=== PATIENT | male | born 1950 | race Caucasian/White ===

== ENCOUNTER 2016-12-27 14:17 | Outpatient (CLI) ==
[2015-07-07 15:14] VITALS: BMI 36.9
--- NOTE | 2016-12-27 15:50 | DI ---
EXAM: PA and lateral views of the chest HISTORY: Shortness of breath COMPARISON: Chest x-ray 10/15/2014 FINDINGS: The cardiomediastinal silhouette is normal. Multiple calcified lymph nodes are present. There is no pneumothorax or pleural effusion. There is no consolidation, nodule or mass. There is mild hyperinflation. The osseous structures demonstrate multilevel degenerative disease of the spin e with compression deformity in the lower thoracic spine. IMPRESSION: Mild hyperinflation with no acute consolidation. There are scattered mediastinal lymph nodes.
--- NOTE | 2016-12-27 15:52 | US ---
EXAM: ULTRASOUND CAROTID DUPLEX, BILATERAL HISTORY: Dizziness FINDINGS: Montejo-scale ultrasound, color Doppler and spectral analysis was performed. Velocities are in meters per second. By montejo scale and color Doppler imaging, there appears to be only minimal intimal thickening and sc attered atherosclerotic plaque in both carotid systems, including the bulbs and internal carotid art eries. RIGHT: External carotid artery peak systolic velocity: 1.8 Common carotid artery peak systolic velocity/end diastolic velocity: 0.8/0.1 Internal carotid artery peak systolic velocity: 0.8 ICA/CCA peak systolic velocity ratio: 1.0 ICA end diastolic velocity: 0.2 LEFT: External carotid artery peak systolic velocity: 1.2 Common carotid artery peak systolic velocity/end diastolic velocity: 0.7/0.2 Internal carotid artery peak systolic velocity: 0.8 ICA/CCA peak systolic velocity ratio: 1.1 ICA end diastolic velocity: 0.2 The right vertebral artery was not seen. The left vertebral artery was antegrade. IMPRESSION: 1. By montejo scale and color Doppler imaging, there appears to be only minimal intimal thickening and scattered atherosclerotic plaque in both carotid systems, including the bulbs and internal carotid arteries. 2. Internal carotid artery peak systolic velocities and ICA/CCA peak systolic velocity ratios indic ate no hemodynamically significant stenosis bilaterally. 3. The right vertebral artery was not seen possibly secondary to technical difficulty, small calibe r of the vessel or occlusion. The left vertebral artery was antegrade.
== END 2016-12-27 14:18 | disposition home or self-care (01) ==
LOC: RAD 14:17
PROVIDERS: ATTEND Internal Medicine
DX: R06.02 Shortness of breath (principal); R00.2 Palpitations; R42 Dizziness and giddiness

== ENCOUNTER 2016-12-28 06:35 | Outpatient (CLI) ==
[2015-07-07 15:14] VITALS: BMI 36.9
--- NOTE | 2016-12-31 10:48 | ECHO2D ---
Date of Exam: 12/28/16 Ordering Physician: LANNY VOGT Reason for Echo: SOB, A-FIB, PALPITATIONS M-Mode Normal Adult Results LV Dimensions Normal Adult Results AoV Opening excursions >1.6 1.2 LVEDD-base- 3.5-5.8 5.4 Ao root dimensions 2.0-3.7 4.4 LVESD-base- 3.1-4.6 L. Atrium dimensions 1.9-3.8 6.3 Post. Wall thickness 0.8-1.1 1.3 IV septum (thickness) 0.7-1.2 1.3 Post. Wall excursion 0.72-1.3 NORMAL Septal motion NORMAL Systolic motion R. Ventricular cavity 1.5-2.0 3.0 LVEF 60% 47% Paradoxical septal wall motion NORMAL 2-D : ENLARGED LEFT ATRIAL AND RIGHT VENTRICLE CAVITIES--NORMAL LEFT VENTRICULAR CONTRACTILITY--CALCIFIC AORTIC VALVE WITH STENOSIS--NO EFFUSION, NO THROMBUS DIFFICULT STUDY--BODY HABITUS M-MODE: MV: CALCIFIC ANNULUS AV: CALCIFIC VALVES--STENOSIS TV: NORMAL PV: CHAMBER SIZE: ENLARGED LEFT ATRIAL AND RIGHT VENTRICLE CAVITIES WALL MOTION: NORMAL PERICARDIUM: NORMAL INTERPRETATION: 1. LEFT VENTRICULAR HYPERTROPHY WITH ENLARGED LEFT ATRIAL CAVITY 2. NORMAL LEFT VENTRICLE CAVITY 3. ENLARGED RIGHT VENTRICLE CAVITY 4. CALCIFIC AORTIC STENOSIS--DIFFICULT TO DETERMINE THE AREA, SEEMS LIKE MODERATE TO SEVERE COMPLETE ECHO WITH DOPPLER TO BE ORDERED. DISCUSSED WITH PATIENT AND HIS . FELIX
== END 2016-12-28 06:36 | disposition home or self-care (01) ==
LOC: CAR 06:35
PROVIDERS: ATTEND Internal Medicine
DX: I48.91 Unspecified atrial fibrillation (principal); R06.02 Shortness of breath; R00.2 Palpitations

== ENCOUNTER 2016-12-31 06:31 | Outpatient (CLI) ==
[2015-07-07 15:14] VITALS: BMI 36.9
[2016-12-31] MEDS ORDERED: DOBUTAMINE 250 ML IV ONE (08:05)
[2016-12-31] MEDS ORDERED: ATROPINE SULFATE PFS ONE (08:05)
--- NOTE | 2016-12-31 11:17 | NM ---
Cardiac Stress Test HISTORY: Atrial fibrillation. COMPARISON: 03/30/2015. TECHNIQUE: Resting: The patient was injected with 4.03 millicuries of thallium 201 chloride intravenously aft er which a "resting" SPECT study of the heart was performed. Stress: The patient was stressed pharmacologically with dobutamine and at the appropriate time inje cted with 26.3 millicuries of 99m technetium Sestamibi (Cardiolite) after which a "stress" SPECT arielle dy of the heart was performed. Gated images of the heart were also obtained to assess wall motion an d calculate ejection fraction. For details of the stress protocol employed, reference is made to th e separate report of the performing physician. FINDINGS: The stress perfusion images demonstrate a generally uniform distribution of activity in t he left ventricular myocardium. The resting perfusion images demonstrate no evidence of significant redistribution/ischemia. The left ventricular ejection fraction (LVEF) is 67%. The previous ejection fraction was 62%. The left ventricular wall motion is within normal limits. IMPRESSION: 1. Left ventricular myocardial perfusion is within normal limits. 2. The left ventricular ejection fraction (LVEF) is 67%. The previous ejection fraction was 62%. 3. The left ventricular wall motion is within normal limits.
--- NOTE | 2017-01-01 11:28 | DOBSTECHO ---
Ordering Physician: LANNY VOGT Date of Test: 12/31/16 Reason for Examination: A-FIB, PALPITATIONS, SOB Current Medications: BUDESONIDE, SYNTHROID, CRESTOR, CARVEDILOL, COUMADIN, METFORMIN, FUROSEMIDE, CYMBALTA, ZETIA, FENOFIBRATE, GABAPENTIN Height: 78" Weight: 341 LBS Target Heart Rate: 130/154 ST Segment Stage Time HR BPM BP mmhg Rhythm +/- Up Down Comments/Symptoms Control Sitting 72 140/76 A-FIB X NONE Dobutamine 250mg/D5W 5cmg/KG/mn 2" 90 A-FIB X NONE 10cmg/KG/mn 3" 95 180/70 A-FIB X NONE 15cmg/KG/mn 1" 94 182/66 A-FIB X NONE 20cmg/KG/mn 2" 109 A-FIB X NONE 25cmg/KG/mn 2" 112 A-FIB X NONE 30cmg/KG/mn :54 131 A-FIB X NONE 35cmg/KG/mn 40cmg/KG/mn Time: 3 HR B/P Time: 7 HR B/P Time: 10 HR B/P Recovery 114 172/100 Recovery 94 146/84 Recovery 92 Total Time: 10:54 Maximum Heart Rate Reached: 131 Interpretation: 1. NO EVIDENCE OF ISCHEMIA BY ST-T WAVE 2. NO CHEST PAIN OR CHEST DISCOMFORT 3. LEFT VENTRICULAR CONTRACTILITY--NORMAL AT REST/AND WITH DOBUTAMINE INFUSION SESTAMIBI (CARDIOLITE) TO FOLLOW MTDD
--- NOTE | 2017-01-01 11:33 | ECHOSTRESS ---
Date of Exam: 12/31/16 Ordering Physician: LANNY VOGT Reason for Echo: SOB, A-FIB, PALPITATIONS, DOBUTAMINE STRESS TEST--NO ISCHEMIA M-Mode Normal Adult Results LV Dimensions Normal Adult Results AoV Opening excursions >1.6 LVEDD-base- 3.5-5.8 Ao root dimensions 2.0-3.7 LVESD-base- 3.1-4.6 L. Atrium dimensions 1.9-3.8 Post. Wall thickness 0.8-1.1 IV septum (thickness) 0.7-1.2 Post. Wall excursion 0.72-1.3 Septal motion Systolic motion R. Ventricular cavity 1.5-2.0 LVEF 60% Paradoxical septal wall motion 2-D: NORMAL LEFT VENTRICULAR CONTRACTILITY--RESTING AND DURING DOBUTAMINE INFUSION M-MODE: MV: AV: TV: PV: CHAMBER SIZE: WALL MOTION: NORMAL LEFT VENTRICULAR CONTRACTILITY--RESTING AND DURING DOBUTAMINE INFUSION PERICARDIUM: INTERPRETATION: 1. NORMAL LEFT VENTRICULAR CONTRACTILITY--RESTING AND DURING DOBUTAMINE INFUSION VERY DIFFICULT STUDY MTDD
--- NOTE | 2017-01-03 09:50 | HOLTER ---
PATIENT INFORMATION AND COMMENTS Indications: SOB, A-FIB, PALPITATIONS __ Patient Medications: ALBUTEROL, PULMICORT, SYNTHROID, OMEGA 3, CRESTOR, CARVEDILOL, COUMADIN, ASPIRIN, CILOSTAZ, METFORMIN, FUROSEMIDE, BUPROPLONEX, DICYCLOMINE __ Pre-procedure Summary: Protocol: Standard Heart Rate Started: 12/31/16957 Minimum: 40 BPM Weight: 340 LBS Ended: 01/01/17957 Maximum: 168 BPM Height: 78" Duration: 24 HOURS Average: 82 BPM _ INTERPRETATIONS/OBSERVATIONS: 1. BASIC RHYTHM: ATRIAL FIBRILLATION, RATE 40 TO 160/ BPM, AVERAGE 85/BPM 2. RARE PVC'S 3. THREE PAUSES GREATER THAN 2.5 SECONDS--LONGEST PAUSE 3.[address]-T WAVE CHANGES FROM BASELINE 5. ACTIVITY LOG NOT MAINTAINED MTDD
== END 2016-12-31 06:32 | disposition home or self-care (01) ==
LOC: CAR 06:31
PROVIDERS: ATTEND Internal Medicine
DX: R06.02 Shortness of breath (principal); I48.91 Unspecified atrial fibrillation; R00.2 Palpitations

== ENCOUNTER 2017-01-11 08:29 | Outpatient (CLI) ==
[2015-07-07 15:14] VITALS: BMI 36.9
--- NOTE | 2017-02-13 11:17 | CARDEVENT ---
SUMMARY OF EVENTS Date of Transmission 01/11/17921 ATRIAL FIB/FLUTTER 01/30/17 0156 ATRIAL FIB/FLUTTER WITH 2.7 SECOND PAUSE 01/30/17 0204 ATRIAL FIB/FLUTTER WITH 2.2 SECOND PAUSE INTERPRETATIONS: 1. BASIC RHYTHM--ATRIAL FIBRILLATION, RATE 40 BPM TO 150 BPM 2. LONGEST PAUSE 2.7 SECONDS AT 0156 A.M. --HEART RATE OF 40 BPM NOTED AT EARLY A.M. MTDD
== END 2017-01-11 08:30 | disposition home or self-care (01) ==
LOC: CAR 08:29
PROVIDERS: ATTEND Internal Medicine
DX: I48.91 Unspecified atrial fibrillation (principal)

== ENCOUNTER 2017-11-14 08:06 | Outpatient (CLI) ==
[2015-07-07 15:14] VITALS: BMI 36.9
--- NOTE | 2017-11-14 09:13 | US ---
EXAM: Ultrasound abdomen limited. HISTORY: Abdominal pain and bloating. COMPARISON: None available. TECHNIQUE: Abdominal, real time with image documentation: limited (eg, single organ, quadrant, foll ow-up) FINDINGS: The liver demonstrates increased parenchymal echogenicity without intrahepatic biliary dil atation. Portal venous flow is normal in direction. The gallbladder is without shadowing stones, wa ll thickening or pericholecystic fluid. Common duct measures approximately 0.3 cm. Pancreas is not seen due to bowel gas. IMPRESSION: Hyperechoic, coarsened hepatic echotexture which could be due to fatty infiltration or other infiltra tive process.
== END 2017-11-14 08:07 | disposition home or self-care (01) ==
LOC: RAD 08:06
PROVIDERS: ATTEND Internal Medicine
DX: R10.11 Right upper quadrant pain (principal)

== ENCOUNTER 2017-11-18 08:02 | Outpatient (CLI) ==
[2015-07-07 15:14] VITALS: BMI 36.9
--- NOTE | 2017-11-18 10:27 | NM ---
EXAM: Hepatobiliary imaging HISTORY: Right upper quadrant pain COMPARISON: Limited abdominal ultrasound on 11/14/2017 showed fatty liver. TECHNIQUE: Patient was injected 5.1 mCi of technetium 99m mebrofenin intravenously. Multiple anterio r scintigraphic images of the right upper quadrant region of the abdomen were obtained up to 1 hour i nterval. Patient was subsequently infused 2 mcg of Kinevac intravenously. Gallbladder ejection frac tion was calculated. FINDINGS: There is normal visualization of liver, gallbladder, bile duct and small bowel loops. Gall bladder ejection fraction is 61%. IMPRESSION: Normal study
== END 2017-11-18 08:03 | disposition home or self-care (01) ==
LOC: RAD 08:02
PROVIDERS: ATTEND Internal Medicine
DX: R10.11 Right upper quadrant pain (principal)

== ENCOUNTER 2018-01-07 08:59 | Outpatient (CLI) ==
[2015-07-07 15:14] VITALS: BMI 36.9
== END 2018-01-07 09:00 | disposition home or self-care (01) ==
LOC: CAR 08:59
PROVIDERS: ATTEND Internal Medicine
DX: G47.30 Sleep apnea, unspecified (principal)
CPT/HCPCS: 94761

== ENCOUNTER 2020-11-24 12:18 | Inpatient (IN) ==
[2020-11-24] MEDS ORDERED: VENTOLIN HFA (PER PUFF-WITH SPACER) IH ONE (13:17)
[2020-11-24] MEDS ORDERED: ATROVENT HFA INHALER (PER PUFF-WITH SPACER) IH STA (13:18)
[2020-11-24] MEDS ORDERED: SODIUM CHLORIDE 1,000 ML IV STA (13:24)
--- NOTE | 2020-11-24 13:33 | ED.PDOC ---
General ED Provider: Dr. LILY PALMA Chief Complaint: Fever Stated Complaint: Cough and congestion, dyspnea, hx throat cancer; has trach; hx COPD Recent dx of COVID Markedly congested and dyspneic at rest. Lives at home with his who also has positive COVID infection Time Seen by Physician: 12:45 Mode of Arrival: Wheelchair Information Source: Patient Primary Care Provider: LANNY VOGT Nursing and Triage Documentation Reviewed and Agree: Yes Does patient meet sepsis criteria?: No System Inflammatory Response Syndrome: Resp >20/Minute Sepsis Protocol: For patient's 13 years and over: Temp is 96.8 and below OR 101 and greater Pulse >90 BPM Resp >20/minute Acutely Altered Mental Status Are patient's symptoms suggestive of a new infection, such as: -Pneumonia -Skin, Soft Tissue -Endocarditis -UTI -Bone, Joint Infection -Implantable Device -Acute Abdominal Infection -Wound Infection -Meningitis -Blood Stream Catheter Infection -Unknown Respiratory Complaint Exam Shortness of Air Complaint/Exam Onset/Duration: Progressively worsened over past 24 hrs Symptoms Are: Worse Timing: Intermittent Initial Severity: Moderate Current Severity: Moderate Character: Reports Dyspnea at rest and Dyspnea on exertion Aggravating: Reports Deep breaths Alleviating: Reports None Associated Signs and Symptoms: Reports Cough and Wheezing History of Healthcare-Acquired Pneumonia: No Pulmonary Embolism Risk Factors: Reports Malignancy Pseudomonas Risk Factors: Reports None Tuberculosis Risk Factors: Reports None Home Oxygen Use: Yes Recent Stress Test: No Recent Echo/LV Function: No Respiratory Distress: Mild Stridor Present: No Tracheal Deviation: No Subcutaneous Emphysema: No Accessory Muscle Use: No Retractions: Not Present Diminished Breath Sounds: Yes Prolonged Expiratory Phase: No Unable to Speak Full Sentences: Yes Fatigue: Yes Leg Swelling: No Mesfin's Sign Present: No Grunting Respirations: No Kussmaul Respirations: No Differential Diagnoses: Pneumonia, Pulmonary Embolism and Bronchospasm Review of Systems Review Of Systems Constitutional: Reports Malaise, Weakness and Loss of appetite Eyes: Reports No symptoms Ears, Nose, Mouth, Throat: Reports No symptoms Respiratory: Reports Cough, Short of air and Wheezing Cardiac: Reports No symptoms GI: Reports Poor appetite : Reports No symptoms Musculoskeletal: Reports No symptoms Skin: Reports No symptoms Neurological: Reports No symptoms Endocrine: Reports No symptoms Hematologic/Lymphatic: Reports No symptoms All Other Systems: Reviewed and Negative [facility] Medical History (Updated 11/24/20 @ 17:53 by LILY PALMA DO) Chronic laryngitis Social History Smoking and tobacco status: Current every day smoker Physical Exam Physical Exam Appearance: Reports Ill-appearing Ill-appearing: Moderate Pain Distress: Mild Eyes: Reports ASHLEY, EOMI and Conjunctiva clear ENT: Reports Ears normal, Nose normal and Oropharynx normal Neck: Supple Respiratory: Reports Breath sounds diminished, Crackles and Wheezes Cardiovascular: Reports RRR, Pulses normal, No rub and No murmur GI/: Reports Soft, Nontender, No masses, Bowel sounds normal, No Organomegaly and Other (Has G tube) Musculoskeletal: Reports Normal strength, ROM intact, No edema and No calf tenderness Skin: Reports Warm, Dry and Normal color Neurological: Reports Sensation intact, Motor intact, Reflexes intact, Cranial nerves intact, Alert and Oriented Psychiatric: Reports Affect appropriate and Mood appropriate Interpretation Radiology Interpretation Exam Interpreted: CXR (mild infiltrate in the central and lower lung zones which are new since the prior study and may represent a degree of vascular congestion/interstitial edema or pneumonia) and CT Scan (Possible single right lower lobe subsegmental pulmonary embolus versus artifact. No other pulmonary arterial filling defect. 2. Patchy bilateral ground-glass opacities suggest multifocal pneumonia. Follow-up to resolution recommended. 3. Peribronchial thickening with multifocal likely mucus plug) Physician Notification Case Discussed Physician Notified: Dr Vogt-will admit MS /Covid Protocol/ Time of Notification: 16:00 Physician Notified: Dr Vogt-results CT PE Protocol; admit/ transfusion-Lovenox after transfusi Time of Notification: 17:30 Critical Care Note Critical Care Note Total Critical Care Time (mins): 60 Course Course Hematology/Chemistry: 11/24/20 13:12 11/24/20 13:12 Orders, Labs, Meds: Lab Review 11/24/20 11/24/20 11/24/20 12:43 13:12 13:12 WBC 2.38 L RBC 2.70 L Hgb 7.9 L Hct 24.0 L MCV 88.9 MCH 29.3 MCHC 32.9 RDW Coeff of Sumeet 19.4 H Plt Count 201 Immature Gran % (Auto) 0.4 Neut % (Auto) 74.4 Lymph % (Auto) 11.8 Stephenson % (Auto) 13.0 H Eos % (Auto) 0.4 Baso % (Auto) 0.0 Neut # (Auto) 1.8 L Lymph # (Auto) 0.3 L Stephenson # (Auto) 0.3 L Eos # (Auto) 0.0 Baso # (Auto) 0.0 Immature Gran # (Auto) 0.0 PT 11.5 H INR 1.08 APTT 28.2 Puncture Site Rrad Base Excess 7.0 H O2 Saturation 98.3 H ABG pH 7.48 H ABG pCO2 41.0 ABG pO2 102.0 H ABG HCO3 30.5 H ABG Total CO2 31.8 H Renzo Test + Hemoglobin 0.9 Oxyhemoglobin 96.4 Carboxyhemoglobin 2.3 H Total Hemoglobin 7.9 L O2 Delivery Device Trach mask Oxygen Liter Flow 10.00 Sodium Potassium Chloride Carbon Dioxide Anion Gap BUN Creatinine Estimated GFR (MDRD) BUN/Creatinine Ratio Glucose Lactic Acid Calcium Magnesium Total Bilirubin AST ALT Alkaline Phosphatase Total Creatine Kinase Troponin I Total Protein Albumin Globulin Albumin/Globulin Ratio Procalcitonin D-Dimer Blood Type Antibody Screen Crossmatch ([facility]) 11/24/20 11/24/20 11/24/20 13:12 13:12 13:12 WBC RBC Hgb Hct MCV MCH MCHC RDW Coeff of Sumeet Plt Count Immature Gran % (Auto) Neut % (Auto) Lymph % (Auto) Stephenson % (Auto) Eos % (Auto) Baso % (Auto) Neut # (Auto) Lymph # (Auto) Stephenson # (Auto) Eos # (Auto) Baso # (Auto) Immature Gran # (Auto) PT INR APTT Puncture Site Base Excess O2 Saturation ABG pH ABG pCO2 ABG pO2 ABG HCO3 ABG Total CO2 Renzo Test Hemoglobin Oxyhemoglobin Carboxyhemoglobin Total Hemoglobin O2 Delivery Device Oxygen Liter Flow Sodium 134.6 Potassium 4.20 Chloride 97.4 L Carbon Dioxide 31.0 H Anion Gap 10.40 BUN 17.5 Creatinine 0.54 L Estimated GFR (MDRD) 150.00 BUN/Creatinine Ratio 32.40 Glucose 99.9 Lactic Acid 0.78 Calcium 8.97 Magnesium 1.87 Total Bilirubin 0.69 AST 108.3 H ALT 100.6 H Alkaline Phosphatase 75.3 Total Creatine Kinase 25.9 L Troponin I < 0.012 Total Protein 7.02 Albumin 3.38 L Globulin 3.64 Albumin/Globulin Ratio 0.92 Procalcitonin < 0.05 D-Dimer Blood Type Antibody Screen Crossmatch ([facility]) 11/24/20 11/24/20 11/24/20 13:12 13:12 17:10 WBC RBC Hgb Hct MCV MCH MCHC RDW Coeff of Sumeet Plt Count Immature Gran % (Auto) Neut % (Auto) Lymph % (Auto) Stephenson % (Auto) Eos % (Auto) Baso % (Auto) Neut # (Auto) Lymph # (Auto) Stephenson # (Auto) Eos # (Auto) Baso # (Auto) Immature Gran # (Auto) PT INR APTT Puncture Site Base Excess O2 Saturation ABG pH ABG pCO2 ABG pO2 ABG HCO3 ABG Total CO2 Renzo Test Hemoglobin Oxyhemoglobin Carboxyhemoglobin Total Hemoglobin O2 Delivery Device Oxygen Liter Flow Sodium Potassium Chloride Carbon Dioxide Anion Gap BUN Creatinine Estimated GFR (MDRD) BUN/Creatinine Ratio Glucose Lactic Acid Calcium Magnesium Total Bilirubin AST ALT Alkaline Phosphatase Total Creatine Kinase Troponin I Total Protein Albumin Globulin Albumin/Globulin Ratio Procalcitonin D-Dimer 1266.21 H Blood Type O POSITIVE O POSITIVE Antibody Screen Negative Crossmatch ([facility]) See Detail Orders Category Date Time Status ABG DRAW REQUEST Stat CARDIO 11/24/20 12:43 Completed EKG-(ED ONLY) Stat CARDIO 11/24/20 12:44 Completed METERED DOSE INHALATION Routine CARDIO 11/24/20 13:17 Completed METERED DOSE INHALATION Routine CARDIO 11/24/20 13:18 Completed METERED DOSE INHALATION Routine CARDIO 11/24/20 17:08 Active OXYGEN Routine CARDIO 11/24/20 16:58 Active ACTIVITY .Complete BR CARE 11/24/20 17:00 Active CASE MANAGEMENT CONSULT ONCE CARE 11/24/20 17:20 Active INTAKE & OUTPUT Q8HR CARE 11/24/20 16:59 Active NPO REMINDER: IMAGING ONCE CARE 11/24/20 14:48 Active ORDER H&H 1HR POST TRANSFUSION ONCE CARE 11/24/20 16:51 Active PRBC LEUKOREDUCED ONCE CARE 11/24/20 16:51 Active IV [ED IV/MEDIPORT/POWERPORT] .ONCE EMERGENCY 11/24/20 12:44 Active ABG COOX Stat LAB 11/24/20 12:43 Completed BLOOD CULTURE (ED ONLY) Stat LAB 11/24/20 13:12 Received CBC W/ AUTO DIFF DAILY@0600 LAB 11/25/20 06:00 Ordered CBC W/ AUTO DIFF DAILY@0600 LAB 11/26/20 06:00 Ordered CBC W/ AUTO DIFF Stat LAB 11/24/20 13:12 Completed CMP [COMPREHENSIVE METABOLIC PANEL] Stat LAB 11/24/20 13:12 Completed COMPREHENSIVE METABOLIC PANEL DAILY@0600 LAB 11/25/20 06:00 Ordered COMPREHENSIVE METABOLIC PANEL DAILY@0600 LAB 11/26/20 06:00 Ordered CPK [CREATINE KINASE] Stat LAB 11/24/20 13:12 Completed D-DIMER Stat LAB 11/24/20 13:12 Completed LACTIC ACID Stat LAB 11/24/20 13:12 Completed MAGNESIUM Stat LAB 11/24/20 13:12 Completed PACKED CELLS Routine LAB 11/24/20 17:10 Results PARTIAL THROMBOPLASTIN TIME Stat LAB 11/24/20 13:12 Completed PROCALCITONIN Stat LAB 11/24/20 13:12 Completed PT WITH INR Stat LAB 11/24/20 13:12 Completed PT WITH INR Stat LAB 11/24/20 17:25 Ordered TROPONIN I Stat LAB 11/24/20 13:12 Completed TYPE AND SCREEN Routine LAB 11/24/20 17:10 Results UA [URINALYSIS C & S IF INDICATED] Stat LAB 11/24/20 12:44 Uncollected 0.9 % Sodium Chloride [Saline Flush] MEDS 11/24/20 12:43 Active 1 syr IVF PRN PRN Albuterol Inhaler(with Spacer) [Ventolin Hfa (Per Puff- MEDS 11/24/20 13:17 Discontinued with Spacer)] 2 puff IH ONCE ONE Albuterol Inhaler(with Spacer) [Ventolin Hfa (Per Puff- MEDS 11/24/20 21:00 Discontinued with Spacer)] 2 puff IH QID Albuterol Inhaler(with Spacer) [Ventolin Hfa (Per Puff- MEDS 11/24/20 20:00 Ordered with Spacer)] 2 puff IH RTQID Bupropion HCl [Wellbutrin Xl] MEDS 11/25/20 09:00 Ordered 300 mg PO QAM Carvedilol [Coreg] MEDS 11/25/20 08:30 Active 25 mg PO BIDWM Cholecalciferol (Vitamin D3) [Vitamin D] MEDS 11/24/20 17:30 Ordered 2,000 unit PO DAILY Dexamethasone Sod Phosphate [Decadron] MEDS 11/25/20 09:00 Discontinued 6 mg IVP DAILY Doxycycline Hyclate Inj [Doxy-100] 100 mg MEDS 11/24/20 21:00 Discontinued 0.9 % Sodium Chloride [Sodium Chloride] 100 ml IV Q12HR Duloxetine HCl [Cymbalta] MEDS 11/25/20 09:00 Ordered 60 mg PO DAILY Ezetimibe [Zetia] MEDS 11/25/20 09:00 Ordered 10 mg PO DAILY Ipratropium Inhaler(Spacer) [Atrovent Hfa Inhaler (Per MEDS 11/24/20 13:18 Discontinued Puff-with Spacer)] 2 puff IH ONCE STA Levothyroxine Sodium [Synthroid] MEDS 11/25/20 06:30 Ordered 75 mcg PO QDAC Potassium Chloride [Micro-K Cap] MEDS 11/25/20 09:00 Ordered 10 meq PO DAILY Remdesivir Solution [Remdesivir] 100 mg MEDS 11/25/20 09:00 Ordered 0.9 % Sodium Chloride [Sodium Chloride] 230 ml IV DAILY Remdesivir Solution [Remdesivir] 200 mg MEDS 11/24/20 17:03 Discontinued 0.9 % Sodium Chloride [Sodium Chloride] 210 ml IV ONCE Rosuvastatin Calcium [Crestor] MEDS 11/24/20 21:00 Ordered 20 mg PO BEDTIME Sodium Chloride 0.9% [Sodium Chloride] 1,000 ml MEDS 11/24/20 13:24 Active IV 70 mls/hr Sodium Chloride 0.9% [Sodium Chloride] 1,000 ml MEDS 11/25/20 09:00 Active IV DAILY Zinc Sulfate [Zinc-220] MEDS 11/24/20 21:00 Ordered 220 mg PO BID venlafaxine MEDS 11/24/20 21:00 Ordered 75 mg PO BID RESUSCITATION STATUS Routine OTHERS 11/24/20 16:58 Ordered CHEST, 1V AP ONLY Stat RADS 11/24/20 12:[address] CHEST PE PROTOCOL Stat RADS 11/24/20 14:48 Completed Medications Generic Name Dose Route Start Last Admin Trade Name Freq PRN Reason Stop Dose Admin Albuterol Sulfate 2 puff 11/24/20 20:00 Albuterol Sulfate (Ventolin Hfa) 18 Gm 1 Puff With Spacer IH RTQID BAY Bupropion HCl 300 mg 11/25/20 09:00 Bupropion Hcl 150 Mg Tab.Er.24h PO QAM BAY Carvedilol 25 mg 11/25/20 08:30 Carvedilol 12.5 Mg Tablet PO BIDWM BAY Cholecalciferol 2,000 unit 11/24/20 17:30 Cholecalciferol (Vitamin D3) 1,000 Unit Tablet PO DAILY BAY Dexamethasone Sodium Phosphate 6 mg 11/25/20 09:00 Dexamethasone Sod Phos 10 Mg/Ml Inj IVP DAILY BAY Duloxetine HCl 60 mg 11/25/20 09:00 Duloxetine Hcl 30 Mg Capsule.Dr PO DAILY BAY Ezetimibe 10 mg 11/25/20 09:00 Ezetimibe 10 Mg Tablet PO DAILY BAY Sodium Chloride 1,000 mls @ 70 mls/hr 11/24/20 13:24 11/24/20 12:35 Sodium Chloride IV 11/25/20 03:41 70 mls/hr .[id number] STA Administration Sodium Chloride 1,000 mls @ 125 mls/hr 11/25/20 09:[address] [facility] REMDESIVIR SOLUTION 100 mg/ 250 mls @ 250 mls/hr 11/25/20 09:00 Sodium Chloride IV DAILY BAY Doxycycline Hyclate 100 mg/ 100 mls @ 50 mls/hr 11/24/20 21:00 Sodium Chloride IV 11/27/20 20:59 Q12HR BAY Levothyroxine Sodium 75 mcg 11/25/20 06:30 Levothyroxine Sodium 100 Mcg Tablet PO QDAC BAY Non-Formulary Medication 75 mg 11/24/20 21:00 Venlafaxine PO BID BAY Potassium Chloride 10 meq 11/25/20 09:00 Potassium Chloride 10 Meq Capsule.Er PO DAILY BAY Rosuvastatin Calcium 20 mg 11/24/20 21:00 Rosuvastatin Calcium 10 Mg Tablet PO BEDTIME BAY Sodium Chloride 1 syr 11/24/20 12:43 11/24/20 12:35 0.9% Sodium Chloride 10 Ml Disp.Syrin IVF 1 syr PRN PRN Administration To flush IV Zinc Sulfate 220 mg 11/24/20 21:00 Zinc Sulfate 220 Mg Capsule PO BID BAY Discontinued Medications Generic Name Dose Route Start Last Admin Trade Name Freq PRN Reason Stop Dose Admin Albuterol Sulfate 2 puff 11/24/20 13:17 11/24/20 13:50 Albuterol Sulfate (Ventolin Hfa) 18 Gm 1 Puff With Spacer IH 11/24/20 13:18 2 puff ONCE ONE Administration Albuterol Sulfate 2 puff 11/24/20 21:00 Albuterol Sulfate (Ventolin Hfa) 18 Gm 1 Puff With Spacer IH QID BAY Dexamethasone Sodium Phosphate 6 mg 11/25/20 09:00 Dexamethasone Sod Phos 10 Mg/Ml Inj IVP DAILY BAY Doxycycline Hyclate 100 mg/ 100 mls @ 50 mls/hr 11/24/20 21:00 Sodium Chloride IV 11/27/20 20:59 Q12HR BAY REMDESIVIR SOLUTION 200 mg/ 250 mls @ 125 mls/hr 11/24/20 17:03 Sodium Chloride IV 11/24/20 19:02 ONCE ONE Ipratropium [place] 2 puff 11/24/20 13:18 11/24/20 13:50 Ipratropium [place] 12.9 Gm Hfa Inhaler Per Puff With Spacer IH 11/24/20 13:19 2 puff ONCE STA Administration Vital Signs: Temp Pulse Resp BP Pulse Ox 11/24/20 12:30 98.1 F 122 H 24 108/66 84 L Discharge Plan Discharge Patient Disposition: ADMITTED INPATIENT Discharge Problem: Bilateral interstitial pneumonia, COVID-19 virus infection, Anemia, Hx of laryngeal malignancy, Atrial fibrillation with RVR ED Provider: LILY PALMA Condition: Stable Physician Progress Note: []
[2020-11-24 13:41] LABS: EOSINOPHILS % (AUTO) 0.4 % (0.0-7.0); HEMOGLOBIN 7.9 g/dl (14.0-18.0); IMMATURE GRANULOCYTE % (AUTO) 0.4 % (0.0-5.0); LYMPHOCYTES % (AUTO) 11.8 (10.0-50.0); MEAN CORPUSCULAR HEMOGLOBIN 29.3 pg (27.0-31.0); MEAN CORPUSCULAR HGB CONC 32.9 (31.8-35.4); MEAN CORPUSCULAR VOLUME 88.9 fl (80.0-94.0); MONOCYTES # (AUTO) 0.3 K/uL (0.4-2.0); NEUTROPHILS # (AUTO) 1.8 K/ul (2.0-6.9); NEUTROPHILS % (AUTO) 74.4 % (42.2-75.2); PLATELET COUNT 201 10^3/uL (140-440); RDW COEFFICIENT OF VARIATION 19.4 % (11.6-14.8); WHITE BLOOD COUNT 2.38 K/ul (4.2-10.2)
--- NOTE | 2020-11-24 13:42 | DI ---
EXAM: CHEST FRONTAL VIEW HISTORY: Shortness of breath and congestion. COMPARISON: 08/15/2020 FINDINGS: Prominent heart size. There is a right port catheter in place ending over the superior ve na cava. Multiple hilar densities are noted suggesting calcified lymph nodes. There is mild infiltr ate in the central and lower lung zones which are new since the prior study and may represent a degre e of vascular congestion/interstitial edema or pneumonia. Correlate clinically. There is no pneumot horax or visible pleural fluid. IMPRESSION: There is mild infiltrate in the central and lower lung zones which are new since the asaf or study and may represent a degree of vascular congestion/interstitial edema or pneumonia. Correlat e clinically.
[2020-11-24 13:52] LABS: ALANINE AMINOTRANSFERASE 100.6 U/L (0-50); ALBUMIN 3.38 g/dL (3.5-5.0); ALKALINE PHOSPHATASE 75.3 U/L (56-119); ASPARTATE AMINO TRANSFERASE 108.3 U/L (17-59); BILIRUBIN,TOTAL 0.69 mg/dL (0.2-1.3); BLOOD UREA NITROGEN 17.5 mg/dL (9-20); CALCIUM 8.97 mg/dL (8.4-10.2); CHLORIDE 97.4 mmol/L (98-107); CREATINE KINASE 25.9 U/L (55-170); CREATININE 0.54 mg/dL (0.60-1.10); GLUCOSE 99.9 mg/dL (74-106); MAGNESIUM 1.87 mg/dL (1.6-2.3); SODIUM 134.6 mmol/L (134.5-145); TOTAL PROTEIN 7.02 g/dL (6.3-8.2)
[2020-11-24 13:58] LABS: LYMPHOCYTES # (AUTO) 0.3 K/uL (0.60-3.4)
[2020-11-24 14:03] LABS: TROPONIN I < 0.012 ng/ml (0.0000-0.120)
[2020-11-24 14:06] LABS: PARTIAL THROMBOPLASTIN TIME 28.2 SEC (23.9-40.0); PROTHROMBIN TIME 11.5 SEC (9.3-11.0)
[2020-11-24 14:13] LABS: ABG PH 7.48 (7.35-7.45)
--- NOTE | 2020-11-24 16:20 | CT ---
EXAM: CTA chest with contrast HISTORY: Shortness of breath, positive D-dimer TECHNIQUE: Multi-slice transaxial helical PE protocol. Multiplanar MIP and 3D volume rendered image s are provided. COMPARISON: None FINDINGS: Tracheostomy tube terminates above the shannon. Visualized thyroid is unremarkable. Enlarged right u pper paratracheal lymph node measures 1.6 cm short axis. Subcarinal lymph nodes measure up to 1.2 cm short axis. A few other mildly prominent nonenlarged mediastinal lymph nodes are present. Left hil ar lymph node measures 1.4 cm short axis. Bilateral hilar and subcarinal calcified lymph nodes/granu juan daniel, consistent with old granulomatous disease. Small hypodense filling defect versus artifact and subsegmental left lower lobe pulmonary artery (axial 84). The heart is enlarged. Small pericardial effusion. Normal diameter thoracic aorta. Scattered atherosclerotic calcifications throughout the a britany and coronary vasculature. Esophagus within normal limits. Patent central airways. Scattered moderate emphysematous changes. Bilateral lower lung peribronchia l thickening. Multifocal left greater than right lower lobe low-density bronchial filling defects. Dependent ground-glass opacities throughout the right lung. Nonspecific patchy bilateral ground-glas s opacities throughout the bilateral lungs with relative sparing of the left upper lobe. Mild linear subsegmental atelectasis in the lingular base. No pneumothorax or pleural effusion. No acute findings within the visualized upper abdomen. Percutaneous gastrostomy tube in the distal st omach. No acute osseous abnormality.Degenerative changes of the thoracic spine. Heterogeneous bone minerali zation throughout the thoracic spine without focal abnormality. IMPRESSION: 1. Possible single right lower lobe subsegmental pulmonary embolus versus artifact. No other pulmon elaina arterial filling defect. 2. Patchy bilateral ground-glass opacities suggest multifocal pneumonia. Follow-up to resolution re commended. 3. Peribronchial thickening with multifocal likely mucus plugging in the bilateral lower lobes sugge sting airways infection/inflammation. 4. Nonspecific mediastinal and left hilar lymphadenopathy. Considerations include both benign and m alignant etiologies. 5. Emphysema. 6. Old granulomatous disease. 7. Cardiomegaly.
[2020-11-24] MEDS ORDERED: REMDESIVIR 200 MG in SODIUM CHLORIDE 210 ML IV ONE (17:03)
[2020-11-24] MEDS: VENTOLIN HFA (PER PUFF-WITH SPACER) IH SCH (20:15)
[2020-11-24 20:52] VITALS: BMI 28.0
[2020-11-24] MEDS ORDERED: DOXY-100 100 MG in SODIUM CHLORIDE 100 ML IV SCH (21:00)
[2020-11-24] MEDS ORDERED: VENTOLIN HFA (PER PUFF-WITH SPACER) IH SCH (21:00)
[2020-11-24] MEDS: DOXY-100 100 MG in SODIUM CHLORIDE 100 ML IV SCH (21:40)
[2020-11-24] MEDS: CRESTOR PO SCH (21:41)
[2020-11-24] MEDS: ZINC-220 PO SCH (21:41)
[2020-11-24 22:22] LABS: BILIRUBIN,URINE Negative (NEGATIVE); CLARITY,URINE Clear (CLEAR); COLOR,URINE Yellow (YELLOW); GLUCOSE, URINE (UA) Negative (NEGATIVE); KETONES,URINE Negative (NEGATIVE); LEUKOCYTE ESTERASE ,URINE Negative (NEGATIVE); NITRITE,URINE Negative (NEGATIVE); PH,URINE 7.5 (5-9); PROTEIN,URINE Trace (NEGATIVE); URINE, BLOOD Negative (NEGATIVE)
[2020-11-24] MEDS ORDERED: COUMADIN PO STA (22:43)
[2020-11-24] MEDS: DECADRON IVP SCH (23:27)
[2020-11-25] MEDS ORDERED: LASIX IVP STA ×2 (03:37→08:24)
[2020-11-25] MEDS: VENTOLIN HFA (PER PUFF-WITH SPACER) IH SCH ×2 (04:40→10:09)
[2020-11-25] MEDS: VITAMIN D PO SCH ×2 (05:00→08:45)
[2020-11-25] MEDS: SYNTHROID PO SCH (06:15)
[2020-11-25] MEDS ORDERED: SYNTHROID PO SCH (06:30)
[2020-11-25] MEDS: DECADRON IVP SCH (08:38)
[2020-11-25] MEDS: MICRO-K CAP PO SCH (08:45)
[2020-11-25] MEDS: DOXY-100 100 MG in SODIUM CHLORIDE 100 ML IV SCH (08:45)
[2020-11-25] MEDS: EFFEXOR XR PO SCH (08:45)
[2020-11-25] MEDS: COREG PO SCH (08:46)
[2020-11-25] MEDS: WELLBUTRIN XL PO SCH (08:46)
[2020-11-25] MEDS: ZINC-220 PO SCH (08:46)
[2020-11-25] MEDS: ZETIA PO SCH (08:46)
[2020-11-25] MEDS: CYMBALTA PO SCH (08:46)
[2020-11-25] MEDS ORDERED: DECADRON IVP SCH ×2 (09:00)
[2020-11-25] MEDS ORDERED: SODIUM CHLORIDE 1,000 ML IV SCH (09:00)
[2020-11-25 09:31] LABS: IMMATURE GRANULOCYTE % (AUTO) 0.8 % (0.0-5.0); LYMPHOCYTES # (AUTO) 0.2 K/uL (0.60-3.4); LYMPHOCYTES % (AUTO) 18.8 (10.0-50.0); MEAN CORPUSCULAR HEMOGLOBIN 29.5 pg (27.0-31.0); MEAN CORPUSCULAR HGB CONC 33.3 (31.8-35.4); MEAN CORPUSCULAR VOLUME 88.5 fl (80.0-94.0); MONOCYTES # (AUTO) 0.1 K/uL (0.4-2.0); MONOCYTES % (AUTO) 9.4 (0-10); NEUTROPHILS # (AUTO) 0.9 K/ul (2.0-6.9); PLATELET COUNT 276 10^3/uL (140-440); RDW COEFFICIENT OF VARIATION 19.1 % (11.6-14.8); RED BLOOD COUNT 3.83 10^6/ul (4.70-6.10)
[2020-11-25 09:41] LABS: ALANINE AMINOTRANSFERASE 87.4 U/L (0-50); ALBUMIN 3.76 g/dL (3.5-5.0); ASPARTATE AMINO TRANSFERASE 83.9 U/L (17-59); BILIRUBIN,TOTAL 0.99 mg/dL (0.2-1.3); BLOOD UREA NITROGEN 15.6 mg/dL (9-20); CALCIUM 9.36 mg/dL (8.4-10.2); CARBON DIOXIDE 29.9 mmol/L (22-30.0); CREATININE 0.49 mg/dL (0.60-1.10); GLUCOSE 119.2 mg/dL (74-106); POTASSIUM 4.59 mmol/L (3.5-5.1); TOTAL PROTEIN 7.68 g/dL (6.3-8.2)
[2020-11-25 09:55] LABS: PROTHROMBIN TIME 10.6 SEC (9.3-11.0)
[2020-11-25 09:56] LABS: HEMOGLOBIN 11.3 g/dl (14.0-18.0); WHITE BLOOD COUNT 1.28 K/ul (4.2-10.2)
[2020-11-25 09:57] LABS: HEMATOCRIT 33.9 % (42.0-52.0)
[2020-11-25] MEDS ORDERED: REMDESIVIR 200 MG in SODIUM CHLORIDE 210 ML IV ONE (10:00)
[2020-11-25 10:07] LABS: TROPONIN I < 0.012 ng/ml (0.0000-0.120)
[2020-11-25] MEDS ORDERED: SODIUM CHLORIDE 1,000 ML IV ONE ×2 (17:00)
[2020-11-25] MEDS ORDERED: COUMADIN ONE ×2 (17:00→17:14)
[2020-11-25] MEDS ORDERED: LEVAQUIN 750 MG/150 ML D5W 750 MG/150 ML BAG IV ONE (17:00)
[2020-11-26] MEDS ORDERED: LEVAQUIN 750 MG/150 ML D5W 750 MG/150 ML BAG IV ONE (08:44)
[2020-11-26] MEDS ORDERED: LOVENOX ONE ×2 (08:44→20:55)
[2020-11-26] MEDS ORDERED: COUMADIN ONE (08:45)
[2020-11-26] MEDS ORDERED: SODIUM CHLORIDE 1,000 ML IV ONE (09:20)
[2020-11-27] MEDS ORDERED: SODIUM CHLORIDE 1,000 ML IV ONE ×2 (02:00→18:30)
[2020-11-27] MEDS ORDERED: LEVAQUIN 750 MG/150 ML D5W 750 MG/150 ML BAG IV ONE (10:18)
[2020-11-27] MEDS ORDERED: COUMADIN ONE ×2 (15:00→15:31)
[2020-11-27] MEDS ORDERED: LOVENOX ONE ×3 (15:31→20:40)
[2020-11-27] MEDS: COREG PO SCH ×3 (18:15→18:18)
[2020-11-27] MEDS: COUMADIN PO SCH ×3 (18:17→18:18)
[2020-11-27] MEDS: CRESTOR PO SCH ×2 (18:18→23:20)
[2020-11-27] MEDS: CYMBALTA PO SCH (18:19)
[2020-11-27] MEDS: SODIUM CHLORIDE 1,000 ML IV SCH ×2 (18:49→23:22)
[2020-11-27] MEDS: DOXY-100 100 MG in SODIUM CHLORIDE 100 ML IV SCH ×3 (18:50→23:21)
[2020-11-27] MEDS: VENTOLIN HFA (PER PUFF-WITH SPACER) IH SCH (18:50)
[2020-11-27] MEDS: ZINC-220 PO SCH ×3 (18:51→23:22)
[2020-11-27] MEDS: EFFEXOR XR PO SCH ×3 (18:51→23:21)
[2020-11-27] MEDS: SYNTHROID PO SCH (18:52)
[2020-11-27] MEDS: MICRO-K CAP PO SCH (18:52)
[2020-11-27] MEDS: DECADRON IVP SCH (18:53)
[2020-11-27] MEDS: WELLBUTRIN XL PO SCH (18:53)
[2020-11-27] MEDS: VITAMIN D PO SCH (18:53)
[2020-11-27] MEDS: REMDESIVIR 100 MG in SODIUM CHLORIDE 230 ML IV SCH (18:54)
[2020-11-27] MEDS: ZETIA PO SCH (18:54)
[2020-11-27 21:15] LABS: BLOOD UREA NITROGEN 21.3 mg/dL (9-20); CARBON DIOXIDE 30.4 mmol/L (22-30.0); CHLORIDE 100.3 mmol/L (98-107); CREATININE 0.51 mg/dL (0.60-1.10); POTASSIUM 4.37 mmol/L (3.5-5.1); SODIUM 135.5 mmol/L (134.5-145)
[2020-11-27 21:16] LABS: ALANINE AMINOTRANSFERASE 146.7 U/L (0-50); ALBUMIN 2.99 g/dL (3.5-5.0); ALKALINE PHOSPHATASE 77.8 U/L (56-119); ASPARTATE AMINO TRANSFERASE 187.8 U/L (17-59); BILIRUBIN,TOTAL 0.67 mg/dL (0.2-1.3); CALCIUM 8.68 mg/dL (8.4-10.2); GLUCOSE 104.4 mg/dL (74-106); TOTAL PROTEIN 6.23 g/dL (6.3-8.2)
[2020-11-27 21:17] LABS: PROTHROMBIN TIME 12.1 SEC (9.3-11.0)
[2020-11-27 21:22] LABS: HEMATOCRIT 27.4 % (42.0-52.0); HEMOGLOBIN 9.2 g/dl (14.0-18.0); MEAN CORPUSCULAR HEMOGLOBIN 29.4 pg (27.0-31.0); MEAN CORPUSCULAR HGB CONC 33.6 (31.8-35.4); MEAN CORPUSCULAR VOLUME 87.5 fl (80.0-94.0); RED BLOOD COUNT 3.13 10^6/ul (4.70-6.10); WHITE BLOOD COUNT 1.71 K/ul (4.2-10.2)
[2020-11-27 21:23] LABS: ANISOCYTOSIS NOT PRESENT (NOT PRESENT); PLATELET COUNT 263 10^3/uL (140-440); RDW COEFFICIENT OF VARIATION 18.8 % (11.6-14.8)
[2020-11-27 22:14] LABS: PROTHROMBIN TIME 12.1 SEC (9.3-11.0)
[2020-11-27 23:30] LABS: TROPONIN I < 0.012 ng/ml (0.0000-0.120)
[2020-11-28] MEDS: VENTOLIN HFA (PER PUFF-WITH SPACER) IH SCH ×6 (04:50→21:00)
[2020-11-28] MEDS: SYNTHROID PO SCH (05:52)
[2020-11-28 06:09] LABS: HEMATOCRIT 29.9 % (42.0-52.0); HEMOGLOBIN 10.1 g/dl (14.0-18.0); MEAN CORPUSCULAR HEMOGLOBIN 29.3 pg (27.0-31.0); MEAN CORPUSCULAR HGB CONC 33.8 (31.8-35.4); MEAN CORPUSCULAR VOLUME 86.7 fl (80.0-94.0); PLATELET COUNT 323 10^3/uL (140-440); RDW COEFFICIENT OF VARIATION 18.9 % (11.6-14.8); RED BLOOD COUNT 3.45 10^6/ul (4.70-6.10)
[2020-11-28 06:20] LABS: ALANINE AMINOTRANSFERASE 111.5 U/L (0-50); ALBUMIN 2.95 g/dL (3.5-5.0); ALKALINE PHOSPHATASE 80.6 U/L (56-119); ASPARTATE AMINO TRANSFERASE 73.8 U/L (17-59); BILIRUBIN,TOTAL 0.61 mg/dL (0.2-1.3); BLOOD UREA NITROGEN 15.3 mg/dL (9-20); CALCIUM 8.76 mg/dL (8.4-10.2); CARBON DIOXIDE 31.5 mmol/L (22-30.0); CHLORIDE 103.1 mmol/L (98-107); CREATININE 0.48 mg/dL (0.60-1.10); GLUCOSE 94.7 mg/dL (74-106); POTASSIUM 3.62 mmol/L (3.5-5.1); SODIUM 135.5 mmol/L (134.5-145); TOTAL PROTEIN 6.24 g/dL (6.3-8.2)
[2020-11-28 06:24] LABS: PROTHROMBIN TIME 13.9 SEC (9.3-11.0)
[2020-11-28 06:25] LABS: ANISOCYTOSIS NOT PRESENT (NOT PRESENT)
[2020-11-28 06:29] LABS: TROPONIN I < 0.012 ng/ml (0.0000-0.120)
[2020-11-28] MEDS: LEVAQUIN 750 MG/150 ML D5W 750 MG/150 ML BAG IV SCH (09:32)
[2020-11-28] MEDS: CYMBALTA PO SCH (09:54)
[2020-11-28] MEDS: VITAMIN D PO SCH (09:54)
[2020-11-28] MEDS: WELLBUTRIN XL PO SCH (09:54)
[2020-11-28] MEDS: MICRO-K CAP PO SCH (09:54)
[2020-11-28] MEDS: EFFEXOR XR PO SCH ×2 (09:54→21:52)
[2020-11-28] MEDS: LOVENOX SUBCUT SCH ×2 (09:55→21:52)
[2020-11-28] MEDS: COREG PO SCH ×2 (09:55→17:07)
[2020-11-28] MEDS: ZETIA PO SCH (09:55)
[2020-11-28] MEDS: ZINC-220 PO SCH ×2 (09:55→21:52)
[2020-11-28] MEDS: SODIUM CHLORIDE 1,000 ML IV SCH ×2 (09:56)
--- NOTE | 2020-11-28 11:11 | PN ---
DATE OF SERVICE: 11/25/2020 SUBJECTIVE: The patient was seen and examined this morning. 70 year old male hospitalized with COVID. This patient has mild pulmonary embolism with severe anemia requiring blood transfusion. The patient's hgb is now 10.7 with hct of 32, a lot better. I talked to the patient and he is feeling better. He has a tracheostomy, tube is in place. He is being fed through the tracheostomy off and on. He is going to be started on feeding tube. The patient's is supposed to call back with what kind of feeding tube formula is being given to him. REVIEW OF SYSTEMS: CONSTITUTIONAL: No night sweats. No fatigue, malaise, lethargy. No fever or chills. HEENT: Eyes: No visual changes. No eye pain. No eye discharge. ENT: No runny nose. No epistaxis. No sinus pain. No sore throat. No odynophagia. No congestion. RESPIRATORY: No cough, no congestion. No hemoptysis. No shortness of breath. CARDIOVASCULAR: No angina symptoms. No CHF symptoms. No atypical chest pain for CAD. No palpitations. No PND. No orthopnea. GASTROINTESTINAL: No abdominal pain. No nausea or vomiting. No diarrhea or constipation. No hematemesis. No hematochezia. GENITOURINARY: No urgency. No frequency. No dysuria. No hematuria. No obstructive symptoms. No discharge. No pain. No significant abnormal bleeding. MUSCULOSKELETAL: No musculoskeletal pain; no joint swelling. NEUROLOGICAL: No headache. No neck pain. No syncope. No seizures. No dizziness. PSYCHIATRIC: Not anxious. No depression. No suicidal thoughts. No homicidal thoughts. SKIN: No rash. No lesions. No wounds. ENDOCRINE: No unexplained weight loss. No weight gain. HEMATOLOGIC/LYMPHATIC: No anemia. No purpura. No petechiae. No prolonged or excessive bleeding. No palpable lymph nodes. PHYSICAL EXAMINATION: GENERAL: The patient is feeling a lot better. VITAL SIGNS: Oxygen saturation more than 92% with 2liters. Temperature 98.9, pulse 94, respiratory rate 22, blood pressure 120/80, pulse ox 100%. HEENT: Head normocephalic, atraumatic. Eyes: Extraocular muscles are intact. Pupils are equal, round and reactive to light and accommodation. Ears: No lesions. Nose appeared normal. Throat: No exudate or erythema. NECK: Supple. No JVD, no carotid bruit. No lymphadenopathy or thyromegaly. LUNGS: Decreased breath sounds but clear to auscultation. Percussion note normal. Chest symmetrical. HEART: S1, S2, no S3. No murmurs. No cyanosis or clubbing. No ascites. Pulses: Dorsalis pedis and posterior tibial pulses +1 to +2 bilaterally. ABDOMEN: Soft. Nontender. Bowel sounds active. No CVA tenderness. No mass felt. EXTREMITIES: No edema. Full range of motion of all extremities, equal. NEUROLOGIC: No focal deficit. Cranial nerves II through XII are grossly intact. No headache, no double vision or headache. SKIN: Not dry. Intact. Turgor - normal. LYMPHATIC: No palpable lymph nodes/no lymphedema. MUSCULOSKELETAL: Normal joints with no swelling. Muscle tone is normal. LABS: Hgb on admission was 7.9 with hct 24 which has gone up to more than 10 with hct of 32. ASSESSMENT: 1. COVID 19 status with bronchitis 2. Chronic lung disease with heavy smoking 3. Morbid obesity which the patient has lost a lot weight lately, now down to 240. He used to weigh more than 300. 4. C of the laryngis, tracheostomy and also feeding tube 5. Severe peripheral arterial disease 6. Atrial fibrillation. The patient's INR is very close to normal. He was given one extra dose. PLAN: 1. The patient is going to be given another extra dose a total of 10mg of Coumadin today 2. Lovenox will be started tomorrow if in case the INR doesn't go up tot he expected level. If GFR is normal. WBC is 2,300 down to 1,700 3. We will continue Remdesivir, Steroids 4. Advised the patient to breath through the tracheostomy 5. Frequent suctioning instruction given to the respiratory therapist CONDITION: Stable. TIME SPENT: More than 30 minutes. Plan and coordination of the patient's care discussed in the presence of nurse. FELIX
[2020-11-28 11:22] LABS: ABG PH 7.49 (7.35-7.45)
[2020-11-28] MEDS: REMDESIVIR 100 MG in SODIUM CHLORIDE 230 ML IV SCH (12:22)
[2020-11-28 13:44] LABS: C-REACTIVE PROTEIN 75
[2020-11-28] MEDS: DECADRON IVP SCH (13:58)
--- NOTE | 2020-11-28 13:58 | PN ---
DATE OF SERVICE: 11/24/20 SUBJECTIVE: The patient was hospitalized through the emergency room as he was brought by . The also had come with the patient as she also has Covid. The patient now has Covid positive, has laryngeal carcinoma and has tracheostomy. Besides that he has severe peripheral arterial disease, restrictive lung disease, morbid obesity, coronary artery disease, chronic lung disease with history of heavy smoking. The patient's arterial blood gases are acceptable with p02 in 80s with saturation more than 95%. Normal pH. His problems are weakness, fatigue and shortness of breath. The patient's hemoglobin is around 7. He is definitely short of breath and has symptomatic anemia. PHYSICAL EXAMINATION: HEENT: Head normocephalic, atraumatic. Eyes: Extraocular muscles are intact. Pupils are equal, round and reactive to light and accommodation. Ears: No lesions. Nose appeared normal. Throat: No exudate or erythema. NECK: Supple. No JVD, no carotid bruit. No lymphadenopathy or thyromegaly. LUNGS: Decreased breath sounds. Clear to auscultation. Percussion note normal. Chest symmetrical. HEART: S1, S2, no S3. No murmurs. No cyanosis or clubbing. No ascites. Pulses: Dorsalis pedis and posterior tibial pulses +1 to +2 bilaterally. ABDOMEN: Soft. Nontender. Bowel sounds active. No CVA tenderness. No mass felt. EXTREMITIES: No edema. Full range of motion of all extremities, equal. NEUROLOGIC: No focal deficit. Cranial nerves II through XII are grossly intact. No headache, no double vision or headache. SKIN: Not dry. Intact. Turgor - normal. LYMPHATIC: No palpable lymph nodes/no lymphedema. MUSCULOSKELETAL: Normal joints with no swelling. Muscle tone is normal. ASSESSMENT: 1. COVID-19 infection with bronchitis type of symptoms. 2. Laryngeal carcinoma with tracheostomy. 3. Severe chronic lung disease with history of heavy smoking. 4. Severe peripheral arterial disease. 5. Atrial fibrillation. PLAN: 1. Continue Coumadin. Gave extra dose of Coumadin today because INR is 1.09. 2. The patient is on Remdesivir. 3. Also will start the patient on Dexamethasone. 4. The patient is going to be on Doxycycline 100 mg b.i.d. 5. Type and crossmatch 2 units and will transfuse him in 2 units. 6. No evidence of active GI bleed. 7. With blood transfusion, the patient will undergo CRP, Ferritin level, LDH and D. dimer. The patient's D. dimer was elevated. 8. The CT angiogram showed possibility of small embolus and is not to be too aggressive for anticoagulation until we improve the level of hemoglobin/hematocrit. 9. After that, will aggressively try to get INR up; until then we may give him Lovenox. An extra dose of Coumadin given today. 10. Monitor INR. The patient's prognosis is guarded. The patient is DNR. TIME SPENT: More than 30 minutes. Plan and coordination of the patient's care discussed in the presence of nurse. FELIX
--- NOTE | 2020-11-28 14:19 | PN ---
DATE OF SERVICE: 11/26/20 SUBJECTIVE: 70-year-old white male was brought to the emergency room by the family because of the patient's weakness and poor appetite. The patient in the emergency room had a Covid test which was negative. He was put on the regular floor with diagnosis of renal failure, dehydration. BUN was 50 with creatinine of 1.9. The patient has multiple medical problems. This patient has dementia, which has been worsening. He has been difficult to take care of him at home by his . Besides that, the patient has severe chronic lung disease, severe reflux disease with recurrent esophatitis from reflux. He also has coronary artery disease, congestive heart failure, peripheral vascular disease. PLAN: 1. Admit the patient. 2. IV fluids. 3. Low hydration with the patient's severe hypertension with blood pressure of 220. Add Vasotec 1.25 q.6 for systolic blood pressure 150. Clonidine 0.1 mg t.i.d. p.r.n. for systolic blood pressure 150. 4. Continue the rest of the medications. 5. Telemetry. 6. The patient is DNR. TIME SPENT: More than 30 minutes. Plan and coordination of the patient's care discussed in the presence of nurse. FELIX
[2020-11-28] MEDS ORDERED: COUMADIN PO ONE (17:00)
[2020-11-28] MEDS: COUMADIN PO SCH (17:07)
[2020-11-28] MEDS: CRESTOR PO SCH (21:52)
[2020-11-28] MEDS: SYMBICORT 160-4.5 MCG INHALER IH SCH (22:13)
[2020-11-29] MEDS: SODIUM CHLORIDE 1,000 ML IV SCH ×2 (01:35→17:59)
[2020-11-29 03:09] LABS: C-REACTIVE PROTEIN 31 mg/L (0-10)
[2020-11-29] MEDS: VENTOLIN HFA (PER PUFF-WITH SPACER) IH SCH ×4 (05:00→20:00)
[2020-11-29] MEDS: SYNTHROID PO SCH (06:04)
[2020-11-29] MEDS ORDERED: TYLENOL PO PRN (06:27)
[2020-11-29 06:28] LABS: HEMATOCRIT 31.8 % (42.0-52.0); HEMOGLOBIN 10.7 g/dl (14.0-18.0); MEAN CORPUSCULAR HEMOGLOBIN 29.6 pg (27.0-31.0); MEAN CORPUSCULAR HGB CONC 33.6 (31.8-35.4); MEAN CORPUSCULAR VOLUME 88.1 fl (80.0-94.0); PLATELET COUNT 342 10^3/uL (140-440); RDW COEFFICIENT OF VARIATION 19.2 % (11.6-14.8); RED BLOOD COUNT 3.61 10^6/ul (4.70-6.10); WHITE BLOOD COUNT 2.84 K/ul (4.2-10.2)
[2020-11-29 06:43] LABS: ALANINE AMINOTRANSFERASE 81.8 U/L (0-50); ALBUMIN 2.92 g/dL (3.5-5.0); ALKALINE PHOSPHATASE 82.4 U/L (56-119); ANISOCYTOSIS NOT PRESENT (NOT PRESENT); ASPARTATE AMINO TRANSFERASE 51.8 U/L (17-59); BILIRUBIN,TOTAL 0.62 mg/dL (0.2-1.3); BLOOD UREA NITROGEN 16.9 mg/dL (9-20); CALCIUM 8.7 mg/dL (8.4-10.2); CHLORIDE 101.7 mmol/L (98-107); CREATININE 0.58 mg/dL (0.60-1.10); GLUCOSE 119.8 mg/dL (74-106); POTASSIUM 3.82 mmol/L (3.5-5.1); SODIUM 135.2 mmol/L (134.5-145); TOTAL PROTEIN 6.13 g/dL (6.3-8.2)
[2020-11-29 06:49] LABS: PROTHROMBIN TIME 23.2 SEC (9.3-11.0)
--- NOTE | 2020-11-29 08:47 | HP ---
DATE OF SERVICE: 11/24/20 HISTORY OF PRESENT ILLNESS: This is a 70-year-old white male who is Covid positive. His is also Covid positive. He is brought to the ER with weakness, fever, cough, congestion and shortness of breath. 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 PAST MEDICAL HISTORY: Positive Covid-19 tested on 11/21 Subglottic mass, Carcinoma 5 x 5 x 3.[address] Araujo along with Dr. Amezquita Tracheostomy and Port placement all done in September of 2020 Chronic hoarseness Cervical and paracervical lymphadenopathy Pulmonary nodule in the right upper lobe, 8 mm Right angioplasty in April of 2020 Abdominal aortic aneurysm repair, May of [address] Jones Chronic bronchitis COPD History of carcinoma of the sigmoid colon removed by Dr. Christopher that was in May of 2020 Diabetes mellitus Type 2 PUD Dyslipidemia Atrial fibrillation Persistent atrial fibrillation on Coumadin PAD Obesity Obstructive sleep apnea Coronary artery disease B12 deficiency Metabolic syndrome COPD Hypothyroidism Fatty liver Bilateral knee osteoarthritis History of renal artery stenosis History of noncompliance of diet, lifestyle and medications Former smoker PAST SURGICAL HISTORY: Removal part of the sigmoid colon by Dr. Christopher in May of 2020 Triple A repair, May of 2020 Right angioplasty, April 2020 Tracheostomy, September 2020 Last colonoscopy was by Dr. Rodriges in July of 2020 REVIEW OF SYSTEMS: CONSTITUTIONAL: Positive for fever and weakness. No night sweats. No fatigue, malaise, lethargy. No chills. HEENT: Eyes: No visual changes. No eye pain. No eye discharge. ENT: No runny nose. No epistaxis. No sinus pain. No sore throat. No odynophagia. No ear pain. No congestion. RESPIRATORY: Positive for cough. No hemoptysis. CARDIOVASCULAR: Positive for shortness of breath. No angina symptoms. No CHF symptoms. No atypical chest pain for CAD. No palpitations. No PND. No orthopnea. GASTROINTESTINAL: No abdominal pain. No nausea or vomiting. No diarrhea or constipation. No hematemesis. No hematochezia. GENITOURINARY: No urgency. No frequency. No dysuria. No hematuria. No obstructive symptoms. No discharge. No pain. No significant abnormal bleeding. MUSCULOSKELETAL: No musculoskeletal pain. No joint swelling. No arthritis. NEUROLOGICAL: No headache. No neck pain. No syncope. No seizures. No dizziness. PSYCHIATRIC: Not anxious. No depression. No suicidal thoughts. No homicidal thoughts. SKIN: No rash. No lesions. No wounds. ENDOCRINE: No unexplained weight loss. No weight gain. HEMATOLOGIC/LYMPHATIC: No anemia. No purpura. No petechiae. No prolonged or excessive bleeding. No palpable lymph nodes. PERSONAL/FAMILY/SOCIAL HISTORY: The patient is a former smoker. No alcohol or illicit drug use. He lives at home with his . MEDICATIONS: Cilostazol 100 mg p.o. b.i.d. Gabapentin 300 mg p.o. bedtime Rosuvastatin 20 mg p.o. bedtime Duloxetine 60 mg p.o. daily Dicyclomine 20 mg p.o. b.i.d. Aspirin 81 mg p.o. daily with meal Budesonide 0.25 mg/2 mL suspension for nebulization Albuterol Sulfate INH q.i.d. p.r.n. Coumadin 5 mg p.o. every other day Synthroid 75 mcg p.o. q.d a.c. Zetia 10 mg p.o. daily Potassium Chloride 10 mEq p.o. daily Metformin 500 mg p.o. daily with meal Furosemide 20 mg p.o. q.d.a.c. Budesonide-Formoterol two puff INH b.i.d. Bupropion - Wellbutrin 300 mg p.o. q.a.m. Venlafaxine 75 mg p.o. b.i.d. Carvedilol 25 mg p.o. b.i.d. with meal ALLERGIES: CEPHALOSPORINS PHYSICAL EXAMINATION: GENERAL: Alert and oriented, pale, weak. VITAL SIGNS: Temperature 98.1, heart rate 122, respirations 24, blood pressure 108/66, pulse ox 84% on room air. HEENT: Head normocephalic, atraumatic. Eyes: Extraocular muscles are intact. Pupils are equal, round and reactive to light and accommodation. Ears: No lesions. Nose appeared normal. Throat: No exudate or erythema. NECK: Supple. No JVD, no carotid bruit. No lymphadenopathy or thyromegaly. LUNGS: Diminished breath sounds bilaterally. Clear to auscultation. Percussion note normal. Chest symmetrical. HEART: S1, S2, no S3. No murmur. No cyanosis or clubbing. No ascites. Pulses: Dorsalis pedis and posterior tibial pulses +1 to +2 bilaterally. ABDOMEN: Soft. Nontender. Bowel sounds active. No CVA tenderness. No mass felt. EXTREMITIES: No edema. Full range of motion of all extremities, equal. NEUROLOGIC: No focal deficit. Cranial nerves II through XII are grossly intact. No headache, no double vision or headache. SKIN: Not dry. Intact. Turgor - normal. LYMPHATIC: No palpable lymph nodes/no lymphedema. MUSCULOSKELETAL: Normal joints with no swelling. Muscle tone is normal. LABS/ABG'S/IMAGING: White count 2.38, hemoglobin 7.9, hematocrit 24, platelets 201. Sodium 134, potassium 4.2, BUN 17, creatinine 0.54, chloride 97, c02 31, glucose 99. INR 1.08. ABGs - he is receiving oxygen at 10L of flow through a trach mask. 02 sat was 98, pH 7.48, pc02 41, p02 102, bicarb 30.5. AST 108, ALT 100.6, alkaline phosphatase 75, total CK 25, troponin less than 0.012. D. dimer is 1,266. Chest x-ray shows mild infiltrate in the central and lower lung zones which are new, may represent vascular congestion vs interstitial edema or pneumonia. CTA was done due to elevated D. dimer and shortness of breath. Impression shows a possible single right lower lobe subsegmental pulmonary embolus vs artifact, patchy bilateral ground glass opacities suggest multifocal pneumonia, peribronchial thickening with multifocal mucus plugging in the bilateral lower lobes, nonspecific mediastinal and left hilar lymphadenopathy, cardiomegaly. ASSESSMENT: 1. BILATERAL PNEUMONIA, POSITIVE COVID-19 2. 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 ATRIAL FIBRILLATION ON COUMADIN 5. POSSIBLE PE PER CTA PLAN: 1. We will admit to [facility], Covid isolation. 2. Routine telemetry orders. 3. CBC, CMP daily. 4. INR daily. 5. Given an additional 10 mg of Coumadin daily until INR between 2 to 3. 6. Zinc Sulfate 220 mg p.o. daily. 7. Pepcid 20 mg p.o. b.i.d. 8. Dexamethasone 6 mg IM daily. 9. Vitamin D 5000 units daily. 10. Continue other home medications. 11. Continue pulse ox. 12. Oxygen as needed to keep sat greater than 90%. 13. Levaquin 750 mg IV daily. 14. NS IV at 75 cc/hr. 15. Continue diet as has been tolerated. 16. We will notify Dr. Amezquita and radiology that he is hospitalized. 17. Serum LDH, Ferritin, D. dimer, Interleuken 6, CRP daily. 18. Start Remdesivir and give as directed. 19. Will follow closely. TIME SPENT: More than 70 minutes. MTDD
[2020-11-29] MEDS ORDERED: VITAMIN D PO SCH ×2 (09:00)
[2020-11-29] MEDS: PEPCID PO SCH ×2 (09:47→17:28)
[2020-11-29] MEDS: WELLBUTRIN XL PO SCH (09:47)
[2020-11-29] MEDS: LEVAQUIN 750 MG/150 ML D5W 750 MG/150 ML BAG IV SCH (09:47)
[2020-11-29] MEDS: ZETIA PO SCH (09:47)
[2020-11-29] MEDS: VITAMIN D PO SCH (09:48)
[2020-11-29] MEDS: EFFEXOR XR PO SCH ×2 (09:48→21:22)
[2020-11-29] MEDS: MICRO-K CAP PO SCH (09:49)
[2020-11-29] MEDS: CYMBALTA PO SCH (09:49)
[2020-11-29] MEDS: COREG PO SCH ×2 (09:49→17:28)
[2020-11-29] MEDS: ZINC-220 PO SCH (09:49)
[2020-11-29] MEDS: GLUCOPHAGE PO SCH (09:49)
[2020-11-29] MEDS: SYMBICORT 160-4.5 MCG INHALER IH SCH ×2 (09:50→21:22)
[2020-11-29] MEDS: DECADRON IVP SCH (10:12)
[2020-11-29 11:51] LABS: CARBON DIOXIDE 28.9 mmol/L (22-30.0)
[2020-11-29] MEDS: REMDESIVIR 100 MG in SODIUM CHLORIDE 230 ML IV SCH (12:15)
--- NOTE | 2020-11-29 13:03 | PN ---
DATE OF SERVICE: 11/28/2020 SUBJECTIVE: The patient is in the intensive care unit with COVID bronchitis. The patient's condition has improved. Secretions has lessened. He is being fed through NG tube. He wants to go for radiation,today was the last dose. Remdesivir will finish it and let him go tomorrow to his radiation. We will call the specialist because he won't be able to make it today. REVIEW OF SYSTEMS: CONSTITUTIONAL: No night sweats. No fatigue, malaise, lethargy. No fever or chills. HEENT: Eyes: No visual changes. No eye pain. No eye discharge. ENT: No runny nose. No epistaxis. No sinus pain. No sore throat. No odynophagia. No congestion. RESPIRATORY: No cough, no congestion. No hemoptysis. No shortness of breath. CARDIOVASCULAR: No angina symptoms. No CHF symptoms. No atypical chest pain for CAD. No palpitations. No PND. No orthopnea. GASTROINTESTINAL: No abdominal pain. No nausea or vomiting. No diarrhea or constipation. No hematemesis. No hematochezia. GENITOURINARY: No urgency. No frequency. No dysuria. No hematuria. No obstructive symptoms. No discharge. No pain. No significant abnormal bleeding. MUSCULOSKELETAL: No musculoskeletal pain; no joint swelling. NEUROLOGICAL: No headache. No neck pain. No syncope. No seizures. No dizziness. PSYCHIATRIC: Not anxious. No depression. No suicidal thoughts. No homicidal thoughts. SKIN: No rash. No lesions. No wounds. ENDOCRINE: No unexplained weight loss. No weight gain. HEMATOLOGIC/LYMPHATIC: No anemia. No purpura. No petechiae. No prolonged or excessive bleeding. No palpable lymph nodes. PHYSICAL EXAMINATION: HEENT: Head normocephalic, atraumatic. Eyes: Extraocular muscles are intact. Pupils are equal, round and reactive to light and accommodation. Ears: No lesions. Nose appeared normal. Throat: No exudate or erythema. NECK: Supple. No JVD, no carotid bruit. No lymphadenopathy or thyromegaly. LUNGS:Decreased breath sounds but clear to auscultation. Percussion note normal. Chest symmetrical. HEART: S1, S2, no S3. No murmurs. No cyanosis or clubbing. No ascites. Pulses: Dorsalis pedis and posterior tibial pulses +1 to +2 bilaterally. ABDOMEN: Soft. Nontender. Bowel sounds active. No CVA tenderness. No mass felt. EXTREMITIES: No edema. Full range of motion of all extremities, equal. NEUROLOGIC: No focal deficit. Cranial nerves II through XII are grossly intact. No headache, no double vision or headache. SKIN: Not dry. Intact. Turgor - normal. LYMPHATIC: No palpable lymph nodes/no lymphedema. MUSCULOSKELETAL: Normal joints with no swelling. Muscle tone is normal. ASSESSMENT: 1. COVID bronchitis seems to be resolving 2. History of heavy smoking with severe COPD 3. C of the larynges, status post surgery, the patient had tracheostomy placement 4. Severe peripheral arterial disease 5. Dyslipidemia 6. Massive obesity PLAN: 1. Continue Remdesivir 2. Continue Dexamethasone 3. Continue to encourage the patient to be up and about. 4. The patient's secretions have decreased. Liquified and very easy to get them out. Feeling better and his orientation has increased. He is not as sleepy as he was when he came in. CONDITION: Improving. TIME SPENT: More than 30 minutes. Plan and coordination of the patient's care discussed in the presence of nurse. FELIX
--- NOTE | 2020-11-29 13:35 | DI ---
EXAM: Chest one view HISTORY: Fever COMPARISON: 11/24/2020 TECHNIQUE: Single view of the chest was performed FINDINGS: Similar right chest port. Rightward rotation limits evaluation of the heart and mediastina l contour. The heart is enlarged. Heterogeneous consolidation throughout the right mid and basilar l alem. Clear left lung. No pneumothorax. No acute osseous abnormality. IMPRESSION: Heterogeneous consolidation in the right mid and basilar lung. Differential considerati ons include artifact from rotation, atelectasis, pneumonia and/or neoplasm. CT chest with IV contras t recommended for further evaluation.
[2020-11-29] MEDS: COUMADIN PO SCH (17:29)
[2020-11-29] MEDS: CRESTOR PO SCH (21:22)
[2020-11-30 04:10] LABS: C-REACTIVE PROTEIN 72 mg/L (0-10)
[2020-11-30] MEDS: VENTOLIN HFA (PER PUFF-WITH SPACER) IH SCH ×4 (05:00→19:35)
[2020-11-30] MEDS: PEPCID PO SCH ×2 (05:44→17:13)
[2020-11-30] MEDS: SYNTHROID PO SCH (05:44)
[2020-11-30 05:53] LABS: HEMATOCRIT 28.3 % (42.0-52.0); HEMOGLOBIN 9.5 g/dl (14.0-18.0); MEAN CORPUSCULAR HEMOGLOBIN 29.6 pg (27.0-31.0); MEAN CORPUSCULAR HGB CONC 33.6 (31.8-35.4); MEAN CORPUSCULAR VOLUME 88.2 fl (80.0-94.0); PLATELET COUNT 283 10^3/uL (140-440); RDW COEFFICIENT OF VARIATION 19.4 % (11.6-14.8); RED BLOOD COUNT 3.21 10^6/ul (4.70-6.10)
[2020-11-30 05:56] LABS: ALANINE AMINOTRANSFERASE 60.3 U/L (0-50); ALBUMIN 2.6 g/dL (3.5-5.0); ALKALINE PHOSPHATASE 71.3 U/L (56-119); ASPARTATE AMINO TRANSFERASE 41.9 U/L (17-59); BILIRUBIN,TOTAL 0.59 mg/dL (0.2-1.3); BLOOD UREA NITROGEN 17.9 mg/dL (9-20); CALCIUM 8.32 mg/dL (8.4-10.2); CHLORIDE 102.8 mmol/L (98-107); CREATININE 0.58 mg/dL (0.60-1.10); GLUCOSE 133.5 mg/dL (74-106); POTASSIUM 3.78 mmol/L (3.5-5.1); TOTAL PROTEIN 5.67 g/dL (6.3-8.2)
[2020-11-30 05:58] LABS: WHITE BLOOD COUNT 1.93 K/ul (4.2-10.2)
[2020-11-30 05:59] LABS: ANISOCYTOSIS NOT PRESENT (NOT PRESENT)
[2020-11-30 06:00] LABS: PROTHROMBIN TIME 20.8 SEC (9.3-11.0)
[2020-11-30] MEDS: SODIUM CHLORIDE 1,000 ML IV SCH ×2 (07:13→09:01)
[2020-11-30] MEDS: ZETIA PO SCH (09:02)
[2020-11-30] MEDS: LEVAQUIN 750 MG/150 ML D5W 750 MG/150 ML BAG IV SCH (09:02)
[2020-11-30] MEDS: WELLBUTRIN XL PO SCH (09:02)
[2020-11-30] MEDS: ZINC-220 PO SCH (09:03)
[2020-11-30] MEDS: CYMBALTA PO SCH (09:03)
[2020-11-30] MEDS: GLUCOPHAGE PO SCH (09:03)
[2020-11-30] MEDS: COREG PO SCH ×2 (09:03→17:13)
[2020-11-30] MEDS: EFFEXOR XR PO SCH ×2 (09:03→20:08)
[2020-11-30] MEDS: VITAMIN D PO SCH (09:03)
[2020-11-30] MEDS: MICRO-K CAP PO SCH (09:04)
[2020-11-30] MEDS: SYMBICORT 160-4.5 MCG INHALER IH SCH ×2 (09:04→20:09)
--- NOTE | 2020-11-30 09:33 | PCM.PROG ---
Attending Provider: ATTENDING PROVIDER: Dr. LANNY VOGT This patient is seen with Erica Cornejo, Nurse Practitioner. DATE OF SERVICE: 11/30/20 SUBJECTIVE: This 70 year old /WHITE M was hospitalized 11/24/20. The patient is resting comfortably. He is feeling well. Only had fever once yesterday and was resolved with Tylenol. Hgb has been between 9 and 10 and down to 9 today. He has been up to the bathroom easily however has not been walking much. REVIEW OF SYSTEMS: CONSTITUTIONAL: No night sweats. No fatigue, malaise, lethargy. No fever or chills. Weakness. HEENT: Eyes: No visual changes. No eye pain. No eye discharge. ENT: No runny nose. No epistaxis. No sinus pain. No odynophagia. No congestion. RESPIRATORY: No cough, no congestion. No hemoptysis. Shortness of breath. CARDIOVASCULAR: No angina symptoms. No CHF symptoms. No atypical chest pain for CAD. No palpitations. No orthopnea.. GASTROINTESTINAL: No abdominal pain. No nausea or vomiting. No diarrhea or constipation. No hematemesis. No hematochezia. GENITOURINARY: No urgency. No frequency. No dysuria. No hematuria. No obstructive symptoms. No discharge. No pain. No significant abnormal bleeding. MUSCULOSKELETAL: No musculoskeletal pain; no joint swelling. NEUROLOGICAL: Awake, alert, oriented to time, place and person. No headache. No neck pain. No syncope. No seizures. No dizziness. PSYCHIATRIC: Not anxious. No depression. No suicidal thoughts. No homicidal thoughts. SKIN: No rash. No lesions. No wounds. ENDOCRINE: No unexplained weight loss. No weight gain. HEMATOLOGIC/LYMPHATIC: No anemia. No purpura. No petechiae. No prolonged or excessive bleeding. No palpable lymph nodes. PHYSICAL EXAMINATION: GENERAL: The patient is awake, alert and oriented, lying in bed in no distress. VITAL SIGNS: Temperature 97.9 F, Pulse 68, Respiratory Rate 22, BP 109/45, Pulse Ox 100% HEENT: Head normocephalic, atraumatic. Eyes: Extraocular muscles are intact. Pupils are equal, round and reactive to light and accommodation. Ears: No lesions. Nose appeared normal. Throat: No exudate or erythema. NECK: Supple. No JVD, no carotid bruit. No lymphadenopathy or thyromegaly. LUNGS: Diminished breath sounds. Clear to auscultation. Percussion note normal. Chest symmetrical. HEART: S1, S2, no S3. No murmurs. No cyanosis or clubbing. No ascites. Pulses: Dorsalis pedis and posterior tibial pulses +1 to +2 both sides. ABDOMEN: Soft. Non-tender. Bowel sounds active. No CVA tenderness. No mass felt. EXTREMITIES: No edema. Full range of motion of all extremities, equal. NEUROLOGIC: No focal deficit. Cranial nerves II through XII are grossly intact. No headache, no double vision or headache. SKIN: Not dry. Intact. Turgor-normal. LYMPHATIC: No palpable lymph nodes/no lymphedema. MUSCULOSKELETAL: Normal joints with no swelling. Muscle tone is normal. LAB REVIEW: 11/30/20 05:30 11/30/20 05:30 11/30/20 05:30: D-Dimer 886.19 H 11/30/20 05:30: PT 20.8 H, INR 1.95 11/30/20 05:30: Sodium 134.0 L, Potassium 3.78, Chloride 102.8, Carbon Dioxide 27.0, Anion Gap 7.98, BUN 17.9, Creatinine 0.58 L, Estimated GFR (MDRD) 139.00, BUN/Creatinine Ratio 30.86, Glucose 133.5 H, Calcium 8.32 L, Ferritin 416.00, Total Bilirubin 0.59, AST 41.9, ALT 60.3 H, Alkaline Phosphatase 71.3, Total Protein 5.67 L, Albumin 2.60 L, Globulin 3.07, Albumin/Globulin Ratio 0.84 11/30/20 05:30: WBC 1.93 L*, RBC 3.21 L, Hgb 9.5 L, Hct 28.3 L, MCV 88.2, MCH 29.6, MCHC 33.6, RDW Coeff of Sumeet 19.4 H, Plt Count 283, Neutrophils % (Manual) 71.0, Lymphocytes % (Manual) 11.0, Monocytes % (Manual) 16.0 H, Metamyelocytes % 1.0, Myelocytes % 1.0, Anisocytosis Not present 11/29/20 05:57: Carbon Dioxide 28.9, Anion Gap 8.42 11/29/20 05:57: Lactate Dehydrogenase 173, C-Reactive Prot, Quant 72 H ASSESSMENT: Please see below. 1. Bilateral pneumonia 2. COVID positive 3. PE right upper lobe 4. Anemia 5. Subglottic carcinoma, under going chemo and radiation PLAN: 1. Encourage to be up and about to walk in the room 2. Continue IV antibiotics 3. The patient has home oxygen 4. Plan on discharge tomorrow. Plan and coordination of the patient's care discussed in the presence of Sales Producer and nurse. SCRIBED BY: AMANDA BAH Tight Barrel Inspector scribed while in presence of service performed by Dr. Vogt/Erica Cornejo APRN on 11/30/20 ([id number])
[2020-11-30 09:36] LABS: ABG PH 7.48 (7.35-7.45)
[2020-11-30] MEDS: DECADRON IVP SCH (09:41)
--- NOTE | 2020-11-30 11:12 | PN ---
DATE OF SERVICE: 11/26/20 SUBJECTIVE: The patient was hospitalized with Covid-19. The patient's condition has improved. He is feeling better. His oxygen saturation more than 95% with 2L. Secretions from the tracheostomy tube is less than before. The feeding has started with Jevity. Labs today showed creatinine of 0.5 with BUN of 21, potassium 4.3. ALT and AST are abnormal. The patient is supposed to have chemotherapy on Saturday but I don't think he is going to be able to make it with Covid-19 and having multiple other medical issues. PHYSICAL EXAMINATION: HEENT: Head normocephalic, atraumatic. Eyes: Extraocular muscles are intact. Pupils are equal, round and reactive to light and accommodation. Ears: No lesions. Nose appeared normal. Throat: No exudate or erythema. NECK: Supple. No JVD, no carotid bruit. No lymphadenopathy or thyromegaly. LUNGS: Decreased breath sounds but clear. Percussion note normal. Chest symmetrical. HEART: S1, S2, no S3. No murmurs. No cyanosis or clubbing. No ascites. Pulses: Dorsalis pedis and posterior tibial pulses +1 to +2 bilaterally. ABDOMEN: Soft. Nontender. Bowel sounds active. No CVA tenderness. No mass felt. EXTREMITIES: No edema. Full range of motion of all extremities, equal. NEUROLOGIC: No focal deficit. Cranial nerves II through XII are grossly intact. No headache, no double vision or headache. SKIN: Not dry. Intact. Turgor - normal. LYMPHATIC: No palpable lymph nodes/no lymphedema. MUSCULOSKELETAL: Normal joints with no swelling. Muscle tone is normal. ASSESSMENT: 1. Tracheostomy is in place. K-tube is working well. PLAN: 1. Continue Remdesivir, antibiotics and steroids. 2. The patient was given 2 units of packed red cells. Hemoglobin has gone between 9 and 10 with hematocrit of 28 to 30. No evidence of active GI bleed. 3. The patient had evidence of small pulmonary embolism. Yesterday, the patient was going to be given total of 10 mg Coumadin and it didn't take place so he was given 5. Today will give 10 mg of Coumadin and along with that will give Lovenox 60 b.i.d. for one day. 4. Will monitor INR - we want it around 2.0. The patient's condition is stable but prognosis is guarded - poor. TIME SPENT: More than 30 minutes. Plan and coordination of the patient's care discussed in the presence of nurse. FELIX
--- NOTE | 2020-11-30 13:20 | PN ---
DATE OF SERVICE: 11/27/20 SUBJECTIVE: The patient was hospitalized with Covid. He was short of breath with possibility of pneumonia, worsening of COPD, secretions. The patient's condition has improved remarkably. He wants to go home but I advised him to go home tomorrow. The patient's oxygen saturation is 94% on 6 to 7L with tracheostomy, humidified. His appetite has improved. He is more alert and voice sounds much better. His INR is still 1.18 so will give 10 mg Coumadin today. The patient had small pulmonary embolus. Will put him on Lovenox 60 mg twice a day, 10 mg Coumadin to be given today. His AST/ALT are still elevated. Kidney functions are practically normal. REVIEW OF SYSTEMS: CONSTITUTIONAL: No night sweats. No fatigue, malaise, lethargy. No fever or chills. HEENT: Eyes: No visual changes. No eye pain. No eye discharge. ENT: No runny nose. No epistaxis. No sinus pain. No sore throat. No odynophagia. No congestion. RESPIRATORY: No cough, no congestion. No hemoptysis. No shortness of breath. CARDIOVASCULAR: No angina symptoms. No CHF symptoms. No atypical chest pain for CAD. No palpitations. No PND. No orthopnea. GASTROINTESTINAL: Appetite improved. No abdominal pain. No nausea or vomiting. No diarrhea or constipation. No hematemesis. No hematochezia. GENITOURINARY: No urgency. No frequency. No dysuria. No hematuria. No obstructive symptoms. No discharge. No pain. No significant abnormal bleeding. MUSCULOSKELETAL: No musculoskeletal pain; no joint swelling. NEUROLOGICAL: No headache. No neck pain. No syncope. No seizures. No dizziness. PSYCHIATRIC: Not anxious. No depression. No suicidal thoughts. No homicidal thoughts. SKIN: No rash. No lesions. No wounds. ENDOCRINE: No unexplained weight loss. No weight gain. HEMATOLOGIC/LYMPHATIC: No anemia. No purpura. No petechiae. No prolonged or excessive bleeding. No palpable lymph nodes. PHYSICAL EXAMINATION: HEENT: Head normocephalic, atraumatic. Eyes: Extraocular muscles are intact. Pupils are equal, round and reactive to light and accommodation. Ears: No lesions. Nose appeared normal. Throat: No exudate or erythema. NECK: Supple. No JVD, no carotid bruit. No lymphadenopathy or thyromegaly. LUNGS: Decreased breath sounds. Clear to auscultation. Percussion note normal. Chest symmetrical. HEART: S1, S2, no S3. No murmurs. No cyanosis or clubbing. No ascites. Pulses: Dorsalis pedis and posterior tibial pulses +1 to +2 bilaterally. ABDOMEN: Soft. Nontender. Bowel sounds active. No CVA tenderness. No mass felt. EXTREMITIES: No edema. Full range of motion of all extremities, equal. NEUROLOGIC: No focal deficit. Cranial nerves II through XII are grossly intact. No headache, no double vision or headache. SKIN: Not dry. Intact. Turgor - normal. LYMPHATIC: No palpable lymph nodes/no lymphedema. MUSCULOSKELETAL: Normal joints with no swelling. Muscle tone is normal. ASSESSMENT: 1. Covid-19 bronchitis. 2. CA of the larynx on radiation. His radiation was supposed to be tomorrow, has to be put on hold. PLAN: 1. Continue Remdesivir for 5 doses. 2. Continue Dexamethasone. 3. Continue antibiotics. 4. LDH, CRP, ferritin and D. dimer every morning. 5. Lovenox 60 mg twice a day. 6. 5 mg of Coumadin today. The patient's prognosis is poor considering all of his multiple medical problems. He is DNR. TIME SPENT: More than 30 minutes. Plan and coordination of the patient's care discussed in the presence of nurse. FELIX
[2020-11-30] MEDS: COUMADIN PO SCH (17:19)
[2020-11-30] MEDS: CRESTOR PO SCH (20:08)
[2020-12-01] MEDS: SODIUM CHLORIDE 1,000 ML IV SCH (01:00)
[2020-12-01] MEDS: VENTOLIN HFA (PER PUFF-WITH SPACER) IH SCH ×3 (04:35→14:02)
[2020-12-01] MEDS: SYNTHROID PO SCH (05:43)
[2020-12-01] MEDS: PEPCID PO SCH (05:43)
[2020-12-01 05:45] LABS: EOSINOPHILS % (AUTO) 0.4 % (0.0-7.0); HEMATOCRIT 28.6 % (42.0-52.0); HEMOGLOBIN 9.5 g/dl (14.0-18.0); IMMATURE GRANULOCYTE % (AUTO) 0.4 % (0.0-5.0); LYMPHOCYTES # (AUTO) 0.6 K/uL (0.60-3.4); MEAN CORPUSCULAR HGB CONC 33.2 (31.8-35.4); MEAN CORPUSCULAR VOLUME 87.2 fl (80.0-94.0); MONOCYTES # (AUTO) 0.4 K/uL (0.4-2.0); MONOCYTES % (AUTO) 16.7 (0-10); NEUTROPHILS # (AUTO) 1.6 K/ul (2.0-6.9); NEUTROPHILS % (AUTO) 60.5 % (42.2-75.2); PLATELET COUNT 279 10^3/uL (140-440); RED BLOOD COUNT 3.28 10^6/ul (4.70-6.10); WHITE BLOOD COUNT 2.64 K/ul (4.2-10.2)
[2020-12-01 05:59] LABS: ALANINE AMINOTRANSFERASE 63.6 U/L (0-50); ALBUMIN 2.58 g/dL (3.5-5.0); ASPARTATE AMINO TRANSFERASE 48.8 U/L (17-59); BILIRUBIN,TOTAL 0.53 mg/dL (0.2-1.3); BLOOD UREA NITROGEN 14.8 mg/dL (9-20); CALCIUM 8.3 mg/dL (8.4-10.2); CARBON DIOXIDE 25.4 mmol/L (22-30.0); CHLORIDE 103.2 mmol/L (98-107); CREATININE 0.47 mg/dL (0.60-1.10); GLUCOSE 129.9 mg/dL (74-106); POTASSIUM 3.71 mmol/L (3.5-5.1); SODIUM 132.8 mmol/L (134.5-145); TOTAL PROTEIN 5.56 g/dL (6.3-8.2)
[2020-12-01 06:09] LABS: PROTHROMBIN TIME 18.9 SEC (9.3-11.0)
--- NOTE | 2020-12-01 08:13 | PN ---
DATE OF SERVICE: 11/29/20 SUBJECTIVE: 70-year-old white male hospitalized with Covid pneumonia. The patient also had probably small PE. The patient's condition seems to be improving. He wants to go home but the patient was running fever yesterday. The patient's examination was unchanged and probably some improvement. The patient has laryngeal CA and he is on radiation. REVIEW OF SYSTEMS: CONSTITUTIONAL: No night sweats. No fatigue, malaise, lethargy. No fever or chills. HEENT: Eyes: No visual changes. No eye pain. No eye discharge. ENT: No runny nose. No epistaxis. No sinus pain. No sore throat. No odynophagia. No congestion. RESPIRATORY: No cough, no congestion. No hemoptysis. No shortness of breath. CARDIOVASCULAR: No angina symptoms. No CHF symptoms. No atypical chest pain for CAD. No palpitations. No PND. No orthopnea. GASTROINTESTINAL: No abdominal pain. No nausea or vomiting. No diarrhea or constipation. No hematemesis. No hematochezia. GENITOURINARY: No urgency. No frequency. No dysuria. No hematuria. No obstructive symptoms. No discharge. No pain. No significant abnormal bleeding. MUSCULOSKELETAL: No musculoskeletal pain; no joint swelling. NEUROLOGICAL: No headache. No neck pain. No syncope. No seizures. No dizziness. PSYCHIATRIC: Not anxious. No depression. No suicidal thoughts. No homicidal thoughts. SKIN: No rash. No lesions. No wounds. ENDOCRINE: No unexplained weight loss. No weight gain. HEMATOLOGIC/LYMPHATIC: No anemia. No purpura. No petechiae. No prolonged or excessive bleeding. No palpable lymph nodes. LABS: Hemoglobin 10.7, hematocrit 31, WBC 2,800, normal differential. Creatinine 0.5, BUN 16, potassium 3.8, INR 2.1. ASSESSMENT: 1. Covid-19 pneumonia seems to be resolving clinically. 2. Fever of unknown etiology. 3. Pulmonary embolism seems to have been under control, now INR is 2.1. PLAN: 1. Discontinue Lovenox and seems to be stable with hemoglobin 10.7, hematocrit 31. 2. Discharge home tomorrow. Fever could take time finding with aspiration, etc. CONDITION: Stable. TIME SPENT: More than 30 minutes. Plan and coordination of the patient's care discussed in the presence of nurse. FELIX
[2020-12-01] MEDS: VITAMIN D PO SCH (08:27)
[2020-12-01] MEDS: ZINC-220 PO SCH (08:27)
[2020-12-01] MEDS: LEVAQUIN 750 MG/150 ML D5W 750 MG/150 ML BAG IV SCH (08:27)
[2020-12-01] MEDS: COREG PO SCH (08:27)
[2020-12-01] MEDS: WELLBUTRIN XL PO SCH (08:28)
[2020-12-01] MEDS: ZETIA PO SCH (08:28)
[2020-12-01] MEDS: EFFEXOR XR PO SCH (08:28)
[2020-12-01] MEDS: GLUCOPHAGE PO SCH (08:28)
[2020-12-01] MEDS: CYMBALTA PO SCH (08:28)
[2020-12-01] MEDS: MICRO-K CAP PO SCH (08:28)
[2020-12-01] MEDS: SYMBICORT 160-4.5 MCG INHALER IH SCH (08:31)
[2020-12-01] MEDS: DECADRON IVP SCH (09:15)
[2020-12-01 09:56] LABS: THYROID STIMULATING HORMONE 3.46 uIU/L (0.465-4.68)
[2020-12-01 10:11] LABS: C-REACTIVE PROTEIN 72 mg/L (0-10)
[2020-12-01 11:11] LABS: BACTERIA IDENTIFICATION Final report (.)
--- NOTE | 2020-12-01 11:34 | PCM.PROG ---
Attending Provider: ATTENDING PROVIDER: Dr. LANNY VOGT This patient is seen with Erica Cornejo, Nurse Practitioner. DATE OF SERVICE: 12/01/20 SUBJECTIVE: This 70 year old /WHITE M was hospitalized 11/24/20. The patient is resting comfortably. He has been up and about in the room. States he is feeling much better. Ready to go home. REVIEW OF SYSTEMS: CONSTITUTIONAL: No night sweats. No fatigue, malaise, lethargy. No fever or chills. Weakness. HEENT: Eyes: No visual changes. No eye pain. No eye discharge. ENT: No runny nose. No epistaxis. No sinus pain. No odynophagia. No congestion. RESPIRATORY: No cough, no congestion. No hemoptysis. No shortness of breath. CARDIOVASCULAR: No angina symptoms. No CHF symptoms. No atypical chest pain for CAD. No palpitations. No orthopnea.. GASTROINTESTINAL: No abdominal pain. No nausea or vomiting. No diarrhea or constipation. No hematemesis. No hematochezia. GENITOURINARY: No urgency. No frequency. No dysuria. No hematuria. No obstructive symptoms. No discharge. No pain. No significant abnormal bleeding. MUSCULOSKELETAL: No musculoskeletal pain; no joint swelling. NEUROLOGICAL: Awake, alert, oriented to time, place and person. No headache. No neck pain. No syncope. No seizures. No dizziness. PSYCHIATRIC: Not anxious. No depression. No suicidal thoughts. No homicidal thoughts. SKIN: No rash. No lesions. No wounds. ENDOCRINE: No unexplained weight loss. No weight gain. HEMATOLOGIC/LYMPHATIC: No anemia. No purpura. No petechiae. No prolonged or excessive bleeding. No palpable lymph nodes. PHYSICAL EXAMINATION: GENERAL: The patient is awake, alert and oriented, lying in bed in no distress. VITAL SIGNS: Temperature 97.6 F, Pulse 69, Respiratory Rate 19, BP 134/61, Pulse Ox 99% HEENT: Head normocephalic, atraumatic. Eyes: Extraocular muscles are intact. Pupils are equal, round and reactive to light and accommodation. Ears: No lesions. Nose appeared normal. Throat: No exudate or erythema. NECK: Supple. No JVD, no carotid bruit. No lymphadenopathy or thyromegaly. LUNGS: Diminished breath sounds. Clear to auscultation. Percussion note normal. Chest symmetrical. HEART: S1, S2, no S3. No murmurs. No cyanosis or clubbing. No ascites. Pulses: Dorsalis pedis and posterior tibial pulses +1 to +2 both sides. ABDOMEN: Soft. Non-tender. Bowel sounds active. No CVA tenderness. No mass felt. EXTREMITIES: No edema. Full range of motion of all extremities, equal. NEUROLOGIC: No focal deficit. Cranial nerves II through XII are grossly intact. No headache, no double vision or headache. SKIN: Not dry. Intact. Turgor-normal. LYMPHATIC: No palpable lymph nodes/no lymphedema. MUSCULOSKELETAL: Normal joints with no swelling. Muscle tone is normal. LAB REVIEW: 12/01/20 05:30 12/01/20 05:30 12/01/20 09:06: Ferritin 393.00, TSH 3.460 12/01/20 09:06: Free T4 1.48 12/01/20 09:06: D-Dimer 936.00 H 12/01/20 05:30: PT 18.9 H, INR 1.77 12/01/20 05:30: Sodium 132.8 L, Potassium 3.71, Chloride 103.2, Carbon Dioxide 25.4, Anion Gap 7.91, BUN 14.8, Creatinine 0.47 L, Estimated GFR (MDRD) 177.00, BUN/Creatinine Ratio 31.48, Glucose 129.9 H, Calcium 8.30 L, Total Bilirubin 0.53, AST 48.8, ALT 63.6 H, Alkaline Phosphatase 67.0, Total Protein 5.56 L, Albumin 2.58 L, Globulin 2.98, Albumin/Globulin Ratio 0.86 12/01/20 05:30: WBC 2.64 L, RBC 3.28 L, Hgb 9.5 L, Hct 28.6 L, MCV 87.2, MCH 29.0, MCHC 33.2, RDW Coeff of Sumeet 19.0 H, Plt Count 279, Immature Gran % (Auto) 0.4, Neut % (Auto) 60.5, Lymph % (Auto) 22.0, [place] % (Auto) 16.7 H, Eos % (Auto) 0.4, Baso % (Auto) 0.0, Neut # (Auto) 1.6 L, Lymph # (Auto) 0.6, [place] # (Auto) 0.4, Eos # (Auto) 0.0, Baso # (Auto) 0.0, Immature Gran # (Auto) 0.0 11/30/20 05:30: Lactate Dehydrogenase 169, C-Reactive Prot, Quant 72 H ASSESSMENT: Please see below. 1. Bilateral pneumonia 2. COVID 19 3. Chronic anemia 4. Subglottic carcinoma under going chemo and radiation 5. Tracheostomy 6. Peg tube placement. PLAN: 1. Discharge home today 2. Quarantine to complete 2 weeks. 3. Has has been Okayed to go to radiation 4. He has NEBs Albuterol and pulmicort at home. Albuterol to be taken TID and Pulmicort BID 5. Prednisone 10mg BID for 5 days 6. Levaquin 750mg for 6 days 7. Continue Zinc, Pepcid and Vitamin D for one month 8. Total of 10mg of Coumadin today 9. Home Health to check INR on Saturday or Saturday and call the office with the results. Plan and coordination of the patient's care discussed in the presence of Continuous Pillowcase Cutter and nurse. SCRIBED BY: AMANDA BAH Enrichment Teacher scribed while in presence of service performed by Dr. Vogt/Erica Cornejo APRN on 12/01/20 ([id number])
[2020-12-01 13:57] VITALS: TEMP 98.2
[2020-12-01 14:14] VITALS: BP 100/54
[2020-12-01] MEDS ORDERED: COUMADIN PO STA (14:32)
[2020-12-02 07:19] LABS: C-REACTIVE PROTEIN 41 mg/L (0-10)
--- NOTE | 2020-12-05 09:40 | CM.DICTOOL ---
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 LEVY ALONG WITH DR. 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 OLIVO CHRONIC BRONCHITIS COPD HISTORY OF CARCINOMA OF THE SIGMOID COLON REMOVED BY CLAUDIA, MAY OF 2020 DIABETES MELLITUS TYPE 2 PUD DYSLIPIDEMIA ATRIAL FIBRILLATION PERSISTENT ATRIAL FIBRILLATION, ON COUMADIN PAD OBESITY OBSTRUCTIVE SLEEP APNEA CORONARY ARTERY DISEASE B12 DEFICIENCY METABOLIC SYNDROME HYPOTHYROIDISM FATTY LIVER BILATERAL KNEE OSTEOARTHRITIS HISTORY OF RENAL ARTERY STENOSIS HISTORY OF NONCOMPLIANCE OF DIET, LIFESTYLE AND MEDICATIONS SMOKER PROCEDURES: REMOVAL PART OF SIGMOID COLON BY DR. TAYLOR, MAY 2020 AAA REPAIR, MAY 2020 RT ANGIOPLAST, APRIL 2020 TRACHEOSTOMY, SEPTEMBER 2020 LAST COLONOSCOPY, BY DR. SERRANO, JULY OF 2020 LAST VITALS Temp Pulse Resp BP Pulse Ox 97.6 F 69 19 134/61 99 12/01/20 05:58 12/01/20 05:58 12/01/20 05:58 12/01/20 05:58 12/01/20 10:00 TAKE THESE MEDICATIONS AT HOME Albuterol Sulfate (Albuterol Sulfate (Ventolin Hfa) 2.5 MG PER NEBULIZER TID PENDING SALE TO [facility] -- (HOME MED) Last Admin: 12/01/20 10:02 Dose: 2 puff Documented by: Budesonide/Formoterol Fumarate 1 MG PER NEBULIZER BID PENDING SALE TO [facility] -- (HOME MED) Last Admin: 12/01/20 08:31 Dose: 2 puff Documented by: Bupropion HCl (Bupropion Hcl 150 Mg Tab.Er.24h) 300 mg PO QAM PENDING SALE TO [facility] Last Admin: 12/01/20 08:28 Dose: 300 mg Documented by: Carvedilol (Carvedilol 12.5 Mg Tablet) 25 mg PO BIDWM PENDING SALE TO [facility] Last Admin: 12/01/20 08:27 Dose: 25 mg Documented by: Cholecalciferol (Cholecalciferol (Vitamin D3) 1,000 Unit Tablet) 5,000 unit PO DAILY PENDING SALE TO [facility]. CONTINUE FOR ONE MONTH -- ( NEW) Last Admin: 12/01/20 08:27 Dose: 5,000 unit Documented by: Duloxetine HCl (Duloxetine Hcl 30 Mg Capsule.Dr) 60 mg PO DAILY PENDING SALE TO [facility] Last Admin: 12/01/20 08:28 Dose: 60 mg Documented by: Ezetimibe (Ezetimibe 10 Mg Tablet) 10 mg PO DAILY PENDING SALE TO [facility] Last Admin: 12/01/20 08:28 Dose: 10 mg Documented by: Famotidine (Famotidine 20 Mg Tablet) 20 mg PO BIDAC PENDING SALE TO [facility] CONTINUE FOR ONE MONTH -- ( NEW) Last Admin: 12/01/20 05:43 Dose: 40 mg Documented by: Levofloxacin 750 mg PO DAILY X 6 MORE DAYS - START 12/02/2020 -- (NEW) Stop: 12/03/20 08:59 Last Admin: 12/01/20 08:27 Dose: 100 mls/hr Documented by: Levothyroxine Sodium (Levothyroxine Sodium 75 Mcg Tablet) 75 mcg PO QDAC PENDING SALE TO [facility] Last Admin: 12/01/20 05:43 Dose: 75 mcg Documented by: Metformin HCl (Metformin Hcl 500 Mg Tablet) 500 mg PO DAILYWM PENDING SALE TO [facility] Last Admin: 12/01/20 08:28 Dose: 500 mg Documented by: Potassium Chloride (Potassium Chloride 10 Meq Capsule.Er) 10 meq PO DAILYWM PENDING SALE TO [facility] Last Admin: 12/01/20 08:28 Dose: 10 meq Documented by: Rosuvastatin Calcium (Rosuvastatin Calcium 10 Mg Tablet) 20 mg PO BEDTIME PENDING SALE TO [facility] Last Admin: 11/30/20 20:08 Dose: 20 mg Documented by: Venlafaxine HCl (Venlafaxine Hcl 75 Mg Cap.Er.24h) 75 mg PO BID PENDING SALE TO [facility] Last Admin: 12/01/20 08:28 Dose: 75 mg Documented by: Warfarin Sodium (Warfarin Sodium 5 Mg Tablet) 5 mg PO Q48H BAY - START ON 12/02/2020 Last Admin: 11/30/20 17:19 Dose: 5 mg Documented by: Warfarin Sodium (Warfarin Sodium 2 Mg Tablet) 4 mg PO Q48H BAY - START ON 12/03/2020 Last Admin: 11/29/20 17:29 Dose: 4 mg Documented by: Zinc Sulfate (Zinc Sulfate 220 Mg Capsule) 220 mg PO DAILY BAY, CONTINUE FOR ONE MONTH -- ( NEW) Last Admin: 12/01/20 08:27 Dose: 220 mg Documented by: PREDNISONE 20 MG PO BID X 5 DAYS FUROSEMIDE 20 MG EVERY DAY AC DICYCLOMINE 20 MG PO BID CILOSTAZOL 100 PO BID ASA 81 MG PO DAILY ALL PO MEDS TO BE ADMINISTERED PER PEG TUBE ALLERGIES Cephalosporins Allergy (Intermediate, Verified 11/24/20 13:27) Hives DISCONTINUED MEDICATIONS SYMBICORT MDI NEW PRESCRIPTIONS: Albuterol Sulfate 2.5 MG PER NEBULIZER TID BAY (CHANGED) Cholecalciferol (Cholecalciferol (Vitamin D3) 5,000 unit PO DAILY BAY. CONTINUE FOR ONE MONTH Famotidine 20 mg PO BIDAC BAY CONTINUE FOR ONE MONTH Levofloxacin 750 mg PO DAILY X 6 MORE DAYS - START 12/02/2020 Zinc Sulfate (Zinc Sulfate 220 Mg Capsule) 220 mg PO DAILY BAY, CONTINUE FOR ONE MONTH PREDNISONE 20 MG PO BID X 5 DAYS SMOKING: SMOKING CESSATION DISEASE SPECIFIC EDUCATION: COVID-19 PNEUMONIA ANTI-COAG SMOKING CESSATION COPD LAB REVIEW: 12/01/20 05:30 12/01/20 05:30 12/01/20 09:06: Ferritin 393.00, TSH 3.460 12/01/20 09:06: Free T4 1.48 12/01/20 09:06: D-Dimer 936.00 H 12/01/20 05:30: PT 18.9 H, INR 1.77 12/01/20 05:30: Sodium 132.8 L, Potassium 3.71, Chloride 103.2, Carbon Dioxide 25.4, Anion Gap 7.91, BUN 14.8, Creatinine 0.47 L, Estimated GFR (MDRD) 177.00, BUN/Creatinine Ratio 31.48, Glucose 129.9 H, Calcium 8.30 L, Total Bilirubin 0.53, AST 48.8, ALT 63.6 H, Alkaline Phosphatase 67.0, Total Protein 5.56 L, Albumin 2.58 L, Globulin 2.98, Albumin/Globulin Ratio 0.86 12/01/20 05:30: WBC 2.64 L, RBC 3.28 L, Hgb 9.5 L, Hct 28.6 L, MCV 87.2, MCH 29.0, MCHC 33.2, RDW Coeff of Sumeet 19.0 H, Plt Count 279, Immature Gran % (Auto) 0.4, Neut % (Auto) 60.5, Lymph % (Auto) 22.0, [place] % (Auto) 16.7 H, Eos % (Auto) 0.4, Baso % (Auto) 0.0, Neut # (Auto) 1.6 L, Lymph # (Auto) 0.6, [place] # (Auto) 0 .4, Eos # (Auto) 0.0, Baso # (Auto) 0.0, Immature Gran # (Auto) 0.0 11/30/20 05:30: Lactate Dehydrogenase 169, C-Reactive Prot, Quant 72 H 11/24/20 18:11: Organism ID Comment H, Bacterial ID Final report H PLAN: DISCHARGE HOME TODAY: DECEMBER 01, 2020, LIVES WITH [facility] AND [facility] TO FOLLOW UP SN TO RESUME AND PT TO EVAL AND TREAT PT/INR PER HOMEHEALTH ON 12/05/2020 OR 12/06/2020 AND REPORT RESULTS TO DR. BROWER OFFICE INSTRUCTED AND MRS LAGUERRE TO FOLLOW UP WITH RADIATION THERAPY BEFORE WITH [facility] SATURDAY THROUGH SATURDAY AT [address] GEORGE. FOLLOW UP WITH CHEMOTHERAPY NEXT DAY DECEMBER 05, 2020 @ [facility]) WITH DR. AMIN AT THE SAME PLACE. VERBALIZED UNDERSTANDING. DIET: NPO, JEVITY TUBE FEEDINGS AND WATER FLUSHES BEFORE. 1.5 BRIDGETTE 80 ML/HR 10-12 HOURS @ NIGHT 240 ML AT MEAL TIMES. FLUSH WITH 60 ML WATER BEFORE AND AFTER EACH FEEDING. ACTIVITY: UP WITH ASSIST OF ONE WITH WALKER. PT TO EVAL AND TREAT. CONTINUE TO SELF QUARANTINE WITH LAST DAY ON 12/04/2020 (TESTED POSITIVE FOR COVID-19 ON 11/21/2020). MD FOLLOW UP: CALL DR. BROWER OFFICE AND SCHEDULE AN APPOINTMENT FOR THE WEEK OF December ASK FOR SATURDAY OR . OXYGEN TRACH COLLAR, CONTINUE 10 L/M CONTINUOS. ALOE VESTA TO DRY ROUGH SKIN TO BUTTOCKS TWICE DAILY AND PRN. CODE STATUS: DO NOT INTUBATE, CPR ONLY. MR. LAGUERRE REMAINS ALERT AND ORIENTED X 4. HE IS PLEASANT. HE HAS BEEN GETTING UP WITH ASSIST OF ONE AND WALKING IN THE ROOM. LUNGS CLEAR AND DIMINISHED, MOIST SOUNDING COUGHING. SMALL AMOUNT OF CLEAR WHITE SPUTUM. ORTHOPNEA AND SLIGHT EXERTIONAL DYSPNEA. SKIN WARM AND DRY AND INTACT. PAC ACCESSED TO RT UPPER CHEST. PEG TUBE SITE WITH DAILY CARE. CONTINENT OF BOWEL AND BLADDER. CATHETER WAS REMOVED AND HE DID VOID. LAST BM 11/29/2020. LIVES WITH AND HAS [facility], WHICH WILL RESUME. LAST DAY OF QUARANTINE 12/04/2020. MD DONNA ATKINSON APRN ALYCE HANNAN, APRN
--- NOTE | 2020-12-05 13:24 | PN ---
DATE OF SERVICE: 11/30/20 SUBJECTIVE: The patient was seen and examined with the nurse practitioner. The patient is afebrile. The patient is improving. The patient's had coronovirus infection. She is not feeling good. Will wait for another day for her to recover some. Discharge for the patient will be tomorrow. TIME SPENT: More than 30 minutes. Plan and coordination of the patient's care discussed in the presence of nurse. FELIX
--- NOTE | 2020-12-05 13:26 | PN ---
DATE OF SERVICE: 12/01/20 SUBJECTIVE: The patient was seen and examined with the nurse practitioner. The patient's condition has improved. He is afebrile, alot better. Secretions are less from the tracheostomy tube. Condition definitely has improved with oxygen saturation 95% on 3L. The patient is going to be discharged home. TIME SPENT: More than 30 minutes. Plan and coordination of the patient's care discussed in the presence of nurse. FELIX
--- NOTE | 2020-12-05 13:28 | PN ---
BILLING 11/24/20 ADMISSION DAY LEVEL 5 11/25/20 EXTENSIVE 11/26/20 EXTENSIVE 11/27/20 EXTENSIVE 11/28/20 INTERMEDIATE 11/29/20 INTERMEDIATE 11/30/20- INTERMEDIATE 12/01/20 DISCHARGE MTDD
--- NOTE | 2020-12-06 11:47 | DS ---
DATE OF SERVICE: 12/01/20 FINAL DIAGNOSIS: 1. BILATERAL PNEUMONIA, POSITIVE COVID-19 2. ANEMIA 3. 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 ATRIAL FIBRILLATION ON COUMADIN 5. POSSIBLE PE PER CTA 6. CHRONIC LUNG DISEASE WITH HEAVY SMOKING* 7. MORBID OBESITY, NOW 240# WAS >300#* 8. SEVERE PERIPHERAL ARTERIAL DISEASE* HX: 9. POSITIVE COVID-19 11/21/2020 10. SUBGLOTTIC MASS, CARCINOMA 5 x 5 x 3.[address] LEVY ALONG WITH DR. CHRISTIE 11. TRACHEOSTOMY AND PORT PLACEMENT ALL IN SEPTEMBER OF 2020 12. CHRONIC HOARSENESS 13. CERVICAL AND PARACERVICAL LYMPHADENOPATHY 14. PULMONARY NODULE IN THE RIGHT UPPER LOBE,8mm 15. RIGHT ANGIOPLASTY IN APRIL 2020 16. ABDOMINAL AORTIC ANEURYSM REPAIR, MAY OF [address] OLIVO 17. CHRONIC BRONCHITIS 18. COPD 19. HISTORY OF CARCINOMA OF THE SIGMOID COLON REMOVED BY CLAUDIA, MAY OF 2020 20. DIABETES MELLITUS TYPE 2 21. PUD 22. DYSLIPIDEMIA 23. ATRIAL FIBRILLATION 24. PERSISTENT ATRIAL FIBRILLATION, ON COUMADIN 25. PAD 26. OBESITY 27. OBSTRUCTIVE SLEEP APNEA 28. CORONARY ARTERY DISEASE 29. B12 DEFICIENCY 30. METABOLIC SYNDROME 31. HYPOTHYROIDISM 32. FATTY LIVER 33. BILATERAL KNEE OSTEOARTHRITIS 34. HISTORY OF RENAL ARTERY STENOSIS 35. HISTORY OF NONCOMPLIANCE OF DIET, LIFESTYLE AND MEDICATIONS 36. SMOKER PROCEDURES: 37. REMOVAL PART OF SIGMOID COLON BY DR. TAYLOR, MAY 2020 38. AAA REPAIR, MAY 2020 39. RT ANGIOPLASTY, APRIL 2020 40. TRACHEOSTOMY, SEPTEMBER 2020 41. LAST COLONOSCOPY, BY DR. SERRANO, JULY OF 2020 LAST VITALS Temp Pulse Resp BP Pulse Ox 97.6 F 69 19 134/61 99 12/01/20 05:58 12/01/20 05:58 12/01/20 05:58 12/01/20 05:58 12/01/20 10:00 DISCHARGE INSTRUCTIONS: 1. DISCHARGE HOME TODAY: DECEMBER 01, 2020, [facility]. 2. SN TO RESUME AND PT TO EVAL AND TREAT 3. PT/INR PER HOME HEALTH ON 12/05/2020 OR 12/06/2020 AND REPORT RESULTS TO DR. BROWER OFFICE. 4. INSTRUCTED MRPaulette AND MRS LAGUERRE TO FOLLOW UP WITH RADIATION THERAPY BEFORE WITH [facility] SATURDAY THROUGH SATURDAY AT [address] GEORGE. 5. FOLLOW UP WITH CHEMOTHERAPY NEXT DAY DECEMBER 05, 2020 @ [facility]) WITH DR. CHRISTIE AT THE SAME PLACE. VERBALIZED UNDERSTANDING. 6. MD FOLLOW UP: CALL DR. VOGT'S OFFICE AND SCHEDULE AN APPOINTMENT FOR THE WEEK OF DECEMBER 19, 2020 ASK FOR SATURDAY OR . 7. OXYGEN TRACH COLLAR, CONTINUE 10 L/M CONTINUOS. 8. ALOE VESTA TO DRY ROUGH SKIN TO BUTTOCKS TWICE DAILY AND PRN. MEDICATIONS AT DISCHARGE: Albuterol Sulfate (Albuterol Sulfate (Ventolin Hfa) 2.5 MG PER NEBULIZER TID [facility] -- (HOME MED) Last Admin: 12/01/20 10:02 Dose: 2 puff Documented by: Budesonide/Formoterol Fumarate 1 MG PER NEBULIZER BID [facility] -- (HOME MED) Last Admin: 12/01/20 08:31 Dose: 2 puff Documented by: Bupropion HCl (Bupropion Hcl 150 Mg Tab.Er.24h) 300 mg PO QAM [facility] Last Admin: 12/01/20 08:28 Dose: 300 mg Documented by: Carvedilol (Carvedilol 12.5 Mg Tablet) 25 mg PO BIDWM BAY Last Admin: 12/01/20 08:27 Dose: 25 mg Documented by: Cholecalciferol (Cholecalciferol (Vitamin D3) 1,000 Unit Tablet) 5,000 unit PO DAILY BAY. CONTINUE FOR ONE MONTH -- ( NEW) Last Admin: 12/01/20 08:27 Dose: 5,000 unit Documented by: Duloxetine HCl (Duloxetine Hcl 30 Mg Andrzej.) 60 mg PO DAILY [facility] Last Admin: 12/01/20 08:28 Dose: 60 mg Documented by: Ezetimibe (Ezetimibe 10 Mg Tablet) 10 mg PO DAILY BAY Last Admin: 12/01/20 08:28 Dose: 10 mg Documented by: Famotidine (Famotidine 20 Mg Tablet) 20 mg PO BIDAC BAY CONTINUE FOR ONE MONTH -- ( NEW) Last Admin: 12/01/20 05:43 Dose: 40 mg Documented by: Levofloxacin 750 mg PO DAILY X 6 MORE DAYS - START 12/02/2020 -- (NEW) Stop: 12/03/20 08:59 Last Admin: 12/01/20 08:27 Dose: 100 mls/hr Documented by: Levothyroxine Sodium (Levothyroxine Sodium 75 Mcg Tablet) 75 mcg PO QDAC [facility] Last Admin: 12/01/20 05:43 Dose: 75 mcg Documented by: Metformin HCl (Metformin Hcl 500 Mg Tablet) 500 mg PO DAILYWM [facility] Last Admin: 12/01/20 08:28 Dose: 500 mg Documented by: Potassium Chloride (Potassium Chloride 10 Meq Capsule.Er) 10 meq PO DAILYWM BAY Last Admin: 12/01/20 08:28 Dose: 10 meq Documented by: Rosuvastatin Calcium (Rosuvastatin Calcium 10 Mg Tablet) 20 mg PO BEDTIME [facility] Last Admin: 11/30/20 20:08 Dose: 20 mg Documented by: Venlafaxine HCl (Venlafaxine Hcl 75 Mg Cap.Er.24h) 75 mg PO BID [facility] Last Admin: 12/01/20 08:28 Dose: 75 mg Documented by: Warfarin Sodium (Warfarin Sodium 5 Mg Tablet) 5 mg PO Q48H BAY - START ON 12/02/2020 Last Admin: 11/30/20 17:19 Dose: 5 mg Documented by: Warfarin Sodium (Warfarin Sodium 2 Mg Tablet) 4 mg PO Q48H BAY - START ON 12/03/2020 Last Admin: 11/29/20 17:29 Dose: 4 mg Documented by: Zinc Sulfate (Zinc Sulfate 220 Mg Capsule) 220 mg PO DAILY [facility], CONTINUE FOR ONE MONTH -- ( NEW) Last Admin: 12/01/20 08:27 Dose: 220 mg Documented by: PREDNISONE 20 MG PO BID X 5 DAYS FUROSEMIDE 20 MG EVERY DAY AC DICYCLOMINE 20 MG PO BID CILOSTAZOL 100 PO BID ASA 81 MG PO DAILY ALL PO MEDS TO BE ADMINISTERED PER PEG TUBE NEW PRESCRIPTIONS: Albuterol Sulfate 2.5 MG PER NEBULIZER TID [facility] (CHANGED) Cholecalciferol (Cholecalciferol (Vitamin D3) 5,000 unit PO DAILY BAY. CONTINUE FOR ONE MONTH Famotidine 20 mg PO BIDAC BAY CONTINUE FOR ONE MONTH Levofloxacin 750 mg PO DAILY X 6 MORE DAYS - START 12/02/2020 Zinc Sulfate (Zinc Sulfate 220 Mg Capsule) 220 mg PO DAILY [facility], CONTINUE FOR ONE MONTH PREDNISONE 20 MG PO BID X 5 DAYS DISCONTINUED MEDICATIONS: SYMBICORT MDI DIET INSTRUCTIONS: NPO, JEVITY TUBE FEEDINGS AND WATER FLUSHES BEFORE. 1.5 BRIDGETTE 80 ML/HR 10-12 HOURS @ NIGHT 240 ML AT MEAL TIMES. FLUSH WITH 60 ML WATER BEFORE AND AFTER EACH FEEDING. ACTIVITY: UP WITH ASSIST OF ONE WITH WALKER. PT TO EVAL AND TREAT. CONTINUE TO SELF QUARANTINE WITH LAST DAY ON 12/04/2020 (TESTED POSITIVE FOR COVID-19 ON 11/21/2020). SMOKING: SMOKING CESSATION DISEASE SPECIFIC EDUCATION: COVID-19 PNEUMONIA ANTI-COAG SMOKING CESSATION COPD HOSPITAL COURSE: This is a 70-year-old white male who was admitted through the emergency room. He had tested positive on the 21 of November for Covid-19. He was brought to the emergency room with increasing weakness, shortness of breath and fever. CT of chest showed bilateral ground glass opacities consisting with Covid pneumonia. Kidney function was slightly elevated showing mild dehydration. 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 He was admitted to [facility], placed in isolation. He was started on Levaquin 750 mg IV daily along with Dexamethasone 6 mg IM daily, placed on Symbicort 160 two puffs b.i.d. as well as Albuterol inhaler two puffs t.i.d. BAY. CTA did show that there might be a questionable region in the right upper lobe that could be a PE or could be artifact. He is already on Coumadin for history of DVT; INR was subtherapeutic on admission, we have administered. He was covered with Lovenox until his INR became therapeutic was 1.9 yesterday, is 1.7 today. He will get a total of 10 mg of Coumadin today. He was also placed on Zinc as well as Vitamin D and Pepcid. He has responded well to all of these. Most recent ABGs 02 sat of 94, pc02 35, p02 of 67. He has nebulizers at home. He will resume those once he gets home. Will send him home on Levaquin 750 mg p.o. daily for the next 6 days along with Prednisone 10 mg p.o. b.i.d. for the next 5 days. He is to continue his Zinc, Pepcid and Vitamin D for the next month. He has Home Health and they are to repeat an INR on Saturday and call me with the results. Again, he is to take a total of 10 mg Coumadin tonight and then will have 5 mg tomorrow. He is instructed to remain in quarantine. We have okayed it with [facility] and he is allowed to go to Radiology for radiation treatments. He is to call them and organize this. He will be discharged in stable condition. TIME SPENT: More than 60 minutes. FELIX
== END 2020-12-01 16:20 | disposition home or self-care (01) | DRG 864 ==
LOC: ED 12:18 → SCU 18:11
PROVIDERS: ADMIT Internal Medicine; ATTEND Internal Medicine
DX: R06.2 Wheezing; E66.01 Morbid (severe) obesity due to excess calories; R06.02 Shortness of breath; R53.1 Weakness; J44.9 Chronic obstructive pulmonary disease, unspecified; I26.99 Other pulmonary embolism without acute cor pulmonale; I73.9 Peripheral vascular disease, unspecified; J18.9 Pneumonia, unspecified organism; F17.200 Nicotine dependence, unspecified, uncomplicated; E78.5 Hyperlipidemia, unspecified; I48.91 Unspecified atrial fibrillation; C32.2 Malignant neoplasm of subglottis; D64.9 Anemia, unspecified; Z93.0 Tracheostomy status; R50.9 Fever, unspecified; R05 Cough

== ENCOUNTER 2020-12-26 13:42 | Inpatient (IN) ==
[2020-12-26] MEDS ORDERED: SOLU-MEDROL 125 MG IVP STA (14:08)
[2020-12-26] MEDS ORDERED: ATROVENT HFA INHALER (PER PUFF-WITH SPACER) IH STA (14:08)
[2020-12-26] MEDS ORDERED: VENTOLIN HFA (PER PUFF-WITH SPACER) IH STA (14:08)
[2020-12-26] MEDS ORDERED: LOPRESSOR IVP STA (14:08)
[2020-12-26 14:16] LABS: ABG PH 7.47 (7.35-7.45)
[2020-12-26 14:48] LABS: HEMATOCRIT 20.3 % (42.0-52.0); HEMOGLOBIN 6.8 g/dl (14.0-18.0); MEAN CORPUSCULAR HEMOGLOBIN 29.8 pg (27.0-31.0); MEAN CORPUSCULAR HGB CONC 33.5 (31.8-35.4); PLATELET COUNT 235 10^3/uL (140-440); RDW COEFFICIENT OF VARIATION 16.6 % (11.6-14.8); RED BLOOD COUNT 2.28 10^6/ul (4.70-6.10)
[2020-12-26 14:49] LABS: ALANINE AMINOTRANSFERASE 32.9 U/L (0-50); ALBUMIN 3.03 g/dL (3.5-5.0); ALKALINE PHOSPHATASE 61.7 U/L (56-119); ASPARTATE AMINO TRANSFERASE 52.8 U/L (17-59); BILIRUBIN,TOTAL 0.94 mg/dL (0.2-1.3); BLOOD UREA NITROGEN 20.1 mg/dL (9-20); CALCIUM 8.76 mg/dL (8.4-10.2); CARBON DIOXIDE 33.3 mmol/L (22-30.0); CHLORIDE 95.6 mmol/L (98-107); CREATININE 0.51 mg/dL (0.60-1.10); GLUCOSE 127.5 mg/dL (74-106); POTASSIUM 4.23 mmol/L (3.5-5.1); SODIUM 132.7 mmol/L (134.5-145); TOTAL PROTEIN 6.16 g/dL (6.3-8.2)
[2020-12-26 15:00] LABS: WHITE BLOOD COUNT 1.19 K/ul (4.2-10.2)
[2020-12-26 15:01] LABS: ANISOCYTOSIS NOT PRESENT (NOT PRESENT)
[2020-12-26 15:02] LABS: TROPONIN I < 0.012 ng/ml (0.0000-0.120)
--- NOTE | 2020-12-26 15:25 | CT ---
EXAM: CT THORAX HISTORY: Shortness of breath. TECHNIQUE: CT thorax without intravenous contrast. Multiplanar images presented. COMPARISON: 11/24/2020 PET FINDINGS: Cardiomegaly is present. No pericardial effusion is seen. Limited evaluation of the medi astinum and hilar structures without the administration of intravenous contrast agent. There are sally cified mediastinal and hilar lymph nodes. Noncalcified lymph nodes are also present. There is promi nence of the right hilum suggesting lymph nodes and prominent vascular caliber. The right lower lobe bronchi do not appear clear and there is increasing consolidation in the right lower lobe/middle lob e which can be consistent with pneumonia and atelectasis. There is mild to moderate pulmonary emphys mark and diffuse interstitial fibrosis. Cannot exclude scattered pulmonary nodules and follow-up CT i s recommended after management and symptom resolution. No pneumothorax. Tracheostomy tube ends in t he trachea. Bones are demineralized. There is moderately severe degenerative changes of the spine. There are enlarged right axillary lymph nodes with regional subcutaneous fat stranding possibly rela sadaf to lymphadenitis. Correlate clinically. G tube is noted. IMPRESSION: 1. Pulmonary emphysema and interstitial fibrosis. The right lower lobe bronchi do not appear clear (possibly secondary to mucous plugging) and there is increasing consolidation in the right lower lobe /middle lobe which can be consistent with pneumonia and atelectasis. There is mild to moderate pulmo nary emphysema and diffuse interstitial fibrosis. 2. Cardiomegaly. 3. Fat stranding and enlarged right axillary lymph nodes may represent lymphadenitis. All CT scans are performed using dose optimization techniques as appropriate to the performed exam an d include at least one of the following: Automated exposure control, adjustment of the mA and/or kV according t o size, and the use of iterative reconstruction technique.
[2020-12-26] MEDS ORDERED: ROCEPHIN 1 GM/50 ML D5W 1 GM/50 ML BAG IV STA (15:35)
[2020-12-26] MEDS ORDERED: SODIUM CHLORIDE 500 ML IV STA (15:37)
[2020-12-26] MEDS: ZITHROMAX PO STA ×2 (15:59→16:05)
--- NOTE | 2020-12-26 16:25 | ED.PDOC ---
General ED Provider: Dr. GEOVANI MENDOZA MD Chief Complaint: Shortness of Air Stated Complaint: increasing SOB Time Seen by Physician: 13:45 Mode of Arrival: Ambulance Information Source: Patient and EMT Exam Limitations: No limitations Primary Care Provider: LANNY VOGT Nursing and Triage Documentation Reviewed and Agree: Yes Does patient meet sepsis criteria?: No System Inflammatory Response Syndrome: Not Applicable Sepsis Protocol: For patient's 13 years and over: Temp is 96.8 and below OR 101 and greater Pulse >90 BPM Resp >20/minute Acutely Altered Mental Status Are patient's symptoms suggestive of a new infection, such as: -Pneumonia -Skin, Soft Tissue -Endocarditis -UTI -Bone, Joint Infection -Implantable Device -Acute Abdominal Infection -Wound Infection -Meningitis -Blood Stream Catheter Infection -Unknown Respiratory Complaint Exam Shortness of Air Complaint/Exam Onset/Duration: 2 days Symptoms Are: Still present Timing: Constant Initial Severity: Mild Current Severity: Mild Character: Reports Dyspnea at rest and Dyspnea on exertion Aggravating: Reports Movement Alleviating: Reports Oxygen Associated Signs and Symptoms: Reports Wheezing and Labored breathing History of Healthcare-Acquired Pneumonia: No Home Oxygen Use: Yes Recent Stress Test: No Recent Echo/LV Function: No Respiratory Distress: Mild Stridor Present: No Subcutaneous Emphysema: No Accessory Muscle Use: Yes Retractions: Intercostal Diminished Breath Sounds: No Fatigue: No Leg Swelling: No Mesfin's Sign Present: No Grunting Respirations: No Kussmaul Respirations: No Differential Diagnoses: COPD Exacerbation, Pneumonia, Bronchitis and URI Review of Systems Review Of Systems Constitutional: Reports Fever Eyes: Reports No symptoms Ears, Nose, Mouth, Throat: Reports No symptoms Respiratory: Reports Short of air Cardiac: Reports Irregular heart rate GI: Reports No symptoms : Reports No symptoms Musculoskeletal: Reports No symptoms Skin: Reports No symptoms Neurological: Reports No symptoms Endocrine: Reports No symptoms Hematologic/Lymphatic: Reports No symptoms All Other Systems: Reviewed and Negative COUNTS INCLUDE 234 BEDS AT THE [facility] Medical History A-fib Chronic laryngitis Colon cancer COPD (chronic obstructive pulmonary disease) Diabetes Throat cancer Tracheostomy in place Family History Mother Diabetes Hypertension Congestive heart failure (CHF) FATHER Congestive heart failure (CHF) BROTHER Multiple sclerosis BROTHER Multiple sclerosis FATHER Diabetes Social History Smoking and tobacco status: Former smoker How long ago did patient quit smoking: January 2020 Quit status: quit date established Surgical History History of colon resection History of vein stripping Physical Exam Physical Exam Appearance: Reports No pain distress and Well-nourished Ill-appearing: Mild (tracheostomy in situ, no acute resp distress.) Pain Distress: None Eyes: Reports ASHLEY, EOMI and Conjunctiva clear ENT: Reports Ears normal, Nose normal and Oropharynx normal Neck: Supple Respiratory: Reports Breath sounds equal, Crackles, Rhonchi, Wheezes and Retractions Cardiovascular: Reports Irregular rhythm GI/: Reports Soft, Nontender, No masses, Bowel sounds normal and Other (g-tube in situ) Musculoskeletal: Reports Normal strength, ROM intact, No edema and No calf tenderness; Denies Edema Skin: Reports Warm, Dry and Normal color Neurological: Reports Sensation intact, Reflexes intact, Cranial nerves intact, Alert and Oriented; Denies CN Palsy Psychiatric: Reports Affect appropriate and Mood appropriate Interpretation Radiology Interpretation Radiology Interpretation By: Radiologist Radiology Results: Positive Exam Interpreted: CT Scan EKG Interpretation Time of EKG #1: 13:46 Interpretation: 105/min. atrial fibrillation. no acute ST or T wave changes. Re-Evaluation Re-Evaluation Time of Re-Evaluation: 14:40 Status: Improved Vital Signs Stable: Yes Lungs: Other (mild crackles, rhonchi and wheezes.) Skin: Warm and Dry Neuro: Alert and Oriented X3 Critical Care Note Critical Care Note Total Critical Care Time (mins): 30 Course Course Hematology/Chemistry: 12/26/20 14:35 12/26/20 14:35 Orders, Labs, Meds: Lab Review 12/26/20 12/26/20 12/26/20 14:08 14:30 14:35 WBC 1.19 L* RBC 2.28 L Hgb 6.8 L Hct 20.3 L MCV 89.0 MCH 29.8 MCHC 33.5 RDW Coeff of Sumeet 16.6 H Plt Count 235 Neutrophils % (Manual) 64.0 Lymphocytes % (Manual) 28.0 Monocytes % (Manual) 8.0 Anisocytosis Not present Puncture Site R radial Base Excess 11.2 H O2 Saturation 99.2 H ABG pH 7.47 H ABG pCO2 48.0 H ABG pO2 137.0 H ABG HCO3 34.9 H ABG Total CO2 36.4 H Renzo Test + Hemoglobin 0.5 Oxyhemoglobin 96.5 Carboxyhemoglobin 2.1 H Total Hemoglobin 7.3 L O2 Delivery Device Trach collar Oxygen Liter Flow 10.00 Sodium Potassium Chloride Carbon Dioxide Anion Gap BUN Creatinine Estimated GFR (MDRD) BUN/Creatinine Ratio Glucose Lactic Acid Calcium Total Bilirubin AST ALT Alkaline Phosphatase Troponin I NT-Pro-B Natriuret Pep Total Protein Albumin Globulin Albumin/Globulin Ratio Procalcitonin Adenovirus (PCR) Not detected B. pertussis DNA (PCR) Not detected B.parapertussis DNA PCR Not detected C. pneumoniae DNA (PCR) Not detected Coronavirus OC43 (PCR) Not detected Coronavirus HKU1 (PCR) Not detected Coronavirus 229E (PCR) Not detected Coronavirus NL63 (PCR) Not detected Human Metapneumovir PCR Not detected Influenza Type A (PCR) Not detected Influenza B (RT-PCR) Not detected M. pneumoniae (PCR) Not detected Parainfluenza 1 (PCR) Not detected Parainfluenza 2 (PCR) Not detected Parainfluenza 3 (PCR) Not detected Parainfluenza 4 (PCR) Not detected RSV (PCR) Not detected Entero/Rhino (PCR) Not detected SARS-CoV-2 (PCR) Detected H 12/26/20 12/26/20 12/26/20 14:35 14:35 14:35 WBC RBC Hgb Hct MCV MCH MCHC RDW Coeff of Sumeet Plt Count Neutrophils % (Manual) Lymphocytes % (Manual) Monocytes % (Manual) Anisocytosis Puncture Site Base Excess O2 Saturation ABG pH ABG pCO2 ABG pO2 ABG HCO3 ABG Total CO2 Renzo Test Hemoglobin Oxyhemoglobin Carboxyhemoglobin Total Hemoglobin O2 Delivery Device Oxygen Liter Flow Sodium 132.7 L Potassium 4.23 Chloride 95.6 L Carbon Dioxide 33.3 H Anion Gap 8.03 BUN 20.1 H Creatinine 0.51 L Estimated GFR (MDRD) 161.00 BUN/Creatinine Ratio 39.41 Glucose 127.5 H Lactic Acid 0.70 Calcium 8.76 Total Bilirubin 0.94 AST 52.8 ALT 32.9 Alkaline Phosphatase 61.7 Troponin I < 0.012 NT-Pro-B Natriuret Pep 2970.000 H Total Protein 6.16 L Albumin 3.03 L Globulin 3.13 Albumin/Globulin Ratio 0.96 Procalcitonin < 0.05 Adenovirus (PCR) B. pertussis DNA (PCR) B.parapertussis DNA PCR C. pneumoniae DNA (PCR) Coronavirus OC43 (PCR) Coronavirus HKU1 (PCR) Coronavirus 229E (PCR) Coronavirus NL63 (PCR) Human Metapneumovir PCR Influenza Type A (PCR) Influenza B (RT-PCR) M. pneumoniae (PCR) Parainfluenza 1 (PCR) Parainfluenza 2 (PCR) Parainfluenza 3 (PCR) Parainfluenza 4 (PCR) RSV (PCR) Entero/Rhino (PCR) SARS-CoV-2 (PCR) Orders Category Date Time Status ABG DRAW REQUEST Stat CARDIO 12/26/20 14:09 Completed EKG-(ED ONLY) Stat CARDIO 12/26/20 14:08 Completed METERED DOSE INHALATION Routine CARDIO 12/26/20 14:10 Ordered ABG COOX Stat LAB 12/26/20 14:08 Completed BLOOD CULTURE (ED ONLY) Stat LAB 12/26/20 14:35 Received CBC W/ AUTO DIFF Stat LAB 12/26/20 14:35 Completed COMPREHENSIVE METABOLIC PANEL Stat LAB 12/26/20 14:35 Completed LACTIC ACID Stat LAB 12/26/20 14:35 Completed MANUAL DIFFERENTIAL Stat LAB 12/26/20 14:35 Completed NT-PROBNP Stat LAB 12/26/20 14:35 Completed PROCALCITONIN Stat LAB 12/26/20 14:35 Completed RESPIRATORY PANEL 2.1 (PCR) Stat LAB 12/26/20 14:30 Completed TROPONIN I Stat LAB 12/26/20 14:35 Completed TYPE AND SCREEN Stat LAB 12/26/20 15:37 Ordered URINALYSIS C & S IF INDICATED Stat LAB 12/26/20 14:08 Uncollected Albuterol Inhaler(with Spacer) [Ventolin Hfa (Per Puff- MEDS 12/26/20 14:08 Discontinued with Spacer)] 2 puff IH ONCE STA Azithromycin [Zithromax] MEDS 12/26/20 15:35 Discontinued 500 mg PO ONCE STA Ceftriaxone/D5w 1 gm Premix [Rocephin 1 gm/50 ml D5w] MEDS 12/26/20 15:35 Discontinued 1 gm in 50 ml IV ONCE Ipratropium Inhaler(Spacer) [Atrovent Hfa Inhaler (Per MEDS 12/26/20 14:08 Discontinued Puff-with Spacer)] 2 puff IH ONCE STA Methylprednisolone Sod Succ/Pf [Solu-Medrol 125 mg] MEDS 12/26/20 14:08 Discontinued 125 mg IVP ONCE STA Sodium Chloride 0.9% [Sodium Chloride] 500 ml MEDS 12/26/20 15:[address] CHEST W/O CONTRAST Stat RADS 12/26/20 14:08 Completed Medications Generic Name Dose Route Start Last Admin Trade Name Fredolores PRN Reason Stop Dose Admin Sodium Chloride 500 mls @ 500 mls/hr 12/26/20 15:37 12/26/20 16:12 Sodium Chloride IV 12/26/20 16:36 Not Given BOLUS STA Discontinued Medications Generic Name Dose Route Start Last Admin Trade Name Garth PRN Reason Stop Dose Admin Albuterol Sulfate 2 puff 12/26/20 14:08 12/26/20 14:35 Albuterol Sulfate (Ventolin Hfa) 18 Gm 1 Puff With Spacer IH 12/26/20 14:09 2 puff ONCE STA Administration Azithromycin 500 mg 12/26/20 15:35 12/26/20 16:05 Azithromycin 250 Mg Tablet PO 12/26/20 15:36 Not Given ONCE STA CEFTRIAXONE/D5W 1 GM PREMIX 1 gm in 50 mls @ 75 mls/hr 12/26/20 15:35 12/26/20 15:59 Rocephin 1 Gm/50 Ml D5w IV 12/26/20 16:14 75 mls/hr ONCE STA Administration Ipratropium [place] 2 puff 12/26/20 14:08 12/26/20 14:35 Ipratropium [place] 12.9 Gm Hfa Inhaler Per Puff With Spacer IH 12/26/20 14:09 2 puff ONCE STA Administration Methylprednisolone Sodium Succinate 125 mg 12/26/20 14:08 12/26/20 14:56 Methylprednisolone Sod Succ/Pf 125 Mg/2 Ml Vial IVP 12/26/20 14:09 125 mg ONCE STA Administration Vital Signs: Temp Pulse Resp BP Pulse Ox 12/26/20 13:43 97.9 F 103 H 22 111/59 L 96 Discharge Plan Discharge Patient Disposition: ADMITTED INPATIENT Discharge Problem: Atrial fibrillation with RVR, Bilateral interstitial pneumonia, Anemia, COPD exacerbation ED Provider: GEOVANI MENDOZA Condition: Serious Physician Progress Note: []Pt was d/w Dr Vogt and will be admitted here. Please see admission orders.
[2020-12-26] MEDS ORDERED: VENTOLIN HFA (PER PUFF-WITH SPACER) IH PRN (16:52)
[2020-12-26] MEDS ORDERED: COREG PO SCH (17:00)
[2020-12-26 17:21] VITALS: BMI 33.5
[2020-12-26 17:36] LABS: PROTHROMBIN TIME 13.6 SEC (9.3-11.0)
[2020-12-26] MEDS: ATROVENT HFA INHALER (PER PUFF-WITH SPACER) IH SCH (18:15)
[2020-12-26] MEDS: PEPCID GT SCH (20:12)
[2020-12-26] MEDS: CRESTOR GT SCH (20:13)
[2020-12-26] MEDS: NEURONTIN GT SCH (20:14)
[2020-12-26] MEDS: PLETAL GT SCH (20:14)
[2020-12-26] MEDS ORDERED: DICYCLOMINE 20 MG PO SCH (21:00)
[2020-12-26] MEDS ORDERED: PEPCID PO SCH (21:00)
[2020-12-26] MEDS ORDERED: CRESTOR PO SCH (21:00)
[2020-12-26] MEDS ORDERED: PLETAL PO SCH (21:00)
[2020-12-26] MEDS ORDERED: NEURONTIN PO SCH (21:00)
[2020-12-26] MEDS: SOLU-MEDROL 125 MG IVP SCH (21:28)
[2020-12-27] MEDS: ATROVENT HFA INHALER (PER PUFF-WITH SPACER) IH SCH ×5 (00:30→23:40)
[2020-12-27 03:09] LABS: HEMATOCRIT 23.9 % (42.0-52.0); HEMOGLOBIN 8.2 g/dl (14.0-18.0); MEAN CORPUSCULAR HEMOGLOBIN 29.8 pg (27.0-31.0); MEAN CORPUSCULAR HGB CONC 34.3 (31.8-35.4); MEAN CORPUSCULAR VOLUME 86.9 fl (80.0-94.0); PLATELET COUNT 218 10^3/uL (140-440); RDW COEFFICIENT OF VARIATION 16.1 % (11.6-14.8); RED BLOOD COUNT 2.75 10^6/ul (4.70-6.10)
[2020-12-27 03:13] LABS: ANISOCYTOSIS NOT PRESENT (NOT PRESENT); WHITE BLOOD COUNT 0.85 K/ul (4.2-10.2)
[2020-12-27 03:19] LABS: PROTHROMBIN TIME 13.5 SEC (9.3-11.0)
[2020-12-27 03:20] LABS: ALANINE AMINOTRANSFERASE 27.9 U/L (0-50); ALBUMIN 2.9 g/dL (3.5-5.0); ALKALINE PHOSPHATASE 57.6 U/L (56-119); ASPARTATE AMINO TRANSFERASE 34.7 U/L (17-59); BILIRUBIN,TOTAL 1.04 mg/dL (0.2-1.3); BLOOD UREA NITROGEN 17.1 mg/dL (9-20); CALCIUM 8.35 mg/dL (8.4-10.2); CARBON DIOXIDE 30.3 mmol/L (22-30.0); CHLORIDE 96.8 mmol/L (98-107); CREATININE 0.4 mg/dL (0.60-1.10); GLUCOSE 263.4 mg/dL (74-106); POTASSIUM 3.85 mmol/L (3.5-5.1); SODIUM 133.8 mmol/L (134.5-145); TOTAL PROTEIN 6.05 g/dL (6.3-8.2)
[2020-12-27] MEDS: LASIX TAB GT SCH (05:29)
[2020-12-27] MEDS: SYNTHROID GT SCH (05:30)
[2020-12-27] MEDS: SOLU-MEDROL 125 MG IVP SCH ×3 (05:33→21:25)
[2020-12-27] MEDS ORDERED: LASIX TAB PO SCH (06:30)
[2020-12-27] MEDS ORDERED: SYNTHROID PO SCH (06:30)
[2020-12-27 07:55] LABS: BILIRUBIN,URINE Negative (NEGATIVE); CLARITY,URINE Clear (CLEAR); COLOR,URINE Orange (YELLOW); GLUCOSE, URINE (UA) 1+ (NEGATIVE); KETONES,URINE Negative (NEGATIVE); LEUKOCYTE ESTERASE ,URINE Negative (NEGATIVE); NITRITE,URINE Negative (NEGATIVE); PROTEIN,URINE 1+ (NEGATIVE); URINE, BLOOD Negative (NEGATIVE)
[2020-12-27 08:02] LABS: MUCUS,URINE TRACE (NOT PRESENT); SQUAMOUS EPITHELIAL CELL,UR NOT PRESENT (0-5)
[2020-12-27] MEDS ORDERED: ASPIRIN EC PO SCH (08:30)
[2020-12-27] MEDS ORDERED: GLUCOPHAGE PO SCH (08:30)
[2020-12-27] MEDS ORDERED: LANOXIN IVP STA (08:39)
[2020-12-27] MEDS ORDERED: CYMBALTA PO SCH (09:00)
[2020-12-27] MEDS ORDERED: MICRO-K CAP GT SCH (09:00)
[2020-12-27] MEDS ORDERED: WELLBUTRIN XL PO SCH (09:00)
[2020-12-27] MEDS ORDERED: ZETIA PO SCH (09:00)
[2020-12-27] MEDS ORDERED: ZINC-220 PO SCH (09:00)
[2020-12-27] MEDS ORDERED: VITAMIN D PO SCH (09:00)
[2020-12-27] MEDS ORDERED: MICRO-K CAP PO SCH (09:00)
[2020-12-27] MEDS: SYMBICORT 160-4.5 MCG INHALER IH SCH ×2 (09:14→20:49)
[2020-12-27] MEDS: ZETIA GT SCH (09:15)
[2020-12-27] MEDS: PLETAL GT SCH ×2 (09:15→20:46)
[2020-12-27] MEDS: PEPCID GT SCH ×2 (09:16→20:45)
[2020-12-27] MEDS: COREG GT SCH ×2 (09:16→17:33)
[2020-12-27] MEDS: CYMBALTA GT SCH (09:17)
[2020-12-27] MEDS: ZINC-220 GT SCH (09:17)
[2020-12-27] MEDS: GLUCOPHAGE GT SCH (09:17)
[2020-12-27] MEDS: ASPIRIN EC GT SCH (09:18)
[2020-12-27] MEDS: VITAMIN D GT SCH (09:18)
[2020-12-27] MEDS: POTASSIUM CHL 10% ORAL SOL GT SCH (09:19)
[2020-12-27] MEDS: ROCEPHIN 1 GM/50 ML D5W 1 GM/50 ML BAG IV SCH (09:22)
--- NOTE | 2020-12-27 09:24 | PCM.PROG ---
Attending Provider: ATTENDING PROVIDER: Dr. LANNY VOGT This patient is seen with Erica Cornejo, Nurse Practitioner. DATE OF SERVICE: 12/27/20 SUBJECTIVE: This 70 year old /WHITE M was hospitalized 12/26/20. The patient is resting comfortably. He reports feeling less short of breath this morning. He received 2 units PRBC. No fever this morning. REVIEW OF SYSTEMS: CONSTITUTIONAL: Weakness. No night sweats. No fatigue, malaise, lethargy. No fever or chills. HEENT: Eyes: No visual changes. No eye pain. No eye discharge. ENT: No runny nose. No epistaxis. No sinus pain. No odynophagia. No congestion. RESPIRATORY: Cough, shortness of breath. No hemoptysis. CARDIOVASCULAR: No angina symptoms. No CHF symptoms. No atypical chest pain for CAD. No palpitations. No orthopnea.. GASTROINTESTINAL: No abdominal pain. No nausea or vomiting. No diarrhea or constipation. No hematemesis. No hematochezia. GENITOURINARY: No urgency. No frequency. No dysuria. No hematuria. No obstructive symptoms. No discharge. No pain. No significant abnormal bleeding. MUSCULOSKELETAL: No musculoskeletal pain; no joint swelling. NEUROLOGICAL: Awake, alert, oriented to time, place and person. No headache. No neck pain. No syncope. No seizures. No dizziness. PSYCHIATRIC: Not anxious. No depression. No suicidal thoughts. No homicidal thoughts. SKIN: No rash. No lesions. No wounds. ENDOCRINE: No unexplained weight loss. No weight gain. HEMATOLOGIC/LYMPHATIC: No anemia. No purpura. No petechiae. No prolonged or excessive bleeding. No palpable lymph nodes. PHYSICAL EXAMINATION: GENERAL: The patient is awake, alert and oriented, lying/sitting in bed in no distress. VITAL SIGNS: Temperature 97.5 F, Pulse 119, Respiratory Rate 22, BP 117/52, Pulse Ox 90% HEENT: Head normocephalic, atraumatic. Eyes: Extraocular muscles are intact. Pupils are equal, round and reactive to light and accommodation. Ears: No lesions. Nose appeared normal. Throat: No exudate or erythema. NECK: Supple. No JVD, no carotid bruit. No lymphadenopathy or thyromegaly. LUNGS: Severely diminished breath sounds, worse on the right. Percussion note normal. Chest symmetrical. HEART: S1, S2, no S3. No murmurs. No cyanosis or clubbing. No ascites. Pulses: Dorsalis pedis and posterior tibial pulses +1 to +2 both sides. ABDOMEN: Soft. Non-tender. Bowel sounds active. No CVA tenderness. No mass felt. EXTREMITIES: Trace leg edema. Full range of motion of all extremities, equal. NEUROLOGIC: No focal deficit. Cranial nerves II through XII are grossly intact. No headache, no double vision or headache. SKIN: Not dry. Intact. Turgor-normal. LYMPHATIC: No palpable lymph nodes/no lymphedema. MUSCULOSKELETAL: Normal joints with no swelling. Muscle tone is normal. LAB REVIEW: 12/27/20 03:00 12/27/20 03:00 12/27/20 07:45: Urine Color [place], Urine Clarity Clear, Urine pH 7.0, Ur Specific [place] 1.015, Urine Protein 1+ H, Urine Glucose (UA) 1+ H, Urine Ketones Negative, Urine Blood Negative, Urine Nitrite Negative, Urine Bilirubin Negative, Urine Urobilinogen 1.0 H, Ur Leukocyte Esterase Negative, Ur Squamous Epith Cells Not present, Urine Mucus Trace 12/27/20 03:00: Sodium 133.8 L, Potassium 3.85, Chloride 96.8 L, Carbon Dioxide 30.3 H, Anion Gap 10.55, BUN 17.1, Creatinine 0.40 L, Estimated GFR (MDRD) 213.00, BUN/Creatinine Ratio 42.75, Glucose 263.4 H D, Calcium 8.35 L, Total Bilirubin 1.04, AST 34.7, ALT 27.9, Alkaline Phosphatase 57.6, Total Protein 6.05 L, Albumin 2.90 L, Globulin 3.15, Albumin/Globulin Ratio 0.92 12/27/20 03:00: PT 13.5 H, INR 1.27 12/27/20 03:00: WBC 0.85 L*, RBC 2.75 L, Hgb 8.2 L, Hct 23.9 L, MCV 86.9, MCH 29.8, MCHC 34.3, RDW Coeff of Sumeet 16.1 H, Plt Count 218, Neutrophils % (Manual) 90.0 H, Band Neutrophils % 2.0, Lymphocytes % (Manual) 6.0 L, Myelocytes % 2.0 H , Anisocytosis Not present 12/26/20 15:56: Blood Type O POSITIVE, Antibody Screen Negative, Crossmatch (AHG) See Detail 12/26/20 14:35: Lactic Acid 0.70 12/26/20 14:35: Procalcitonin < 0.05 12/26/20 14:35: Sodium 132.7 L, Potassium 4.23, Chloride 95.6 L, Carbon Dioxide 33.3 H, Anion Gap 8.03, BUN 20.1 H, Creatinine 0.51 L, Estimated GFR (MDRD) 161.00, BUN/Creatinine Ratio 39.41, Glucose 127.5 H, Calcium 8.76, Total Bilirubin 0.94, AST 52.8, ALT 32.9, Alkaline Phosphatase 61.7, Troponin I < 0.012, NT-Pro-B Natriuret Pep 2970.000 H, Total Protein 6.16 L, Albumin 3.03 L, Globulin 3.13, Albumin/Globulin Ratio 0.96 12/26/20 14:35: WBC 1.19 L*, RBC 2.28 L, Hgb 6.8 L, Hct 20.3 L, MCV 89.0, MCH 29.8, MCHC 33.5, RDW Coeff of Sumeet 16.6 H, Plt Count 235, Neutrophils % (Manual) 64.0, Lymphocytes % (Manual) 28.0, Monocytes % (Manual) 8.0, Anisocytosis Not present 12/26/20 14:30: Adenovirus (PCR) Not detected, B. pertussis DNA (PCR) Not detected, B.parapertussis DNA PCR Not detected, C. pneumoniae DNA (PCR) Not detected, Coronavirus OC43 (PCR) Not detected, Coronavirus HKU1 (PCR) Not detected, Coronavirus 229E (PCR) Not detected, Coronavirus NL63 (PCR) Not detected, Human Metapneumovir PCR Not detected, Influenza Type A (PCR) Not detected, Influenza B (RT-PCR) Not detected, M. pneumoniae (PCR) Not detected, Parainfluenza 1 (PCR) Not detected, Parainfluenza 2 (PCR) Not detected, Parainfluenza 3 (PCR) Not detected, Parainfluenza 4 (PCR) Not detected, RSV (PCR) Not detected, Entero/Rhino (PCR) Not detected, SARS-CoV-2 (PCR) Detected H 12/26/20 14:25: PT 13.6 H, INR 1.28 12/26/20 14:08: Puncture Site R radial, Base Excess 11.2 H, O2 Saturation 99.2 H , ABG pH 7.47 H, ABG pCO2 48.0 H, ABG pO2 137.0 H, ABG HCO3 34.9 H, ABG Total CO2 36.4 H, Renzo Test +, Hemoglobin 0.5, Oxyhemoglobin 96.5, Carboxyhemoglobin 2.1 H, Total Hemoglobin 7.3 L, O2 Delivery Device Trach collar, Oxygen Liter Flow 10.00 ASSESSMENT: Please see below. 1. Right lobar pneumonia. 2. Anemia. 3. Subglottic carcinoma undergoing chemotherapy. 4. COPD. 5. Atrial fibrillation. PLAN: 1. Hold Coumadin. 2. Resume Symbicort. 3. Sliding scale, per Dr. Vogt's coverage. 4. Digoxin 0.25 this a.m. 5. Blood cultures pending. 6. Accu-checks a.c. and h.s. Plan and coordination of the patient's care discussed in the presence of Food Beverage Server and nurse. CONDITION: Stable SCRIBED BY: FRANKIE PLAZA [employer] Recruiting Intern scribed while in presence of service performed by Dr. Vogt/Erica Cornejo APRN on 12/27/20 ([id number])
[2020-12-27] MEDS: VENLAFAXINE 75 MG GT SCH ×3 (10:27→20:46)
[2020-12-27] MEDS: DICYCLOMINE 20 MG GT SCH ×3 (10:27→20:46)
[2020-12-27] MEDS: ZITHROMAX 500 MG in SODIUM CHLORIDE 250 ML IV SCH (10:33)
[2020-12-27] MEDS: VENTOLIN HFA (PER PUFF-WITH SPACER) IH PRN (11:16)
[2020-12-27] MEDS: HUMULIN R SUBCUT PRN ×3 (11:18→20:47)
[2020-12-27] MEDS: CRESTOR GT SCH (20:43)
[2020-12-27] MEDS: NEURONTIN GT SCH (20:45)
[2020-12-28] MEDS: ATROVENT HFA INHALER (PER PUFF-WITH SPACER) IH SCH ×4 (04:50→23:00)
[2020-12-28] MEDS: SOLU-MEDROL 125 MG IVP SCH ×3 (04:53→21:13)
[2020-12-28] MEDS: LASIX TAB GT SCH (05:37)
[2020-12-28] MEDS: SYNTHROID GT SCH (05:38)
[2020-12-28 05:47] LABS: HEMATOCRIT 26.4 % (42.0-52.0); HEMOGLOBIN 9.1 g/dl (14.0-18.0); MEAN CORPUSCULAR HEMOGLOBIN 30.4 pg (27.0-31.0); MEAN CORPUSCULAR HGB CONC 34.5 (31.8-35.4); MEAN CORPUSCULAR VOLUME 88.3 fl (80.0-94.0); PLATELET COUNT 287 10^3/uL (140-440); RDW COEFFICIENT OF VARIATION 16.4 % (11.6-14.8); RED BLOOD COUNT 2.99 10^6/ul (4.70-6.10); WHITE BLOOD COUNT 2.15 K/ul (4.2-10.2)
[2020-12-28 06:00] LABS: ALANINE AMINOTRANSFERASE 46.3 U/L (0-50); ALBUMIN 3.12 g/dL (3.5-5.0); ALKALINE PHOSPHATASE 64.4 U/L (56-119); ASPARTATE AMINO TRANSFERASE 47.3 U/L (17-59); BILIRUBIN,TOTAL 0.53 mg/dL (0.2-1.3); BLOOD UREA NITROGEN 19.2 mg/dL (9-20); CALCIUM 9.05 mg/dL (8.4-10.2); CARBON DIOXIDE 30.7 mmol/L (22-30.0); CHLORIDE 99.1 mmol/L (98-107); CREATININE 0.44 mg/dL (0.60-1.10); GLUCOSE 206.9 mg/dL (74-106); POTASSIUM 3.96 mmol/L (3.5-5.1); SODIUM 136.9 mmol/L (134.5-145); TOTAL PROTEIN 6.34 g/dL (6.3-8.2)
[2020-12-28 06:02] LABS: ANISOCYTOSIS NOT PRESENT (NOT PRESENT)
[2020-12-28 06:09] LABS: PROTHROMBIN TIME 13.2 SEC (9.3-11.0)
[2020-12-28] MEDS: HUMULIN R SUBCUT PRN ×4 (06:18→21:18)
[2020-12-28] MEDS: VITAMIN D GT SCH (08:08)
[2020-12-28] MEDS: ZINC-220 GT SCH (08:09)
[2020-12-28] MEDS: PEPCID GT SCH ×2 (08:10→21:17)
[2020-12-28] MEDS: PLETAL GT SCH ×2 (08:10→21:17)
[2020-12-28] MEDS: GLUCOPHAGE GT SCH (08:11)
[2020-12-28] MEDS: COREG GT SCH ×2 (08:11→17:50)
[2020-12-28] MEDS: ZETIA GT SCH (08:11)
[2020-12-28] MEDS: CYMBALTA GT SCH (08:12)
[2020-12-28] MEDS: ASPIRIN EC GT SCH (08:12)
[2020-12-28] MEDS: POTASSIUM CHL 10% ORAL SOL GT SCH (08:13)
[2020-12-28] MEDS: SYMBICORT 160-4.5 MCG INHALER IH SCH ×2 (08:14→21:19)
--- NOTE | 2020-12-28 08:33 | PN ---
DATE OF SERVICE: 12/26/2020 ADMIT NOTE SUBJECTIVE: Mr. Benítez was brought to the emergency room with complaint of shortness of breath, cough and congestion. The patient has pneumonia and has been recently treated for COVID pneumonia, was successfully treated and sent home. REVIEW OF SYSTEMS: CONSTITUTIONAL: No night sweats. No fatigue, malaise, lethargy. No fever or chills. HEENT: Eyes: No visual changes. No eye pain. No eye discharge. ENT: No runny nose. No epistaxis. No sinus pain. No sore throat. No odynophagia. No congestion. RESPIRATORY: No cough, no congestion. No hemoptysis. No shortness of breath. CARDIOVASCULAR: No angina symptoms. No CHF symptoms. No atypical chest pain for CAD. No palpitations. No PND. No orthopnea. GASTROINTESTINAL: No abdominal pain. No nausea or vomiting. No diarrhea or constipation. No hematemesis. No hematochezia. GENITOURINARY: No urgency. No frequency. No dysuria. No hematuria. No obstructive symptoms. No discharge. No pain. No significant abnormal bleeding. MUSCULOSKELETAL: No musculoskeletal pain; no joint swelling. NEUROLOGICAL: No headache. No neck pain. No syncope. No seizures. No dizziness. PSYCHIATRIC: Not anxious. No depression. No suicidal thoughts. No homicidal thoughts. SKIN: No rash. No lesions. No wounds. ENDOCRINE: No unexplained weight loss. No weight gain. HEMATOLOGIC/LYMPHATIC: No anemia. No purpura. No petechiae. No prolonged or excessive bleeding. No palpable lymph nodes. PHYSICAL EXAMINATION: GENERAL: The patient is , lying/sitting in bed in no distress. VITAL SIGNS: HEENT: Head normocephalic, atraumatic. Eyes: Extraocular muscles are intact. Pupils are equal, round and reactive to light and accommodation. Ears: No lesions. Nose appeared normal. Throat: No exudate or erythema. NECK: Supple. No JVD, no carotid bruit. No lymphadenopathy or thyromegaly. LUNGS: Decreased breath sounds, bilaterally. Clear to auscultation. Percussion note normal. Chest symmetrical. HEART: S1, S2, no S3. No murmurs. No cyanosis or clubbing. No ascites. Pulses: Dorsalis pedis and posterior tibial pulses +1 to +2 bilaterally. ABDOMEN: Soft. Nontender. Bowel sounds active. No CVA tenderness. No mass felt. EXTREMITIES: No edema. Full range of motion of all extremities, equal. NEUROLOGIC: No focal deficit. Cranial nerves II through XII are grossly intact. No headache, no double vision or headache. SKIN: Not dry. Intact. Turgor - normal. LYMPHATIC: No palpable lymph nodes/no lymphedema. MUSCULOSKELETAL: Normal joints with no swelling. Muscle tone is normal. LABS: ABG shows respiratory failure. The patient was on 10 liters oxygen through T tubes so his pO2 was more than 100 with pCO2 of 50. PLAN: 1. Strongly advised to bring the inhaled oxygen level down to 2-3 liters if possible through the T Tube. The patient doesn't have any evidence of CHF. The patient is going to be on double antibiotics like Rocephin and Zithromax with steroids. TIME SPENT: More than 30 minutes. Plan and coordination of the patient's care discussed in the presence of nurse. FELIX
[2020-12-28] MEDS: ROCEPHIN 1 GM/50 ML D5W 1 GM/50 ML BAG IV SCH (09:06)
--- NOTE | 2020-12-28 09:48 | PN ---
DATE OF SERVICE: 12/27/2020 SUBJECTIVE: The patient was seen and examined with the Nurse Practitioner. The patient is hospitalized with acute bronchitis pneumonia. The patient was hypoxic. The patient's condition seems to have improved. He is feeling a lot better. Condition is improving with antibiotics and steroids. The patient is still positive for COVID. He was positive three weeks ago. PLAN: 1. Give him IV antibiotics, steroids and inhalers. TIME SPENT: More than 30 minutes. Plan and coordination of the patient's care discussed in the presence of nurse. FELIX
--- NOTE | 2020-12-28 10:05 | HP ---
DATE OF SERVICE: 12/26/20 REASON FOR HOSPITALIZATION/HISTORY OF PRESENT ILLNESS: 70-year-old white male who presents to the emergency room with increasing shortness of breath. He was Covid positive on 11/23, was hospitalized, discharged on 12/01. 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 Atrial fibrillation on Coumadin COPD Heavy smoker Morbid obesity Severe peripheral arterial disease Tracheostomy placed 09/20 Chronic hoarseness Cervical and paracervical lymphadenopathy Pulmonary nodule right upper lobe Chronic bronchitis COPD History of carcinoma of the sigmoid colon removed 05/21 Diabetes mellitus Type 2 PUD Dyslipidemia Obstructive sleep apnea Coronary artery disease B12 deficiency Metabolic syndrome Hypothyroidism Fatty liver Bilateral knee arthritis History of renal artery stenosis History of noncompliance with diet, lifestyle, medications and followup PAST SURGICAL HISTORY: Tracheostomy in May of 2020 Abdominal aortic aneurysm repair May of [address] Jones Right angioplasty April [address] Jones Tracheostomy and port placement in September of 2020 Removal of sigmoid colon by Dr. Christopher in May of 2020, last colonoscopy by Dr. Rodriges in July of 2020 REVIEW OF SYSTEMS: CONSTITUTIONAL: Fever. No night sweats. No fatigue, malaise, lethargy. No chills. HEENT: Eyes: No visual changes. No eye pain. No eye discharge. ENT: No runny nose. No epistaxis. No sinus pain. No sore throat. No odynophagia. No ear pain. No congestion. RESPIRATORY: Shortness of breath and cough. No hemoptysis. CARDIOVASCULAR: No angina symptoms. No CHF symptoms. No atypical chest pain for CAD. No palpitations. No PND. No orthopnea. GASTROINTESTINAL: No abdominal pain. No nausea or vomiting. No diarrhea or constipation. No hematemesis. No hematochezia. GENITOURINARY: No urgency. No frequency. No dysuria. No hematuria. No obstructive symptoms. No discharge. No pain. No significant abnormal bleeding. MUSCULOSKELETAL: No musculoskeletal pain. No joint swelling. No arthritis. NEUROLOGICAL: No headache. No neck pain. No syncope. No seizures. No dizziness. PSYCHIATRIC: Not anxious. No depression. No suicidal thoughts. No homicidal thoughts. SKIN: No rash. No lesions. No wounds. ENDOCRINE: No unexplained weight loss. No weight gain. HEMATOLOGIC/LYMPHATIC: No anemia. No purpura. No petechiae. No prolonged or excessive bleeding. No palpable lymph nodes. PERSONAL/FAMILY/SOCIAL HISTORY: He lives at home with his . He continues to smoke. No alcohol or illicit drug use. MEDICATIONS: Cilostazol 100 mg p.o. b.i.d. Gabapentin 300 mg p.o. bedtime Rosuvastatin 20 mg p.o. bedtime Duloxetine 60 mg p.o. daily Diclocymine 20 mg p.o. b.i.d. Aspirin 81 mg p.o. daily with meal Budesonide 0.25 mg/2 mL suspension for nebulization, one vial NEB Rt b.i.d. Albuterol Sulfate 6.7 g INH q.i.d. p.r.n. Warfarin 5 mg p.o. every other day Levothyroxine 75 mcg p.o. q.d a.c. Ezetimibe 10 mg p.o. daily Potassium Chloride 10 mEq p.o. daily Metformin 500 mg p.o. daily with meal Furosemide 20 mg p.o. q.d a.c. Budesonide-Formoterol two puff INH b.i.d. Bupropion 300 mg p.o. q.a.m. Albuterol Sulfate 2.5 mg INH q.i.d. p.r.n. Warfarin 4 mg p.o. every other day Venlafaxine 75 mg p.o. b.i.d. Carvedilol 25 mg p.o. b.i.d. with meal ALLERGIES: CEPHALOSPORINS PHYSICAL EXAMINATION: VITAL SIGNS: Temperature 97.9, heart rate 103, respirations 22, BP 111/59, pulse ox 96%. HEENT: Head normocephalic, atraumatic. Eyes: Extraocular muscles are intact. Pupils are equal, round and reactive to light and accommodation. Ears: No lesions. Nose appeared normal. Throat: No exudate or erythema. NECK: Supple. No JVD, no carotid bruit. No lymphadenopathy or thyromegaly. LUNGS: Severely diminished breath sounds bilaterally. Percussion note normal. Chest symmetrical. HEART: S1, S2, no S3. No murmur. No cyanosis or clubbing. No ascites. Pulses: Dorsalis pedis and posterior tibial pulses +1 to +2 bilaterally. ABDOMEN: Soft. Nontender. Bowel sounds active. No CVA tenderness. No mass felt. EXTREMITIES: Trace bilateral lower extremity edema. Full range of motion of all extremities, equal. NEUROLOGIC: No focal deficit. Cranial nerves II through XII are grossly intact. No headache, no double vision or headache. SKIN: Not dry. Intact. Turgor - normal. LYMPHATIC: No palpable lymph nodes/no lymphedema. MUSCULOSKELETAL: Normal joints with no swelling. Muscle tone is normal. LABS: White count 1.19, hemoglobin 6.8, hematocrit 20.3, platelets 235. Sodium 132, potassium 4.2, BUN 20, creatinine 0.51, glucose 127. ABGs on trach collar with 10L of flow shows pH 7.47, 02 sat of 99, pc02 48, p02 137, bicarb 34.9. PCR is positive however we would expect him to be positive as he was positive as 11/21. Troponin is less than 0.012, BNP and NT-proBNP 2,970, total protein 6. CT of the chest shows pulmonary emphysema and interstitial fibrosis, right lower lobe rhonchi did not appear clear secondary to mucus plugging; increased consolidation right lower lobe and middle lobe consistent with pneumonia, cardiomegaly, fat stranding and enlarged right axillary lymph nodes. ASSESSMENT: 1. Anemia. 2. Right lobar pneumonia. 3. Shortness of breath. 4. Atrial fibrillation. 5. COPD. 6. Smoker. 7. Malignant subglottic mass currently undergoing chemotherapy. 8. Hypertension. PLAN: 1. We will admit. 2. Routine telemetry orders. 3. CBC, CMP, INR daily. 4. Hold Coumadin. 5. Type, cross and give 2 units PBRCs, place 2 units on hold. 6. Continue other home medications. 7. Regular diet. 8. Rocephin 1 gm IV daily. 9. Zithromax 500 mg IV daily times three days. 10. Solu-Cortef 125 mg IV q.8hr. 11. Sliding scale for insulin due to diabetes as well as hyperglycemia with steroid treatment. TIME SPENT: More than 70 minutes. MTDD
[2020-12-28] MEDS: ZITHROMAX 500 MG in SODIUM CHLORIDE 250 ML IV SCH (10:21)
[2020-12-28] MEDS: DICYCLOMINE 20 MG GT SCH ×2 (10:42→21:20)
[2020-12-28] MEDS: VENLAFAXINE 75 MG GT SCH ×2 (10:43→21:20)
[2020-12-28] MEDS: VENTOLIN HFA (PER PUFF-WITH SPACER) IH PRN ×3 (11:08→23:00)
[2020-12-28] MEDS ORDERED: COUMADIN GT SCH (17:00)
[2020-12-28] MEDS: CRESTOR GT SCH (21:18)
[2020-12-28] MEDS: NEURONTIN GT SCH (21:18)
[2020-12-29] MEDS: ATROVENT HFA INHALER (PER PUFF-WITH SPACER) IH SCH ×4 (04:40→23:05)
[2020-12-29] MEDS: VENTOLIN HFA (PER PUFF-WITH SPACER) IH PRN ×4 (04:40→23:05)
[2020-12-29] MEDS: SOLU-MEDROL 125 MG IVP SCH ×3 (04:51→20:58)
[2020-12-29 05:49] LABS: HEMATOCRIT 27.3 % (42.0-52.0); IMMATURE GRANULOCYTE % (AUTO) 0.4 % (0.0-5.0); LYMPHOCYTES # (AUTO) 0.3 K/uL (0.60-3.4); LYMPHOCYTES % (AUTO) 10.2 (10.0-50.0); MEAN CORPUSCULAR HEMOGLOBIN 29.5 pg (27.0-31.0); MEAN CORPUSCULAR VOLUME 89.5 fl (80.0-94.0); MONOCYTES # (AUTO) 0.2 K/uL (0.4-2.0); NEUTROPHILS # (AUTO) 2.2 K/ul (2.0-6.9); NEUTROPHILS % (AUTO) 83.4 % (42.2-75.2); PLATELET COUNT 300 10^3/uL (140-440); RDW COEFFICIENT OF VARIATION 17.3 % (11.6-14.8); RED BLOOD COUNT 3.05 10^6/ul (4.70-6.10); WHITE BLOOD COUNT 2.65 K/ul (4.2-10.2)
[2020-12-29 06:02] LABS: ALBUMIN 3.03 g/dL (3.5-5.0); ALKALINE PHOSPHATASE 72.2 U/L (56-119); ASPARTATE AMINO TRANSFERASE 74.7 U/L (17-59); BILIRUBIN,TOTAL 0.54 mg/dL (0.2-1.3); CALCIUM 9.09 mg/dL (8.4-10.2); CARBON DIOXIDE 33.9 mmol/L (22-30.0); CHLORIDE 99.6 mmol/L (98-107); CREATININE 0.47 mg/dL (0.60-1.10); GLUCOSE 212.1 mg/dL (74-106); POTASSIUM 4.02 mmol/L (3.5-5.1); SODIUM 137.5 mmol/L (134.5-145); TOTAL PROTEIN 6.08 g/dL (6.3-8.2)
[2020-12-29] MEDS: HUMULIN R SUBCUT PRN (06:21)
[2020-12-29] MEDS: SYNTHROID GT SCH (06:22)
[2020-12-29] MEDS: LASIX TAB GT SCH (06:22)
[2020-12-29 06:56] LABS: PROTHROMBIN TIME 12.9 SEC (9.3-11.0)
--- NOTE | 2020-12-29 09:39 | PCM.PROG ---
Attending Provider: ATTENDING PROVIDER: Dr. LILY DE LA TORRE This patient is seen with Erica Cornejo, Nurse Practitioner. DATE OF SERVICE: 12/29/20 SUBJECTIVE: This 70 year old /WHITE M was hospitalized 12/26/20. The patient is resting comfortably and is feeling better. REVIEW OF SYSTEMS: CONSTITUTIONAL: Weakness. No night sweats. No fatigue, malaise, lethargy. No fever or chills. HEENT: Eyes: No visual changes. No eye pain. No eye discharge. ENT: No runny nose. No epistaxis. No sinus pain. No odynophagia. No congestion. RESPIRATORY: Cough. No hemoptysis. No shortness of breath. CARDIOVASCULAR: No angina symptoms. No CHF symptoms. No atypical chest pain for CAD. No palpitations. No orthopnea.. GASTROINTESTINAL: No abdominal pain. No nausea or vomiting. No diarrhea or constipation. No hematemesis. No hematochezia. GENITOURINARY: No urgency. No frequency. No dysuria. No hematuria. No obstructive symptoms. No discharge. No pain. No significant abnormal bleeding. MUSCULOSKELETAL: No musculoskeletal pain; no joint swelling. NEUROLOGICAL: Awake, alert, oriented to time, place and person. No headache. No neck pain. No syncope. No seizures. No dizziness. PSYCHIATRIC: Not anxious. No depression. No suicidal thoughts. No homicidal thoughts. SKIN: No rash. No lesions. No wounds. ENDOCRINE: No unexplained weight loss. No weight gain. HEMATOLOGIC/LYMPHATIC: No anemia. No purpura. No petechiae. No prolonged or excessive bleeding. No palpable lymph nodes. PHYSICAL EXAMINATION: GENERAL: The patient is awake, alert and oriented, lying/sitting in bed in no distress. VITAL SIGNS: Temperature 97.0 F, Pulse 82, Respiratory Rate 18, BP 116/66, Pulse Ox 99% HEENT: Head normocephalic, atraumatic. Eyes: Extraocular muscles are intact. Pupils are equal, round and reactive to light and accommodation. Ears: No lesions. Nose appeared normal. Throat: No exudate or erythema. NECK: Supple. No JVD, no carotid bruit. No lymphadenopathy or thyromegaly. LUNGS: Diminished breath sounds. Bilateral rhonchi. Percussion note normal. Chest symmetrical. HEART: S1, S2, no S3. No murmurs. No cyanosis or clubbing. No ascites. Puls es: Dorsalis pedis and posterior tibial pulses +1 to +2 both sides. ABDOMEN: Soft. Non-tender. Bowel sounds active. No CVA tenderness. No mass felt. EXTREMITIES: No edema. Full range of motion of all extremities, equal. NEUROLOGIC: No focal deficit. Cranial nerves II through XII are grossly intact. No headache, no double vision or headache. SKIN: Not dry. Intact. Turgor-normal. LYMPHATIC: No palpable lymph nodes/no lymphedema. MUSCULOSKELETAL: Normal joints with no swelling. Muscle tone is normal. LAB REVIEW: 12/29/20 04:50 12/29/20 04:50 12/29/20 04:50: Sodium 137.5, Potassium 4.02, Chloride 99.6, Carbon Dioxide 33.9 H, Anion Gap 8.02, BUN 26.0 H, Creatinine 0.47 L, Estimated GFR (MDRD) 177.00, BUN/Creatinine Ratio 55.31, Glucose 212.1 H, Calcium 9.09, Total Bilirubin 0.54, AST 74.7 H D, ALT 76.0 H, Alkaline Phosphatase 72.2, Total Protein 6.08 L, Albumin 3.03 L, Globulin 3.05, Albumin/Globulin Ratio 0.99 12/29/20 04:50: PT 12.9 H, INR 1.22 12/29/20 04:50: WBC 2.65 L, RBC 3.05 L, Hgb 9.0 L, Hct 27.3 L, MCV 89.5, MCH 29.5, MCHC 33.0, RDW Coeff of Sumeet 17.3 H, Plt Count 300, Immature Gran % (Auto) 0.4, Neut % (Auto) 83.4 H, Lymph % (Auto) 10.2, [place] % (Auto) 6.0, Eos % (Auto) 0.0, Baso % (Auto) 0.0, Neut # (Auto) 2.2, Lymph # (Auto) 0.3 L, [place] # (Auto) 0.2 L, Eos # (Auto) 0.0, Baso # (Auto) 0.0, Immature Gran # (Auto) 0.0 12/28/20 13:38: TSH 2.310 12/28/20 13:38: Free T4 1.46 ASSESSMENT: Please see below. 1. Right lobar pneumonia. 2. Anemia. 3. Subglottic carcinoma undergoing chemotherapy. 4. COPD. 5. Atrial fibrillation. PLAN: 1. Repeat chest x-ray. 2. Continue IV antibiotics. 3. Possible discharge tomorrow. Plan and coordination of the patient's care discussed in the presence of Car Usher and nurse. CONDITION: Stable SCRIBED BY: Karthikeyan DILLON scribed while in presence of service performed by Dr. Mayes/Erica Cornejo APRN on 12/29/20 ([id number])
[2020-12-29] MEDS: POTASSIUM CHL 10% ORAL SOL GT SCH (09:40)
[2020-12-29] MEDS: ROCEPHIN 1 GM/50 ML D5W 1 GM/50 ML BAG IV SCH (09:40)
[2020-12-29] MEDS: PEPCID GT SCH ×2 (09:41→20:20)
[2020-12-29] MEDS: ASPIRIN EC GT SCH (09:42)
[2020-12-29] MEDS: ZINC-220 GT SCH (09:42)
[2020-12-29] MEDS: COREG GT SCH ×2 (09:42→17:10)
[2020-12-29] MEDS: CYMBALTA GT SCH (09:42)
[2020-12-29] MEDS: GLUCOPHAGE GT SCH (09:43)
[2020-12-29] MEDS: VITAMIN D PO SCH (09:43)
[2020-12-29] MEDS: PLETAL GT SCH ×2 (09:43→20:20)
[2020-12-29] MEDS: ZETIA GT SCH (09:43)
[2020-12-29] MEDS: SYMBICORT 160-4.5 MCG INHALER IH SCH ×2 (09:44→20:22)
[2020-12-29] MEDS: VENLAFAXINE 75 MG GT SCH ×2 (09:45→20:22)
[2020-12-29] MEDS: DICYCLOMINE 20 MG GT SCH ×2 (09:45→20:21)
[2020-12-29] MEDS: ZITHROMAX 500 MG in SODIUM CHLORIDE 250 ML IV SCH (10:52)
--- NOTE | 2020-12-29 13:45 | DI ---
EXAM: Chest one view HISTORY: Shortness of breath COMPARISON: 12/26/2020 TECHNIQUE: Single view of the chest was performed FINDINGS: Similar right chest port. Tracheostomy tube is not well visualized. Stable cardiomegaly a nd mediastinal contour. Emphysematous changes. Persistent patchy right basilar ground-glass consolid ation. No pleural effusion or pneumothorax. No acute osseous abnormality. IMPRESSION: 1. Persistent right basilar atelectasis or pneumonia. 2. Emphysema.
[2020-12-29] MEDS ORDERED: COUMADIN GT ONE (17:00)
[2020-12-29] MEDS ORDERED: COUMADIN GT SCH (17:00)
[2020-12-29] MEDS: NEURONTIN GT SCH (20:20)
[2020-12-29] MEDS: CRESTOR GT SCH (20:21)
[2020-12-30] MEDS: VENTOLIN HFA (PER PUFF-WITH SPACER) IH PRN (04:40)
[2020-12-30] MEDS: ATROVENT HFA INHALER (PER PUFF-WITH SPACER) IH SCH ×2 (04:40→11:21)
[2020-12-30 05:31] LABS: HEMATOCRIT 28.2 % (42.0-52.0); HEMOGLOBIN 9.2 g/dl (14.0-18.0); IMMATURE GRANULOCYTE % (AUTO) 0.8 % (0.0-5.0); LYMPHOCYTES # (AUTO) 0.2 K/uL (0.60-3.4); LYMPHOCYTES % (AUTO) 9.2 (10.0-50.0); MEAN CORPUSCULAR HEMOGLOBIN 29.9 pg (27.0-31.0); MEAN CORPUSCULAR HGB CONC 32.6 (31.8-35.4); MEAN CORPUSCULAR VOLUME 91.6 fl (80.0-94.0); MONOCYTES # (AUTO) 0.3 K/uL (0.4-2.0); MONOCYTES % (AUTO) 11.5 (0-10); NEUTROPHILS % (AUTO) 78.5 % (42.2-75.2); PLATELET COUNT 278 10^3/uL (140-440); RDW COEFFICIENT OF VARIATION 17.8 % (11.6-14.8); RED BLOOD COUNT 3.08 10^6/ul (4.70-6.10)
[2020-12-30 05:49] LABS: ALANINE AMINOTRANSFERASE 99.2 U/L (0-50); ALBUMIN 2.95 g/dL (3.5-5.0); ALKALINE PHOSPHATASE 63.6 U/L (56-119); ASPARTATE AMINO TRANSFERASE 67.7 U/L (17-59); BILIRUBIN,TOTAL 0.51 mg/dL (0.2-1.3); BLOOD UREA NITROGEN 29.1 mg/dL (9-20); CALCIUM 8.96 mg/dL (8.4-10.2); CARBON DIOXIDE 33.7 mmol/L (22-30.0); CHLORIDE 98.2 mmol/L (98-107); CREATININE 0.53 mg/dL (0.60-1.10); POTASSIUM 3.95 mmol/L (3.5-5.1); PROTHROMBIN TIME 14.4 SEC (9.3-11.0); SODIUM 136.8 mmol/L (134.5-145); TOTAL PROTEIN 5.82 g/dL (6.3-8.2)
[2020-12-30] MEDS: SOLU-MEDROL 125 MG IVP SCH (05:59)
[2020-12-30] MEDS: LASIX TAB GT SCH (06:00)
[2020-12-30] MEDS: SYNTHROID GT SCH (06:01)
[2020-12-30 06:07] VITALS: BP 137/74; TEMP 96.8
--- NOTE | 2020-12-30 09:23 | PCM.PROG ---
Attending Provider: ATTENDING PROVIDER: Dr. LANNY VOGT DATE OF SERVICE: 12/30/20 SUBJECTIVE: This 70 year old /WHITE M was hospitalized 12/26/20 with acute bronchitis/pneumonitis. Condition is improved. His sputum production is much less feeling better. He wants to go home. REVIEW OF SYSTEMS: CONSTITUTIONAL: The patient is feeling better. No night sweats. No fatigue, malaise, lethargy. No fever or chills. HEENT: Eyes: No visual changes. No eye pain. No eye discharge. ENT: No runny nose. No epistaxis. No sinus pain. No odynophagia. No congestion. RESPIRATORY: No cough, no congestion. No hemoptysis. No shortness of breath. CARDIOVASCULAR: No angina symptoms. No CHF symptoms. No atypical chest pain for CAD. No palpitations. No orthopnea.. GASTROINTESTINAL: No abdominal pain. No nausea or vomiting. No diarrhea or constipation. No hematemesis. No hematochezia. GENITOURINARY: No urgency. No frequency. No dysuria. No hematuria. No obstructive symptoms. No discharge. No pain. No significant abnormal bleeding. MUSCULOSKELETAL: No musculoskeletal pain; no joint swelling. NEUROLOGICAL: Awake, alert, oriented to time, place and person. No headache. No neck pain. No syncope. No seizures. No dizziness. PSYCHIATRIC: Not anxious. No depression. No suicidal thoughts. No homicidal thoughts. SKIN: No rash. No lesions. No wounds. ENDOCRINE: No unexplained weight loss. No weight gain. HEMATOLOGIC/LYMPHATIC: No anemia. No purpura. No petechiae. No prolonged or e xcessive bleeding. No palpable lymph nodes. PHYSICAL EXAMINATION: GENERAL: The patient is awake, alert and oriented, lying/sitting in bed in no distress. VITAL SIGNS: Temperature 96.8 F, Pulse 62, Respiratory Rate 18, BP 137/74, Pulse Ox 96% HEENT: Head normocephalic, atraumatic. Eyes: Extraocular muscles are intact. Pupils are equal, round and reactive to light and accommodation. Ears: No lesions. Nose appeared normal. Throat: No exudate or erythema. NECK: Supple. No JVD, no carotid bruit. No lymphadenopathy or thyromegaly. LUNGS: Decreased breath sounds with good air entry. Percussion note normal. Chest symmetrical. HEART: S1, S2, no S3. No murmurs. No cyanosis or clubbing. No ascites. Pulses: Dorsalis pedis and posterior tibial pulses +1 to +2 both sides. ABDOMEN: Soft. Non-tender. Bowel sounds active. No CVA tenderness. No mass felt. EXTREMITIES: No edema. Full range of motion of all extremities, equal. NEUROLOGIC: No focal deficit. Cranial nerves II through XII are grossly intact. No headache, no double vision or headache. SKIN: Warm and dry. Intact. Turgor-normal. LYMPHATIC: No palpable lymph nodes/no lymphedema. MUSCULOSKELETAL: Normal joints with no swelling. Muscle tone is normal. LAB REVIEW: 12/30/20 04:55 12/30/20 04:55 12/30/20 04:55: Sodium 136.8, Potassium 3.95, Chloride 98.2, Carbon Dioxide 33.7 H, Anion Gap 8.85, BUN 29.1 H, Creatinine 0.53 L, Estimated GFR (MDRD) 154.00, BUN/Creatinine Ratio 54.90, Glucose 161.0 H, Calcium 8.96, Total Bilirubin 0.51, AST 67.7 H, ALT 99.2 H, Alkaline Phosphatase 63.6, Total Protein 5.82 L, Albumin 2.95 L, Globulin 2.87, Albumin/Globulin Ratio 1.02 12/30/20 04:55: WBC 2.60 L, RBC 3.08 L, Hgb 9.2 L, Hct 28.2 L, MCV 91.6, MCH 29.9, MCHC 32.6, RDW Coeff of Sumeet 17.8 H, Plt Count 278, Immature Gran % (Auto) 0.8, Neut % (Auto) 78.5 H, Lymph % (Auto) 9.2 L, [place] % (Auto) 11.5 H, Eos % (Auto) 0.0, Baso % (Auto) 0.0, Neut # (Auto) 2.0, Lymph # (Auto) 0.2 L, [place] # (Auto) 0.3 L, Eos # (Auto) 0.0, Baso # (Auto) 0.0, Immature Gran # (Auto) 0.0 12/30/20 04:55: PT 14.4 H, INR 1.36 ASSESSMENT: Please see below. 1. Acute bronchitis/pneumonitis seems to have improved remarkably. PLAN: 1. Continue antibiotics at home, Levaquin 500 mg daily for 5 days. Staph seems likely colonization. 2. Continue steroids. 3. Advised to take nebs at home. 4. Echocardiogram before discharge. Plan and coordination of the patient's care discussed in the presence of Stunt Double and nurse. CONDITION: Stable. SCRIBED BY: FRANKIE PLAZA Warehouse Person scribed while in presence of service performed by Dr. LANNY VOGT on 12/30/20 ([id number])
[2020-12-30] MEDS: VITAMIN D PO SCH (09:53)
[2020-12-30] MEDS: PLETAL GT SCH (09:53)
[2020-12-30] MEDS: ZETIA GT SCH (09:53)
[2020-12-30] MEDS: POTASSIUM CHL 10% ORAL SOL GT SCH (09:53)
[2020-12-30] MEDS: CYMBALTA GT SCH (09:53)
[2020-12-30] MEDS: COREG GT SCH (09:54)
[2020-12-30] MEDS: GLUCOPHAGE GT SCH (09:54)
[2020-12-30] MEDS: PEPCID GT SCH (09:54)
[2020-12-30] MEDS: ZINC-220 GT SCH (09:55)
[2020-12-30] MEDS: ASPIRIN EC GT SCH (09:55)
[2020-12-30] MEDS: DICYCLOMINE 20 MG GT SCH (09:55)
[2020-12-30] MEDS: VENLAFAXINE 75 MG GT SCH (09:56)
[2020-12-30] MEDS: SYMBICORT 160-4.5 MCG INHALER IH SCH (09:56)
[2020-12-30] MEDS ORDERED: ROCEPHIN 1 GM VIAL IM STA (10:24)
[2020-12-30] MEDS ORDERED: LIDOCAINE HCL 1% SDV IM STA (10:24)
[2020-12-30] MEDS: ROCEPHIN 1 GM/50 ML D5W 1 GM/50 ML BAG IV SCH (10:48)
--- NOTE | 2020-12-30 12:45 | CM.DICTOOL ---
ADMISSION: 12/26/20 16:20 DISCHARGE: December DATE OF SERVICE: 12/30/20 FINAL DIAGNOSIS RIGHT LOBAR PNEUMONIA ANEMIA SUBGLOTTIC CARCINOMA UNDERGOING CHEMOTHERAPY/RADIATION COPD ATRIAL FIBRILLATION HYPERTENSION SMOKER LEUKOPENIA TRACHEOSTOMY/PEG TUBE FEEDING HX: ATRIAL FIBRILLATION ON COUMADIN BILATERAL PNEUMONIA, POSITIVE COVID-19- 11/21/2020 POSSIBLE PE PER [facility] - 11/2020 SUBGLOTTIC MASS, CARCINOMA 5 x 5 x 3[address] LEVY ALONG WITH DR. CHRISTIE, RADIATION COMPLETED TRACHEOSTOMY AND PORT PLACEMENT ALL IN SEPTEMBER OF 2020 CHRONIC HOARSENESS CERVICAL AND PARACERVICAL LYMPHADENPATHY PULMONAR NODULE IN THE RIGHT UPPER LOBE,8mm ANEMIA RIGHT ANGIOPLASTY IN APRIL 2020 ABDOMINAL AORTIC ANEURYSM REPAIR, MAY OF [address] 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 TAYLOR IN MAY OF [address] SERRANO IN JULY OF 2020 TRIPLE A REPAIR, MAY OF [address] OLIVO RIGHT ANGIOPLASTY, APRIL 2020, BY DR. OLIVO TRACHEOSTOMY, SEP 2020 MEDI-PORT PLACEMNET SEP 2020 PEG TUBE PLACEMENT LAST VITALS Temp Pulse Resp BP Pulse Ox 96.8 F L 62 18 137/74 96 12/30/20 06:00 12/30/20 06:00 12/30/20 06:00 12/30/20 06:00 12/30/20 06:00 TAKE THESE MEDICATIONS AT HOME Aspirin (Aspirin 81 Mg Tablet.) 81 mg GT DAILYWM [facility] Last Admin: 12/29/20 09:42 Dose: 81 mg Carvedilol (Carvedilol 12.5 Mg Tablet) 25 mg GT BIDWM [facility] Last Admin: 12/29/20 17:10 Dose: 25 mg Documented by: Cholecalciferol (Cholecalciferol (Vitamin D3) 1,000 Unit Tablet) 2,000 unit PO DAILY [facility] Last Admin: 12/29/20 09:43 Dose: 2,000 unit Documented by: Cilostazol (Cilostazol 100 Mg Tablet) 100 mg GT BID [facility] Last Admin: 12/29/20 20:20 Dose: 100 mg Documented by: Duloxetine HCl (Duloxetine Hcl 30 Mg Capsule.) 60 mg GT DAILY [facility] Last Admin: 12/29/20 09:42 Dose: 60 mg Documented by: Ezetimibe (Ezetimibe 10 Mg Tablet) 10 mg GT DAILY [facility] Last Admin: 12/29/20 09:43 Dose: 10 mg Documented by: Famotidine (Famotidine 20 Mg Tablet) 20 mg GT BID [facility] Last Admin: 12/29/20 20:20 Dose: 20 mg Documented by: Furosemide (Furosemide 20 Mg Tablet) 20 mg GT QDAC [facility] Last Admin: 12/30/20 06:00 Dose: 20 mg Documented by: Gabapentin (Gabapentin 300 Mg Capsule) 300 mg GT BEDTIME [facility] Last Admin: 12/29/20 20:20 Dose: 300MG Levothyroxine Sodium (Levothyroxine Sodium 75 Mcg Tablet) 75 mcg GT QDAC [facility] Last Admin: 12/30/20 06:01 Dose: 75 mcg Documented by: Metformin HCl (Metformin Hcl 500 Mg Tablet) 500 mg GT DAILYWM [facility] Last Admin: 12/29/20 09:43 Dose: 500 mg Documented by: Non-Formulary Medication (Dicyclomine) 20 mg GT BID [facility] Last Admin: 12/29/20 20:21 Dose: Not Given Documented by: Non-Formulary Medication (Venlafaxine) 75 mg GT BID [facility] Last Admin: 12/29/20 20:22 Dose: Not Given Documented by: Potassium Chloride (Potassium Chloride 40 Meq/30 Ml Cup) 10 meq GT DAILY [facility] Last Admin: 12/29/20 09:40 Dose: 10 meq Documented by: Rosuvastatin Calcium (Rosuvastatin Calcium 10 Mg Tablet) 20 mg GT BEDTIME [facility] Last Admin: 12/29/20 20:21 Dose: 20 mg Documented by: Warfarin Sodium (Warfarin Sodium 5 Mg Tablet) 5 mg GT EVERY OTHER DAY@1700 [facility] START THIS DOSE THIS PM. Last Admin: 12/28/20 17:50 Dose: 5 mg Documented by: Warfarin Sodium (Warfarin Sodium 2 Mg Tablet) 4 mg GT EVERY OTHER DAY@1700 [facility] Last Admin: 12/29/20 17:12 Dose: 4 mg Documented by: Zinc Sulfate (Zinc Sulfate 220 Mg Capsule) 220 mg GT DAILY [facility] Last Admin: 12/29/20 09:42 Dose: 220 mg Documented by: ALBUTEROL NEBULIZER 2.5 MG INHALATION TID BUDESONIDE 1 VIAL INHALATION BID PREDNISONE 5 MP PO DAILY (START 12/31/2020) LEVAQUIN 500 MG PO DAILY X 5 DAYS (START 12/31/2020) ALLERGIES Cephalosporins Allergy (Intermediate, Verified 12/26/20 14:04) Hives DISCONTINUED MEDICATIONS NONE NEW PRESCRIPTIONS: PREDNISONE 5 MP PO DAILY (START 12/31/2020) LEVAQUIN 500 MG PO DAILY X 5 DAYS (START 12/31/2020) SMOKING: SMOKING CESSATION DISEASE SPECIFIC EDUCATION: PNEUMONIA MD FOLLOW UPS LOW WBC PRECAUTIONS ANEMIA COVID- 19 LAB REVIEW: 12/30/20 04:55 12/30/20 04:55 12/30/20 04:55: Sodium 136.8, Potassium 3.95, Chloride 98.2, Carbon Dioxide 33.7 H, Anion Gap 8.85, BUN 29.1 H, Creatinine 0.53 L, Estimated GFR (MDRD) 154.00, BUN/Creatinine Ratio 54.90, Glucose 161.0 H, Calcium 8.96, Total Bilirubin 0.51, AST 67.7 H, ALT 99.2 H, Alkaline Phosphatase 63.6, Total Protein 5.82 L, Albumin 2.95 L, Globulin 2.87, Albumin/Globulin Ratio 1.02 12/30/20 04:55: WBC 2.60 L, RBC 3.08 L, Hgb 9.2 L, Hct 28.2 L, MCV 91.6, MCH 29.9, MCHC 32.6, RDW Coeff of Sumeet 17.8 H, Plt Count 278, Immature Gran % (Auto) 0.8, Neut % (Auto) 78.5 H, Lymph % (Auto) 9.2 L, [place] % (Auto) 11.5 H, Eos % (Auto) 0.0, Baso % (Auto) 0.0, Neut # (Auto) 2.0, Lymph # (Auto) 0.2 L, [place] # (Auto) 0.3 L, Eos # (Auto) 0.0, Baso # (Auto) 0.0, Immature Gran # (Auto) 0.0 12/30/20 04:55: PT 14.4 H, INR 1.36 PLAN: DISCHARGE HOME TODAY: December , LIVES WITH SPOUSE AND [facility] TO FOLLOW UP SN TO RESUME AND PT TO EVAL AND TREAT PT/INR PER HOMEHEALTH SUNDAY JANUARY 03, 2021 AND REPORT RESULTS TO DR. BROWER OFFICE DIET: NPO, JEVITY TUBE FEEDINGS AND WATER FLUSHES BEFORE. 1.5 BRIDGETTE 80 ML/HR 10-12 HOURS @ NIGHT 240 ML AT MEAL TIMES. FLUSH WITH 60 ML WATER BEFORE AND AFTER EACH FEEDING. ACTIVITY: UP WITH ASSIST OF ONE WITH WALKER. SN, PT AND OT EVAL AND TREAT. MD FOLLOW UP: 1).DR. VOGT/ DONNA MORRISON APRN/ DESHAWN CISSE APRN IN THE OFFICE ON WEDNESDAY JANUARY 06, 2021 @ 115 PM. 2).RADIATION THERAPY BEFORE WITH [facility] FEBRUARY 06 @ 215 PM WITH TILE INSTALLER AND [address] GEORGE. ( NOTES REQUESTED) 3).CHEMOTHERAPY @ [facility] ( [facility]) WITH DR. AMIN ORDERED. 4). [facility] WILL CALL WITH AN APPOINTMENT. 5). GENERAL SURGERY ( G- TUBE PLACEMENT) DR. CLAUDIA HO STATED WILL CALL WITH AN APPOINTMENT. 6). [facility] ( TRACH PLACEMENT) ANATOLIY WILL CALL WITH APPOINTMENT. 7). [facility]. SEE DR. STACY SUNDAY, JANUARY 03, 2021 @ 3 PM. OXYGEN TRACH COLLAR, CONTINUE 10 L/M CONTINUOS. ALOE VESTA TO DRY ROUGH SKIN TO BUTTOCKS TWICE DAILY AND PRN. CODE STATUS: DO NOT RESUSCITATE MR. LAGUERRE REMAINS ALERT AND ORIENTED X 4. HE IS PLEASANT. HE HAS BEEN GETTING UP WITH ASSIST OF ONE AND WALKING IN THE ROOM. LUNGS CLEAR AND DIMINISHED, MOIST SOUNDING COUGHING. LARGE AMOUNTS OF YELLOW SPUTUM. ORTHOPNEA AND SLIGHT EXERTIONAL DYSPNEA. SKIN WARM AND DRY AND INTACT. PAC NOT ACCESSED TO RT UPPER CHEST AT THIS TIME . PEG TUBE SITE WITH DAILY CARE. CONTINENT OF BOWEL AND BLADDER. LAST BM 12/26/2020. LIVES WITH AND HAS [facility], WHICH WILL RESUME AND WITH SN, PT AND OT . TESTED POSITIVE INITIALLY FOR COVID ON 11/21/2020. LAST DAY OF QUARANTINE WAS 12/04/2020. DISCUSSED WITH , SHE WANTED REHAB, MR. LAGUERRE WANTS TO GO HOME. SEVERAL FOLLOW UP APPOINTMENTS AND MD REFERRALS OBTAINED. MD DONNA ATKINSON APRN ALYCE HANNAN, APRN
[2020-12-30] MEDS ORDERED: SOLU-MEDROL 125 MG IM ONE (13:00)
[2021-01-02 11:09] LABS: AEROBIC + ANAEROB SUSC Final report (.); BACTERIA IDENTIFICATION Final report (.)
--- NOTE | 2021-01-02 14:36 | DS ---
DATE OF SERVICE: 12/30/2020 FINAL DIAGNOSIS: RIGHT LOBAR PNEUMONIA ANEMIA SUBGLOTTIC CARCINOMA UNDERGOING CHEMOTHERAPY/RADIATION COPD ATRIAL FIBRILLATION HYPERTENSION SMOKER LEUKOPENIA TRACHEOSTOMY/PEG TUBE FEEDING HISTORY: ATRIAL FIBRILLATION ON COUMADIN BILATERAL PNEUMONIA, POSITIVE COVID-19- 11/21/2020 POSSIBLE PE PER CT[facility] - 11/2020 SUBGLOTTIC MASS, CARCINOMA 5 x 5 x 3[address] LEVY ALONG WITH DR. CHRISTIE, RADIATION COMPLETED TRACHEOSTOMY AND PORT PLACEMENT ALL IN SEPTEMBER OF 2020 CHRONIC HOARSENESS CERVICAL AND PARACERVICAL LYMPHADENOPATHY PULMONARY NODULE IN THE RIGHT UPPER LOBE,8mm ANEMIA RIGHT ANGIOPLASTY IN APRIL 2020 ABDOMINAL AORTIC ANEURYSM REPAIR, MAY OF [address] 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 TAYLOR IN MAY OF [address] SERRANO IN JULY OF 2020 TRIPLE A REPAIR, MAY OF [address] OLIVO RIGHT ANGIOPLASTY, APRIL 2020, BY DR. OLIVO TRACHEOSTOMY, SEP 2020 MEDI-PORT PLACEMENT SEP 2020 PEG TUBE PLACEMENT LAST VITALS: Temp Pulse Resp BP Pulse Ox 96.8 F L 62 18 137/74 96 12/30/20 06:00 12/30/20 06:00 12/30/20 06:00 12/30/20 06:00 12/30/20 06:00 DISCHARGE INSTRUCTIONS: DISCHARGE HOME TODAY: December , LIVES WITH SPOUSE AND [facility] TO FOLLOW UP, RETIREMENT TO RESUME AND PT TO EVAL AND TREAT. PT/INR PER [facility] SUNDAY JANUARY 03, 2021 AND REPORT RESULTS TO DR. VOGT'S OFFICE.MD FOLLOW UP: 1).DR. VOGT/ DONNA MORRISON APRN/ DESHAWN CISSE APRN IN THE OFFICE ON WEDNESDAY JANUARY 06, 2021 @ 115 PM. 2).RADIATION THERAPY BEFORE WITH [facility] FEBRUARY 06 @ 215 PM WITH [employer] ARCHITECT AND [address] WANG. ( NOTES REQUESTED). 3).CHEMOTHERAPY @ [facility] ( [facility]) WITH DR. CHRISTIE ORDERED. 4). [employer] CHIEF ENGINEER WILL CALL WITH AN APPOINTMENT. 5.)GENERAL SURGERY ( G- TUBE PLACEMENT) DR. CLAUDIA HO STATED WILL CALL WITH AN APPOINTMENT. 6). SCIENTOLOGIST ENT ( TRACH PLACEMENT) LESLEE WILL CALL WITH APPOINTMENT. 7). [facility]. SEE DR. STACY SATURDAY, JANUARY 03, 2021 @ 3 PM. OXYGEN TRACH COLLAR, CONTINUE 10 L/M CONTINUOS. ALOE VESTA TO DRY ROUGH SKIN TO BUTTOCKS TWICE DAILY AND PRN. CODE STATUS: DO NOT RESUSCITATE TAKE THESE MEDICATIONS AT SWAPNIL: Aspirin (Aspirin 81 Mg Tablet.) 81 mg GT DAILYWM [facility] Last Admin: 12/29/20 09:42 Dose: 81 mg Carvedilol (Carvedilol 12.5 Mg Tablet) 25 mg GT BIDWM [facility] Last Admin: 12/29/20 17:10 Dose: 25 mg Documented by: Cholecalciferol (Cholecalciferol (Vitamin D3) 1,000 Unit Tablet) 2,000 unit PO DAILY [facility] Last Admin: 12/29/20 09:43 Dose: 2,000 unit Documented by: Cilostazol (Cilostazol 100 Mg Tablet) 100 mg GT BID [facility] Last Admin: 12/29/20 20:20 Dose: 100 mg Documented by: Duloxetine HCl (Duloxetine Hcl 30 Mg Capsule.) 60 mg GT DAILY [facility] Last Admin: 12/29/20 09:42 Dose: 60 mg Documented by: Ezetimibe (Ezetimibe 10 Mg Tablet) 10 mg GT DAILY [facility] Last Admin: 12/29/20 09:43 Dose: 10 mg Documented by: Famotidine (Famotidine 20 Mg Tablet) 20 mg GT BID [facility] Last Admin: 12/29/20 20:20 Dose: 20 mg Documented by: Furosemide (Furosemide 20 Mg Tablet) 20 mg GT QDAC [facility] Last Admin: 12/30/20 06:00 Dose: 20 mg Documented by: Gabapentin (Gabapentin 300 Mg Capsule) 300 mg GT BEDTIME [facility] Last Admin: 12/29/20 20:20 Dose: 300MG Levothyroxine Sodium (Levothyroxine Sodium 75 Mcg Tablet) 75 mcg GT QDAC [facility] Last Admin: 12/30/20 06:01 Dose: 75 mcg Documented by: Metformin HCl (Metformin Hcl 500 Mg Tablet) 500 mg GT DAILYWM [facility] Last Admin: 12/29/20 09:43 Dose: 500 mg Documented by: Non-Formulary Medication (Dicyclomine) 20 mg GT BID [facility] Last Admin: 12/29/20 20:21 Dose: Not Given Documented by: Non-Formulary Medication (Venlafaxine) 75 mg GT BID [facility] Last Admin: 12/29/20 20:22 Dose: Not Given Documented by: Potassium Chloride (Potassium Chloride 40 Meq/30 Ml Cup) 10 meq GT DAILY [facility] Last Admin: 12/29/20 09:40 Dose: 10 meq Documented by: Rosuvastatin Calcium (Rosuvastatin Calcium 10 Mg Tablet) 20 mg GT BEDTIME [facility] Last Admin: 12/29/20 20:21 Dose: 20 mg Documented by: Warfarin Sodium (Warfarin Sodium 5 Mg Tablet) 5 mg GT EVERY OTHER DAY@1700 [facility] START THIS DOSE THIS PM. Last Admin: 12/28/20 17:50 Dose: 5 mg Documented by: Warfarin Sodium (Warfarin Sodium 2 Mg Tablet) 4 mg GT EVERY OTHER DAY@1700 [facility] Last Admin: 12/29/20 17:12 Dose: 4 mg Documented by: Zinc Sulfate (Zinc Sulfate 220 Mg Capsule) 220 mg GT DAILY [facility] Last Admin: 12/29/20 09:42 Dose: 220 mg Documented by: ALBUTEROL NEBULIZER 2.5 MG INHALATION TID BUDESONIDE 1 VIAL INHALATION BID PREDNISONE 5 MP PO DAILY (START 12/31/2020) LEVAQUIN 500 MG PO DAILY X 5 DAYS (START 12/31/2020) ALLERGIES: Cephalosporins Allergy (Intermediate, Verified 12/26/20 14:04) Hives DISCONTINUED MEDICATIONS: NONE NEW PRESCRIPTIONS: PREDNISONE 5 MP PO DAILY (START 12/31/2020) LEVAQUIN 500 MG PO DAILY X 5 DAYS (START 12/31/2020) SMOKING: SMOKING CESSATION DISEASE SPECIFIC EDUCATION: PNEUMONIA MD FOLLOW UPS LOW WBC PRECAUTIONS ANEMIA COVID- 19 LAB REVIEW: 12/30/20 04:55 12/30/20 04:55 12/30/20 04:55: Sodium 136.8, Potassium 3.95, Chloride 98.2, Carbon Dioxide 33.7 H, Anion Gap 8.85, BUN 29.1 H, Creatinine 0.53 L, Estimated GFR (MDRD) 154.00, BUN/Creatinine Ratio 54.90, Glucose 161.0 H, Calcium 8.96, Total Bilirubin 0.51, AST 67.7 H, ALT 99.2 H, Alkaline Phosphatase 63.6, Total Protein 5.82 L, Albumin 2.95 L, Globulin 2.87, Albumin/Globulin Ratio 1.02 12/30/20 04:55: WBC 2.60 L, RBC 3.08 L, Hgb 9.2 L, Hct 28.2 L, MCV 91.6, MCH 29.9, MCHC 32.6, RDW Coeff of Sumeet 17.8 H, Plt Count 278, Immature Gran % (Auto) 0.8, Neut % (Auto) 78.5 H, Lymph % (Auto) 9.2 L, [place] % (Auto) 11.5 H, Eos % (Auto) 0.0, Baso % (Auto) 0.0, Neut # (Auto) 2.0, Lymph # (Auto) 0.2 L, [place] # (Auto) 0.3 L, Eos # (Auto) 0.0, Baso # (Auto) 0.0, Immature Gran # (Auto) 0.0 12/30/20 04:55: PT 14.4 H, INR 1.36 DIET: NPO, JEVITY TUBE FEEDINGS AND WATER FLUSHES BEFORE. 1.5 BRIDGETTE 80 ML/HR 10-12 HOURS @ NIGHT 240 ML AT MEAL TIMES. FLUSH WITH 60 ML. WATER BEFORE AND AFTER EACH FEEDING. ACTIVITY: UP WITH ASSIST OF ONE WITH WALKER. RETIREMENT, PT AND OT EVAL AND TREAT. HOSPITAL COURSE: Mr. Benítez was hospitalized with acute bronchitis/pneumonitis. The patient was treated aggressively with Rocephin and Zithromax. Supposedly allergic to Cephalosporins but he had practically no reaction. The patient's problem that it is very difficult for him to be taken care of at home. The has multiple medical problems and recently she had COVID. The patient also had COVID. He is very poor on followups with his business risk consultant. The patient has carcinoma subglottic invasion requiring tracheostomy and PEG tube. The patient's status has improved remarkably. His mental status is clear. He is oriented to time, place and person. Not in any distress. Sputum production is much less. he has been discharged on Levaquin 500mg to be taken for 5 days. He is going to continue on his oxygen and the rest of the medications. The patient has been set up to see pulmonary physician for tracheostomy care. He is advised to followup regularly with Dr. Christie is oncologist and also radiation specialist, Dr. Wang. Continue with Dr. Taylor the nursing surgical services director. I had a long discussion with his who had an appointment with me indicated that the patient needs to be in the detention or rehab facility. The patient has flatly declined and insists on going home. Also he is high risk for fall. is going to try for a couple of weeks at home to see how things go and then going to make a decision about his placement. CONDITION: Stable PROGNOSIS: Guarded. TIME SPENT: More than 60 minutes. FELIX
--- NOTE | 2021-01-02 14:38 | PN ---
12/26/2020: Level 12/27/2020: Intermediate 12/28/2020: Intermediate 12/29/2020: Intermediate 12/30/2020: D as in discharge MTDD
--- NOTE | 2021-01-02 14:42 | PN ---
DATE OF SERVICE: 12/28/20 SUBJECTIVE: 70-year-old white male hospitalized with severe cough, congestion with bronchitis type of symptoms and pneumonia. The condition seems to be improving. He says he is feeling better. The patient has tracheostomy and also feeding tube. Oxygen saturation is 94% with 5L. The patient was off Coumadin. His hemoglobin is 9.1 with hematocrit 26. There is no evidence of active GI bleed. The patient is on chemotherapy for CA of the larynx. REVIEW OF SYSTEMS: CONSTITUTIONAL: No night sweats. No fatigue, malaise, lethargy. No fever or chills. HEENT: Eyes: No visual changes. No eye pain. No eye discharge. ENT: No runny nose. No epistaxis. No sinus pain. No sore throat. No odynophagia. No congestion. RESPIRATORY: No cough, no congestion. No hemoptysis. No shortness of breath. CARDIOVASCULAR: No angina symptoms. No CHF symptoms. No atypical chest pain for CAD. No palpitations. No PND. No orthopnea. GASTROINTESTINAL: No abdominal pain. No nausea or vomiting. No diarrhea or constipation. No hematemesis. No hematochezia. GENITOURINARY: No urgency. No frequency. No dysuria. No hematuria. No obstructive symptoms. No discharge. No pain. No significant abnormal bleeding. MUSCULOSKELETAL: No musculoskeletal pain; no joint swelling. NEUROLOGICAL: No headache. No neck pain. No syncope. No seizures. No dizziness. PSYCHIATRIC: Not anxious. No depression. No suicidal thoughts. No homicidal thoughts. SKIN: No rash. No lesions. No wounds. ENDOCRINE: No unexplained weight loss. No weight gain. HEMATOLOGIC/LYMPHATIC: No anemia. No purpura. No petechiae. No prolonged or excessive bleeding. No palpable lymph nodes. PHYSICAL EXAMINATION: VITAL SIGNS: Temperature 97.5, pulse 110, respiratory rate 20, blood pressure 115/58, pulse ox 94% on 3L. HEENT: Head normocephalic, atraumatic. Eyes: Extraocular muscles are intact. Pupils are equal, round and reactive to light and accommodation. Ears: No lesions. Nose appeared normal. Throat: No exudate or erythema. NECK: Supple. No JVD, no carotid bruit. No lymphadenopathy or thyromegaly. LUNGS: Decreased breath sounds but clear to auscultation. Percussion note normal. Chest symmetrical. HEART: S1, S2, no S3. No murmurs. No cyanosis or clubbing. No ascites. Pulses: Dorsalis pedis and posterior tibial pulses +1 to +2 bilaterally. ABDOMEN: Soft. Nontender. Bowel sounds active. No CVA tenderness. No mass felt. EXTREMITIES: No edema. Full range of motion of all extremities, equal. NEUROLOGIC: No focal deficit. Cranial nerves II through XII are grossly intact. No headache, no double vision or headache. SKIN: Not dry. Intact. Turgor - normal. LYMPHATIC: No palpable lymph nodes/no lymphedema. MUSCULOSKELETAL: Normal joints with no swelling. Muscle tone is normal. LABS: Hemoglobin 9.1, hematocrit 26, WBC 2,100, normal differential. Creatinine 0.4, BUN 19, potassium 3.9. ASSESSMENT: 1. Acute bronchitis with recurrent pneumonia with tracheostomy. 2. Severe chronic lung disease. 3. Laryngeal carcinoma with larygectomy with tracheostomy, local extension. The patient was on radiation and chemotherapy. PLAN: 1. Monitor CBC and CMP. 2. Continue antibiotics. 3. The patient was Covid positive on November 21. 4. Will do T4 and TSH. TIME SPENT: More than 30 minutes. Plan and coordination of the patient's care discussed in the presence of nurse. FELIX
--- NOTE | 2021-01-03 11:17 | PN ---
DATE OF SERVICE: 12/30/20 SUBJECTIVE: The patient was seen and examined with the nurse practitioner. The patient's condition is a lot better. He wants to go home. He is being seen by multiple other physicians and he is out of sync because he had Covid the past month, and the and patient, strongly advised to get back on his talent development consultant followups like pulmonary, radiation specialist, business services clerk, surgeon who placed PEG tube, hematology/oncologist. The patient is noncompliant, very much dependent on the and it doesn't help that she has been sick likely with Covid also. TIME SPENT: More than 30 minutes. Plan and coordination of the patient's care discussed in the presence of nurse. FELIX
--- NOTE | 2021-01-05 09:31 | ECHO2D ---
Date of Exam: 12/30/2020 Ordering Physician: DR. LANNY VOGT Room #: 111 Reason for Echo: SOB, CAD, COPD, PAD, COVID 19, H/O TRACHEOSTOMY M-Mode Normal Adult Results LV Dimensions Normal Adult Results AoV Opening excursions >1.6 >1.6 LVEDD-base- 3.5-5.8 5.4 Ao root dimensions 2.0-3.7 3.9 LVESD-base- 3.1-4.6 L. Atrium dimensions 1.9-3.8 6.5 Post. Wall thickness 0.8-1.1 1.3 IV septum (thickness) 0.7-1.2 1.3 Post. Wall excursion 0.72-1.3 NORMAL Septal motion NORMAL Systolic motion R. Ventricular cavity 1.5-2.0 4.0 LVEF 60% 63% Paradoxical septal wall motion NORMAL 2-D : 2-D M Mode Echocardiogram was performed using apical four chamber and left parasternal long and short axis views. Mitral, tricuspid and aortic valves appear to be normal. Contractility of the left ventricle seems to be normal, so is the cavity size. ENLARGED RIGHT VENTRICLE AND LEFT ATRIAL CAVITIES. Aortic root appears to be normal. There is no pericardial effusion. There is no thrombus noted in the left ventricle or left atrial cavity. No mitral valve prolapse noted. M-MODE: MV: NORMAL AV: NORMAL TV: NORMAL PV: CHAMBER SIZE: ENLARGED LEFT ATRIAL AND RIGHT VENTRICLE CAVITIES WALL MOTION: NORMAL PERICARDIUM: NORMAL INTERPRETATION: 1. LEFT VENTRICULAR HYPERTROPHY WITH MARKEDLY ENLARGED LEFT ATRIAL CAVITY 2. ENLARGED RIGHT VENTRICLE CAVITY 3. NORMAL LEFT VENTRICLE CONTRACTILITY 4. NORMAL VALVES MTDD
== END 2020-12-30 14:45 | disposition home health service (06) | DRG 204 ==
LOC: ED 13:42 → MEDSURG A 16:20 → UNDODISIN 12-30 14:45
PROVIDERS: ADMIT Internal Medicine; ATTEND Internal Medicine
DX: J44.1 Chronic obstructive pulmonary disease with (acute) exacerbation; Z20.828 Contact with and (suspected) exposure to other viral communicable diseases; I48.91 Unspecified atrial fibrillation; R06.02 Shortness of breath; R50.9 Fever, unspecified; J18.9 Pneumonia, unspecified organism; C32.2 Malignant neoplasm of subglottis; D64.9 Anemia, unspecified; I10 Essential (primary) hypertension

== ENCOUNTER 2021-10-24 14:27 | Inpatient (IN) ==
[2021-10-24 14:49] LABS: BORDETELLA PARAPERTUSSIS (PCR) NOT DETECTED (NOT DETECT); BORDETELLA PERTUSSIS (PCR) NOT DETECTED (NOT DETECT); CHLAMYDIA PNEUMONIAE (PCR) NOT DETECTED (NOT DETECT); CORONAVIRUS 229E (PCR) NOT DETECTED (NOT DETECT); CORONAVIRUS HKU1 (PCR) NOT DETECTED (NOT DETECT); CORONAVIRUS NL63 (PCR) NOT DETECTED (NOT DETECT); CORONAVIRUS OC43 (PCR) NOT DETECTED (NOT DETECT); HUMAN METAPNEUMOVIRUS (PCR) NOT DETECTED (NOT DETECT); HUMAN RHINOVIRUS/ENTEROV (PCR) NOT DETECTED (NOT DETECT); INFLUENZA B (PCR) NOT DETECTED (NOT DETECT); MYCOPLASMA PNEUMONIAE (PCR) NOT DETECTED (NOT DETECT); PARAINFLUENZA VIRUS 1 (PCR) NOT DETECTED (NOT DETECT); PARAINFLUENZA VIRUS 2 (PCR) NOT DETECTED (NOT DETECT); PARAINFLUENZA VIRUS 3 (PCR) NOT DETECTED (NOT DETECT); PARAINFLUENZA VIRUS 4 (PCR) NOT DETECTED (NOT DETECT); RESPIRATORY SYNCYTIAL V (PCR) NOT DETECTED (NOT DETECT)
[2021-10-24 15:37] LABS: ADENOVIRUS (PCR) NOT DETECTED (NOT DETECT)
[2021-10-24 15:38] LABS: SARS_COV_2 (PCR) NOT DETECTED (NOT DETECT)
[2021-10-24] MEDS ORDERED: NITROSTAT SL PRN (16:22)
[2021-10-24] MEDS ORDERED: ATROPINE SULFATE PFS IVP PRN (16:22)
[2021-10-24] MEDS ORDERED: TYLENOL PO PRN (16:22)
[2021-10-24] MEDS ORDERED: MEPHYTON PO ONE (16:26)
[2021-10-24 16:48] VITALS: BMI 28.8
[2021-10-24 16:49] LABS: BASOPHILS # (AUTO) 0.1 K/uL (0-0.2); BASOPHILS % (AUTO) 0.8 % (0.0-3.0); EOSINOPHILS # (AUTO) 0.2 K/ul (0.0-0.7); EOSINOPHILS % (AUTO) 3.6 % (0.0-7.0); HEMATOCRIT 28.6 % (42.0-52.0); IMMATURE GRANULOCYTE % (AUTO) 0.2 % (0.0-5.0); LYMPHOCYTES # (AUTO) 0.9 K/uL (0.60-3.4); LYMPHOCYTES % (AUTO) 14.8 (10.0-50.0); MEAN CORPUSCULAR HEMOGLOBIN 26.5 pg (27.0-31.0); MEAN CORPUSCULAR HGB CONC 31.5 (31.8-35.4); MEAN CORPUSCULAR VOLUME 84.4 fl (80.0-94.0); MONOCYTES # (AUTO) 0.4 K/uL (0.4-2.0); MONOCYTES % (AUTO) 6.2 (0-10); NEUTROPHILS # (AUTO) 4.5 K/ul (2.0-6.9); NEUTROPHILS % (AUTO) 74.4 % (42.2-75.2); PLATELET COUNT 253 10^3/uL (140-440); RED BLOOD COUNT 3.39 10^6/ul (4.70-6.10)
[2021-10-24] MEDS ORDERED: ALBUTEROL 0.083% NEB NEB PRN (16:58)
[2021-10-24 17:03] LABS: ALANINE AMINOTRANSFERASE 12.9 U/L (0-50); ALBUMIN 3.86 g/dL (3.5-5.0); ALKALINE PHOSPHATASE 66.9 U/L (56-119); ASPARTATE AMINO TRANSFERASE 25.5 U/L (17-59); BILIRUBIN,TOTAL 0.46 mg/dL (0.2-1.3); BLOOD UREA NITROGEN 14.8 mg/dL (9-20); CALCIUM 8.95 mg/dL (8.4-10.2); CARBON DIOXIDE 27.4 mmol/L (22-30.0); CREATININE 1.31 mg/dL (0.60-1.10); GLUCOSE 160.5 mg/dL (74-106); POTASSIUM 3.57 mmol/L (3.5-5.1); SODIUM 137.9 mmol/L (134.5-145); TOTAL PROTEIN 7.91 g/dL (6.3-8.2)
--- NOTE | 2021-10-24 17:22 | DI ---
EXAM: Single view of the chest. History: Short of breath Comparison: Chest radiograph 12/29/2020 Findings: Heart is enlarged. Right central line is seen in place. No definite acute infiltrates. No overt pulmonary edema. No obvious pleural fluid and no pneumothorax. Tracheostomy tube is seen. No acute osseous abnormalities. Impression: Cardiomegaly without acute disease in the chest
[2021-10-24 17:25] LABS: PROTHROMBIN TIME 64.6 SEC (9.3-11.0)
[2021-10-24] MEDS: COREG PO SCH (17:38)
[2021-10-24] MEDS: FERROUS SULFATE PO SCH (20:23)
[2021-10-24] MEDS: PLETAL PO SCH (20:23)
[2021-10-24] MEDS: SYMBICORT 160-4.5 MCG INHALER IH SCH (20:24)
[2021-10-24] MEDS ORDERED: ZETIA PO SCH (21:00)
[2021-10-24] MEDS ORDERED: TRIGLIDE PO SCH (21:00)
[2021-10-24] MEDS ORDERED: BACTROBAN TP SCH (21:00)
[2021-10-24] MEDS ORDERED: NEURONTIN PO SCH (21:00)
[2021-10-24] MEDS ORDERED: CRESTOR PO SCH (21:00)
[2021-10-24] MEDS ORDERED: MIDODRINE PO SCH (21:00)
[2021-10-24 23:04] LABS: BILIRUBIN,URINE Negative (NEGATIVE); CLARITY,URINE Slightly (CLEAR); COLOR,URINE Yellow (YELLOW); GLUCOSE, URINE (UA) Negative (NEGATIVE); KETONES,URINE Negative (NEGATIVE); LEUKOCYTE ESTERASE ,URINE Negative (NEGATIVE); NITRITE,URINE Negative (NEGATIVE); PH,URINE 6.5 (5-9); PROTEIN,URINE 1+ (NEGATIVE); URINE, BLOOD 3+ (NEGATIVE)
[2021-10-24 23:11] LABS: GRANULAR CASTS,URINE 0-2 (NOT PRESENT); SQUAMOUS EPITHELIAL CELL,UR 0-2 (0-5); URINE RBC, MICROSCOPIC 50-100 (0-2)
[2021-10-25 05:10] LABS: BASOPHILS % (AUTO) 0.6 % (0.0-3.0); EOSINOPHILS # (AUTO) 0.3 K/ul (0.0-0.7); EOSINOPHILS % (AUTO) 5.5 % (0.0-7.0); HEMATOCRIT 26.6 % (42.0-52.0); HEMOGLOBIN 8.6 g/dl (14.0-18.0); IMMATURE GRANULOCYTE % (AUTO) 0.2 % (0.0-5.0); LYMPHOCYTES % (AUTO) 21.1 (10.0-50.0); MEAN CORPUSCULAR HEMOGLOBIN 27.1 pg (27.0-31.0); MEAN CORPUSCULAR HGB CONC 32.3 (31.8-35.4); MEAN CORPUSCULAR VOLUME 83.9 fl (80.0-94.0); MONOCYTES # (AUTO) 0.4 K/uL (0.4-2.0); MONOCYTES % (AUTO) 8.7 (0-10); NEUTROPHILS % (AUTO) 63.9 % (42.2-75.2); PLATELET COUNT 200 10^3/uL (140-440); RDW COEFFICIENT OF VARIATION 14.9 % (11.6-14.8); RED BLOOD COUNT 3.17 10^6/ul (4.70-6.10)
[2021-10-25 05:23] LABS: ALANINE AMINOTRANSFERASE 12.1 U/L (0-50); ALBUMIN 3.43 g/dL (3.5-5.0); ALKALINE PHOSPHATASE 60.7 U/L (56-119); ASPARTATE AMINO TRANSFERASE 25.8 U/L (17-59); BILIRUBIN,TOTAL 0.42 mg/dL (0.2-1.3); CALCIUM 8.69 mg/dL (8.4-10.2); CARBON DIOXIDE 29.8 mmol/L (22-30.0); CHLORIDE 103.9 mmol/L (98-107); CREATININE 1.09 mg/dL (0.60-1.10); GLUCOSE 104.3 mg/dL (74-106); POTASSIUM 3.67 mmol/L (3.5-5.1); SODIUM 137.8 mmol/L (134.5-145); TOTAL PROTEIN 7.08 g/dL (6.3-8.2)
[2021-10-25 05:33] LABS: PROTHROMBIN TIME 44.4 SEC (9.3-11.0)
[2021-10-25 05:51] VITALS: BP 136/63; TEMP 97.8
[2021-10-25] MEDS ORDERED: PROTONIX PO SCH (06:00)
[2021-10-25] MEDS ORDERED: SYNTHROID PO SCH (06:30)
[2021-10-25] MEDS ORDERED: LASIX TAB PO SCH (06:30)
[2021-10-25] MEDS ORDERED: SYNTHROID PO ONE (07:38)
[2021-10-25] MEDS ORDERED: PULMICORT 0.25 MG/2 ML NEB PRN (08:30)
[2021-10-25] MEDS ORDERED: MICRO-K CAP PO SCH (08:30)
[2021-10-25] MEDS ORDERED: MIDODRINE PO SCH (08:30)
[2021-10-25] MEDS ORDERED: ASPIRIN EC PO SCH (08:30)
[2021-10-25] MEDS: PLETAL PO SCH (08:38)
[2021-10-25] MEDS: COREG PO SCH (08:38)
[2021-10-25] MEDS: FERROUS SULFATE PO SCH (08:39)
[2021-10-25] MEDS: SYMBICORT 160-4.5 MCG INHALER IH SCH (08:41)
[2021-10-25] MEDS: PULMICORT 0.25 MG/2 ML NEB SCH (08:59)
[2021-10-25] MEDS ORDERED: BACTROBAN TP SCH (09:00)
[2021-10-25] MEDS ORDERED: BENTYL PO SCH (09:00)
[2021-10-25] MEDS ORDERED: CYMBALTA PO SCH (09:00)
--- NOTE | 2021-10-25 09:21 | PCM.PROG ---
Attending Provider: ATTENDING PROVIDER: Dr. LANNY VOGT This patient is seen with Erica Cornejo, Nurse Practitioner. DATE OF SERVICE: 10/25/21 SUBJECTIVE: This 71 year old /WHITE M was hospitalized 10/24/21. The patient is resting comfortably. INR is down to 4.5 today and hgb is stable. The patient is adamant about going home. REVIEW OF SYSTEMS: CONSTITUTIONAL: No night sweats. No fatigue, malaise, lethargy. No fever or chills. Weakness. HEENT: Eyes: No visual changes. No eye pain. No eye discharge. ENT: No runny nose. No epistaxis. No sinus pain. No odynophagia. No congestion. RESPIRATORY: No cough, no congestion. No hemoptysis. No shortness of breath. CARDIOVASCULAR: No angina symptoms. No CHF symptoms. No atypical chest pain for CAD. No palpitations. No orthopnea.. GASTROINTESTINAL: No abdominal pain. No nausea or vomiting. No diarrhea or constipation. No hematemesis. No hematochezia. GENITOURINARY: No urgency. No frequency. No dysuria. No hematuria. No obstructive symptoms. No discharge. No pain. No significant abnormal bleeding. MUSCULOSKELETAL: No musculoskeletal pain; no joint swelling. NEUROLOGICAL: Awake, alert, oriented to time, place and person. No headache. No neck pain. No syncope. No seizures. No dizziness. PSYCHIATRIC: Not anxious. No depression. No suicidal thoughts. No homicidal thoughts. SKIN: No rash. No lesions. No wounds. ENDOCRINE: No unexplained weight loss. No weight gain. HEMATOLOGIC/LYMPHATIC: Anemia. No purpura. No petechiae. No prolonged or excessive bleeding. No palpable lymph nodes. PHYSICAL EXAMINATION: GENERAL: The patient is awake, alert and oriented, lying in bed in no distress. VITAL SIGNS: Temperature 97.8 F, Pulse 62, Respiratory Rate 16, BP 136/63, Pulse Ox 97% HEENT: Head normocephalic, atraumatic. Eyes: Extraocular muscles are intact. Pupils are equal, round and reactive to light and accommodation. Ears: No lesions. Nose appeared normal. Throat: No exudate or erythema. NECK: Supple. No JVD, no carotid bruit. No lymphadenopathy or thyromegaly. LUNGS: Diminished breath sounds. Clear to auscultation. Percussion note normal. Chest symmetrical. HEART: S1, S2, no S3. No murmurs. Irregular heart rate. No cyanosis or clubbing. No ascites. Pulses: Dorsalis pedis and posterior tibial pulses +1 to +2 both sides. ABDOMEN: Soft. Non-tender. Bowel sounds active. No CVA tenderness. No mass felt. EXTREMITIES: No edema. Full range of motion of all extremities, equal. NEUROLOGIC: No focal deficit. Cranial nerves II through XII are grossly intact. No headache. No double vision. SKIN: Not dry. Intact. Turgor-normal. Pallor. LYMPHATIC: No palpable lymph nodes/no lymphedema. MUSCULOSKELETAL: Normal joints with no swelling. Muscle tone is normal. LAB REVIEW: 10/25/21 05:00 10/25/21 05:00 10/25/21 05:00: Sodium 137.8, Potassium 3.67, Chloride 103.9, Carbon Dioxide 29.8, Anion Gap 7.77, BUN 16.0, Creatinine 1.09, Estimated GFR (MDRD) 67.00, BUN/Creatinine Ratio 14.67, Glucose 104.3 D, Calcium 8.69, Total Bilirubin 0.42, AST 25.8, ALT 12.1, Alkaline Phosphatase 60.7, Total Protein 7.08, Albumin 3.43 L, Globulin 3.65, Albumin/Globulin Ratio 0.93 10/25/21 05:00: PT 44.4 H D, INR 4.59 H* D 10/25/21 05:00: WBC 4.70, RBC 3.17 L, Hgb 8.6 L, Hct 26.6 L, MCV 83.9, MCH 27.1, MCHC 32.3, RDW Coeff of Sumeet 14.9 H, Plt Count 200, Immature Gran % (Auto) 0.2, Neut % (Auto) 63.9, Lymph % (Auto) 21.1, [place] % (Auto) 8.7, Eos % (Auto) 5.5, Baso % (Auto) 0.6, Neut # (Auto) 3.0, Lymph # (Auto) 1.0, [place] # (Auto) 0.4, Eos # (Auto) 0.3, Baso # (Auto) 0.0, Immature Gran # (Auto) 0.0 10/24/21 23:00: Urine Color Yellow, Urine Clarity Slightly, Urine pH 6.5, Ur Specific [place] 1.020, Urine Protein 1+ H, Urine Glucose (UA) Negative, Urine Ketones Negative, Urine Blood 3+ H, Urine Nitrite Negative, Urine Bilirubin Negative, Urine Urobilinogen 1.0 H, Ur Leukocyte Esterase Negative, Urine Microscopic RBC 50-100, Ur Squamous Epith Cells 0-2, Hyaline Casts 5-10, Granular Casts 0-2 10/24/21 16:43: PT 64.6 H, INR 6.80 H* 10/24/21 16:43: Sodium 137.9, Potassium 3.57, Chloride 103.0, Carbon Dioxide 27.4, Anion Gap 11.07, BUN 14.8, Creatinine 1.31 H, Estimated GFR (MDRD) 54.00, BUN/Creatinine Ratio 11.29, Glucose 160.5 H, Calcium 8.95, Total Bilirubin 0.46, AST 25.5, ALT 12.9, Alkaline Phosphatase 66.9, Total Protein 7.91, Albumin 3.86, Globulin 4.05, Albumin/Globulin Ratio 0.95 10/24/21 16:43: WBC 6.10, RBC 3.39 L, Hgb 9.0 L, Hct 28.6 L, MCV 84.4, MCH 26.5 L, MCHC 31.5 L, RDW Coeff of Sumeet 15.0 H, Plt Count 253, Immature Gran % (Auto) 0.2, Neut % (Auto) 74.4, Lymph % (Auto) 14.8, [place] % (Auto) 6.2, Eos % (Auto) 3.6, Baso % (Auto) 0.8, Neut # (Auto) 4.5, Lymph # (Auto) 0.9, [place] # (Auto) 0.4, Eos # (Auto) 0.2, Baso # (Auto) 0.1, Immature Gran # (Auto) 0.0 10/24/21 14:45: Adenovirus (PCR) Not detected, B. pertussis DNA (PCR) Not detected, B.parapertussis DNA PCR Not detected, C. pneumoniae DNA (PCR) Not detected, Coronavirus OC43 (PCR) Not detected, Coronavirus HKU1 (PCR) Not detected, Coronavirus 229E (PCR) Not detected, Coronavirus NL63 (PCR) Not detected, Human Metapneumovir PCR Not detected, Influenza B (RT-PCR) Not det ected, M. pneumoniae (PCR) Not detected, Parainfluenza 1 (PCR) Not detected, Parainfluenza 2 (PCR) Not detected, Parainfluenza 3 (PCR) Not detected, Parainfluenza 4 (PCR) Not detected, RSV (PCR) Not detected, Entero/Rhino (PCR) Not detected, SARS-CoV-2 (PCR) Not detected ASSESSMENT: Please see below. 1. Hypercoagulopathy 2. Chronic anemia 3. Atrial fibrillation 4. History of subglottic and laryngeal cancer 5. History of colon cancer PLAN: 1. Continue to hold Coumadin 3. Discharge home 3. Restart 5mg Coumadin on Saturday with INR in office on Saturday or Saturday. Plan and coordination of the patient's care discussed in the presence of Glue Machine Operator and nurse. SCRIBED BY: Karthikeyan BOYLE scribed while in presence of service performed by Dr. Vogt/Erica Cornejo APRN on 10/25/21 ([id number])
--- NOTE | 2021-10-25 09:37 | DS ---
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 DM 2 HYPOTHYROIDISM PAD WITH LT FEM/POP- RANVAL B 12 DEFICIENCY COPD WITH HISTORY OF SMOKING ABSCESS REMOVED FROM BUTTOCKS 10/22 - LIZ GIRALDO MD G TUBE REMOVAL LAST VITALS: Temp Pulse Resp BP Pulse Ox 97.8 F 70 20 136/63 95 10/25/21 05:49 10/25/21 08:00 10/25/21 08:00 10/25/21 05:49 10/25/21 09:50 DISCHARGE INSTRUCTIONS: DISCHARGE: HOME TODAY, INDEPENDENTLY AND LIVES WITH SPOUSE. FOLLOW UP: SEE DR. VOGT/ DONNA MORRISON APRN/ DESHAWN CISSE APRN IN THE OFFICE ON OCTOBER 31, 2021 @ 1:[address] TRACY TODAY, OCTOBER 25, 2021 @ 2:[address] LIZ GIRALDO WEDNESDAY, OCTOBER 27, 2021 , KNOWS THE TIME. OXYGEN: CONTINUE BEFORE AT HOME WITH TRACH COLLAR 5 LITERS A MINUTE. CODE STATUS: DO NOT INTUBATE, CPR ONLY TAKE THESE MEDICATIONS AT HOME: Albuterol Sulfate (Albuterol Sulfate 0.083% Vial.Neb) 2.5 mg NEB TID PRN PRN Reason: Bronchodialation Budesonide (Budesonide 0.25 Mg/2 Ml Vial.Neb) 0.25 mg NEB RTBID PRN PRN Reason: sob Budesonide/Formoterol Fumarate (Budesonide/Formoterol Fumarate 160/4.5 Mcg Inhaler) 2 puff IH BID [facility] Last Admin: 10/25/21 08:41 Dose: 2 puff Carvedilol (Carvedilol 12.5 Mg Tablet) 25 mg PO BIDWM [facility] Last Admin: 10/25/21 08:38 Dose: 25 mg Cilostazol (Cilostazol 100 Mg Tablet) 100 mg PO BID [facility] Last Admin: 10/25/21 08:38 Dose: 100 mg Dicyclomine HCl (Dicyclomine Hcl 10 Mg Capsule) 20 mg PO BID [facility] Last Admin: 10/25/21 08:38 Dose: 20 mg Duloxetine HCl (Duloxetine Hcl 30 Mg Capsule.) 60 mg PO DAILY [facility] Last Admin: 10/25/21 08:38 Dose: 60 mg Ezetimibe (Ezetimibe 10 Mg Tablet) 10 mg PO BEDTIME [facility] Last Admin: 10/24/21 20:23 Dose: 10 mg Fenofibrate (Fenofibrate 160 Mg Tablet) 160 mg PO BEDTIME [facility] Last Admin: 10/24/21 20:23 Dose: 160 mg Ferrous Sulfate (Ferrous Sulfate 324 Mg Tablet.) 324 mg PO BID [facility] Last Admin: 10/25/21 08:39 Dose: 324 mg Furosemide (Furosemide 20 Mg Tablet) 20 mg PO QDAC [facility] Last Admin: 10/25/21 05:50 Dose: 20 mg Gabapentin (Gabapentin 300 Mg Capsule) 300 mg PO BEDTIME [facility] Last Admin: 10/24/21 20:23 Dose: 300 mg Levothyroxine Sodium (Levothyroxine Sodium 100 Mcg Tablet) 100 mcg PO QDAC [facility] Midodrine (Midodrine Hcl 5 Mg Tablet) 2.5 mg PO TIDWM [facility] Last Admin: 10/25/21 08:38 Dose: 2.5 mg Mupirocin (Mupirocin 22 Gm Oint) 1 applic TP TID [facility] Stop: 10/27/21 20:59 Last Admin: 10/25/21 08:41 Dose: 1 applic Pantoprazole Sodium (Pantoprazole Sodium 40 Mg Tablet.) 40 mg PO QDAC [facility] Potassium Chloride (Potassium Chloride 10 Meq Capsule.Er) 10 meq PO DAILYWM [facility] Last Admin: 10/25/21 08:38 Dose: 10 meq Documented by: Rosuvastatin Calcium (Rosuvastatin Calcium 10 Mg Tablet) 20 mg PO BEDTIME [facility] Last Admin: 10/24/21 20:23 Dose: 20 mg COUMADIN 5 MG PO EVERY PM, START 10/29/2021 ALLERGIES: Cephalosporins Allergy (Intermediate, Verified 10/24/21 16:28) Hives DISCONTINUED MEDICATIONS: 1). COUMADIN 6 MG PO DAILY 2). ASPIRIN 81 MG PO DAILY NEW PRESCRIPTIONS: 1). COUMADIN 5 MG PO DAILY IN THE PM, START 10/29/2021 SMOKING: N/A DISEASE SPECIFIC EDUCATION: COUMADIN BLEEDING PRECAUTIONS FALL PRECAUTIONS MD FOLLOW UP PANDEMIC PRECAUTIONS LAB REVIEW: 10/25/21 05:00 10/25/21 05:00 10/25/21 05:00: Sodium 137.8, Potassium 3.67, Chloride 103.9, Carbon Dioxide 29.8, Anion Gap 7.77, BUN 16.0, Creatinine 1.09, Estimated GFR (MDRD) 67.00, BUN/Creatinine Ratio 14.67, Glucose 104.3 D, Calcium 8.69, Total Bilirubin 0.42, AST 25.8, ALT 12.1, Alkaline Phosphatase 60.7, Total Protein 7.08, Albumin 3.43 L, Globulin 3.65, Albumin/Globulin Ratio 0.93 10/25/21 05:00: PT 44.4 H D, INR 4.59 H* D 10/25/21 05:00: WBC 4.70, RBC 3.17 L, Hgb 8.6 L, Hct 26.6 L, MCV 83.9, MCH 27.1, MCHC 32.3, RDW Coeff of Sumeet 14.9 H, Plt Count 200, Immature Gran % (Auto) 0.2, Neut % (Auto) 63.9, Lymph % (Auto) 21.1, [place] % (Auto) 8.7, Eos % (Auto) 5.5, Baso % (Auto) 0.6, Neut # (Auto) 3.0, Lymph # (Auto) 1.0, [place] # (Auto) 0.4, Eos # (Auto) 0.3, Baso # (Auto) 0.0, Immature Gran # (Auto) 0.0 10/24/21 23:00: Urine Color Yellow, Urine Clarity Slightly, Urine pH 6.5, Ur Specific [place] 1.020, Urine Protein 1+ H, Urine Glucose (UA) Negative, Urine Ketones Negative, Urine Blood 3+ H, Urine Nitrite Negative, Urine Bilirubin Negative, Urine Urobilinogen 1.0 H, Ur Leukocyte Esterase Negative, Urine Microscopic RBC 50-100, Ur Squamous Epith Cells 0-2, Hyaline Casts 5-10, Granular Casts 0-2 10/24/21 16:43: PT 64.6 H, INR 6.80 H* 10/24/21 16:43: Sodium 137.9, Potassium 3.57, Chloride 103.0, Carbon Dioxide 27.4, Anion Gap 11.07, BUN 14.8, Creatinine 1.31 H, Estimated GFR (MDRD) 54.00, BUN/Creatinine Ratio 11.29, Glucose 160.5 H, Calcium 8.95, Total Bilirubin 0.46, AST 25.5, ALT 12.9, Alkaline Phosphatase 66.9, Total Protein 7.91, Albumin 3.86, Globulin 4.05, Albumin/Globulin Ratio 0.95 10/24/21 16:43: WBC 6.10, RBC 3.39 L, Hgb 9.0 L, Hct 28.6 L, MCV 84.4, MCH 26.5 L, MCHC 31.5 L, RDW Coeff of Sumeet 15.0 H, Plt Count 253, Immature Gran % (Auto) 0.2, Neut % (Auto) 74.4, Lymph % (Auto) 14.8, [place] % (Auto) 6.2, Eos % (Auto) 3.6, Baso % (Auto) 0.8, Neut # (Auto) 4.5, Lymph # (Auto) 0.9, [place] # (Auto) 0.4, Eos # (Auto) 0.2, Baso # (Auto) 0.1, Immature Gran # (Auto) 0.0 10/24/21 14:45: Adenovirus (PCR) Not detected, B. pertussis DNA (PCR) Not detected, B.parapertussis DNA PCR Not detected, C. pneumoniae DNA (PCR) Not detected, Coronavirus OC43 (PCR) Not detected, Coronavirus HKU1 (PCR) Not detected, Coronavirus 229E (PCR) Not detected, Coronavirus NL63 (PCR) Not detected, Human Metapneumovir PCR Not detected, Influenza B (RT-PCR) Not detected, M. pneumoniae (PCR) Not detected, Parainfluenza 1 (PCR) Not detected, Parainfluenza 2 (PCR) Not detected, Parainfluenza 3 (PCR) Not detected, Parainfluenza 4 (PCR) Not detected, RSV (PCR) Not detected, Entero/Rhino (PCR) Not detected, SARS-CoV-2 (PCR) Not detected ACTIVITY: UP TOLERATED WITH STRAIGHT CANE FREQUENT REST PERIODS BLEEDING PRECAUTIONS FALL PRECAUTIONS OXYGEN PRECAUTIONS DIET: REGULAR HOSPITAL COURSE: 71 year old white male hospitalized through the office with INR greater than 7. The patient has long been on Coumadin for atrial fibrillation. He has a history of chronic anemia. INR has been fluctuate since development of cancer with chemo and radiation. He was admitted for hypercoagulopathy and given 1.25mg of oral Vitamin K. INR is down to 4.5 today. He doesn't show any signs of activity bleeding. Hgb is stable for him. He would like to go home today. Will be instructed to hold Coumadin till Saturday and start 5mg and will followup in the office on Saturday or Saturday with repeat INR. Risks and signs of bleeding have been discussed in detail. TIME SPENT: More than 60 minutes. MTDD
--- NOTE | 2021-10-25 11:13 | CM.DICTOOL ---
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 DM 2 HYPOTHYROIDISM PAD WITH LT FEM/POP- RANVAL B 12 DEFICIENCY COPD WITH HISTORY OF SMOKING ABSCESS REMOVED FROM BUTTOCKS 10/22 - LIZ GIRALDO MD G TUBE REMOVAL LAST VITALS Temp Pulse Resp BP Pulse Ox 97.8 F 70 20 136/63 95 10/25/21 05:49 10/25/21 08:00 10/25/21 08:00 10/25/21 05:49 10/25/21 09:50 TAKE THESE MEDICATIONS AT HOME Albuterol Sulfate (Albuterol Sulfate 0.083% Vial.Neb) 2.5 mg NEB TID PRN PRN Reason: Bronchodialation Budesonide (Budesonide 0.25 Mg/2 Ml Vial.Neb) 0.25 mg NEB RTBID PRN PRN Reason: sob Budesonide/Formoterol Fumarate (Budesonide/Formoterol Fumarate 160/4.5 Mcg Inhal er) 2 puff IH BID [facility] Last Admin: 10/25/21 08:41 Dose: 2 puff Carvedilol (Carvedilol 12.5 Mg Tablet) 25 mg PO BIDWM [facility] Last Admin: 10/25/21 08:38 Dose: 25 mg Cilostazol (Cilostazol 100 Mg Tablet) 100 mg PO BID [facility] Last Admin: 10/25/21 08:38 Dose: 100 mg Dicyclomine HCl (Dicyclomine Hcl 10 Mg Capsule) 20 mg PO BID [facility] Last Admin: 10/25/21 08:38 Dose: 20 mg Duloxetine HCl (Duloxetine Hcl 30 Mg Capsule.) 60 mg PO DAILY [facility] Last Admin: 10/25/21 08:38 Dose: 60 mg Ezetimibe (Ezetimibe 10 Mg Tablet) 10 mg PO BEDTIME [facility] Last Admin: 10/24/21 20:23 Dose: 10 mg Fenofibrate (Fenofibrate 160 Mg Tablet) 160 mg PO BEDTIME [facility] Last Admin: 10/24/21 20:23 Dose: 160 mg Ferrous Sulfate (Ferrous Sulfate 324 Mg Tablet.) 324 mg PO BID [facility] Last Admin: 10/25/21 08:39 Dose: 324 mg Furosemide (Furosemide 20 Mg Tablet) 20 mg PO QDAC [facility] Last Admin: 10/25/21 05:50 Dose: 20 mg Gabapentin (Gabapentin 300 Mg Capsule) 300 mg PO BEDTIME [facility] Last Admin: 10/24/21 20:23 Dose: 300 mg Levothyroxine Sodium (Levothyroxine Sodium 100 Mcg Tablet) 100 mcg PO QDAC [facility] Midodrine (Midodrine Hcl 5 Mg Tablet) 2.5 mg PO TIDWM [facility] Last Admin: 10/25/21 08:38 Dose: 2.5 mg Mupirocin (Mupirocin 22 Gm Oint) 1 applic TP TID [facility] Stop: 10/27/21 20:59 Last Admin: 10/25/21 08:41 Dose: 1 applic Pantoprazole Sodium (Pantoprazole Sodium 40 Mg Tablet.) 40 mg PO QDAC [facility] Potassium Chloride (Potassium Chloride 10 Meq Capsule.Er) 10 meq PO DAILYWM [facility] Last Admin: 10/25/21 08:38 Dose: 10 meq Documented by: Rosuvastatin Calcium (Rosuvastatin Calcium 10 Mg Tablet) 20 mg PO BEDTIME [facility] Last Admin: 10/24/21 20:23 Dose: 20 mg COUMADIN 5 MG PO EVERY PM, START 10/29/2021 ALLERGIES Cephalosporins Allergy (Intermediate, Verified 10/24/21 16:28) Hives DISCONTINUED MEDICATIONS 1). COUMADIN 6 MG PO DAILY 2). ASPIRIN 81 MG PO DAILY NEW PRESCRIPTIONS: 1). COUMADIN 5 MG PO DAILY IN THE PM, START 10/29/2021 SMOKING: N/A DISEASE SPECIFIC EDUCATION: COUMADIN BLEEDING PRECAUTIONS FALL PRECAUTIONS MD FOLLOW UP PANDEMIC PRECAUTIONS LAB REVIEW: 10/25/21 05:00 10/25/21 05:00 10/25/21 05:00: Sodium 137.8, Potassium 3.67, Chloride 103.9, Carbon Dioxide 29.8, Anion Gap 7.77, BUN 16.0, Creatinine 1.09, Estimated GFR (MDRD) 67.00, BUN/Creatinine Ratio 14.67, Glucose 104.3 D, Calcium 8.69, Total Bilirubin 0.42, AST 25.8, ALT 12.1, Alkaline Phosphatase 60.7, Total Protein 7.08, Albumin 3.43 L, Globulin 3.65, Albumin/Globulin Ratio 0.93 10/25/21 05:00: PT 44.4 H D, INR 4.59 H* D 10/25/21 05:00: WBC 4.70, RBC 3.17 L, Hgb 8.6 L, Hct 26.6 L, MCV 83.9, MCH 27.1, MCHC 32.3, RDW Coeff of Sumeet 14.9 H, Plt Count 200, Immature Gran % (Auto) 0.2, Neut % (Auto) 63.9, Lymph % (Auto) 21.1, [place] % (Auto) 8.7, Eos % (Auto) 5.5, Baso % (Auto) 0.6, Neut # (Auto) 3.0, Lymph # (Auto) 1.0, [place] # (Auto) 0.4, Eos # (Auto) 0.3, Baso # (Auto) 0.0, Immature Gran # (Auto) 0.0 10/24/21 23:00: Urine Color Yellow, Urine Clarity Slightly, Urine pH 6.5, Ur Specific [place] 1.020, Urine Protein 1+ H, Urine Glucose (UA) Negative, Urine Ketones Negative, Urine Blood 3+ H, Urine Nitrite Negative, Urine Bilirubin Negative, Urine Urobilinogen 1.0 H, Ur Leukocyte Esterase Negative, Urine Microscopic RBC 50-100, Ur Squamous Epith Cells 0-2, Hyaline Casts 5-10, Granular Casts 0-2 10/24/21 16:43: PT 64.6 H, INR 6.80 H* 10/24/21 16:43: Sodium 137.9, Potassium 3.57, Chloride 103.0, Carbon Dioxide 27.4, Anion Gap 11.07, BUN 14.8, Creatinine 1.31 H, Estimated GFR (MDRD) 54.00, BUN/Creatinine Ratio 11.29, Glucose 160.5 H, Calcium 8.95, Total Bilirubin 0.46, AST 25.5, ALT 12.9, Alkaline Phosphatase 66.9, Total Protein 7.91, Albumin 3.86, Globulin 4.05, Albumin/Globulin Ratio 0.95 10/24/21 16:43: WBC 6.10, RBC 3.39 L, Hgb 9.0 L, Hct 28.6 L, MCV 84.4, MCH 26.5 L, MCHC 31.5 L, RDW Coeff of Sumeet 15.0 H, Plt Count 253, Immature Gran % (Auto) 0.2, Neut % (Auto) 74.4, Lymph % (Auto) 14.8, [place] % (Auto) 6.2, Eos % (Auto) 3.6, Baso % (Auto) 0.8, Neut # (Auto) 4.5, Lymph # (Auto) 0.9, [place] # (Auto) 0.4, Eos # (Auto) 0.2, Baso # (Auto) 0.1, Immature Gran # (Auto) 0.0 10/24/21 14:45: Adenovirus (PCR) Not detected, B. pertussis DNA (PCR) Not detected, B.parapertussis DNA PCR Not detected, C. pneumoniae DNA (PCR) Not detected, Coronavirus OC43 (PCR) Not detected, Coronavirus HKU1 (PCR) Not detected, Coronavirus 229E (PCR) Not detected, Coronavirus NL63 (PCR) Not detected, Human Metapneumovir PCR Not detected, Influenza B (RT-PCR) Not detected, M. pneumoniae (PCR) Not detected, Parainfluenza 1 (PCR) Not detected, Parainfluenza 2 (PCR) Not detected, Parainfluenza 3 (PCR) Not detected, Parainfluenza 4 (PCR) Not detected, RSV (PCR) Not detected, Entero/Rhino (PCR) Not detected, SARS-CoV-2 (PCR) Not detected PLAN: DISCHARGE : HOME TODAY, INDEPENDENTLY AND LIVES WITH SPOUSE ACTIVITY: UP TOLERATED WITH STRAIGHT CANE FREQUENT REST PERIODS BLEEDING PRECAUTIONS FALL PRECAUTIONS OXYGEN PRECAUTIONS DIET: REGULAR MD FOLLOW UP: SEE DR. VOGT/ DONNA MORRISON APRN/ DESHAWN CISSE APRN IN THE OFFICE ON OCTOBER 31, 2021 @ 1:[address] TRACY TODAY, OCTOBER 25, 2021 @ 2:[address] LIZ GIRALDO WEDNESDAY, OCTOBER 27, 2021 , KNOWS THE TIME OXYGEN: CONTINUE BEFORE AT HOME WITH TRACH COLLAR 5 LITERS A MINUTE CODE STATUS: DO NOT INTUBATE, CPR ONLY MR. LAGUERRE IS ALERT AND ORIENTED X 4 HE IS PLEASANT. LUNGS CLEAR AND DIMINISHED, CONTINUES TO USE TRACH COLLAR WITH OXYGEN DELIVERY @ 5 L/M. NO UNUSUAL BRUISING OR BLEEDING. HE GETS UP WITH A STRAIGHT CANE, INDEPENDENT AND STEADY. NUTRITIONAL AND FLUID INTAKE IS SUBSTANTIAL, HAD G-TUBE REMOVED AND NO PROBLEM SWALLOWING. SEES DR. TRACY REGARDING TRACH. HAS AN INCISION FROM AB CESS REMOVAL TO RT BUTTOCKS TAHT IS WNL AND SEES DR. LIZ GIRALDO. REMAINING SKIN IS INTACT. HE WEARS A DEPENDS AND HAS SOME DRIBBLING OF URINE. CONTINENT OF BOWELS WITH LAST BM 10/24/21. HE INSIST ON GOING HOME TODAY AND BESIDES HE HAS AN APPOINTMENT WITH DR. TRACY TODAY AT 230 PM. MD DONNA ATKINSON, NIKOLAS CISSE APRN
[2021-10-26] MEDS ORDERED: SYNTHROID PO SCH ×2 (06:30)
[2021-10-26] MEDS ORDERED: PROTONIX PO SCH (06:30)
[2021-10-26] MEDS ORDERED: ASPIRIN EC PO SCH (08:30)
--- NOTE | 2021-10-30 09:21 | HP ---
DATE OF SERVICE: 10/24/2021 REASON FOR HOSPITALIZATION/HISTORY OF PRESENT ILLNESS: INR-7.0 here in the office. Pale and weak. PAST MEDICAL HISTORY/PAST SURGICAL HISTORY: Abscesses removed buttocks (Kathi Harris 10/22 G rube removal COVID 12/22 Right leg hematoma Trach- squamous cell Supraglottis/Laryngeal cancer Dr. Acuña Chronic anemia Atrial fibrillation Renal artery stenosis Cancer of sigmoid colon Diabetes Mellitus type II Hypothyroidism PAD with left Fem Pop- Dr. Multani B12 deficiency COPD with history of smoking REVIEW OF SYSTEMS: CONSTITUTIONAL: No fever, Fatigue. HEENT: No sinus drainage, no sore throat. RESPIRATORY: No cough, no congestion. CARDIOVASCULAR: No atypical chest pain for coronary artery disease. No angina, CHF symptoms, palpitations or shortness of breath. GASTROINTESTINAL: No melena or abdominal pain. No GERD. GENITOURINARY: No hematuria, no prostatism, no polyuria. PRODUCT OWNER: No blackout, no dizziness, no headache, no double vision. MUSCULOSKELETAL: No osteoarthritis pain, no joint swelling. ENDOCRINE: No weight loss, no weight gain. SKIN: Not dry, no rash. PSYCHIATRIC: Not anxious, no depression, no suicidal thoughts, no homicidal thoughts. SOCIAL HISTORY: Marital Status: . Alcohol Usage: No. Tobacco Usage: Current everyday smoker. FAMILY HISTORY: Father: Congestive heart failure, Diabetes Mother: Congestive heart failure, Diabetes and Hypertension MEDICATIONS: Synthroid 100mcg PO QDAC Ferrous Sulfate 325mg PO BID Mupirocin 1 application topical TID Cilostazol 100mg PO BID Midodrine 2.5mg PO TID Protonix 40mg PO daily Fenofibrate 160mg PO Bedtime Symbicort 2 puff inhalation BID Albuterol sulfate 2.5mg inhalation TID PRN Carvedilol 25mg PO BID Budesonide 1 vial NEB RT BID Zetia 10mg PO bedtime Cymbalta 60mg PO daily Dicyclomine 20mg PO BID Gabapentin 300mg PO bedtime Furosemide 20mg PO QDAC Crestor 20mg PO bedtime Potassium chloride 10meq Warfarin 5mg PO QPM ALLERGIES: Cephalosporins PHYSICAL EXAMINATION: V/S: Pulse 90, blood pressure 120/82, temperature 97.7, oxygen saturation 96% O2 at 10 liters. GENERAL APPEARANCE: Oriented times three. Pallor. HEENT: Normal. NECK: No JVP, no bruits. RESPIRATORY: Decreased breath sounds. CARDIOVASCULAR: S1, S2, no S3, no murmur. No cyanosis, clubbing. No ascites. GI/ABDOMEN: No tenderness. Bowel sounds are active. EXTREMITIES: Trace edema, pulses +1, equal. PRODUCT OWNER: Deep tendon reflexes, sensory, motor and gait all normal. RECTAL: Colonoscopy 07/21. ASSESSMENT: 1. Hypercoagulopathy 2. Anemia 3. Abscesses removed buttocks (Kathi Harris 10/22 4. G rube removal 5. COVID 12/22 6. Right leg hematoma 7. Trach- squamous cell 8. Supraglottis/Laryngeal cancer Dr. Acuña 9. Chronic anemia 10.Atrial fibrillation 11.Renal artery stenosis 12.Cancer of sigmoid colon 13.Diabetes Mellitus type II 14.Hypothyroidism 15.PAD with left Fem Pop- Dr. Multani 16.B12 deficiency 17.COPD with history of smoking PLAN: 1. Admit 2. Routine telemetry orders 3. No cardiac markers 4. CBC, CMP and INR now and daily 5. 1.25mg Vitamin K PO now 6. Continue Home medications 7. Hold Coumadin 8. Fall precautions 9. Regular diet 10.O2 as needed 11.Use medication list from [facility] at discharge. TIME SPENT: More than 70 minutes. ANYAD
== END 2021-10-25 11:50 | disposition home or self-care (01) | DRG 812 ==
LOC: LAB 14:27 → MEDSURG A 16:05
PROVIDERS: ADMIT Internal Medicine; ATTEND Internal Medicine

== ENCOUNTER 2023-12-08 07:53 | Inpatient (IN) ==
[2023-12-08] MEDS ORDERED: DUONEB NEB STA (08:20)
[2023-12-08] MEDS ORDERED: ASPIRIN CHEWABLE PO STA (08:20)
[2023-12-08] MEDS ORDERED: LASIX IVP STA (08:20)
[2023-12-08] MEDS ORDERED: PREDNISONE PO STA (08:20)
[2023-12-08] MEDS ORDERED: NITRO-BID TD STA (08:20)
[2023-12-08] MEDS ORDERED: ZITHROMAX PO STA (08:24)
[2023-12-08 08:53] LABS: ABG O2 HGB 95.2 % (95-100); ABG PH 7.43 (7.35-7.45); BEecf 6.9 (-2.0-3.0); COHb 2.3 (0.5-1.5); HCO3 31.2 (21-28); MetHb 1.6 (0-1.5); TCO2 32.6 (19-24); sO2 97.6 % (94-98); tHb 12.7 g/dl (11.7-17.4)
[2023-12-08] MEDS: ALBUTEROL 0.083% NEB NEB ONE ×2 (09:00→09:09)
--- NOTE | 2023-12-08 09:00 | ED.PDOC ---
General ED Provider: Dr. PARMINDER CALDERON Chief Complaint: Shortness of Air Stated Complaint: See above Time Seen by Provider: 12/08/23 08:11 Primary Care Provider: LANNY VOGT MD Nursing and Triage Documentation Reviewed and Agree: Yes (unless otherwise noted in my documentation.) What is Opioid Naive?: *Opioid Naive implies the patient is not already taking opioids or not chronically receiving opioids on a daily basis. *PRN dosing is not "usually" associated with tolerance. *Patients are at higher risk of over-sedation and aspiration. What is Opioid Tolerant?: *Opioid Tolerance implies less than the expected response to an opioid. *Acquired tolerance is defined by the patient taking 60mg of oral morphine daily (or equianalgesic dose of another opioid) for 1 week or more. *Often associated with chronic pain. *May take more than usual dose to achieve desired pain control. Review of Systems Review Of Systems Constitutional: Reports Other (documented below) All Other Systems: Other (documented below) [facility] Medical History History of colon cancer Z85.038 - Personal history of other malignant neoplasm of large intestine (ICD-10) Allergic rhinitis J30.9 - Allergic rhinitis, unspecified (ICD-10) Hematoma right leg T14.8XXA - Other injury of unspecified body region, initial encounter (ICD- 10) Abscess "bottom" L02.91 - Cutaneous abscess, unspecified (ICD-10) Former smoker Z87.891 - Personal history of nicotine dependence (ICD-10) Femoral-popliteal bypass graft occlusion, left T82.898A - Other specified complication of vascular prosthetic devices, implants and grafts, initial encounter (ICD-10) Gastrostomy tube in place Z93.1 - Gastrostomy status (ICD-10) History of COVID-19 hx 12/2020 with respiratory failure Z86.16 - Personal history of COVID-19 (ICD-10) Fatigue R53.83 - Other fatigue (ICD-10) Pulmonary nodules resolved per CT 03/2022 R91.8 - Other nonspecific abnormal finding of lung field (ICD-10) Tracheostomy in place Z93.0 - Tracheostomy status (ICD-10) COPD (chronic obstructive pulmonary disease) J44.9 - Chronic obstructive pulmonary disease, unspecified (ICD-10) 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 BROTHER No problems noted. FATHER Diabetes Unknown No problems noted. Unknown Multiple sclerosis Social History (Updated 10/08/23 @ 13:18 by ALIZA GALLO) Smoking and tobacco status: Former smoker How long ago did patient quit smoking: January 2020 Quit status: quit date established Second hand smoke exposure: No Alcohol intake: current Substance use type: does not use Special nicol needs: No Agree to transfusion: Yes Adopted: No Caregiver/support person: No Foster care: No Household members: spouse Housing: house Marital status: M Lives independently: Yes Daycare: no daycare Number of children: 2 service: No penitentiary: No History of recent travel: No Do you think of yourself as: straight/heterosexual Current gender identity: male Seatbelt use: always Drives intoxicated or rides with intoxicated locomotive driver: No Water heater temperature set < 120 degrees: Yes Working smoke detector in home: Yes Fire extinguisher in home: Yes Carbon monoxide detector in home: Yes Surgical History History of AAA (abdominal aortic aneurysm) repair Dr. Silva Z98.890 - Other specified postprocedural states (ICD-10) History of vein stripping Z98.890 - Other specified postprocedural states (ICD-10) History of colon resection Z90.49 - Acquired absence of other specified parts of digestive tract (ICD- 10) Physical Exam Physical Exam Appearance: Reports Other (documented below if examined) Ill-appearing: Not Applicable (documented below if examined) Pain Distress: Not Applicable (documented below if examined) Eyes: Reports Other (documented below if examined) ENT: Reports Other (documented below if examined) Neck: Not Examined (documented below if examined) Respiratory: Reports Other (documented below if examined) Cardiovascular: Reports Other (documented below if examined) GI/: Reports Other (documented below if examined) Musculoskeletal: Reports Other (documented below if examined) Skin: Reports Other (documented below if examined) Neurological: Reports Other (documented below if examined) Psychiatric: Reports Other (documented below if examined) Critical Care Note Critical Care Note Total Critical Care Time (mins): 0 Course Course 12/08/23 12:25 12/08/23 08:46 Orders, Labs, Meds: Lab Review 12/08/23 12/08/23 12/08/23 08:27 08:46 09:10 WBC RBC Hgb Hct MCV MCH MCHC RDW Coeff of Sumeet Plt Count Neutrophils % (Manual) Band Neutrophils % Lymphocytes % (Manual) Monocytes % (Manual) Basophils % (Manual) Metamyelocytes % Myelocytes % Nucleated RBCs Anisocytosis Stomatocytes PT INR APTT Puncture Site [place] Excess 6.9 H O2 Saturation 97.6 ABG pH 7.43 ABG pCO2 47.0 H ABG pO2 95.0 ABG HCO3 31.2 H ABG Total CO2 32.6 H Renzo Test + Hemoglobin 1.6 H Oxyhemoglobin 95.2 Carboxyhemoglobin 2.3 H Total Hemoglobin 12.7 O2 Delivery Device Cannula Oxygen Liter Flow 6.00 Sodium 134.9 Potassium 4.04 Chloride 97.2 L Carbon Dioxide 31.0 H Anion Gap 10.74 BUN 19.9 Creatinine 1.08 Estimated GFR (MDRD) 67.00 BUN/Creatinine Ratio 18.42 Glucose 146.7 H Lactic Acid Calcium 9.13 Magnesium 1.75 Total Bilirubin 0.71 AST 35.9 ALT 21.0 Alkaline Phosphatase 71.9 Troponin I 0.024 Total Protein 8.64 H Albumin 4.42 Globulin 4.22 Albumin/Globulin Ratio 1.04 D-Dimer 1158.35 H Urine Color Urine Clarity Urine pH Ur Specific [place] Urine Protein Urine Glucose (UA) Urine Ketones Urine Blood Urine Nitrite Urine Bilirubin Urine Urobilinogen Ur Leukocyte Esterase Urine Microscopic RBC Ur Squamous Epith Cells Influ A Molecular Assay Negative by naat Influ B Molecular Assay Negative by naat SARS CoV-2 RNA Rapid JONATHAN Negative 12/08/23 12/08/23 12/08/23 09:11 10:23 12:25 WBC 66.81 H* 62.68 H* RBC 4.57 L 4.49 L Hgb 12.3 L 12.0 L Hct 39.2 L 38.7 L MCV 85.8 86.2 MCH 26.9 L 26.7 L MCHC 31.4 L 31.0 L RDW Coeff of Sumeet 15.4 H 15.3 H Plt Count 372 376 Neutrophils % (Manual) 66.0 59.0 Band Neutrophils % 9.0 H 12.0 H Lymphocytes % (Manual) 4.0 L 7.0 L Monocytes % (Manual) 8.0 5.0 Basophils % (Manual) 2.0 H Metamyelocytes % 3.0 H 8.0 H Myelocytes % 10.0 H 7.0 H Nucleated RBCs 1.0 Anisocytosis 1+ Not present Stomatocytes 2+ PT 35.6 H INR 3.59 APTT 38.2 Puncture Site Base Excess O2 Saturation ABG pH ABG pCO2 ABG pO2 ABG HCO3 ABG Total CO2 Renzo Test Hemoglobin Oxyhemoglobin Carboxyhemoglobin Total Hemoglobin O2 Delivery Device Oxygen Liter Flow Sodium Potassium Chloride Carbon Dioxide Anion Gap BUN Creatinine Estimated GFR (MDRD) BUN/Creatinine Ratio Glucose Lactic Acid 1.04 Calcium Magnesium Total Bilirubin AST ALT Alkaline Phosphatase Troponin I Total Protein Albumin Globulin Albumin/Globulin Ratio D-Dimer Urine Color Yellow Urine Clarity Clear Urine pH 6.0 Ur Specific [place] 1.025 Urine Protein 1+ H Urine Glucose (UA) Negative Urine Ketones Negative Urine Blood Trace-intact H Urine Nitrite Negative Urine Bilirubin Negative Urine Urobilinogen 0.2 Ur Leukocyte Esterase Negative Urine Microscopic RBC 2-5 Ur Squamous Epith Cells Not Reportable Influ A Molecular Assay Influ B Molecular Assay SARS CoV-2 RNA Rapid JONATHAN Orders Category Date Time Status ABG DRAW REQUEST Stat CARDIO 12/08/23 08:24 Completed EKG-(ED ONLY) Stat CARDIO 12/08/23 08:20 Completed NEBULIZER TREATMENT Stat CARDIO 12/08/23 08:20 Completed NEBULIZER TREATMENT Stat CARDIO 12/08/23 09:30 Completed NPO REMINDER: IMAGING ONCE CARE 12/08/23 09:46 Completed ED CDL TRUCK DRIVER APPLIED .ONCE EMERGENCY 12/08/23 08:22 Active ABG COOX Stat LAB 12/08/23 08:27 Completed BLOOD CULTURE (ED ONLY) Stat LAB 12/08/23 08:46 Received CBC W/ AUTO DIFF Stat LAB 12/08/23 09:11 Completed CBC W/ AUTO DIFF Stat LAB 12/08/23 12:25 Completed COMPREHENSIVE METABOLIC PANEL Stat LAB 12/08/23 08:46 Completed COVID [SARS COV-2 RNA RAPID JONATHAN] Stat LAB 12/08/23 09:10 Completed D-DIMER Stat LAB 12/08/23 08:46 Completed FLU A & B MOLECULAR [FLU A/B MOLECULAR] Stat LAB 12/08/23 09:10 Completed LACTIC ACID Stat LAB 12/08/23 09:11 Completed MAGNESIUM Stat LAB 12/08/23 08:46 Completed MANUAL DIFFERENTIAL Stat LAB 12/08/23 09:11 Completed MANUAL DIFFERENTIAL Stat LAB 12/08/23 12:25 Completed PT WITH INR Stat LAB 12/08/23 09:11 Completed PTT [PARTIAL THROMBOPLASTIN TIME] Stat LAB 12/08/23 09:11 Completed RAPID STREP SCREEN [MOLECULAR GROUP A STREP] Stat LAB 12/08/23 09:10 Completed TROPONIN I Stat LAB 12/08/23 08:46 Completed URINALYSIS C & S IF INDICATED Stat LAB 12/08/23 10:23 Completed Albuterol Sulfate 0.083% Neb [Albuterol 0.083% Neb] Meds 12/08/23 08:57 Discontinued 2.5 mg NEB .STK-MED ONE Albuterol Sulfate 0.083% Neb [Albuterol 0.083% Neb] Meds 12/08/23 09:30 Discontinued 5 mg NEB ONCE STA Aspirin [Aspirin Chewable] Meds 12/08/23 08:20 Discontinued 324 mg PO ONCE STA Azithromycin [Zithromax] Meds 12/08/23 08:24 Discontinued 500 mg PO ONCE STA Ceftriaxone/D5w 2 gm Premix [Rocephin 2 gm/50 ml D5w] Meds 12/08/23 09:49 Discontinued 2 gm in 50 ml IV ONCE Furosemide [Lasix] Meds 12/08/23 08:20 Discontinued 40 mg IVP ONCE STA Ipratropium/Albuterol Neb [Duoneb] Meds 12/08/23 08:20 Discontinued 3 ml NEB ONCE STA Nitroglycerin [Nitro-Bid] Meds 12/08/23 08:20 Discontinued 1 inch TD ONCE STA Prednisone Meds 12/08/23 08:20 Discontinued 60 mg PO ONCE STA CHEST, 1V AP ONLY Stat RADS 12/08/23 08:22 Completed CTA CHEST PE PROTOCOL Stat RADS 12/08/23 09:46 Completed Medications Discontinued Medications Generic Name Dose Route Start Last Admin Trade Name Freq PRN Reason Stop Dose Admin Albuterol Sulfate 5 mg 12/08/23 09:30 12/08/23 09:01 Albuterol Sulfate 0.083% Vial.[facility] 12/08/23 09:31 5 mg ONCE STA Administration Albuterol/Ipratropium 3 ml 12/08/23 08:20 12/08/23 08:40 Ipratropium/Albuterol Vial.[facility] 12/08/23 08:21 3 ml ONCE STA Administration Aspirin 324 mg 12/08/23 08:20 12/08/23 08:40 Aspirin 81 Mg Tab.Chew PO 12/08/23 08:21 324 mg ONCE STA Administration Azithromycin 500 mg 12/08/23 08:24 12/08/23 08:40 Azithromycin 250 Mg Tablet PO 12/08/23 08:25 500 mg ONCE STA Administration Furosemide 40 mg 12/08/23 08:20 12/08/23 08:41 Furosemide Inj 20 Mg/2 Ml Vial IVP 12/08/23 08:21 40 mg ONCE STA Administration CEFTRIAXONE/D5W 2 GM PREMIX 2 gm in 50 mls @ 100 mls/hr 12/08/23 09:49 12/08/23 09:56 Rocephin 2 Gm/50 Ml D5w IV 12/08/23 10:18 100 mls/hr ONCE ONE Administration Nitroglycerin 1 inch 12/08/23 08:20 12/08/23 08:41 Nitroglycerin 1 Gm Oint TD 12/08/23 08:21 1 inch ONCE STA Administration Prednisone 60 mg 12/08/23 08:20 12/08/23 08:40 Prednisone 20 Mg Tablet PO 12/08/23 08:21 60 mg ONCE STA Administration Vital Signs: Temp Pulse Resp BP Pulse Ox O2 Del Method O2 Flow Rate 12/08/23 14:12 150/98 H 12/08/23 12:35 102 H 20 166/91 H 97 6 12/08/23 10:37 87 20 138/74 99 6 12/08/23 08:10 20 Nasal Cannula 6 12/08/23 07:56 97.9 F 91 20 175/78 H 98 Discharge Plan Discharge Patient Disposition: PLACED OBSERVATION Discharge Problem: Acute exacerbation of chronic obstructive pulmonary disease, Acute decompensated heart failure Sepsis Qualifiers: Sepsis type: sepsis due to unspecified organism Sepsis acute organ dysfunction status: without acute organ dysfunction Qualified Code(s): A41.9 - Sepsis, unspecified organism Community acquired pneumonia Qualifiers: Laterality: unspecified laterality Qualified Code(s): J18.9 - Pneumonia, unspecified organism Prescriptions: No Action ezetimibe 10 mg tablet See Rx Instructions .ROUTE .COMPLEX Qty: 90 0RF Dose Instruction: TAKE 1 TABLET BY MOUTH EVERY DAY Rx Instructions: TAKE 1 TABLET BY MOUTH EVERY DAY gabapentin 300 mg capsule 300 mg PO QDAY Qty: 90 1RF Hold Instructions: MD Goff ferrous sulfate 325 mg (65 mg iron) tablet 325 mg PO BID Qty: 180 1RF cilostazol 100 mg tablet 100 mg PO BID Qty: 180 1RF dicyclomine 20 mg tablet 20 mg PO BID PRN (Reason: abd. pain) Qty: 20 0RF Hold Instructions: MD Goff fenofibrate 160 mg tablet See Rx Instructions .ROUTE .COMPLEX Qty: 90 1RF Dose Instruction: TAKE 1 TABLET BY MOUTH AT BEDTIME Rx Instructions: TAKE 1 TABLET BY MOUTH AT BEDTIME potassium chloride 10 mEq tablet extended release 10 meq PO QDAY Qty: 90 1RF duloxetine 60 mg capsule,delayed release(DR/EC) 60 mg PO QDAY Qty: 90 1RF doxycycline hyclate 100 mg capsule 100 mg PO BID 7 Days Qty: 14 0RF prednisone 10 mg tablet 10 mg PO BID Qty: 10 0RF warfarin 5 mg Tablet 5 mg PO QPM Qty: 30 1RF Rx Instructions: DO NOT START UNTIL OCTOBER 29, 2021 rosuvastatin 20 mg tablet 20 mg PO BEDTIME diazepam [Valium] 2 mg tablet 2 mg PO BID PRN (Reason: dizziness) Hold Instructions: MD Goff levothyroxine 137 mcg tablet 100 mcg Rx Instructions: TAKE 1 TABLET BY MOUTH DAILY carvedilol 12.5 mg tablet 25 mg PO BID Rx Instructions: 25; TAKE 1 TABLET BY MOUTH TWICE DAILY midodrine 5 mg tablet 2.5 mg (DME) blood-glucose meter [Blood Glucose Monitoring] Kit See Rx Instructions .ROUTE Qty: 1 0RF Rx Instructions: As directed (DME) Blood Glucose Test Strip See Rx Instructions .ROUTE Qty: 50 3RF Rx Instructions: As directed- Test once daily Did you review [place] [employer] for ALL controlled substances?: Not Applicable ED Provider: PARMINDER CALDERON Condition: Stable Physician Progress Note: Disclaimer: This note was dictated by speech recognition technology. Minor errors in doper may be present. Please call and notify me immediately for clarification or corrections. CC: Dyspnea HPI: The patient has a history of COPD, atrial fibrillation, congestive heart failure and he is on anticoagulation. He presented to us with increased shortness of breath over the past few days. His symptoms started a week ago and they have been intermittently improving. However overall the course was deterioration. He has chronic respiratory failure at baseline and he is currently using 6 L of oxygen instead of 4. He complains of sore throat and bodyaches as well. The problem list, allergies, current medications and pharmacy records were reviewed and updated. ROS is included above. PE: Vital signs reviewed as well as all nursing documentation. General: Awake, alert, in acute distress, not toxic appearing but appears tired, chronically ill, obese Overall, the patient is atraumatic, has no deformities, has no focal deficits, has no inappropriate behavior. Respiratory: moderate distress, tachypnea, increased work of breathing, use of accessory muscles, and able to speak more than 1 word sentences, expiratory wheezing bilaterally Cardiac: irregularly irregular, tachycardia MDM: All results and reports for tests that were done in the emergency department have been reviewed and considered in the planning and disposition process. DD: CHF, ACS, COPD exacerbation, asthma exacerbation, bronchitis, URI, Viral ARDS, PNA, Sepsis, PE. Plan: Workup was ordered to identify the presence of: metabolic abnormalities(metabolic panel), infectious process or anemia (CBC), focus of infection (UA, CXR) ACS (troponin, EKG), Organ failure (LFT, Renal functions, Lactic acid), CHF (BNP, CXR, EKG), PE (D-Dimer), Bactremia (Blood culture), Coagulopathy (PT/PTT) DuoNeb, albuterol, prednisone, azithromycin, Lasix, aspirin, nitropaste. Interpretation of tests: The labs showed significantly and severely elevated white blood cell count with left shift and bandemia. There was significant elevation of D-dimer. CXR was independently reviewed and interpreted and showed bilateral infiltrates that were not present in the prior study in October. EKG was independently reviewed and interpreted and showed atrial fibrillation, no signs of acute ischemic changes. Further action: CT PE protocol was ordered. Imaging was independently reviewed and interpreted and showed no acute PE. The radiology report recommended considering VQ scan because of the quality of the CT. I would not get a VQ scan since the patient's INR is therapeutic and he is on warfarin. The patient was given Rocephin in addition to azithromycin for the treatment of community-acquired pneumonia. The patient improved significantly after several nebulizer treatments. He also received diuresis. Hospitalist was contacted for admission. The hospitalist refused admission until we repeat CBC and check the white count. CBC was repeated 3 hours after the first collection and the white count was 62 instead of 66 which is not a significant change. Hospitalist was contacted again and she cited the VQ scan reference in the radiology report which was not a recommendation. She said that she would consult with the chief hospitalist. She consulted and confirmed denial of the admission. I contacted the Chief hospitalist and he agreed with the decision to admit. Therefore, the patient will be admitted for observation for the treatment of sepsis, pneumonia, CHF exacerbation, COPD exacerbation.
[2023-12-08 09:12] LABS: ALBUMIN 4.42 g/dL (3.5-5.0); ALKALINE PHOSPHATASE 71.9 U/L (56-119); ASPARTATE AMINO TRANSFERASE 35.9 U/L (17-59); BILIRUBIN,TOTAL 0.71 mg/dL (0.2-1.3); BLOOD UREA NITROGEN 19.9 mg/dL (9-20); CALCIUM 9.13 mg/dL (8.4-10.2); CHLORIDE 97.2 mmol/L (98-107); CREATININE 1.08 mg/dL (0.60-1.10); GLUCOSE 146.7 mg/dL (74-106); MAGNESIUM 1.75 mg/dL (1.6-2.3); POTASSIUM 4.04 mmol/L (3.5-5.1); SODIUM 134.9 mmol/L (134.5-145); TOTAL PROTEIN 8.64 g/dL (6.3-8.2)
[2023-12-08 09:22] LABS: TROPONIN I 0.024 ng/ml (0.0000-0.120)
--- NOTE | 2023-12-08 09:29 | DI ---
EXAMINATION: SINGLE VIEW CHEST. HISTORY: Dyspnea. COMPARISON: 06/12/2023. CT 10/04/2023. FINDINGS: Lines/Devices: Monitoring leads. Cardiomediastinal silhouette: Enlarged cardiomediastinal silhouette. Mediastinal granulomatous calc ifications. Lungs: Vascular congestion without edema. A few scattered granulomatous calcifications. Interstiti al opacities worst in the left midlung laterally and left lung base. Increased/new from prior. May represent interstitial infiltrate/pneumonia. Possible chronic obstructive pulmonary disease. Pleural Effusion: Right costophrenic angle incompletely imaged. No significant pleural effusion. Osseous structures: No significant abnormality. IMPRESSION: Persistent enlarged cardiomediastinal silhouette with vascular congestion without edema. New/increased interstitial opacities in the left midlung laterally and left lung base. May represent infiltrate/pneumonia. Old granulomatous disease.
[2023-12-08] MEDS ORDERED: ALBUTEROL 0.083% NEB NEB STA (09:30)
[2023-12-08 09:37] LABS: SARS COV-2 RNA RAPID NAAT NEGATIVE (NEGATIVE)
[2023-12-08 09:37] LABS: HEMATOCRIT 39.2 % (42.0-52.0); HEMOGLOBIN 12.3 g/dl (14.0-18.0); MEAN CORPUSCULAR HEMOGLOBIN 26.9 pg (27.0-31.0); MEAN CORPUSCULAR HGB CONC 31.4 (31.8-35.4); MEAN CORPUSCULAR VOLUME 85.8 fl (80.0-94.0); PLATELET COUNT 372 10^3/uL (140-440); RDW COEFFICIENT OF VARIATION 15.4 % (11.6-14.8); RED BLOOD COUNT 4.57 10^6/ul (4.70-6.10)
[2023-12-08 09:42] LABS: PARTIAL THROMBOPLASTIN TIME 38.2 SEC (23.9-40.0)
[2023-12-08 09:45] LABS: PROTHROMBIN TIME 35.6 SEC (9.3-11.0)
[2023-12-08] MEDS ORDERED: ROCEPHIN 2 GM/50 ML D5W 2 GM/50 ML BAG IV ONE (09:49)
[2023-12-08 09:55] LABS: MOLECULAR FLU A NEGATIVE BY NAAT (NEGATIVE); MOLECULAR FLU B NEGATIVE BY NAAT (NEGATIVE)
[2023-12-08 10:01] LABS: WHITE BLOOD COUNT 66.81 K/ul (4.2-10.2)
[2023-12-08 10:03] LABS: ANISOCYTOSIS 1+ (NOT PRESENT); STOMATOCYTES 2+ (NOT PRESENT)
--- NOTE | 2023-12-08 10:55 | CT ---
EXAM: CHEST CTA WITH CONTRAST. CTA PE PROTOCOL WAS PERFORMED. HISTORY: suspected pulmonary embolism TECHNIQUE: CTA of the chest following IV contrast administration. CTA PE protocol was performed. CT dose reduction techniques performed: Yes. Coronal and sagittal reconstructions were performed. MIP /VR/3-D images were provided. COMPARISON: CT chest 10/04/2023 FINDINGS: Motion degraded study. Limited evaluation due to nonstandard patient positioning. Moderate cardiome zee. Coronary artery and aortic calcific atherosclerosis. Hypoplastic and/or narrowed right subcla vian and jugular vein with extensive vascular collaterals in the right chest. No large central pulmo nary embolism. Otherwise, evaluation for pulmonary embolism is limited due to motion and artifact. Emphysema. Stable pleural based nodule in the right upper lobe laterally measuring up to 1.3 cm. No acute findings in the upper abdomen. Findings of diffuse idiopathic skeletal hyperostosis. Impression: Exam is limited due to motion, patient positioning, and artifact related to vessel collateralization in the right chest. Within these limitations, no large central pulmonary embolism. Consider nuclear medicine VQ scan. Coronary artery disease. Emphysema. Stable 1.3 cm pleural-based nodule right upper lobe. Recommend follow-up CT chest in 3-month. All CT scans are performed using dose optimization techniques as appropriate to the performed exam an d include at least one of the following: Automated exposure control, adjustment of the mA and/or kV according t o size, and the use of iterative reconstruction technique.
[2023-12-08 11:08] LABS: BILIRUBIN,URINE Negative (NEGATIVE); CLARITY,URINE Clear (CLEAR); COLOR,URINE Yellow (YELLOW); GLUCOSE, URINE (UA) Negative (NEGATIVE); KETONES,URINE Negative (NEGATIVE); LEUKOCYTE ESTERASE ,URINE Negative (NEGATIVE); NITRITE,URINE Negative (NEGATIVE); PROTEIN,URINE 1+ (NEGATIVE); URINE, BLOOD Trace-intact (NEGATIVE); UROBILINOGEN,URINE 0.2 (0.2)
[2023-12-08 13:03] LABS: HEMATOCRIT 38.7 % (42.0-52.0); MEAN CORPUSCULAR HEMOGLOBIN 26.7 pg (27.0-31.0); MEAN CORPUSCULAR VOLUME 86.2 fl (80.0-94.0); PLATELET COUNT 376 10^3/uL (140-440); RDW COEFFICIENT OF VARIATION 15.3 % (11.6-14.8); RED BLOOD COUNT 4.49 10^6/ul (4.70-6.10)
[2023-12-08 13:30] LABS: ANISOCYTOSIS NOT PRESENT (NOT PRESENT); WHITE BLOOD COUNT 62.68 K/ul (4.2-10.2)
[2023-12-08] MEDS ORDERED: ALBUTEROL 0.083% NEB NEB PRN (14:47)
[2023-12-08] MEDS ORDERED: TYLENOL PO PRN (14:50)
[2023-12-08 15:08] VITALS: BMI 34.7
--- NOTE | 2023-12-08 15:08 | PCM ---
Date of Service Date Seen by Provider: 12/08/23 Time Seen by Provider: 14:30 Admit Day/Time Admission Date: 12/08/23 Admission Time: 14:45 Reason for Admission Chief Complaint: PNEUMONIA; SEPSIS; COPD EXACERBATION Hospital Provider Hospital Provider: VERONICA ST, [facility] [place] [facility] [place] Phys[place] Primary Care Physician: LANNY MAYES MD History of Present Illness History of Present Illness: 73 yo male with pmh of throat cancer and copd presented to the ER with complaints of cough and SOB over the last couple days. Thinks he has picked a "bug" up somewhere. Has cough with white sputum. Denies fever, chills, body aches, N/V/D, chest pain. Denies any significant swelling in his lower extremities. Patient seen in the ER and HR on monitor was 130s-140s. Reports pmh of afib. States he is normally rate controlled but not rhythm controlled. Case Discussed With Case Discussed With: Patient's case was discussed with the ER Physicians, Dr. Serrano [facility] Medical History History of colon cancer Z85.038 - Personal history of other malignant neoplasm of large intestine (ICD-10) Allergic rhinitis J30.9 - Allergic rhinitis, unspecified (ICD-10) Hematoma right leg T14.8XXA - Other injury of unspecified body region, initial encounter (ICD- 10) Abscess "bottom" L02.91 - Cutaneous abscess, unspecified (ICD-10) Femoral-popliteal bypass graft occlusion, left T82.898A - Other specified complication of vascular prosthetic devices, implants and grafts, initial encounter (ICD-10) Gastrostomy tube in place Z93.1 - Gastrostomy status (ICD-10) History of COVID-19 hx 12/2020 with respiratory failure Z86.16 - Personal history of COVID-19 (ICD-10) Fatigue R53.83 - Other fatigue (ICD-10) Pulmonary nodules resolved per CT 03/2022 R91.8 - Other nonspecific abnormal finding of lung field (ICD-10) Tracheostomy in place Z93.0 - Tracheostomy status (ICD-10) COPD (chronic obstructive pulmonary disease) J44.9 - Chronic obstructive pulmonary disease, unspecified (ICD-10) Throat cancer C14.0 - Malignant neoplasm of pharynx, unspecified (ICD-10) COVID-19 virus infection U07.1 - COVID-19 (ICD-10) Atrial fibrillation with RVR I48.91 - UNSPECIFIED ATRIAL FIBRILLATION (ICD-10) Surgical History History of AAA (abdominal aortic aneurysm) repair Dr. Silva Z98.890 - Other specified postprocedural states (ICD-10) History of vein stripping Z98.890 - Other specified postprocedural states (ICD-10) History of colon resection Z90.49 - Acquired absence of other specified parts of digestive tract (ICD- 10) Family History Mother Diabetes CHF (congestive heart failure) Hypertension FATHER CHF (congestive heart failure) BROTHER No problems noted. BROTHER No problems noted. FATHER Diabetes Unknown No problems noted. Unknown Multiple sclerosis Social History Smoking and tobacco status: Former smoker How long ago did patient quit smoking: January 2020 Quit status: quit date established Second hand smoke exposure: No Alcohol intake: current Substance use type: does not use Special nicol needs: No Agree to transfusion: Yes Adopted: No Caregiver/support person: No Foster care: No Household members: spouse Housing: house Marital status: M Lives independently: Yes Daycare: no daycare Number of children: 2 service: No MCC: No History of recent travel: No Do you think of yourself as: straight/heterosexual Current gender identity: male Seatbelt use: always 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 Water heater temperature set < 120 degrees: Yes Working smoke detector in home: Yes Fire extinguisher in home: Yes Carbon monoxide detector in home: Yes Allergies Allergies Allergy/AdvReac Type Severity Reaction Status Date / Time No Known Allergies Allergy Verified 12/08/23 09:49 Current Medications Home Medications warfarin 5 mg tablet 5 mg PO QPM #30 tabs 10/25/21 [Rx Confirmed 12/08/23 Last Taken 12/07/23] ezetimibe 10 mg tablet See Rx Instructions .Route .COMPLEX #90 tabs 03/05/23 [Rx Confirmed 12/08/23 Last Taken 12/07/23] blood sugar diagnostic (Blood Glucose Test strips) #50 ea 06/03/23 [Rx Confirmed 12/08/23 Last Taken Unknown] blood-glucose meter (Blood Glucose Monitoring kit) #1 ea 06/03/23 [Rx Confirmed 12/08/23 Last Taken Unknown] diazepam 2 mg tablet (Valium) 2 mg PO BID PRN dizziness 07/04/23 [History Confirmed 12/08/23 Last Taken Unknown] rosuvastatin 20 mg tablet 20 mg PO BEDTIME 07/04/23 [History Confirmed 12/08/23 Last Taken 12/07/23] cilostazol 100 mg tablet 100 mg PO BID #180 tabs 07/22/23 [Rx Confirmed 12/08/23 Last Taken 12/08/23] fenofibrate 160 mg tablet See Rx Instructions .Route .COMPLEX #90 tabs 10/07/23 [Rx Confirmed 12/08/23 Last Taken 12/08/23] potassium chloride 10 mEq tablet,extended release 10 meq PO QDAY #90 tabs 11/18/23 [Rx Confirmed 12/08/23 Last Taken 12/08/23] duloxetine 60 mg capsule,delayed release 60 mg PO QDAY #90 caps 12/03/23 [Rx Confirmed 12/08/23 Last Taken 12/08/23] doxycycline hyclate 100 mg capsule 100 mg PO BID 7 days #14 caps 12/05/23 [Rx Confirmed 12/08/23 Last Taken 12/08/23] carvedilol 12.5 mg tablet 25 mg PO BID 12/08/23 [History Confirmed 12/08/23 Last Taken 12/08/23] levothyroxine 137 mcg tablet 100 mcg 12/08/23 [History Last Taken 12/08/23] midodrine 5 mg tablet 2.5 mg 12/08/23 [History Last Taken Unknown] prednisone 10 mg tablet 10 mg PO BID 12/08/23 [History Confirmed 12/08/23 Last Taken 12/08/23] Home Acetaminophen (Acetaminophen 325 Mg Tablet) 650 mg PO Q4H PRN PRN Reason: Mild Pain Albuterol Sulfate (Albuterol Sulfate 0.083% Vial.Neb) 2.5 mg NEB RTQ4H PRN PRN Reason: Wheezing Albuterol/Ipratropium (Ipratropium/Albuterol Vial.Neb) 3 ml NEB RTQ4H BAY Furosemide (Furosemide Inj 20 Mg/2 Ml Vial) 20 mg IVP Q12H BAY Azithromycin 500 mg/ Sodium (Chloride) 250 mls @ 250 mls/hr IV DAILY BAY Stop: 12/12/23 08:59 CEFTRIAXONE/D5W 1 GM PREMIX (Rocephin 1 Gm/50 Ml D5w) 1 gm in 50 mls @ 100 mls/hr IV DAILY BAY Stop: 12/12/23 08:59 Discontinued Medications Albuterol Sulfate (Albuterol Sulfate 0.083% Vial.Neb) 5 mg NEB ONCE STA Stop: 12/08/23 09:31 Last Admin: 12/08/23 09:01 Dose: 5 mg Albuterol/Ipratropium (Ipratropium/Albuterol Vial.Neb) 3 ml NEB ONCE STA Stop: 12/08/23 08:21 Last Admin: 12/08/23 08:40 Dose: 3 ml Aspirin (Aspirin 81 Mg Tab.Chew) 324 mg PO ONCE STA Stop: 12/08/23 08:21 Last Admin: 12/08/23 08:40 Dose: 324 mg Azithromycin (Azithromycin 250 Mg Tablet) 500 mg PO ONCE STA Stop: 12/08/23 08:25 Last Admin: 12/08/23 08:40 Dose: 500 mg Diltiazem HCl (Diltiazem Hcl Inj 25 Mg/5 Ml Vial) 10 mg IVP ONCE ONE Stop: 12/08/23 15:25 Last Admin: 12/08/23 15:35 Dose: 10 mg Furosemide (Furosemide Inj 20 Mg/2 Ml Vial) 40 mg IVP ONCE STA Stop: 12/08/23 08:21 Last Admin: 12/08/23 08:41 Dose: 40 mg CEFTRIAXONE/D5W 2 GM PREMIX (Rocephin 2 Gm/50 Ml D5w) 2 gm in 50 mls @ 100 mls/hr IV ONCE ONE Stop: 12/08/23 10:18 Last Admin: 12/08/23 09:56 Dose: 100 mls/hr Nitroglycerin (Nitroglycerin 1 Gm Oint) 1 inch TD ONCE STA Stop: 12/08/23 08:21 Last Admin: 12/08/23 08:41 Dose: 1 inch Prednisone (Prednisone 20 Mg Tablet) 60 mg PO ONCE STA Stop: 12/08/23 08:21 Last Admin: 12/08/23 08:40 Dose: 60 mg Opioid Naive vs. Tolerant Does Patient Take Opioids?: No Is Patient Opioid Naive?: Yes What is Opioid Naive?: *Opioid Naive implies the patient is not already taking opioids or not chronically receiving opioids on a daily basis. *PRN dosing is not "usually" associated with tolerance. *Patients are at higher risk of over-sedation and aspiration. Is Patient Opioid Tolerant?: No What is Opioid Tolerant?: *Opioid Tolerance implies less than the expected response to an opioid. *Acquired tolerance is defined by the patient taking 60mg of oral morphine daily (or equianalgesic dose of another opioid) for 1 week or more. *Often associated with chronic pain. *May take more than usual dose to achieve desired pain control. Review of Systems Constitutional: Reports No symptoms Head: Reports Normocephalic Eyes: Reports No symptoms Ears: Reports No symptoms Nose: Reports No symptoms Mouth: Reports No symptoms Throat: Reports Sore Throat Cardiovascular: Reports No symptoms Respiratory: Reports Cough (productive, white sputum) and Shortness of air Gastrointestinal: Reports No symptoms Genitourinary: Reports No Symptoms Musculoskeletal: Reports No symptoms Endocrine: Reports No symptoms Physical examination Most Recent Vital Signs: Most Recent Vital Signs Temperature 97.5 F L 12/08/23 14:57 Temperature Source Temporal Artery Scan 12/08/23 14:57 Temperature Source Infrared 12/08/23 07:56 Pulse Rate 128 H 12/08/23 14:57 Respiratory Rate 22 H 12/08/23 14:57 Blood Pressure 150/98 H 12/08/23 14:12 Blood Pressure Left Arm 160/94 12/08/23 14:57 Blood Pressure Position Sitting 12/08/23 14:57 O2 Sat by Pulse Oximetry 98 12/08/23 14:57 Oxygen Delivery Method Nasal Cannula 12/08/23 14:57 Oxygen Flow Rate 6 12/08/23 14:57 Fraction of Inspired Oxygen (FIO2) 100 12/08/23 08:10 Height 6 ft 6 in 12/08/23 14:57 Weight 300 lb 12/08/23 14:57 Telemetry Heart Rate 92 10/17/14 01:00 Telemetry SPO2 95 12/30/20 13:00 Appearance: Positive No Apparent Distress, Alert and Oriented x3, Ill-Appearing and Obese Skin: Positive Warm HEENT: Positive Normocephalic and PERRLA Neck: Positive Supple and Midline Trachea Chest/Lungs: Positive Symmetrical With Equal Breath Sounds and Other (diminished, coarse in lung bases) Heart: Positive RRR and Pulses Normal GI/: Positive Soft, Nontender, Bowel Sounds Normal, Hernias and Other (rotund) Musculoskeletal: Positive Not Examined Extremities: Positive Edema (trace edema bilaterally), Intact Peripheral Pulses, Stable Joints Without Laxity and Good ROM in All Joints Neurological: Positive Sensation Intact, Motor intact, Reflexes Intact, Alert and Oriented Labs This Visit Labs This Visit: Labs This Visit 12/08/23 12/08/23 12/08/23 08:27 08:46 09:10 WBC RBC Hgb Hct MCV MCH MCHC RDW Coeff of Sumeet Plt Count Neutrophils % (Manual) Band Neutrophils % Lymphocytes % (Manual) Monocytes % (Manual) Basophils % (Manual) Metamyelocytes % Myelocytes % Nucleated RBCs Anisocytosis Stomatocytes PT INR APTT Puncture Site [place] Excess 6.9 H O2 Saturation 97.6 ABG pH 7.43 ABG pCO2 47.0 H ABG pO2 95.0 ABG HCO3 31.2 H ABG Total CO2 32.6 H Renzo Test + Hemoglobin 1.6 H Oxyhemoglobin 95.2 Carboxyhemoglobin 2.3 H Total Hemoglobin 12.7 O2 Delivery Device Cannula Oxygen Liter Flow 6.00 Sodium 134.9 Potassium 4.04 Chloride 97.2 L Carbon Dioxide 31.0 H Anion Gap 10.74 BUN 19.9 Creatinine 1.08 Estimated GFR (MDRD) 67.00 BUN/Creatinine Ratio 18.42 Glucose 146.7 H Lactic Acid Calcium 9.13 Magnesium 1.75 Total Bilirubin 0.71 AST 35.9 ALT 21.0 Alkaline Phosphatase 71.9 Troponin I 0.024 Total Protein 8.64 H Albumin 4.42 Globulin 4.22 Albumin/Globulin Ratio 1.04 D-Dimer 1158.35 H Urine Color Urine Clarity Urine pH Ur Specific [place] Urine Protein Urine Glucose (UA) Urine Ketones Urine Blood Urine Nitrite Urine Bilirubin Urine Urobilinogen Ur Leukocyte Esterase Urine Microscopic RBC Ur Squamous Epith Cells Influ A Molecular Assay Negative by naat Influ B Molecular Assay Negative by naat SARS CoV-2 RNA Rapid JONATHAN Negative 12/08/23 12/08/23 12/08/23 09:11 10:23 12:25 WBC 66.81 H* 62.68 H* RBC 4.57 L 4.49 L Hgb 12.3 L 12.0 L Hct 39.2 L 38.7 L MCV 85.8 86.2 MCH 26.9 L 26.7 L MCHC 31.4 L 31.0 L RDW Coeff of Sumeet 15.4 H 15.3 H Plt Count 372 376 Neutrophils % (Manual) 66.0 59.0 Band Neutrophils % 9.0 H 12.0 H Lymphocytes % (Manual) 4.0 L 7.0 L Monocytes % (Manual) 8.0 5.0 Basophils % (Manual) 2.0 H Metamyelocytes % 3.0 H 8.0 H Myelocytes % 10.0 H 7.0 H Nucleated RBCs 1.0 Anisocytosis 1+ Not present Stomatocytes 2+ PT 35.6 H INR 3.59 APTT 38.2 Puncture Site Base Excess O2 Saturation ABG pH ABG pCO2 ABG pO2 ABG HCO3 ABG Total CO2 Renzo Test Hemoglobin Oxyhemoglobin Carboxyhemoglobin Total Hemoglobin O2 Delivery Device Oxygen Liter Flow Sodium Potassium Chloride Carbon Dioxide Anion Gap BUN Creatinine Estimated GFR (MDRD) BUN/Creatinine Ratio Glucose Lactic Acid 1.04 Calcium Magnesium Total Bilirubin AST ALT Alkaline Phosphatase Troponin I Total Protein Albumin Globulin Albumin/Globulin Ratio D-Dimer Urine Color Yellow Urine Clarity Clear Urine pH 6.0 Ur Specific [place] 1.025 Urine Protein 1+ H Urine Glucose (UA) Negative Urine Ketones Negative Urine Blood Trace-intact H Urine Nitrite Negative Urine Bilirubin Negative Urine Urobilinogen 0.2 Ur Leukocyte Esterase Negative Urine Microscopic RBC 2-5 Ur Squamous Epith Cells Not Reportable Influ A Molecular Assay Influ B Molecular Assay SARS CoV-2 RNA Rapid JONATHAN Microbiology This Visit 12/08/23 09:10 Throat Group A Strep Molecular Assay - Final Imaging Imaging: EXAMINATION: SINGLE VIEW CHEST. FINDINGS: Lines/Devices: Monitoring leads. Cardiomediastinal silhouette: Enlarged cardiomediastinal silhouette. Mediastinal granulomatous calcifications. Lungs: Vascular congestion without edema. A few scattered granulomatous calcifications. Interstitial opacities worst in the left midlung laterally and left lung base. Increased/new from prior. May represent interstitial infiltrate/pneumonia. Possible chronic obstructive pulmonary disease. Pleural Effusion: Right costophrenic angle incompletely imaged. No significant pleural effusion. Osseous structures: No significant abnormality. IMPRESSION: Persistent enlarged cardiomediastinal silhouette with vascular congestion without edema. New/increased interstitial opacities in the left midlung laterally and left lung base. May represent infiltrate/pneumonia. Old granulomatous disease. EXAM: CHEST CTA WITH CONTRAST. CTA PE PROTOCOL WAS PERFORMED. FINDINGS: Motion degraded study. Limited evaluation due to nonstandard patient positioning. Moderate cardiomegaly. Coronary artery and aortic calcific atherosclerosis. Hypoplastic and/or narrowed right subclavian and jugular vein with extensive vascular collaterals in the right chest. No large central pulmonary embolism. Otherwise, evaluation for pulmonary embolism is limited due to motion and artifact. Emphysema. Stable pleural based nodule in the right upper lobe laterally measuring up to 1.3 cm. No acute findings in the upper abdomen. Findings of diffuse idiopathic skeletal hyperostosis. Impression: Exam is limited due to motion, patient positioning, and artifact related to vessel collateralization in the right chest. Within these limitations, no large central pulmonary embolism. Consider nuclear medicine VQ scan. Coronary artery disease. Emphysema. Stable 1.3 cm pleural-based nodule right upper lobe. Recommend follow-up CT chest in 3-month. EKG Interpretation EKG Interpretation: Per ER EKG Afib rate of 93, no st changes Afib RVR per telemetry upon arrival to the floor - 130s-150s Review Statement Review Statement: I have independently reviewed and interpreted the labs/EKGs/imaging that were ordered by the ER provider. I have reviewed all outside records that are available currently in our EMR including imaging/notes/labs from previous vis its. Plan Plan: 1. Sepsis r/o - WBC 60, CTA, UA, viral swabs negative, blood cultures pending, no obvious source of infection - likely due to pmh of cancer 2. Atrial Fibrillation with RVR - cardizem 10 mg IVP now, will give additional dose of no response, resume home medications 3. Acute Hypoxic Respiratory Failure in setting of COPD and CHF exacerbation - requiring 6L, normally wears 4L, wean as tolerated, nebs, azith/rocephin, lasix 4. Acute CHFpEF Exacerbation - EF63%, no home heart failure medications, lasix 20 mg Q12H, 1800 fluid restriction, I&O, daily weight 5. Hypertension - chronic, continue home medications 6. Hyperlipidemia - chronic, continue home medications 7. MARI - uses cpap at home - continue DVT Prophylaxis: Warfarin Time Spent: Greater than 80 minutes spent with patient, 50% of the time spent with this patient was devoted to counseling and coordination of care. [facility]in minutes spent discussing advance care planning. Disposition: Admit to: Med/Surg Observation DNR Discussed Plan of Care with Dr. Manjeet Mayes Medications Medication Orders: Medications Ordered Category Date Time Status Acetaminophen [Tylenol] Meds 12/08/23 14:50 Ordered 650 mg PO Q4H PRN Albuterol Sulfate 0.083% Neb [Albuterol 0.083% Neb] Meds 12/08/23 14:47 Ordered 2.5 mg NEB RTQ4H PRN Azithromycin Inj [Zithromax] 500 mg Meds 12/09/23 09:00 Ordered 0.9 % Sodium Chloride [Sodium Chloride] 250 ml IV DAILY Ceftriaxone/D5w 1 gm Premix [Rocephin 1 gm/50 ml D5w] Meds 12/09/23 09:00 Ordered 1 gm in 50 ml IV DAILY Ipratropium/Albuterol Neb [Duoneb] Meds 12/08/23 18:00 Ordered 3 ml NEB RTQ4H
[2023-12-08] MEDS ORDERED: CARDIZEM INJ IVP ONE (15:24)
[2023-12-08 15:44] LABS: RSV MOLECULAR NEGATIVE BY NAAT (NEGATIVE)
[2023-12-08] MEDS ORDERED: CYMBALTA PO SCH (16:00)
[2023-12-08] MEDS ORDERED: ZETIA PO SCH (16:00)
[2023-12-08] MEDS ORDERED: TRIGLIDE PO SCH ×2 (16:00→21:00)
[2023-12-08] MEDS: LASIX IVP SCH (16:23)
[2023-12-08] MEDS ORDERED: COUMADIN PO SCH ×2 (17:00)
[2023-12-08] MEDS: DUONEB NEB SCH ×2 (18:00→22:03)
[2023-12-08] MEDS ORDERED: CARDIZEM INJ IVP STA (18:08)
[2023-12-08] MEDS ORDERED: CRESTOR PO SCH (21:00)
[2023-12-08] MEDS: COREG PO SCH (21:32)
[2023-12-08] MEDS: SOLU-MEDROL 40 MG IVP SCH (21:32)
[2023-12-09] MEDS: PLETAL PO SCH ×2 (01:19→09:26)
[2023-12-09] MEDS: HYDRALAZINE HCL IVP PRN ×2 (01:30→17:46)
[2023-12-09] MEDS: DUONEB NEB SCH ×5 (02:27→17:07)
[2023-12-09] MEDS: SOLU-MEDROL 40 MG IVP SCH ×2 (05:10→13:17)
[2023-12-09] MEDS: LASIX IVP SCH ×2 (05:10→15:13)
[2023-12-09 05:14] LABS: HEMATOCRIT 38.7 % (42.0-52.0); HEMOGLOBIN 12.3 g/dl (14.0-18.0); MEAN CORPUSCULAR HEMOGLOBIN 26.9 pg (27.0-31.0); MEAN CORPUSCULAR HGB CONC 31.8 (31.8-35.4); MEAN CORPUSCULAR VOLUME 84.7 fl (80.0-94.0); PLATELET COUNT 412 10^3/uL (140-440); RDW COEFFICIENT OF VARIATION 15.1 % (11.6-14.8); RED BLOOD COUNT 4.57 10^6/ul (4.70-6.10)
[2023-12-09 05:28] LABS: ALANINE AMINOTRANSFERASE 23.2 U/L (0-50); ALBUMIN 4.36 g/dL (3.5-5.0); ASPARTATE AMINO TRANSFERASE 43.6 U/L (17-59); BILIRUBIN,TOTAL 0.78 mg/dL (0.2-1.3); BLOOD UREA NITROGEN 27.8 mg/dL (9-20); CALCIUM 9.61 mg/dL (8.4-10.2); CARBON DIOXIDE 31.5 mmol/L (22-30.0); CHLORIDE 94.1 mmol/L (98-107); CREATININE 1.16 mg/dL (0.60-1.10); GLUCOSE 163.7 mg/dL (74-106); POTASSIUM 4.05 mmol/L (3.5-5.1); TOTAL PROTEIN 8.68 g/dL (6.3-8.2)
[2023-12-09 05:33] LABS: WHITE BLOOD COUNT 83.74 K/ul (4.2-10.2)
[2023-12-09 05:35] LABS: ANISOCYTOSIS NOT PRESENT (NOT PRESENT)
[2023-12-09] MEDS ORDERED: LOPRESSOR IVP ONE (06:19)
[2023-12-09] MEDS ORDERED: SYNTHROID PO SCH ×2 (06:30)
[2023-12-09 06:59] LABS: ABG O2 HGB 90.7 % (95-100); ABG PH 7.47 (7.35-7.45); BEecf 6.1 (-2.0-3.0); COHb 2.8 (0.5-1.5); HCO3 29.8 (21-28); MetHb 1.7 (0-1.5); TCO2 31.1 (19-24); sO2 93.2 % (94-98); tHb 13.4 g/dl (11.7-17.4)
[2023-12-09] MEDS ORDERED: ZITHROMAX 500 MG in SODIUM CHLORIDE 250 ML IV SCH (09:00)
[2023-12-09] MEDS ORDERED: ROCEPHIN 1 GM/50 ML D5W 1 GM/50 ML BAG IV SCH (09:00)
[2023-12-09] MEDS ORDERED: TOPROL XL PO SCH (09:00)
[2023-12-09] MEDS: COREG PO SCH (09:26)
--- NOTE | 2023-12-09 11:04 | PCM.PROG ---
Date/Time Seen Date Seen by Provider: 12/09/23 Time Seen by Provider: 08:20 Provider Provider: BING JIMÉNEZ PA-C, [facility] Chief Complaint Chief Complaint: PNEUMONIA; SEPSIS; COPD EXACERBATION Subjective Subjective: Patient doesn't feel any better. Tripoding at edge of bed, has been all night. States he cannot lie back due to SOB. States he has SOB at baseline but this is worse. Abd is protruding, states this is baseline for him as well. States he hasn't been feeling well for past 1 week, progressively worsening. Has a cough. No abd pain, n/v/d. Has trouble swallowing, somewhat chronic but worsened. 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 Underwent chemo and radiation (33 rounds of rad), and had the cancer resected. Considered cancer free at this point. Also has hx of colon cancer. Had a colon resection, about 5 years ago, did not require chemo/radiation at that time. Required IV metoprolol this morning due to a fib RVR. Objective Appearance: Positive Alert and Oriented x3 and Ill-Appearing Chest/Lungs: Positive Other (+very diminished aubree, but no significant wheezing or rales noted. Tripoding. Able to complete short sentences but has noted conversation dyspnea. ) Heart: Positive Irregular Rhythm and Tachycardia GI/: Positive Soft, Nontender, Bowel Sounds Normal and Other (+obese round abdomen ) Neurological: Positive Alert, Oriented and Other (+generalized weakness ) Vital Signs Vital Signs: Vital Signs: Last 24 Hours 12/08/23 12:35 12/08/23 14:12 12/08/23 14:52 Temperature Temperature Source Pulse Rate 102 H Pulse Rate [Apical] 112 H Respiratory Rate 20 24 H Blood Pressure 166/91 H 150/98 H Blood Pressure Mean Blood Pressure Left Arm Blood Pressure Location Blood Pressure Position O2 Sat by Pulse Oximetry 97 Oxygen Delivery Method Nasal Cannula Oxygen Flow Rate 6 6 Height Weight Telemetry Type Telemetry Monitoring Irregular Telemetry Rate (Approximate) Telemetry Heart Rate Telemetry SPO2 EKG UT Interval EKG QRS Interval Telemetry Strip Reading 12/08/23 14:57 12/08/23 15:00 12/08/23 15:30 Temperature 97.5 F L Temperature Source Temporal Artery Scan Pulse Rate 128 H Pulse Rate [Apical] Respiratory Rate 22 H Blood Pressure Blood Pressure Mean Blood Pressure Left Arm 160/94 Blood Pressure Location Blood Pressure Position Sitting O2 Sat by Pulse Oximetry 98 Oxygen Delivery Method Nasal Cannula Nasal Cannula Oxygen Flow Rate 6 Height 6 ft 6 in Weight 300 lb Telemetry Type Remote Telemetry Telemetry Monitoring Started Irregular Telemetry Rate (Approximate) 120-130 BPM Telemetry Heart Rate Telemetry SPO2 94 EKG UT Interval EKG QRS Interval 0.08 Telemetry Strip Reading AFIB WITH RVR PRE CARDIZEM 12/08/23 16:00 12/08/23 16:02 12/08/23 17:00 Temperature Temperature Source Pulse Rate Pulse Rate [Apical] Respiratory Rate Blood Pressure Blood Pressure Mean Blood Pressure Left Arm Blood Pressure Location Blood Pressure Position O2 Sat by Pulse Oximetry Oxygen Delivery Method Nasal Cannula Nasal Cannula Oxygen Flow Rate Height Weight Telemetry Type Remote Telemetry Telemetry Monitoring Continues Irregular Telemetry Rate (Approximate) 100-110 BPM Telemetry Heart Rate Telemetry SPO2 99 EKG UT Interval EKG QRS Interval 0.08 Telemetry Strip Reading AFIB- POST CARDIZEM 12/08/23 17:49 12/08/23 18:00 12/08/23 18:28 Temperature 97.6 F Temperature Source Temporal Artery Scan Pulse Rate 124 H Pulse Rate [Apical] Respiratory Rate 20 Blood Pressure 182/88 H Blood Pressure Mean 119 Blood Pressure Left Arm Blood Pressure Location Left Arm Blood Pressure Position Sitting O2 Sat by Pulse Oximetry 95 93 L Oxygen Delivery Method Nasal Cannula Nasal Cannula Nasal Cannula Oxygen Flow Rate 6 6 Height Weight Telemetry Type Telemetry Monitoring Irregular Telemetry Rate (Approximate) Telemetry Heart Rate Telemetry SPO2 EKG UT Interval EKG QRS Interval Telemetry Strip Reading 12/08/23 18:38 12/08/23 19:00 12/08/23 19:00 Temperature Temperature Source Pulse Rate 109 H Pulse Rate [Apical] Respiratory Rate 20 Blood Pressure 170/78 H Blood Pressure Mean 108 Blood Pressure Left Arm Blood Pressure Location Left Arm Blood Pressure Position Sitting O2 Sat by Pulse Oximetry 98 Oxygen Delivery Method Nasal Cannula Nasal Cannula Oxygen Flow Rate 6 Height Weight Telemetry Type Remote Telemetry Telemetry Monitoring Continues Irregular Telemetry Rate (Approximate) Telemetry Heart Rate 95 Telemetry SPO2 91 L EKG UT Interval EKG QRS Interval 0.08 Telemetry Strip Reading a fib 12/08/23 20:00 12/08/23 20:00 12/08/23 20:00 Temperature Temperature Source Pulse Rate Pulse Rate [Apical] Respiratory Rate Blood Pressure Blood Pressure Mean Blood Pressure Left Arm Blood Pressure Location Blood Pressure Position O2 Sat by Pulse Oximetry 96 Oxygen Delivery Method Nasal Cannula Nasal Cannula Nasal Cannula Oxygen Flow Rate 6 6 Height Weight Telemetry Type Telemetry Monitoring Irregular Telemetry Rate (Approximate) Telemetry Heart Rate Telemetry SPO2 EKG UT Interval EKG QRS Interval Telemetry Strip Reading 12/08/23 21:00 12/08/23 21:15 12/08/23 22:00 Temperature 98.7 F Temperature Source Temporal Artery Scan Pulse Rate 102 H Pulse Rate [Apical] Respiratory Rate 19 Blood Pressure 187/96 H Blood Pressure Mean 126 Blood Pressure Left Arm Blood Pressure Location Left Arm Blood Pressure Position Supine O2 Sat by Pulse Oximetry 94 L Oxygen Delivery Method Nasal Cannula Nasal Cannula Nasal Cannula Oxygen Flow Rate 6 Height Weight Telemetry Type Telemetry Monitoring Irregular Telemetry Rate (Approximate) Telemetry Heart Rate Telemetry SPO2 EKG UT Interval EKG QRS Interval Telemetry Strip Reading 12/08/23 23:00 12/09/23 00:00 12/09/23 01:00 Temperature Temperature Source Pulse Rate Pulse Rate [Apical] Respiratory Rate Blood Pressure Blood Pressure Mean Blood Pressure Left Arm Blood Pressure Location Blood Pressure Position O2 Sat by Pulse Oximetry Oxygen Delivery Method Nasal Cannula Nasal Cannula Nasal Cannula Oxygen Flow Rate Height Weight Telemetry Type Telemetry Monitoring Irregular Telemetry Rate (Approximate) Telemetry Heart Rate Telemetry SPO2 EKG UT Interval EKG QRS Interval Telemetry Strip Reading 12/09/23 01:00 12/09/23 01:25 12/09/23 02:00 Temperature 98.5 F Temperature Source Temporal Artery Scan Pulse Rate 100 Pulse Rate [Apical] Respiratory Rate 19 Blood Pressure 180/91 H Blood Pressure Mean 120 Blood Pressure Left Arm Blood Pressure Location Left Arm Blood Pressure Position Sitting O2 Sat by Pulse Oximetry 97 Oxygen Delivery Method Nasal Cannula Nasal Cannula Oxygen Flow Rate 5 Height Weight Telemetry Type Remote Telemetry Telemetry Monitoring Continues Irregular Telemetry Rate (Approximate) 100-110 BPM Telemetry Heart Rate Telemetry SPO2 EKG UT Interval 0.07 L EKG QRS Interval Telemetry Strip Reading AFIB W/ RVR 12/09/23 03:00 12/09/23 04:00 12/09/23 05:00 Temperature Temperature Source Pulse Rate Pulse Rate [Apical] Respiratory Rate Blood Pressure Blood Pressure Mean Blood Pressure Left Arm Blood Pressure Location Blood Pressure Position O2 Sat by Pulse Oximetry Oxygen Delivery Method Nasal Cannula Nasal Cannula Nasal Cannula Oxygen Flow Rate Height Weight Telemetry Type Telemetry Monitoring Irregular Telemetry Rate (Approximate) Telemetry Heart Rate Telemetry SPO2 EKG UT Interval EKG QRS Interval Telemetry Strip Reading 12/09/23 05:12 12/09/23 05:51 12/09/23 06:00 Temperature 98.8 F Temperature Source Temporal Artery Scan Pulse Rate 111 H Pulse Rate [Apical] Respiratory Rate 13 Blood Pressure 185/100 H Blood Pressure Mean 128 Blood Pressure Left Arm Blood Pressure Location Left Arm Blood Pressure Position Sitting O2 Sat by Pulse Oximetry 96 93 L Oxygen Delivery Method Nasal Cannula Nasal Cannula Nasal Cannula Oxygen Flow Rate 6 5 Height Weight Telemetry Type Telemetry Monitoring Irregular Telemetry Rate (Approximate) Telemetry Heart Rate Telemetry SPO2 EKG UT Interval EKG QRS Interval Telemetry Strip Reading 12/09/23 06:00 12/09/23 07:00 12/09/23 07:00 Temperature Temperature Source Pulse Rate Pulse Rate [Apical] Respiratory Rate Blood Pressure Blood Pressure Mean Blood Pressure Left Arm Blood Pressure Location Blood Pressure Position O2 Sat by Pulse Oximetry Oxygen Delivery Method Nasal Cannula Oxygen Flow Rate Height Weight 294 lb Telemetry Type Remote Telemetry Telemetry Monitoring Continues Irregular Telemetry Rate (Approximate) 110-120 BPM Telemetry Heart Rate 106 H Telemetry SPO2 94 EKG UT Interval EKG QRS Interval 0.09 Telemetry Strip Reading AFIB 12/09/23 08:00 12/09/23 08:42 12/09/23 09:13 Temperature Temperature Source Pulse Rate Pulse Rate [Apical] Respiratory Rate Blood Pressure 137/69 Blood Pressure Mean 91 Blood Pressure Left Arm Blood Pressure Location Left Arm Blood Pressure Position Sitting O2 Sat by Pulse Oximetry 93 L 94 L Oxygen Delivery Method Nasal Cannula Nasal Cannula Nasal Cannula Oxygen Flow Rate 6 6 Height Weight Telemetry Type Telemetry Monitoring Irregular Telemetry Rate (Approximate) Telemetry Heart Rate Telemetry SPO2 EKG UT Interval EKG QRS Interval Telemetry Strip Reading 12/09/23 10:00 Temperature 97.7 F Temperature Source Oral Pulse Rate 104 H Pulse Rate [Apical] Respiratory Rate 20 Blood Pressure 137/74 Blood Pressure Mean 95 Blood Pressure Left Arm Blood Pressure Location Left Arm Blood Pressure Position Sitting O2 Sat by Pulse Oximetry 95 Oxygen Delivery Method Nasal Cannula Oxygen Flow Rate 6 Height Weight Telemetry Type Telemetry Monitoring Irregular Telemetry Rate (Approximate) Telemetry Heart Rate Telemetry SPO2 EKG UT Interval EKG QRS Interval Telemetry Strip Reading Lab Results Lab Results: Lab Results: Last 24 Hours 12/09/23 12/09/23 12/08/23 06:43 05:00 15:24 WBC 83.74 H* D RBC 4.57 L Hgb 12.3 L Hct 38.7 L MCV 84.7 MCH 26.9 L MCHC 31.8 RDW Coeff of Sumeet 15.1 H Plt Count 412 Neutrophils % (Manual) 50.0 Band Neutrophils % 4.0 Lymphocytes % (Manual) 15.0 Monocytes % (Manual) 7.0 Basophils % (Manual) Metamyelocytes % 9.0 H Myelocytes % 15.0 H Nucleated RBCs 1.0 Anisocytosis Not present PT 40.0 H INR 4.06 H* Puncture Site Lb Base Excess 6.1 H O2 Saturation 93.2 L ABG pH 7.47 H ABG pCO2 41.0 ABG pO2 63.0 L ABG HCO3 29.8 H ABG Total CO2 31.1 H Renzo Test + Hemoglobin 1.7 H Oxyhemoglobin 90.7 L Carboxyhemoglobin 2.8 H Total Hemoglobin 13.4 O2 Delivery Device Cannula Oxygen Liter Flow 6.00 FiO2 % 44.0 Sodium 135.0 Potassium 4.05 Chloride 94.1 L Carbon Dioxide 31.5 H Anion Gap 13.45 BUN 27.8 H Creatinine 1.16 H Estimated GFR (MDRD) 62.00 BUN/Creatinine Ratio 23.96 Glucose 163.7 H Calcium 9.61 Total Bilirubin 0.78 AST 43.6 ALT 23.2 Alkaline Phosphatase 75.0 NT-Pro-B Natriuret Pep Total Protein 8.68 H Albumin 4.36 Globulin 4.32 Albumin/Globulin Ratio 1.00 Procalcitonin Urine Color Urine Clarity Urine pH Ur Specific Vale Urine Protein Urine Glucose (UA) Urine Ketones Urine Blood Urine Nitrite Urine Bilirubin Urine Urobilinogen Ur Leukocyte Esterase Urine Microscopic RBC Ur Squamous Epith Cells RSV Antigen Negative by naat 12/08/23 12/08/23 12/08/23 12:25 10:23 08:47 WBC 62.68 H* RBC 4.49 L Hgb 12.0 L Hct 38.7 L MCV 86.2 MCH 26.7 L MCHC 31.0 L RDW Coeff of Sumeet 15.3 H Plt Count 376 Neutrophils % (Manual) 59.0 Band Neutrophils % 12.0 H Lymphocytes % (Manual) 7.0 L Monocytes % (Manual) 5.0 Basophils % (Manual) 2.0 H Metamyelocytes % 8.0 H Myelocytes % 7.0 H Nucleated RBCs 1.0 Anisocytosis Not present PT INR Puncture Site Base Excess O2 Saturation ABG pH ABG pCO2 ABG pO2 ABG HCO3 ABG Total CO2 Renzo Test Hemoglobin Oxyhemoglobin Carboxyhemoglobin Total Hemoglobin O2 Delivery Device Oxygen Liter Flow FiO2 % Sodium Potassium Chloride Carbon Dioxide Anion Gap BUN Creatinine Estimated GFR (MDRD) BUN/Creatinine Ratio Glucose Calcium Total Bilirubin AST ALT Alkaline Phosphatase NT-Pro-B Natriuret Pep 2980 H Total Protein Albumin Globulin Albumin/Globulin Ratio Procalcitonin Urine Color Yellow Urine Clarity Clear Urine pH 6.0 Ur Specific Vale 1.025 Urine Protein 1+ H Urine Glucose (UA) Negative Urine Ketones Negative Urine Blood Trace-intact H Urine Nitrite Negative Urine Bilirubin Negative Urine Urobilinogen 0.2 Ur Leukocyte Esterase Negative Urine Microscopic RBC 2-5 Ur Squamous Epith Cells Not Reportable RSV Antigen 12/08/23 08:20 WBC RBC Hgb Hct MCV MCH MCHC RDW Coeff of Sumeet Plt Count Neutrophils % (Manual) Band Neutrophils % Lymphocytes % (Manual) Monocytes % (Manual) Basophils % (Manual) Metamyelocytes % Myelocytes % Nucleated RBCs Anisocytosis PT INR Puncture Site Base Excess O2 Saturation ABG pH ABG pCO2 ABG pO2 ABG HCO3 ABG Total CO2 Renzo Test Hemoglobin Oxyhemoglobin Carboxyhemoglobin Total Hemoglobin O2 Delivery Device Oxygen Liter Flow FiO2 % Sodium Potassium Chloride Carbon Dioxide Anion Gap BUN Creatinine Estimated GFR (MDRD) BUN/Creatinine Ratio Glucose Calcium Total Bilirubin AST ALT Alkaline Phosphatase NT-Pro-B Natriuret Pep Total Protein Albumin Globulin Albumin/Globulin Ratio Procalcitonin 0.05 Urine Color Urine Clarity Urine pH Ur Specific Vale Urine Protein Urine Glucose (UA) Urine Ketones Urine Blood Urine Nitrite Urine Bilirubin Urine Urobilinogen Ur Leukocyte Esterase Urine Microscopic RBC Ur Squamous Epith Cells RSV Antigen Additional Comments Additional Comments: I have independently reviewed and interpreted the labs/EKGs/imaging ordered during this hospital stay. I have reviewed outside records that are available in our EMR that pertain to medical stay including imaging/notes/labs from previous visits. Active Medications Active Medications: Medications Generic Name Dose Route Start Last Admin Trade Name Freq PRN Reason Stop Dose Admin Acetaminophen 650 mg 12/08/23 14:50 Acetaminophen 325 Mg Tablet PO Q4H PRN Mild Pain Albuterol Sulfate 2.5 mg 12/08/23 14:47 12/09/23 04:20 Albuterol Sulfate 0.083% Vial.Neb NEB 2.5 mg RTQ4H PRN Administration Wheezing Albuterol/Ipratropium 3 ml 12/08/23 18:00 12/09/23 09:30 Ipratropium/Albuterol Vial.Neb NEB 3 ml RTQ4H BAY Administration Carvedilol 12.5 mg 12/08/23 21:00 12/09/23 09:26 Carvedilol 12.5 Mg Tablet PO 12.5 mg BID BAY Administration Cilostazol 100 mg 12/08/23 21:00 12/09/23 09:26 Cilostazol 100 Mg Tablet PO 100 mg BID BAY Administration Duloxetine HCl 60 mg 12/08/23 16:00 12/08/23 16:45 Duloxetine Hcl 30 Mg Capsule. PO Not Given DAILY BAY Ezetimibe 10 mg 12/08/23 16:00 12/08/23 16:30 Ezetimibe 10 Mg Tablet PO Not Given DAILY BAY Fenofibrate 160 mg 12/08/23 21:00 12/09/23 01:21 Fenofibrate 160 Mg Tablet PO 160 mg BEDTIME BAY Administration Furosemide 20 mg 12/08/23 16:00 12/09/23 05:10 Furosemide Inj 20 Mg/2 Ml Vial IVP 20 mg Q12H BAY Administration Hydralazine HCl 10 mg 12/08/23 21:24 12/09/23 01:30 Hydralazine Hcl 20 Mg/Ml Sdv IVP 10 mg Q6H PRN Administration Hypertension Azithromycin 500 mg/ Sodium 250 mls @ 250 mls/hr 12/09/23 09:00 12/09/23 09:26 Chloride IV 12/12/23 08:59 250 mls/hr DAILY BAY Administration CEFTRIAXONE/D5W 1 GM PREMIX 1 gm in 50 mls @ 100 mls/hr 12/09/23 09:00 12/09/23 08:34 Rocephin 1 Gm/50 Ml D5w IV 12/12/23 08:59 100 mls/hr DAILY BAY Administration Levothyroxine Sodium 112 mcg 12/09/23 06:30 12/09/23 05:37 Levothyroxine Sodium 112 Mcg Tablet PO 112 mcg DAILY@0630 BAY Administration Levothyroxine Sodium 25 mcg 12/09/23 06:30 12/09/23 05:35 Levothyroxine Sodium 25 Mcg Tablet PO 25 mcg DAILY@0630 [facility] Administration Methylprednisolone Sodium Succinate 40 mg 12/08/23 21:00 12/09/23 05:10 Methylprednisolone Sod Succ/Pf 40 Mg/Ml Vial IVP 40 mg Q8HR BAY Administration Rosuvastatin Calcium 20 mg 12/08/23 21:00 12/09/23 01:21 Rosuvastatin Calcium 10 Mg Tablet PO 20 mg BEDTIME BAY Administration Warfarin Sodium 5 mg 12/09/23 17:00 Warfarin Sodium 5 Mg Tablet PO [id number]@1700 [facility] Plan Plan: 1. Sepsis r/o - WBC worsened to 83, CTA, UA, viral swabs negative, blood cultures pending, no obvious source of infection - CT neck and CT a/p ordered. 2. Atrial Fibrillation with RVR - Received IV metoprolol this morning. Improved. Resume home medications, will increase coreg if needed. 3. Acute Hypoxic Respiratory Failure in setting of COPD and CHF exacerbation - requiring 6L, normally wears 4L, wean as tolerated, nebs, azith/rocephin, solumedrol, lasix. Will consider broadening abx once scans are back. 4. Acute CHFpEF Exacerbation - EF63%, no home heart failure medications, lasix 2 0 mg Q12H, 1800 fluid restriction, I&O, daily weight 5. Hypertension - chronic, continue home medications 6. Hyperlipidemia - chronic, continue home medications 7. MARI - uses cpap at home - continue 8. Leukocytosis - No blast cells noted. Lab has sent to pathology for further investigation to confirm. DVT Prophylaxis: Warfarin Discussed code status with patient and he is DNR/DNI. Update: CT neck and abd/pelvis negative for acute findings to explain elevated WBC count. Concern for oncological process. 1400 [facility] available. 1500 - Placed on wait list with [facility], likely tomorrow at the earliest. 1600- [facility] still at capacity, no discharges since last contact. 1630 - Spoke with [facility] per family request. They do not have inpatient oncology consult services. 163 [facility] Review Statement Review Statement: I have personally discussed and reviewed the patient's visit/currently labs/imaging/decision making with Dr. Mayes, my supervising attending. Greater that 50 minutes spent with patient, 50% of the time spent with this patient was devoted to counseling and coordination of care.
--- NOTE | 2023-12-09 13:37 | CT ---
EXAM: CT NECK SOFT TISSUES WITH CONTRAST HISTORY: History of head neck cancer. TECHNIQUE: CT acquisition of the neck soft tissues following IV contrast administration. CT dose red uction techniques performed: Yes. Coronal and sagittal reconstructions were performed. COMPARISON: Neck soft tissue 08/17/2020 FINDINGS: Evaluation limited due to patient positioning and respiratory motion. Limited evaluation of the brai n parenchyma. Orbits and globes intact. Paranasal sinuses clear. Mastoid air cells and middle ears clear. Nasal cavity and nasopharynx normal. The previously demonstrated mass at the base of tongue and supraglottic larynx is no longer appreciated. Vague soft tissue distortion is seen throughout t his region which may be on the basis of scarring, postsurgical, and/or post-treatment changes. Stabl e 1.4 cm lymph node in the left level II A station. 1.2 cm submental lymph node. Larynx unremarkabl e. Upper trachea clear. Emphysematous changes with otherwise limited detail of the lung due to resp iratory motion. Calcified plaque in the neck vasculature. No suspicious thyroid abnormality. No stanton spicious osseous lesion. Impression: The previously demonstrated mass at the base of tongue, and supraglottic larynx is no longer apprecia sadaf. Vague soft tissue distortion throughout this region due to postsurgical and/or post-treatment c hanges, or scarring. Stable 1.4 cm lymph node in the left level II A station. 1.2 cm submental lymp h node, indeterminate. Follow up in 3 months with same study.. No retropharyngeal fluid collection. All CT scans are performed using dose optimization techniques as appropriate to the performed exam an d include at least one of the following: Automated exposure control, adjustment of the mA and/or kV according t o size, and the use of iterative reconstruction technique.
--- NOTE | 2023-12-09 13:47 | CT ---
EXAM: CT ABDOMEN AND PELVIS WITH CONTRAST HISTORY: Sepsis TECHNIQUE: CT acquisition of the abdomen and pelvis from the lower thorax through the pelvis followin g IV contrast administration. 2-D coronal and sagittal reformatted images were obtained from the axi al source images. IV Contrast: 50 mL of Omnipaque 350 administered. Oral Contrast: None. CT Dose Reduction Techniques Performed: Yes. COMPARISON: Reviewed. FINDINGS: Lower Thorax: Within normal limits. Liver: No mass. Normal morphology. Biliary: The gallbladder and bile ducts are normal. Distended gallbladder. Pancreas: No mass or evidence of pancreatitis. No duct dilation. Spleen: No mass. No splenomegaly. Adrenals: No mass. Kidneys/Ureters: No renal mass. No calculus or hydronephrosis. GI Tract: No bowel dilation. No bowel wall thickening. Diverticulosis. Peritoneal Cavity: No ascites. No free air. Retroperitoneum: No fluid collection. Lymph Nodes: No lymphadenopathy. Stable underlying aneurysm repair. Prominent vascular calcifications. Pelvis: No mass. Bladder is normal. Bones/Soft Tissues: No fracture or lytic lesion. Visualized abdominal wall soft tissues are unremark able. Multilevel degenerative changes with associated bilateral facet arthropathy with associated aubree ateral neural foraminal stenotic narrowings. IMPRESSION: Distended gallbladder. Extensive chronic findings as above. AAA repair intact. All CT scans are performed using dose optimization techniques as appropriate to the performed exam an d include at least one of the following: Automated exposure control, adjustment of the mA and/or kV according t o size, and the use of iterative reconstruction technique.
[2023-12-09] MEDS ORDERED: COUMADIN PO SCH (17:00)
[2023-12-09 17:50] VITALS: TEMP 97.7
[2023-12-09 18:37] VITALS: BP 146/64; PULSE 116; RESP 24
--- NOTE | 2023-12-09 19:39 | DCSUM ---
Admission Date Admission Date: 12/08/23 Discharge Date Discharge Date: 12/09/23 Admission Diagnosis Admission Diagnosis: 1. Sepsis r/o 2. Atrial Fibrillation with RVR 3. Acute Hypoxic Respiratory Failure in setting of COPD and CHF exacerbation 4. Acute CHFpEF Exacerbation Discharge Diagnosis Discharge Diagnosis: 1. Leukocytosis, worsening 2. Sepsis r/o 3. Atrial Fibrillation with RVR 4. Acute Hypoxic Respiratory Failure in setting of COPD and CHF exacerbation 5. Acute CHFpEF Exacerbation 6. Hypertension - chronic 7. Hyperlipidemia - chronic 8. MARI - chronic Hospital Provider Hospital Provider: BING JIMÉNEZ PA-C, [facility] Primary Care Physician Primary Care Physician: LANNY MAYES MD Summary of History and Physical Summary of History and Physical: Patient is a 73 year old male with pmhx of throat cancer s/p chemo/rad/resection, colon cancer s/p resection, a fib, heart failure, COPD with chronic respiratory failure on 4L at baseline, obesity, CKD, hypertension, hperlipidemia, MARI, PAD, hypothyroidism, chronic anemia who presented to ER with 1 week history of sore throat, sob, and cough. He was hypoxic which improved on 6L. Patient had CTA showing no large PE or acute processes. Patient wbc count was 66. BNP elevated. He was given duonebs, lasix, rocephin, and azithromycin in the ER. He was admitted to [facility] for sepsis r/o and COPD exacerbation. He was in a fib RVR with HR in 130-140s and was given cardizem IV x2 with improvement. Patient's procal and lactic were normal. Blood cultures have been negative x24 hrs. Pt is still experiencing SOB with mild tripoding. He has a rounded obese abdomen but he states this is baseline for him along with his mild peripheral edema. He states he's had a worsening sore throat and therefore causing him some difficulty swallowing. Hospital Course Subjective: On my evaluation this morning, patient states he's not feeling any better. He has not diuresed much overnight. He is still requiring 6L. WBC count worsened to 83K. Neutrophils, bands, normal. No blast cells noted but lab did send sample to pathologist to be reviewed to confirm, still pending at this time. CT soft tissue neck w/ and ct a/p w/ ordered to r/o infectious process. No acute abnormalities noted to explain wbc count. Concern for an oncological process, especially with his history of larynx and colon cancer. Unable to perform echo at this facility at this time, but echo from 2021 had preserved EF. [facility] fortun[facility] [place] where the patient typically follows were at capacity. Patient and family were agreeable to going further away. [facility] full. [facility] did not have inpatient oncology available. [facility] [place] able to accept patient. Dr. Cheng is graciously accepting. Patient stable at time of transport. Appearance: Pleasant and Alert HEENT: MMM CVS: Other (Irregularly Irregular ) Abdomen: Soft, Non-Tender and Other (+obese rounded abdomen ) Respiratory: Other (+sob, conversational dyspnea, tripoding. Improved somewhat compared to this morning. ) Extremities: Other (1+ pitting edema aubree lower ext, baseline per patient ) Vital Signs: Most Recent Vital Signs Temperature 97.7 F 12/09/23 17:49 Temperature Source Oral 12/09/23 17:49 Temperature Source Infrared 12/08/23 07:56 Pulse Rate 116 H 12/09/23 18:36 Respiratory Rate 24 H 12/09/23 18:36 Blood Pressure 146/64 H 12/09/23 18:36 Blood Pressure Mean 91 12/09/23 18:36 Blood Pressure Left Arm 160/94 12/08/23 14:57 Blood Pressure Location Left Arm 12/09/23 17:49 Blood Pressure Position Sitting 12/09/23 18:36 O2 Sat by Pulse Oximetry 93 L 12/09/23 18:36 Oxygen Delivery Method Nasal Cannula 12/09/23 18:36 Oxygen Flow Rate 6 12/09/23 18:36 Fraction of Inspired Oxygen (FIO2) 100 12/08/23 08:10 Height 6 ft 6 in 12/08/23 14:57 Weight 294 lb 12/09/23 06:00 Telemetry Type Remote Telemetry 12/09/23 13:00 Telemetry Monitoring Continues 12/09/23 13:00 Irregular Telemetry Rate (Approximate) 110-120 BPM 12/09/23 13:00 Telemetry Heart Rate 114 H 12/09/23 13:00 Telemetry SPO2 95 12/09/23 13:00 EKG [place] Interval 0.07 L 12/09/23 01:00 EKG QRS Interval 0.08 12/09/23 13:00 Telemetry Strip Reading AFIB RVR w/PVCs 12/09/23 13:00 Imaging: EXAM: CHEST CTA WITH CONTRAST. CTA PE PROTOCOL WAS PERFORMED. HISTORY: suspected pulmonary embolism TECHNIQUE: CTA of the chest following IV contrast administration. CTA PE protocol was performed. CT dose reduction techniques performed: Yes. Coronal and sagittal reconstructions were performed. MIP/VR/3-D images were provided. COMPARISON: CT chest 10/04/2023 FINDINGS: Motion degraded study. Limited evaluation due to nonstandard patient positioning. Moderate cardiomegaly. Coronary artery and aortic calcific atherosclerosis. Hypoplastic and/or narrowed right subclavian and jugular vein with extensive vascular collaterals in the right chest. No large central p ulmonary embolism. Otherwise, evaluation for pulmonary embolism is limited due to motion and artifact. Emphysema. Stable pleural based nodule in the right upper lobe laterally measuring up to 1.3 cm. No acute findings in the upper abdomen. Findings of diffuse idiopathic skeletal hyperostosis. Impression: Exam is limited due to motion, patient positioning, and artifact related to vessel collateralization in the right chest. Within these limitations, no large central pulmonary embolism. Consider nuclear medicine VQ scan. Coronary artery disease. Emphysema. Stable 1.3 cm pleural-based nodule right upper lobe. Recommend follow-up CT chest in 3-month. EXAM: CT NECK SOFT TISSUES WITH CONTRAST HISTORY: History of head neck cancer. TECHNIQUE: CT acquisition of the neck soft tissues following IV contrast administration. CT dose reduction techniques performed: Yes. Coronal and sagittal reconstructions were performed. COMPARISON: Neck soft tissue 08/17/2020 FINDINGS: Evaluation limited due to patient positioning and respiratory motion. Limited evaluation of the brain parenchyma. Orbits and globes intact. Paranasal sinuses clear. Mastoid air cells and middle ears clear. Nasal cavity and nasopharynx normal. The previously demonstrated mass at the base of tongue and supraglottic larynx is no longer appreciated. Vague soft tissue distortion is seen throughout this region which may be on the basis of scarring, postsurgical, and/or post-treatment changes. Stable 1.4 cm lymph node in the left level II A station. 1.2 cm submental lymph node. Larynx unremarkable. Upper trachea clear. Emphysematous changes with otherwise limited detail of the lung due to respiratory motion. Calcified plaque in the neck vasculature. No suspicious thyroid abnormality. No suspicious osseous lesion. Impression: The previously demonstrated mass at the base of tongue, and supraglottic larynx is no longer appreciated. Vague soft tissue distortion throughout this region due to postsurgical and/or post-treatment changes, or scarring. Stable 1.4 cm lymph node in the left level II A station. 1.2 cm submental lymph node, indeterminate. Follow up in 3 months with same study.. No retropharyngeal fluid collection. EXAM: CT ABDOMEN AND PELVIS WITH CONTRAST HISTORY: Sepsis TECHNIQUE: CT acquisition of the abdomen and pelvis from the lower thorax through the pelvis following IV contrast administration. 2-D coronal and sagittal reformatted images were obtained from the axial source images. IV Contrast: 50 mL of Omnipaque 350 administered. Oral Contrast: None. CT Dose Reduction Techniques Performed: Yes. COMPARISON: Reviewed. FINDINGS: Lower Thorax: Within normal limits. Liver: No mass. Normal morphology. Biliary: The gallbladder and bile ducts are normal. Distended gallbladder. Pancreas: No mass or evidence of pancreatitis. No duct dilation. Spleen: No mass. No splenomegaly. Adrenals: No mass. Kidneys/Ureters: No renal mass. No calculus or hydronephrosis. GI Tract: No bowel dilation. No bowel wall thickening. Diverticulosis. Peritoneal Cavity: No ascites. No free air. Retroperitoneum: No fluid collection. Lymph Nodes: No lymphadenopathy. Stable underlying aneurysm repair. Prominent vascular calcifications. Pelvis: No mass. Bladder is normal. Bones/Soft Tissues: No fracture or lytic lesion. Visualized abdominal wall soft tissues are unremarkable. Multilevel degenerative changes with associated bilateral facet arthropathy with associated bilateral neural foraminal stenotic narrowings. IMPRESSION: Distended gallbladder. Extensive chronic findings as above. AAA repair intact. Lab Results Last 24 Hours: 12/09/23 12/09/23 12/08/23 06:43 05:00 08:20 WBC 83.74 H* D RBC 4.57 L Hgb 12.3 L Hct 38.7 L MCV 84.7 MCH 26.9 L MCHC 31.8 RDW Coeff of Sumeet 15.1 H Plt Count 412 Neutrophils % (Manual) 50.0 Band Neutrophils % 4.0 Lymphocytes % (Manual) 15.0 Monocytes % (Manual) 7.0 Metamyelocytes % 9.0 H Myelocytes % 15.0 H Nucleated RBCs 1.0 Anisocytosis Not present PT 40.0 H INR 4.06 H* Puncture Site Lb Base Excess 6.1 H O2 Saturation 93.2 L ABG pH 7.47 H ABG pCO2 41.0 ABG pO2 63.0 L ABG HCO3 29.8 H ABG Total CO2 31.1 H Renzo Test + Hemoglobin 1.7 H Oxyhemoglobin 90.7 L Carboxyhemoglobin 2.8 H Total Hemoglobin 13.4 O2 Delivery Device Cannula Oxygen Liter Flow 6.00 FiO2 % 44.0 Sodium 135.0 Potassium 4.05 Chloride 94.1 L Carbon Dioxide 31.5 H Anion Gap 13.45 BUN 27.8 H Creatinine 1.16 H Estimated GFR (MDRD) 62.00 BUN/Creatinine Ratio 23.96 Glucose 163.7 H Calcium 9.61 Total Bilirubin 0.78 AST 43.6 ALT 23.2 Alkaline Phosphatase 75.0 Total Protein 8.68 H Albumin 4.36 Globulin 4.32 Albumin/Globulin Ratio 1.00 Procalcitonin 0.05 Discharge Instructions Discharge Planning: Discharge Planning > [address] Zunilda Mayes. Transfer for higher level of care. Discharge Medications: Medications at Discharge (Home Meds & RX) warfarin 5 mg tablet 5 mg PO QPM #30 tabs 10/25/21 ezetimibe 10 mg tablet See Rx Instructions .Route .COMPLEX #90 tabs 03/05/23 blood sugar diagnostic (Blood Glucose Test strips) #50 ea 06/03/23 blood-glucose meter (Blood Glucose Monitoring kit) #1 ea 06/03/23 diazepam 2 mg tablet (Valium) 2 mg PO BID PRN dizziness 07/04/23 rosuvastatin 20 mg tablet 20 mg PO BEDTIME 07/04/23 cilostazol 100 mg tablet 100 mg PO BID #180 tabs 07/22/23 fenofibrate 160 mg tablet See Rx Instructions .Route .COMPLEX #90 tabs 10/07/23 potassium chloride 10 mEq tablet,extended release 10 meq PO QDAY #90 tabs 11/18/23 duloxetine 60 mg capsule,delayed release 60 mg PO QDAY #90 caps 12/03/23 doxycycline hyclate 100 mg capsule 100 mg PO BID 7 days #14 caps 12/05/23 carvedilol 12.5 mg tablet 12.5 mg PO BID 12/08/23 levothyroxine 137 mcg tablet 137 mcg PO DAILY 12/08/23 midodrine 5 mg tablet 2.5 mg PO TID 12/08/23 prednisone 10 mg tablet 10 mg PO BID 12/08/23 Discharge Plan Discharge Discharge Orders: Discharge Patient (ONCE); Ordered 12/09/23 Ordered By: BING JIMÉNEZ Activity Restrictions/Additional Instructions: Transfer to [facility] Accepting physician is Dr. Cheng. Patient Disposition: TSF SHORT-TRM HOSP Did you review [place] [employer] for ALL controlled substances?: Not Applicable Discussed opioids are addictive and Narcan is available by prescription or from pharmacy.: No Condition: Stable
== END 2023-12-09 19:49 | disposition short-term general hospital (02) | DRG 871 ==
LOC: ED 07:53 → MEDSURG B 07:53
PROVIDERS: ADMIT Hospitalist; ATTEND Physician Assistant
DX: E78.5 Hyperlipidemia, unspecified; D72.829 Elevated white blood cell count, unspecified; E66.9 Obesity, unspecified; N18.9 Chronic kidney disease, unspecified; A41.9 Sepsis, unspecified organism; J96.01 Acute respiratory failure with hypoxia; J44.0 Chronic obstructive pulmonary disease with (acute) lower respiratory infection; I48.91 Unspecified atrial fibrillation; J18.9 Pneumonia, unspecified organism; G47.33 Obstructive sleep apnea (adult) (pediatric); I50.814 Right heart failure due to left heart failure; Z85.21 Personal history of malignant neoplasm of larynx; J44.1 Chronic obstructive pulmonary disease with (acute) exacerbation; Z90.49 Acquired absence of other specified parts of digestive tract; Z86.16 Personal history of COVID-19; I50.33 Acute on chronic diastolic (congestive) heart failure; D64.9 Anemia, unspecified; I11.0 Hypertensive heart disease with heart failure

== ENCOUNTER 2024-04-21 13:30 | Inpatient (IN) ==
[2024-04-21 13:55] LABS: BASOPHILS % (AUTO) 0.2 % (0.0-3.0); EOSINOPHILS % (AUTO) 0.2 % (0.0-7.0); HEMATOCRIT 25.2 % (42.0-52.0); IMMATURE GRANULOCYTE % (AUTO) 0.2 % (0.0-5.0); LYMPHOCYTES # (AUTO) 0.5 K/uL (0.60-3.4); LYMPHOCYTES % (AUTO) 7.9 (10.0-50.0); MEAN CORPUSCULAR HEMOGLOBIN 28.5 pg (27.0-31.0); MEAN CORPUSCULAR HGB CONC 31.7 (31.8-35.4); MEAN CORPUSCULAR VOLUME 89.7 fl (80.0-94.0); MONOCYTES # (AUTO) 0.6 K/uL (0.4-2.0); MONOCYTES % (AUTO) 9.6 (0-10); NEUTROPHILS # (AUTO) 4.8 K/ul (2.0-6.9); NEUTROPHILS % (AUTO) 81.9 % (42.2-75.2); PLATELET COUNT 205 10^3/uL (140-440); RDW COEFFICIENT OF VARIATION 17.7 % (11.6-14.8); RED BLOOD COUNT 2.81 10^6/ul (4.70-6.10); WHITE BLOOD COUNT 5.84 K/ul (4.2-10.2)
[2024-04-21 14:11] LABS: PROTHROMBIN TIME 14.3 SEC (9.3-11.0)
[2024-04-21 14:12] LABS: ALBUMIN 3.08 g/dL (3.5-5.0); ALKALINE PHOSPHATASE 65.6 U/L (56-119); ASPARTATE AMINO TRANSFERASE 47.2 U/L (17-59); BILIRUBIN,TOTAL 1.38 mg/dL (0.2-1.3); BLOOD UREA NITROGEN 24.2 mg/dL (9-20); CALCIUM 8.44 mg/dL (8.4-10.2); CARBON DIOXIDE 39.6 mmol/L (22-30.0); CHLORIDE 89.2 mmol/L (98-107); CREATININE 1.38 mg/dL (0.60-1.10); GLUCOSE 132.2 mg/dL (74-106); POTASSIUM 3.69 mmol/L (3.5-5.1); TOTAL PROTEIN 5.96 g/dL (6.3-8.2)
[2024-04-21 14:23] LABS: TROPONIN I 0.016 ng/ml (0.0000-0.120)
[2024-04-21 14:24] LABS: SARS COV-2 RNA RAPID NAAT NEGATIVE (NEGATIVE)
[2024-04-21 14:25] LABS: RSV MOLECULAR NEGATIVE BY NAAT (NEGATIVE)
--- NOTE | 2024-04-21 14:26 | DI ---
EXAM: CHEST RADIOGRAPH TECHNIQUE: Single frontal chest radiograph. COMPARISON: 04/06/2024 HISTORY: Shortness of breath. FINDINGS: The heart and mediastinum are stable. Increasing opacification of the right mid to lower lung zone i s identified. No pneumothorax. Mild atelectasis is noted at the left lung base. No acute abnormality of the bones or soft tissues is identified. IMPRESSION: Increasing opacification of the right mid to lower lung zone is identified. Otherwise, stable exam.
[2024-04-21] MEDS: VANCOMYCIN 1 GRAM/200 ML PREMIX 1 GM/200 ML BAG IV ONE ×2 (14:48→23:17)
[2024-04-21 15:28] LABS: ABG O2 HGB 93.6 % (95-100); ABG PH 7.43 (7.35-7.45); BEecf 22.2 (-2.0-3.0); COHb 2.9 (0.5-1.5); HCO3 46.5 (21-28); MetHb 1.5 (0-1.5); TCO2 48.6 (19-24); sO2 96.6 % (94-98); tHb 8.8 g/dl (11.7-17.4)
[2024-04-21 17:57] LABS: BILIRUBIN,URINE Negative (NEGATIVE); CLARITY,URINE Clear (CLEAR); COLOR,URINE Yellow (YELLOW); GLUCOSE, URINE (UA) Negative (NEGATIVE); KETONES,URINE Negative (NEGATIVE); LEUKOCYTE ESTERASE ,URINE Negative (NEGATIVE); NITRITE,URINE Negative (NEGATIVE); PROTEIN,URINE Negative (NEGATIVE); URINE, BLOOD Negative (NEGATIVE)
[2024-04-21] MEDS: ZOSYN 3.375 GM 3.375 GM in SODIUM CHLORIDE 100ML 100 ML IV ONE (18:08)
[2024-04-21] MEDS: DUONEB NEB STA (18:38)
--- NOTE | 2024-04-21 19:16 | ED.PDOC ---
General ED Provider: Dr. AZIZA MASON DO Chief Complaint: Urinary Problem Stated Complaint: 73-year-old male sent over from Dr. Mayes's office after receiving a urine culture result that was multidrug-resistant. No reported fever, dysuria. Patient has a known history of chronic respiratory failure. Oxygen dependent. He also has a history of chronic kidney disease, A-fib. His later arrives and says that he has been somewhat confused compared to his normal. No reported chest pain, abdominal pain, GI or symptoms otherwise. Time Seen by Provider: 04/21/24 13:36 Information Source: Patient and EMT Primary Care Provider: LANNY MAYES MD Referred to ED by: PCP Nursing and Triage Documentation Reviewed and Agree: Yes What is Opioid Naive?: *Opioid Naive implies the patient is not already taking opioids or not chronically receiving opioids on a daily basis. *PRN dosing is not "usually" associated with tolerance. *Patients are at higher risk of over-sedation and aspiration. What is Opioid Tolerant?: *Opioid Tolerance implies less than the expected response to an opioid. *Acquired tolerance is defined by the patient taking 60mg of oral morphine daily (or equianalgesic dose of another opioid) for 1 week or more. *Often associated with chronic pain. *May take more than usual dose to achieve desired pain control. 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 - Other specified complication of vascular prosthetic devices, implants and grafts, initial encounter (ICD-10) Gastrostomy tube in place Z93.1 - Gastrostomy status (ICD-10) History of COVID-19 hx 12/2020 with respiratory failure Z86.16 - Personal history of COVID-19 (ICD-10) Fatigue R53.83 - Other fatigue (ICD-10) Pulmonary nodules resolved per CT 03/2022 R91.8 - Other nonspecific abnormal finding of lung field (ICD-10) Tracheostomy in place Z93.0 - Tracheostomy status (ICD-10) COPD (chronic obstructive pulmonary disease) J44.9 - Chronic obstructive pulmonary disease, unspecified (ICD-10) 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 BROTHER No problems noted. FATHER Diabetes Unknown No problems noted. Unknown Multiple sclerosis Social History Smoking and tobacco status: Former smoker How long ago did patient quit smoking: January 2020 Quit status: quit date established Second hand smoke exposure: No Alcohol intake: current Substance use type: does not use Special nicol needs: No Agree to transfusion: Yes Adopted: No Caregiver/support person: No Foster care: No Household members: spouse Housing: house Marital status: M Lives independently: Yes Daycare: no daycare Number of children: 2 service: No care home: No History of recent travel: No Do you think of yourself as: straight/heterosexual Current gender identity: male Seatbelt use: always Drives intoxicated or rides with intoxicated buggy driver: No Water heater temperature set < 120 degrees: Yes Working smoke detector in home: Yes Fire extinguisher in home: Yes Carbon monoxide detector in home: Yes Surgical History History of AAA (abdominal aortic aneurysm) repair Dr. Silva Z98.890 - Other specified postprocedural states (ICD-10) History of vein stripping Z98.890 - Other specified postprocedural states (ICD-10) History of colon resection Z90.49 - Acquired absence of other specified parts of digestive tract (ICD- 10) Physical Exam Physical Exam Appearance: Reports Ill-appearing, No pain distress, Well-nourished and Obese Ill-appearing: Moderate Eyes: Reports ASHLEY, EOMI and Conjunctiva clear ENT: Reports Nose normal and Oropharynx normal Neck: Supple Respiratory: Reports Airway patent and Wheezes (Diffuse, and diminished) Cardiovascular: Reports Pulses normal and Irregular rhythm GI/: Reports Soft and Nontender Musculoskeletal: Reports Normal strength and ROM intact Skin: Reports Warm, Dry and Normal color Neurological: Reports Sensation intact, Motor intact, Alert and Oriented Psychiatric: Reports Affect appropriate and Mood appropriate Interpretation EKG Interpretation EKG Interpretation By: ED Physician Time of EKG #1: 13:50 Rate: Normal Rhythm: Other (afib) Ectopy: None [place]: [place] ST Segment: Normal Interpretation: Nonischemic, chronic A-fib Radiology Interpretation Radiology Interpretation By: Radiologist Radiology Results: Positive Exam Interpreted: CXR Xray Comments: Increasing opacity Course Course 04/21/24 13:50 04/21/24 13:50 Orders, Labs, Meds: Lab Review 04/21/24 04/21/24 04/21/24 13:50 13:53 15:24 WBC 5.84 RBC 2.81 L Hgb 8.0 L Hct 25.2 L MCV 89.7 MCH 28.5 MCHC 31.7 L RDW Coeff of Sumeet 17.7 H Plt Count 205 Immature Gran % (Auto) 0.2 Neut % (Auto) 81.9 H Lymph % (Auto) 7.9 L [place] % (Auto) 9.6 Eos % (Auto) 0.2 Baso % (Auto) 0.2 Neut # (Auto) 4.8 Lymph # (Auto) 0.5 L [place] # (Auto) 0.6 Eos # (Auto) 0.0 Baso # (Auto) 0.0 Immature Gran # (Auto) 0.0 PT 14.3 H INR 1.41 APTT 37.0 Puncture Site Lrd Base Excess 22.2 H O2 Saturation 96.6 ABG pH 7.43 ABG pCO2 70.0 H ABG pO2 84.0 L ABG HCO3 46.5 H ABG Total CO2 48.6 H Renzo Test Pos Hemoglobin 1.5 Oxyhemoglobin 93.6 L Carboxyhemoglobin 2.9 H Total Hemoglobin 8.8 L O2 Delivery Device Cannula Oxygen Liter Flow 10.00 Sodium 132.0 L Potassium 3.69 Chloride 89.2 L Carbon Dioxide 39.6 H Anion Gap 6.89 BUN 24.2 H Creatinine 1.38 H Estimated GFR (MDRD) 51.00 BUN/Creatinine Ratio 17.53 Glucose 132.2 H Lactic Acid 1.62 Calcium 8.44 Total Bilirubin 1.38 H AST 47.2 ALT 27.0 Alkaline Phosphatase 65.6 Troponin I 0.016 NT-Pro-B Natriuret Pep 3130 H Total Protein 5.96 L Albumin 3.08 L Globulin 2.88 Albumin/Globulin Ratio 1.06 Urine Color Urine Clarity Urine pH Ur Specific [place] Urine Protein Urine Glucose (UA) Urine Ketones Urine Blood Urine Nitrite Urine Bilirubin Urine Urobilinogen Ur Leukocyte Esterase RSV Antigen Negative by naat SARS CoV-2 RNA Rapid JONATHAN Negative 04/21/24 17:52 WBC RBC Hgb Hct MCV MCH MCHC RDW Coeff of Sumeet Plt Count Immature Gran % (Auto) Neut % (Auto) Lymph % (Auto) [place] % (Auto) Eos % (Auto) Baso % (Auto) Neut # (Auto) Lymph # (Auto) [place] # (Auto) Eos # (Auto) Baso # (Auto) Immature Gran # (Auto) PT INR APTT Puncture Site Base Excess O2 Saturation ABG pH ABG pCO2 ABG pO2 ABG HCO3 ABG Total CO2 Renzo Test Hemoglobin Oxyhemoglobin Carboxyhemoglobin Total Hemoglobin O2 Delivery Device Oxygen Liter Flow Sodium Potassium Chloride Carbon Dioxide Anion Gap BUN Creatinine Estimated GFR (MDRD) BUN/Creatinine Ratio Glucose Lactic Acid Calcium Total Bilirubin AST ALT Alkaline Phosphatase Troponin I NT-Pro-B Natriuret Pep Total Protein Albumin Globulin Albumin/Globulin Ratio Urine Color Yellow Urine Clarity Clear Urine pH 6.0 Ur Specific [place] 1.015 Urine Protein Negative Urine Glucose (UA) Negative Urine Ketones Negative Urine Blood Negative Urine Nitrite Negative Urine Bilirubin Negative Urine Urobilinogen 1.0 H Ur Leukocyte Esterase Negative RSV Antigen SARS CoV-2 RNA Rapid JONATHAN Orders Category Date Time Status ADMIT PATIENT INPATIENT .TO [facility] (MONITORED BED) ADMISSION 04/21/24 18:24 Active ABG DRAW REQUEST Stat CARDIO 04/21/24 14:39 Completed EKG-(ED ONLY) Stat CARDIO 04/21/24 13:36 Completed NEBULIZER TREATMENT Stat CARDIO 04/21/24 18:19 Completed TELEMETRY MONITORING TELE CARE 04/21/24 18:24 Active Insert Powell [ED CATHETER INSERTION AND CARE] .ONCE EMERGENCY 04/21/24 13:36 Active ABG COOX Stat LAB 04/21/24 15:24 Completed BLOOD CULTURE (ED ONLY) Stat LAB 04/21/24 14:21 Received CBC W/ AUTO DIFF Stat LAB 04/21/24 13:50 Completed CMP [COMPREHENSIVE METABOLIC PANEL] Stat LAB 04/21/24 13:50 Completed COVID [SARS COV-2 RNA RAPID JONATHAN] Stat LAB 04/21/24 13:53 Completed CRP [C-REACTIVE PROTEIN] Stat LAB 04/21/24 13:50 Received ED PROBNP [NT-PROBNP(ED)] Stat LAB 04/21/24 13:50 Completed LACTIC ACID Stat LAB 04/21/24 13:50 Completed PT WITH INR Stat LAB 04/21/24 13:50 Completed PTT [PARTIAL THROMBOPLASTIN TIME] Stat LAB 04/21/24 13:50 Completed RSV Stat LAB 04/21/24 13:53 Completed TROPONIN I Stat LAB 04/21/24 13:50 Completed URINALYSIS C & S IF INDICATED Stat LAB 04/21/24 17:52 Completed Ipratropium/Albuterol Neb [Duoneb] Meds 04/21/24 18:19 Discontinued 3 ml NEB ONCE STA Piperacillin Sodium/Tazobactam [Zosyn 3.375 gm] 3.375 Meds 04/21/24 17:47 Discontinued gm 0.9 % Sodium Chloride [Sodium Chloride 100Ml] 100 ml IV ONCE Vancomycin/Water For Inj (Peg) [Vancomycin 1 Gram/200 Meds 04/21/24 13:51 Discontinued ml Premix] 1 gm in 200 ml IV ONCE CHEST, 1V AP ONLY Stat RADS 04/21/24 13:36 Completed Medications Discontinued Medications Generic Name Dose Route Start Last Admin Trade Name Freq PRN Reason Stop Dose Admin Albuterol/Ipratropium 3 ml 04/21/24 18:19 04/21/24 18:38 Ipratropium/Albuterol Vial.Neb NEB 04/21/24 18:20 3 ml ONCE STA Administration VANCOMYCIN/WATER FOR INJ (PEG) 1 gm in 200 mls @ 200 mls/hr 04/21/24 13:51 04/21/24 14:48 Vancomycin 1 Gram/200 Ml Premix IV 04/21/24 14:50 200 mls/hr ONCE ONE Administration Piperacillin Sod/Tazobactam 100 mls @ 200 mls/hr 04/21/24 17:47 04/21/24 18:08 Sod 3.375 gm/ Sodium Chloride IV 04/21/24 18:16 200 mls/hr ONCE ONE Administration Vital Signs: Temp Pulse Resp BP Pulse Ox 04/21/24 13:58 98.2 F 75 18 117/50 L 89 L Discharge Plan Discharge Patient Disposition: ADMITTED INPATIENT Discharge Problem: COPD exacerbation A-fib Qualifiers: Atrial fibrillation type: unspecified Qualified Code(s): I48.91 - Unspecified atrial fibrillation Pneumonia Qualifiers: Pneumonia type: due to unspecified organism Laterality: unspecified laterality Lung location: unspecified part of lung Qualified Code(s): J18.9 - Pneumonia, unspecified organism Acute exacerbation of CHF (congestive heart failure) Qualifiers: Heart failure type: unspecified Qualified Code(s): I50.9 - Heart failure, unspecified Acute and chronic respiratory failure Qualifiers: Respiratory failure complication: hypoxia Qualified Code(s): J96.21 - Acute and chronic respiratory failure with hypoxia Prescriptions: No Action duloxetine 60 mg capsule,delayed release(DR/EC) 60 mg PO QDAY Qty: 90 1RF carvedilol 12.5 mg tablet 12.5 mg PO BID Qty: 180 1RF Rx Instructions: 25; TAKE 1 TABLET BY MOUTH TWICE DAILY ezetimibe 10 mg tablet See Rx Instructions .ROUTE .COMPLEX Qty: 90 1RF Dose Instruction: TAKE 1 TABLET BY MOUTH EVERY DAY Rx Instructions: TAKE 1 TABLET BY MOUTH EVERY DAY Spiriva Respimat 2.5 mcg/actuation mist 2 puff inhalation QDAY Qty: 4 2RF rosuvastatin 20 mg tablet See Rx Instructions .ROUTE .COMPLEX Qty: 90 0RF Dose Instruction: TAKE 1 TABLET BY MOUTH AT BEDTIME Rx Instructions: TAKE 1 TABLET BY MOUTH AT BEDTIME potassium chloride 20 mEq tablet extended release 20 meq PO QDAY Qty: 30 0RF bumetanide 1 mg tablet 1 mg PO DAILY trazodone 50 mg tablet 50 mg PO BEDTIME diltiazem HCl [Cartia XT] 120 mg capsule,extended release 24hr 120 mg PO BID potassium chloride 20 mEq tablet,ER particles/crystals 20 meq PO DAILY insulin aspart U-100 [Novolog FlexPen U-100 Insulin] 100 unit/mL (3 mL) insulin pen SUBCUT furosemide 40 mg tablet 40 mg PO DAILY insulin glargine [Lantus Solostar U-100 Insulin] 100 unit/mL (3 mL) insulin pen SUBCUT (DME) blood-glucose meter [Blood Glucose Monitoring] Kit See Rx Instructions .ROUTE Qty: 1 0RF Rx Instructions: As directed (DME) Blood Glucose Test Strip See Rx Instructions .ROUTE Qty: 50 3RF Rx Instructions: As directed- Test once daily fenofibrate 160 mg tablet 160 mg PO QDAY guaifenesin 600 mg tablet extended release 12hr 600 mg PO Q12H imatinib 400 mg tablet 400 mg PO QDAY levothyroxine 150 mcg capsule 150 mcg PO QDAY Qty: 90 2RF allopurinol 100 mg tablet 100 mg PO QDAY Qty: 90 2RF Rx Instructions: Take 0.5 Tablets by Mouth Daily diltiazem HCl 120 mg tablet extended release 24 hr 120 mg PO QDAY Qty: 90 2RF folic acid 1 mg tablet 1 mg PO QDAY Qty: 90 2RF Eliquis 5 mg tablet 5 mg PO BID Qty: 90 2RF albuterol sulfate 90 mcg/actuation HFA aerosol inhaler 2 puff inhalation QID cholecalciferol (vitamin D3) 1,250 mcg (50,000 unit) wafer 1,250 mcg PO QWEEK amiodarone 200 mg tablet 200 mg PO QDAY bumetanide 2 mg tablet 2 mg PO BID metolazone 2.5 mg tablet 2.5 mg PO Q OTHER DAY Qty: 8 0RF Did you review [place] [employer] for ALL controlled substances?: Not Applicable ED Provider: AZIZA MASON Condition: Stable Physician Progress Note: 73-year-old male chronically ill with multiple comorbidities presents with hypoxia and respiratory distress. He has diminished breath sounds with wheezes throughout. Known history of COPD and oxygen dependent. We initially had difficulty keeping the nasal cannula in place but were able to turn it inverted and put a facemask which kept his oxygen saturations quite well. He kept his mentation. ABG was compensated but does demonstrate CO2 retention consistent with his history. Low suspicion for other acute cardiopulmonary processes to include not limited to ACS, [place], PE, pneumothorax, dissection or tamponade. He is afebrile nontoxic low suspicion for infection but this will remain on the differential. Will obtain viral swabs in addition to chest x-ray laboratory workup. I will not give a septic bolus due to concern for fluid overload in this fragile patient []
[2024-04-21] MEDS ORDERED: TYLENOL PO PRN (20:22)
[2024-04-21 22:23] VITALS: BMI 33.8
[2024-04-21] MEDS: DUONEB NEB SCH (22:45)
[2024-04-22] MEDS: VENTOLIN HFA IH SCH (00:10)
[2024-04-22] MEDS: ELIQUIS PO SCH (00:11)
[2024-04-22] MEDS: COREG PO SCH ×2 (00:11→17:04)
[2024-04-22] MEDS: DESYREL PO SCH (00:11)
[2024-04-22] MEDS: CRESTOR PO SCH (00:11)
[2024-04-22] MEDS: ZOSYN 3.375 GM 3.375 GM in SODIUM CHLORIDE 100ML 100 ML IV SCH (02:22)
[2024-04-22 05:10] LABS: BASOPHILS % (AUTO) 0.1 % (0.0-3.0); EOSINOPHILS % (AUTO) 0.4 % (0.0-7.0); HEMATOCRIT 26.2 % (42.0-52.0); HEMOGLOBIN 8.2 g/dl (14.0-18.0); IMMATURE GRANULOCYTE % (AUTO) 0.4 % (0.0-5.0); LYMPHOCYTES # (AUTO) 0.4 K/uL (0.60-3.4); LYMPHOCYTES % (AUTO) 4.7 (10.0-50.0); MEAN CORPUSCULAR HEMOGLOBIN 28.2 pg (27.0-31.0); MEAN CORPUSCULAR HGB CONC 31.3 (31.8-35.4); MONOCYTES # (AUTO) 0.8 K/uL (0.4-2.0); MONOCYTES % (AUTO) 9.6 (0-10); NEUTROPHILS # (AUTO) 6.7 K/ul (2.0-6.9); NEUTROPHILS % (AUTO) 84.8 % (42.2-75.2); PLATELET COUNT 215 10^3/uL (140-440); RDW COEFFICIENT OF VARIATION 17.7 % (11.6-14.8); RED BLOOD COUNT 2.91 10^6/ul (4.70-6.10); WHITE BLOOD COUNT 7.88 K/ul (4.2-10.2)
[2024-04-22 05:25] LABS: ALANINE AMINOTRANSFERASE 27.2 U/L (0-50); ALBUMIN 2.9 g/dL (3.5-5.0); ALKALINE PHOSPHATASE 65.2 U/L (56-119); ASPARTATE AMINO TRANSFERASE 52.8 U/L (17-59); BILIRUBIN,TOTAL 1.03 mg/dL (0.2-1.3); BLOOD UREA NITROGEN 21.5 mg/dL (9-20); CALCIUM 8.06 mg/dL (8.4-10.2); CHLORIDE 91.3 mmol/L (98-107); CREATININE 1.09 mg/dL (0.60-1.10); POTASSIUM 3.45 mmol/L (3.5-5.1); SODIUM 131.9 mmol/L (134.5-145); TOTAL PROTEIN 5.78 g/dL (6.3-8.2)
[2024-04-22 05:31] LABS: CARBON DIOXIDE 36.9 mmol/L (22-30.0)
[2024-04-22] MEDS: ALBUTEROL 0.083% NEB NEB PRN (05:50)
[2024-04-22] MEDS: ZOSYN 4.5 GM 4.5 GM in SODIUM CHLORIDE 100ML 100 ML IV SCH (08:52)
[2024-04-22] MEDS ORDERED: VANCOMYCIN 1 GRAM/200 ML PREMIX 1 GM/200 ML BAG IV SCH (09:00)
--- NOTE | 2024-04-22 10:25 | PCM ---
Date of Service Date Seen by Provider: 04/22/24 Time Seen by Provider: 08:45 Admit Day/Time Admission Date: 04/21/24 Reason for Admission Chief Complaint: PNEUMONIA,CHRONIC RESPIRATORY FAILURE Hospital Provider Hospital Provider: VERONICA [facility], [facility] [place] Primary Care Physician Primary Care Physician: LANNY MAYES MD History of Present Illness History of Present Illness: 73 yo male presented to the ER with abnormal urine. Patient went to PCP office a couple days prior with complaints of urinary frequency/incontinence. States this is not normal for him and thought something was wrong. He was found to have UTI and urine culture showed growth of Staph Aureus with multi-drug resistance to majority of oral antibiotic options. Patient denies any fever at home that he is aware of. Does report he has had a productive cough with brown sputum and has been more short of breath over the last few days. He was found to have a worsening opacity on chest x-ray and was requiring 6L of oxygen in the ER. He is normally on 4-5L continuously at home with CPAP at bedtime (in which he is noncompliant). Currently on 10L and maintaining sat of 97% at this time. Patient has had frequent hospitalizations over the past month for CHF exacerbations and most recently 5/6 R upper lobe pneumonia. He was treated with vanc and zosyn initially. Transitioned to levaquin and sent home with moxifloxacin. Case Discussed With Case Discussed With: Patient's case was discussed with the ER Physicians, Dr. Drake [facility] Medical History History of colon cancer Z85.038 - Personal history of other malignant neoplasm of large intestine (ICD-10) Allergic rhinitis J30.9 - Allergic rhinitis, unspecified (ICD-10) Hematoma right leg T14.8XXA - Other injury of unspecified body region, initial encounter (ICD- 10) Abscess "bottom" L02.91 - Cutaneous abscess, unspecified (ICD-10) Femoral-popliteal bypass graft occlusion, left T82.898A - Other specified complication of vascular prosthetic devices, implants and grafts, initial encounter (ICD-10) Gastrostomy tube in place Z93.1 - Gastrostomy status (ICD-10) History of COVID-19 hx 12/2020 with respiratory failure Z86.16 - Personal history of COVID-19 (ICD-10) Fatigue R53.83 - Other fatigue (ICD-10) Pulmonary nodules resolved per CT 03/2022 R91.8 - Other nonspecific abnormal finding of lung field (ICD-10) Tracheostomy in place Z93.0 - Tracheostomy status (ICD-10) COPD (chronic obstructive pulmonary disease) J44.9 - Chronic obstructive pulmonary disease, unspecified (ICD-10) 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 Silva Z98.890 - Other specified postprocedural states (ICD-10) History of vein stripping Z98.890 - Other specified postprocedural states (ICD-10) History of colon resection Z90.49 - Acquired absence of other specified parts of digestive tract (ICD- 10) Family History Mother Diabetes CHF (congestive heart failure) Hypertension FATHER CHF (congestive heart failure) BROTHER No problems noted. BROTHER No problems noted. FATHER Diabetes Unknown No problems noted. Unknown Multiple sclerosis Social History Smoking and tobacco status: Former smoker How long ago did patient quit smoking: January 2020 Quit status: quit date established Second hand smoke exposure: No Alcohol intake: current Substance use type: does not use Special nicol needs: No Agree to transfusion: Yes Adopted: No Caregiver/support person: No Foster care: No Household members: spouse Housing: house Marital status: M Lives independently: Yes Daycare: no daycare Number of children: 2 service: No half-way: No History of recent travel: No Do you think of yourself as: straight/heterosexual Current gender identity: male Seatbelt use: always Drives intoxicated or rides with intoxicated truck driver helper: No Water heater temperature set < 120 degrees: Yes Working smoke detector in home: Yes Fire extinguisher in home: Yes Carbon monoxide detector in home: Yes Allergies Allergies Allergy/AdvReac Type Severity Reaction Status Date / Time No Known Allergies Allergy Verified 04/21/24 13:58 Current Medications Home Medications blood sugar diagnostic (Blood Glucose Test strips) #50 ea 06/03/23 [Rx Confirmed 04/21/24 Last Taken Unknown] blood-glucose meter (Blood Glucose Monitoring kit) #1 ea 06/03/23 [Rx Confirmed 04/21/24 Last Taken Unknown] duloxetine 60 mg capsule,delayed release 60 mg PO QDAY #90 caps 12/03/23 [Rx Confirmed 04/22/24 Last Taken 04/21/24 08:00 60 mg] carvedilol 12.5 mg tablet 12.5 mg PO BID #180 tabs 12/25/23 [Rx Confirmed 04/22/24 Last Taken 04/22/24 08:30 12.5 mg] allopurinol 100 mg tablet 100 mg PO QDAY #90 tabs 01/21/24 [Rx Confirmed 04/22/24 Last Taken 04/21/24 08:00 50 mg] diltiazem HCl 120 mg tablet,extended release 24 hr 120 mg PO QDAY #90 tabs 01/21/24 [Rx Confirmed 04/21/24 Last Taken Unknown] fenofibrate 160 mg tablet 160 mg PO QDAY 01/21/24 [History Confirmed 04/22/24 Last Taken 04/21/24 08:00 160 mg] folic acid 1 mg tablet 1 mg PO QDAY #90 tabs 01/21/24 [Rx Confirmed 04/22/24 Last Taken 04/21/24 08:00 1 mg] guaifenesin 600 mg tablet, extended release 12 hr 600 mg PO Q12H 01/21/24 [History Confirmed 04/22/24 Last Taken 04/21/24 08:00 600 mg] imatinib 400 mg tablet 400 mg PO QDAY 01/21/24 [History Confirmed 04/22/24 Last Taken 04/21/24 08:00 400 mg] levothyroxine 150 mcg capsule 150 mcg PO QDAY #90 caps 01/21/24 [Rx Confirmed 04/22/24 Last Taken 04/21/24 08:00 150 mcg] ezetimibe 10 mg tablet See Rx Instructions .Route .COMPLEX #90 tabs 02/10/24 [Rx Confirmed 04/22/24 Last Taken 04/21/24 08:00 10] apixaban 5 mg tablet (Eliquis) 5 mg PO BID #90 tabs 02/20/24 [Rx Confirmed 04/22/24 Last Taken 04/22/24 08:30 5 mg] albuterol sulfate 90 mcg/actuation aerosol inhaler 2 puff inhalation QID 03/13/24 [History Confirmed 04/22/24 Last Taken 04/21/24 08:00 2 puff] cholecalciferol (vitamin D3) 1,250 mcg (50,000 unit) oral wafer 1,250 mcg PO QWEEK 03/13/24 [History Confirmed 04/22/24 Last Taken 04/17/24 08:00 1,250 mcg] amiodarone 200 mg tablet 200 mg PO QDAY 04/01/24 [History Confirmed 04/22/24 Last Taken 04/21/24 08:00 200 mg] bumetanide 2 mg tablet 2 mg PO BID 04/01/24 [History Confirmed 04/21/24 Last Taken Unknown] metolazone 2.5 mg tablet 2.5 mg PO Q OTHER DAY #8 tabs 04/01/24 [Rx Confirmed 04/22/24 Last Taken 04/20/24 08:00 2.5 mg] tiotropium bromide 2.5 mcg/actuation mist for inhalation (Spiriva Respimat) 2 puff inhalation QDAY #4 grams 04/02/24 [Rx Confirmed 04/22/24 Last Taken 04/21/24 08:00 2 puff] potassium chloride 20 mEq tablet,extended release 20 meq PO QDAY #30 tabs 04/20/24 [Rx Confirmed 04/22/24 Last Taken 04/21/24 08:00] bumetanide 1 mg tablet 1 mg PO DAILY 04/21/24 [History Confirmed 04/22/24 Last Taken 04/21/24 08:00 1 mg] diltiazem HCl 120 mg capsule,extended release 24 hr (Cartia XT) 120 mg PO DAILY 04/21/24 [History Confirmed 04/22/24 Last Taken 04/21/24 08:00 120 mg] insulin aspart U-100 100 unit/mL (3 mL) subcutaneous pen (Novolog FlexPen U-100 Insulin aspart) 1 sliding scale dose subcut TID PRN hyperglycemia 04/21/24 [History Confirmed 04/22/24 Last Taken Unknown] insulin glargine 100 unit/mL (3 mL) subcutaneous pen (Lantus Solostar U-100 Insulin) 5 unit subcut BID 04/21/24 [History Confirmed 04/22/24 Last Taken Unknown] rosuvastatin 20 mg tablet 20 mg PO BEDTIME 04/21/24 [History Confirmed 04/22/24 Last Taken 04/20/24 21:00 20 mg] trazodone 50 mg tablet 50 mg PO BEDTIME 04/21/24 [History Confirmed 04/22/24 Last Taken 04/22/24 00:10 50 mg] Home Acetaminophen (Acetaminophen 325 Mg Tablet) 650 mg PO Q4H PRN PRN Reason: Mild Pain Albuterol Sulfate (Albuterol Sulfate 0.083% Vial.Neb) 2.5 mg NEB RTQ4H PRN PRN Reason: Wheezing Last Admin: 04/22/24 05:50 Dose: 2.5 mg Albuterol Sulfate (Albuterol Sulfate 8 Gm Inhaler) 2 puff IH QID [facility] Last Admin: 04/22/24 12:00 Dose: 2 puff Albuterol/Ipratropium (Ipratropium/Albuterol Vial.Neb) 3 ml NEB RTQ4H [facility] Last Admin: 04/22/24 10:19 Dose: 3 ml Allopurinol (Allopurinol 100 Mg Tablet) 50 mg PO DAILY [facility] Last Admin: 04/22/24 11:57 Dose: 50 mg Amiodarone HCl (Amiodarone Hcl 200 Mg Tablet) 200 mg PO DAILY [facility] Last Admin: 04/22/24 11:57 Dose: 200 mg Apixaban (Apixaban 5 Mg Tab) 5 mg PO BID [facility] Last Admin: 04/22/24 09:03 Dose: 5 mg Bumetanide (Bumetanide 1 Mg Tablet) 1 mg PO QDAC2 [facility] Last Admin: 04/22/24 12:14 Dose: 1 mg Carvedilol (Carvedilol 12.5 Mg Tablet) 12.5 mg PO BIDWM2 [facility] Diltiazem HCl (Diltiazem Hcl 120 Mg Cap.Er.24h) 120 mg PO DAILY [facility] Last Admin: 04/22/24 11:57 Dose: 120 mg Duloxetine HCl (Duloxetine Hcl 30 Mg Capsule.Dr) 60 mg PO DAILY [facility] Last Admin: 04/22/24 12:00 Dose: 60 mg Ezetimibe (Ezetimibe 10 Mg Tablet) 10 mg PO DAILY [facility] Last Admin: 04/22/24 11:59 Dose: 10 mg Fenofibrate (Fenofibrate 160 Mg Tablet) 160 mg PO DAILY [facility] Last Admin: 04/22/24 11:59 Dose: 160 mg Folic Acid (Folic Acid 1 Mg Tablet) 1 mg PO DAILY [facility] Last Admin: 04/22/24 11:59 Dose: 1 mg Guaifenesin (Guaifenesin 600 Mg Tablet.Er) 600 mg PO Q12HR [facility] Last Admin: 04/22/24 11:59 Dose: 600 mg VANCOMYCIN/WATER FOR INJ (PEG) (Vancomycin 1.5 Gram/300 Ml Premix) 1.5 gm in 300 mls @ 200 mls/hr IV Q12HR [facility] Stop: 04/25/24 08:59 Last Admin: 04/22/24 10:29 Dose: 200 mls/hr Piperacillin Sod/Tazobactam (Sod 4.5 gm/ Sodium Chloride) 100 mls @ 200 mls/hr IV Q6HR [facility] Stop: 04/25/24 07:59 Last Admin: 04/22/24 08:52 Dose: 200 mls/hr Insulin Glargine (Insulin Glargine,Hum.Rec.Anlog 100 Units/Ml) 5 unit SUBCUT BID [facility] Insulin Human Regular (Insulin Regular, Human 100 Unit/Ml (3ml)) 0 unit SUBCUT PRN PRN; Protocol PRN Reason: Hyperglycemia Last Admin: 04/22/24 12:15 Dose: 3 unit Levothyroxine Sodium (Levothyroxine Sodium 75 Mcg Tablet) 150 mcg PO QDAC2 [facility] Methylprednisolone Sodium Succinate (Methylprednisolone Sod Succ/Pf 40 Mg/Ml Vial) 40 mg IVP Q8HR [facility] Last Admin: 04/22/24 11:52 Dose: 40 mg Metolazone (Metolazone 2.5 Mg Tablet) 2.5 mg PO Q48H [facility] Non-Formulary Medication (Imatinib) 400 mg PO DAILYWM2 [facility] Last Admin: 04/22/24 12:24 Dose: Not Given Potassium Chloride (Potassium Chloride 20 Meq Tab) 20 meq PO DAILYWM2 [facility] Last Admin: 04/22/24 12:14 Dose: 20 meq Rosuvastatin Calcium (Rosuvastatin Calcium 10 Mg Tablet) 20 mg PO BEDTIME [facility] Last Admin: 04/22/24 00:11 Dose: 20 mg Tiotropium [place] (Tiotropium [place] 18 Mcg Cap.W.Dev) 1 cap IH DAILY [facility] Last Admin: 04/22/24 11:54 Dose: 1 cap Trazodone HCl (Trazodone Hcl 50 Mg Tablet) 50 mg PO BEDTIME [facility] Last Admin: 04/22/24 00:11 Dose: 50 mg Discontinued Medications Albuterol/Ipratropium (Ipratropium/Albuterol Vial.Neb) 3 ml NEB ONCE STA Stop: 04/21/24 18:20 Last Admin: 04/21/24 18:38 Dose: 3 ml Carvedilol (Carvedilol 12.5 Mg Tablet) 12.5 mg PO BIDWM2 [facility] Last Admin: 04/22/24 07:33 Dose: 12.5 mg VANCOMYCIN/WATER FOR INJ (PEG) (Vancomycin 1 Gram/200 Ml Premix) 1 gm in 200 mls @ 200 mls/hr IV ONCE ONE Stop: 04/21/24 14:50 Last Admin: 04/21/24 14:48 Dose: 200 mls/hr Piperacillin Sod/Tazobactam (Sod 3.375 gm/ Sodium Chloride) 100 mls @ 200 mls/hr IV ONCE ONE Stop: 04/21/24 18:16 Last Admin: 04/21/24 18:08 Dose: 200 mls/hr Piperacillin Sod/Tazobactam (Sod 3.375 gm/ Sodium Chloride) 100 mls @ 200 mls/hr IV Q8H [facility] Stop: 04/25/24 02:59 Last Admin: 04/22/24 02:22 Dose: 200 mls/hr VANCOMYCIN/WATER FOR INJ (PEG) (Vancomycin 1 Gram/200 Ml Premix) 1 gm in 200 mls @ 200 mls/hr IV ONCE ONE Stop: 04/21/24 23:53 Last Admin: 04/21/24 23:17 Dose: 200 mls/hr Opioid Naive vs. Tolerant Does Patient Take Opioids?: No Is Patient Opioid Naive?: Yes What is Opioid Naive?: *Opioid Naive implies the patient is not already taking opioids or not chronically receiving opioids on a daily basis. *PRN dosing is not "usually" associated with tolerance. *Patients are at higher risk of over-sedation and aspiration. Is Patient Opioid Tolerant?: No What is Opioid Tolerant?: *Opioid Tolerance implies less than the expected response to an opioid. *Acquired tolerance is defined by the patient taking 60mg of oral morphine daily (or equianalgesic dose of another opioid) for 1 week or more. *Often associated with chronic pain. *May take more than usual dose to achieve desired pain control. Review of Systems Constitutional: Reports No symptoms Head: Reports Normocephalic Eyes: Reports No symptoms Ears: Reports No symptoms Nose: Reports No symptoms Mouth: Reports No symptoms Throat: Reports No symptoms Cardiovascular: Reports No symptoms Respiratory: Reports Cough and Shortness of air Gastrointestinal: Reports No symptoms Genitourinary: Reports Frequency and Incontinent Bladder Musculoskeletal: Reports No symptoms Endocrine: Reports No symptoms Hematology: Reports No symptoms Immunology: Reports No symptoms Neurological: Reports No symptoms Psychiatric: Reports No symptoms Physical examination Most Recent Vital Signs: Most Recent Vital Signs Temperature 96.9 F L 04/22/24 05:18 Temperature Source Temporal Artery Scan 04/22/24 05:18 Temperature Source Oral 04/21/24 13:58 Pulse Rate 74 04/22/24 05:18 Respiratory Rate 22 H 04/22/24 08:00 Blood Pressure 129/66 04/22/24 05:18 Blood Pressure Mean 87 04/22/24 05:18 Blood Pressure Left Arm 130/56 04/21/24 22:14 Blood Pressure Location Left Arm 04/22/24 05:18 Blood Pressure Position Sitting 04/22/24 05:18 O2 Sat by Pulse Oximetry 97 04/22/24 10:00 Oxygen Delivery Method Nasal Cannula 04/22/24 10:00 Oxygen Flow Rate 10 04/22/24 10:00 Height 6 ft 6 in 04/21/24 22:14 Weight 292 lb 11.2 oz 04/21/24 22:14 Telemetry Type Remote Telemetry 04/22/24 01:00 Telemetry Monitoring Continues 04/22/24 01:00 Irregular Telemetry Rate (Approximate) 60-70 BPM 04/22/24 01:00 Telemetry Heart Rate 114 H 12/09/23 13:00 Telemetry SPO2 95 12/09/23 13:00 EKG QRS Interval 0.09 04/22/24 01:00 Telemetry Strip Reading AFIB 04/22/24 01:00 Appearance: Positive No Apparent Distress and Obese Skin: Positive Warm, Good Turgor and Other (pressure ulcer to buttock, stage 2- 3, purulent/bloody drainage on bedding) HEENT: Positive Normocephalic and Atraumatic Neck: Positive Supple and Midline Trachea Chest/Lungs: Positive Symmetrical With Equal Breath Sounds and Other (severely, diminished R lung, clear left lung marino) Heart: Positive RRR and Pulses Normal GI/: Positive Soft, Nontender, Bowel Sounds Normal and No Distention Musculoskeletal: Positive Not Examined Extremities: Positive Edema (+2 pitting BLE), Intact Peripheral Pulses, Stable Joints Without Laxity and Good ROM in All Joints Neurological: Positive Sensation Intact, Motor intact, Alert, Oriented (person, place) and Disorinted (intermittently) Labs This Visit Labs This Visit: Labs This Visit 04/21/24 04/21/24 04/21/24 13:50 13:53 15:24 WBC 5.84 RBC 2.81 L Hgb 8.0 L Hct 25.2 L MCV 89.7 MCH 28.5 MCHC 31.7 L RDW Coeff of Sumeet 17.7 H Plt Count 205 Immature Gran % (Auto) 0.2 Neut % (Auto) 81.9 H Lymph % (Auto) 7.9 L [place] % (Auto) 9.6 Eos % (Auto) 0.2 Baso % (Auto) 0.2 Neut # (Auto) 4.8 Lymph # (Auto) 0.5 L [place] # (Auto) 0.6 Eos # (Auto) 0.0 Baso # (Auto) 0.0 Immature Gran # (Auto) 0.0 PT 14.3 H INR 1.41 APTT 37.0 Puncture Site Lrd Base Excess 22.2 H O2 Saturation 96.6 ABG pH 7.43 ABG pCO2 70.0 H ABG pO2 84.0 L ABG HCO3 46.5 H ABG Total CO2 48.6 H Renzo Test Pos Hemoglobin 1.5 Oxyhemoglobin 93.6 L Carboxyhemoglobin 2.9 H Total Hemoglobin 8.8 L O2 Delivery Device Cannula Oxygen Liter Flow 10.00 Sodium 132.0 L Potassium 3.69 Chloride 89.2 L Carbon Dioxide 39.6 H Anion Gap 6.89 BUN 24.2 H Creatinine 1.38 H Estimated GFR (MDRD) 51.00 BUN/Creatinine Ratio 17.53 Glucose 132.2 H Lactic Acid 1.62 Calcium 8.44 Total Bilirubin 1.38 H AST 47.2 ALT 27.0 Alkaline Phosphatase 65.6 Troponin I 0.016 C-Reactive Prot, Quant 150 H NT-Pro-B Natriuret Pep 3130 H Total Protein 5.96 L Albumin 3.08 L Globulin 2.88 Albumin/Globulin Ratio 1.06 Urine Color Urine Clarity Urine pH Ur Specific [place] Urine Protein Urine Glucose (UA) Urine Ketones Urine Blood Urine Nitrite Urine Bilirubin Urine Urobilinogen Ur Leukocyte Esterase RSV Antigen Negative by naat SARS CoV-2 RNA Rapid JONATHAN Negative 04/21/24 04/22/24 17:52 04:57 WBC 7.88 RBC 2.91 L Hgb 8.2 L Hct 26.2 L MCV 90.0 MCH 28.2 MCHC 31.3 L RDW Coeff of Sumeet 17.7 H Plt Count 215 Immature Gran % (Auto) 0.4 Neut % (Auto) 84.8 H Lymph % (Auto) 4.7 L [place] % (Auto) 9.6 Eos % (Auto) 0.4 Baso % (Auto) 0.1 Neut # (Auto) 6.7 Lymph # (Auto) 0.4 L [place] # (Auto) 0.8 Eos # (Auto) 0.0 Baso # (Auto) 0.0 Immature Gran # (Auto) 0.0 PT INR APTT Puncture Site Base Excess O2 Saturation ABG pH ABG pCO2 ABG pO2 ABG HCO3 ABG Total CO2 Renzo Test Hemoglobin Oxyhemoglobin Carboxyhemoglobin Total Hemoglobin O2 Delivery Device Oxygen Liter Flow Sodium 131.9 L Potassium 3.45 L Chloride 91.3 L Carbon Dioxide 36.9 H Anion Gap 7.15 BUN 21.5 H Creatinine 1.09 Estimated GFR (MDRD) 66.00 BUN/Creatinine Ratio 19.72 Glucose 135.0 H Lactic Acid Calcium 8.06 L Total Bilirubin 1.03 AST 52.8 ALT 27.2 Alkaline Phosphatase 65.2 Troponin I C-Reactive Prot, Quant NT-Pro-B Natriuret Pep Total Protein 5.78 L Albumin 2.90 L Globulin 2.88 Albumin/Globulin Ratio 1.00 Urine Color Yellow Urine Clarity Clear Urine pH 6.0 Ur Specific [place] 1.015 Urine Protein Negative Urine Glucose (UA) Negative Urine Ketones Negative Urine Blood Negative Urine Nitrite Negative Urine Bilirubin Negative Urine Urobilinogen 1.0 H Ur Leukocyte Esterase Negative RSV Antigen SARS CoV-2 RNA Rapid JONATHAN Imaging Imaging: EXAM: CHEST RADIOGRAPH FINDINGS: The heart and mediastinum are stable. Increasing opacification of the right mid to lower lung zone is identified. No pneumothorax. Mild atelectasis is noted at the left lung base. No acute abnormality of the bones or soft tissues is identified. IMPRESSION: Increasing opacification of the right mid to lower lung zone is identified. Otherwise, stable exam. Review Statement Review Statement: I have independently reviewed and interpreted the labs/EKGs/imaging that were ordered by the ER provider. I have reviewed all outside records that are available currently in our EMR including imaging/notes/labs from previous visits. Plan Plan: 1. Acute on Chronic Hypoxic Respiratory Failure in setting of persistent R sided pneumonia - checking CTA to r/o PE and have more specific imaging, wean oxygen as tolerated to home O2, steroids, nebs 2. R Lung Pneumonia - vanc and zosyn ordered, steroids, nebs, speech eval ordered due to concerns of aspiration, sputum culture, mrsa, strep pneumo, and legionella ordered. 3. UTI in setting of staph aureus - treating with vancomycin per sensitivity results, multi-drug resistance noted 4. Chronic Systolic Heart Failure - does not appear in exacerbation, daily weight, I&O, continue home medications 5. DM2 - chronic, accuchecks qid with ssi, continue home lantus 6. Afib - chronic, not in RVR, continue home medications 7. Pressure ulcer to buttocks - wound culture ordered due to significant drainage 8. Chronic myelocytic leukemia - labs stable, monitor, follows with hem/onc at [facility] DVT Prophylaxis: Eliquis Time Spent: Greater than 80 minutes spent with patient, 50% of the time spent with this patient was devoted to counseling and coordination of care. [facility] minutes spent discussing advance care planning. Disposition: Admit to: Med/Surg Inpatient DNR Discussed Plan of Care with Dr. Manjeet Mayes. Medications Medication Orders: Medications Ordered Category Date Time Status Acetaminophen [Tylenol] Meds 04/21/24 20:22 Active 650 mg PO Q4H PRN Albuterol Sulfate 0.083% Neb [Albuterol 0.083% Neb] Meds 04/21/24 21:46 Active 2.5 mg NEB RTQ4H PRN Albuterol Sulfate [Ventolin Hfa] Meds 04/21/24 23:45 Active 2 puff IH QID Apixaban [Eliquis] Meds 04/21/24 23:45 Active 5 mg PO BID Carvedilol [Coreg] Meds 04/22/24 17:00 Active 12.5 mg PO BIDWM2 Ipratropium/Albuterol Neb [Duoneb] Meds 04/21/24 22:00 Active 3 ml NEB RTQ4H Methylprednisolone Sod Succ/Pf [Solu-Medrol 40 mg] Meds 04/22/24 09:25 Active 40 mg IVP Q8HR Piperacillin Sodium/Tazobactam [Zosyn 4.5 gm] 4.5 gm Meds 04/22/24 08:00 Active 0.9 % Sodium Chloride [Sodium Chloride 100Ml] 100 ml IV Q6HR Rosuvastatin Calcium [Crestor] Meds 04/21/24 23:45 Active 20 mg PO BEDTIME Trazodone HCl [Desyrel] Meds 04/21/24 23:45 Active 50 mg PO BEDTIME Vancomycin/Water For Inj (Peg) [Vancomycin 1.5 Gram/300 Meds 04/22/24 09:00 Active ml Premix] 1.5 gm in 300 ml IV Q12HR Additional Comments: Additional Comments: [facility] 04/06/2024 Narrative & Impression EXAM: CT ANGIOGRAM OF THE CHEST WITH CONTRAST HISTORY: Shortness of breath TECHNIQUE: Helical imaging of the chest was performed following the intravenous administration of contrast. 1.25 mm thin axial images and coronal and sagittal MIP reconstructions were obtained. FINDINGS: No definite filling defects are identified within the branches of the pulmonary arteries. The central pulmonary arteries are normal. There is diffuse atherosclerotic calcification of the thoracic aorta. There is no aneurysm or dissection. Small bilateral pleural effusions are seen1 opacities are seen in the right lower lobe of the lung and right upper lobe of the lung. Emphysematous changes are seen throughout the lungs. There is additional mild consolidation seen in the left lower lobe of the lung. The no lytic or blastic lesions are seen. IMPRESSION: There is no acute pulmonary embolism. Right upper lobe pneumonia. Additional bibasilar atelectasis versus pneumonia. Diffuse pulmonary emphysema. Small bilateral pleural effusions. Today: EXAM: CTA CHEST FOR PE HISTORY: Shortness of breath COMPARISON: CTA chest 04/06/2024 TECHNIQUE: CTA of the chest was performed from the lung apices to the upper abdomen after 100 ml of Omnipaque IV contrast was administered using PE protocol. 3-D imaging was also provided. FINDINGS: There is no filling defect in the pulmonary arteries to the level of the subsegmental pulmonary arteries. The heart is normal without signs of ventricular strain. There is moderate calcific atherosclerotic disease of the aorta. Heart is unremarkable at upper limit of normal for size. There are calcified mediastinal and hilar lymph nodes. There are multiple mediastinal and hilar lymph nodes. There is no pneumothorax with moderate right pleural effusion. There is debris within the right main bronchus extending into the bronchi in the lower lobe with associated consolidation and ground-glass. There is scattered moderate emphysema. There is trace left pleural fluid. Limited views of the soft tissues in the upper abdomen demonstrate abdominal aortic aneurysm with internal stent. The osseous structures demonstrate degenerative disease. IMPRESSION: 1. No pulmonary embolism. 2. Moderate right pleural effusion and associated ground-glass and consolidation with debris in the right bronchus suggestive of aspiration. 3. Trace left pleural fluid. 4. Scattered emphysema. 5. Moderate atherosclerotic disease and sequela of old granulomatous disease. Due to worsening R pleural effusion, will diurese mildly. Continue treatment for aspiration pneumonia. Speech eval ordered.
[2024-04-22] MEDS: VANCOMYCIN 1.5 GRAM/300 ML PREMIX 1.5 GM/300 ML BAG IV SCH (10:29)
[2024-04-22] MEDS ORDERED: LEVOTHYROXINE 150 MCG PO SCH (10:45)
[2024-04-22] MEDS: SOLU-MEDROL 40 MG IVP SCH (11:52)
[2024-04-22] MEDS: SPIRIVA IH SCH (11:54)
[2024-04-22] MEDS: CORDARONE PO SCH (11:57)
[2024-04-22] MEDS: ZYLOPRIM PO SCH (11:57)
[2024-04-22] MEDS: CARDIZEM CD PO SCH (11:57)
[2024-04-22] MEDS: FOLIC ACID PO SCH (11:59)
[2024-04-22] MEDS: ZETIA PO SCH (11:59)
[2024-04-22] MEDS: MUCINEX PO SCH (11:59)
[2024-04-22] MEDS: TRIGLIDE PO SCH (11:59)
[2024-04-22] MEDS: CYMBALTA PO SCH (12:00)
--- NOTE | 2024-04-22 12:02 | CT ---
EXAM: CTA CHEST FOR PE HISTORY: Shortness of breath COMPARISON: CTA chest 04/06/2024 TECHNIQUE: CTA of the chest was performed from the lung apices to the upper abdomen after 100 ml of Omnipaque IV contrast was administered using PE protocol. 3-D imaging was also provided. FINDINGS: There is no filling defect in the pulmonary arteries to the level of the subsegmental pulm onary arteries. The heart is normal without signs of ventricular strain. There is moderate calcific atherosclerotic disease of the aorta. Heart is unremarkable at upper limit of normal for size. The re are calcified mediastinal and hilar lymph nodes. There are multiple mediastinal and hilar lymph n odes. There is no pneumothorax with moderate right pleural effusion. There is debris within the right main bronchus extending into the bronchi in the lower lobe with associated consolidation and ground-glass . There is scattered moderate emphysema. There is trace left pleural fluid. Limited views of the soft tissues in the upper abdomen demonstrate abdominal aortic aneurysm with int ernal stent. The osseous structures demonstrate degenerative disease. IMPRESSION: 1. No pulmonary embolism. 2. Moderate right pleural effusion and associated ground-glass and consolidation with debris in the right bronchus suggestive of aspiration. 3. Trace left pleural fluid. 4. Scattered emphysema. 5. Moderate atherosclerotic disease and sequela of old granulomatous disease. All CT scans are performed using dose optimization techniques as appropriate to the performed exam an d include at least one of the following: Automated exposure control, adjustment of the mA and/or kV according t o size, and the use of iterative reconstruction technique.
[2024-04-22] MEDS: BUMEX PO SCH (12:14)
[2024-04-22] MEDS: K-DUR PO SCH (12:14)
[2024-04-22] MEDS: HUMULIN R SUBCUT PRN (12:15)
[2024-04-22] MEDS: SYNTHROID PO SCH (12:40)
[2024-04-22] MEDS: LASIX IVP SCH (17:04)
[2024-04-22] MEDS: LANTUS SUBCUT SCH (20:20)
[2024-04-23 04:59] LABS: BASOPHILS % (AUTO) 0.2 % (0.0-3.0); HEMATOCRIT 26.9 % (42.0-52.0); HEMOGLOBIN 8.5 g/dl (14.0-18.0); IMMATURE GRANULOCYTE % (AUTO) 0.4 % (0.0-5.0); LYMPHOCYTES # (AUTO) 0.3 K/uL (0.60-3.4); LYMPHOCYTES % (AUTO) 5.7 (10.0-50.0); MEAN CORPUSCULAR HEMOGLOBIN 28.7 pg (27.0-31.0); MEAN CORPUSCULAR HGB CONC 31.6 (31.8-35.4); MEAN CORPUSCULAR VOLUME 90.9 fl (80.0-94.0); MONOCYTES # (AUTO) 0.1 K/uL (0.4-2.0); MONOCYTES % (AUTO) 0.9 (0-10); NEUTROPHILS # (AUTO) 5.3 K/ul (2.0-6.9); NEUTROPHILS % (AUTO) 92.8 % (42.2-75.2); PLATELET COUNT 223 10^3/uL (140-440); RDW COEFFICIENT OF VARIATION 17.6 % (11.6-14.8); RED BLOOD COUNT 2.96 10^6/ul (4.70-6.10); WHITE BLOOD COUNT 5.65 K/ul (4.2-10.2)
[2024-04-23 05:13] LABS: ALANINE AMINOTRANSFERASE 29.8 U/L (0-50); ALBUMIN 3.09 g/dL (3.5-5.0); ALKALINE PHOSPHATASE 66.4 U/L (56-119); ASPARTATE AMINO TRANSFERASE 61.5 U/L (17-59); BILIRUBIN,TOTAL 0.99 mg/dL (0.2-1.3); BLOOD UREA NITROGEN 18.3 mg/dL (9-20); CALCIUM 8.2 mg/dL (8.4-10.2); CHLORIDE 91.9 mmol/L (98-107); CREATININE 1.01 mg/dL (0.60-1.10); GLUCOSE 148.6 mg/dL (74-106); POTASSIUM 3.67 mmol/L (3.5-5.1); TOTAL PROTEIN 6.1 g/dL (6.3-8.2)
[2024-04-23 05:28] LABS: CARBON DIOXIDE 40.6 mmol/L (22-30.0)
[2024-04-23] MEDS ORDERED: ZAROXOLYN PO SCH (08:00)
--- NOTE | 2024-04-23 09:46 | PCM.PROG ---
Date/Time Seen Date Seen by Provider: 04/23/24 Time Seen by Provider: 08:50 Provider Provider: VERONICA ST, [facility] Chief Complaint Chief Complaint: PNEUMONIA,CHRONIC RESPIRATORY FAILURE Subjective Subjective: Patient states he still gets very winded when ambulating. Reports this is normal for him but not usually "this bad". Wound to R hip draining on bed. Requiring 8L of oxygen still this am. Objective Appearance: Positive No Apparent Distress, Alert and Oriented x3, Ill-Appearing and Obese Chest/Lungs: Positive Symmetrical With Equal Breath Sounds, Clear to Auscultation Bilaterally and Other (diminished breath sounds to R lung) Heart: Positive RRR and Pulses Normal GI/: Positive Soft, Nontender, Bowel Sounds Normal and No Distention Musculoskeletal: Positive Other (+1-2 pitting edema BLE) and Not Examined Neurological: Positive Sensation Intact, Motor intact, Alert, Oriented and Other (generalized weakness) Additional Findings: Pressure ulcer x 2 to R hip, purulent drainage noted Vital Signs Vital Signs: Vital Signs: Last 24 Hours 04/22/24 10:00 04/22/24 13:00 04/22/24 13:08 Temperature Temperature Source Pulse Rate Respiratory Rate Blood Pressure Blood Pressure Mean Blood Pressure Location Blood Pressure Position O2 Sat by Pulse Oximetry 97 93 L Oxygen Delivery Method Nasal Cannula Nasal Cannula Oxygen Flow Rate 10 8 Weight Telemetry Type Remote Telemetry Telemetry Monitoring Continues Irregular Telemetry Rate (Approximate) 70's Telemetry SPO2 EKG QRS Interval 0.06 Telemetry Strip Reading Atrial Fib 04/22/24 14:00 04/22/24 14:10 04/22/24 18:52 Temperature 97.6 F Temperature Source Temporal Artery Scan Pulse Rate 72 Respiratory Rate 20 Blood Pressure 126/70 Blood Pressure Mean 88 Blood Pressure Location Left Radial Artery Blood Pressure Position Sitting O2 Sat by Pulse Oximetry 91 L 93 L 94 L Oxygen Delivery Method Nasal Cannula Nasal Cannula Nasal Cannula Oxygen Flow Rate 8 8 8 Weight Telemetry Type Telemetry Monitoring Irregular Telemetry Rate (Approximate) Telemetry SPO2 EKG QRS Interval Telemetry Strip Reading 04/22/24 19:00 04/22/24 20:00 04/22/24 21:30 Temperature 97.3 F L Temperature Source Temporal Artery Scan Pulse Rate 79 Respiratory Rate 22 H 20 Blood Pressure 132/79 Blood Pressure Mean 96 Blood Pressure Location Left Arm Blood Pressure Position Sitting O2 Sat by Pulse Oximetry 94 L Oxygen Delivery Method Nasal Cannula Nasal Cannula Oxygen Flow Rate 8 8 Weight Telemetry Type Remote Telemetry Telemetry Monitoring Continues Irregular Telemetry Rate (Approximate) 70-80 BPM Telemetry SPO2 EKG QRS Interval 0.08 Telemetry Strip Reading A-FIB 04/23/24 01:00 04/23/24 05:08 04/23/24 05:08 Temperature 97.5 F L Temperature Source Oral Pulse Rate 95 Respiratory Rate 20 Blood Pressure 131/83 Blood Pressure Mean 99 Blood Pressure Location Left Arm Blood Pressure Position Sitting O2 Sat by Pulse Oximetry 98 Oxygen Delivery Method Nasal Cannula Oxygen Flow Rate 8 Weight 292 lb 2 oz Telemetry Type Remote Telemetry Telemetry Monitoring Continues Irregular Telemetry Rate (Approximate) 60-70 BPM Telemetry SPO2 90 L EKG QRS Interval 0.07 Telemetry Strip Reading A-FIB 04/23/24 05:45 04/23/24 07:00 04/23/24 07:15 Temperature Temperature Source Pulse Rate Respiratory Rate 22 H Blood Pressure Blood Pressure Mean Blood Pressure Location Blood Pressure Position O2 Sat by Pulse Oximetry 95 Oxygen Delivery Method Nasal Cannula Nasal Cannula Oxygen Flow Rate 8 8 Weight Telemetry Type Remote Telemetry Telemetry Monitoring Continues Irregular Telemetry Rate (Approximate) 80's Telemetry SPO2 90 L EKG QRS Interval 0.09 Telemetry Strip Reading Atrial Fib Lab Results Lab Results: Lab Results: Last 24 Hours 04/23/24 04:50 WBC 5.65 RBC 2.96 L Hgb 8.5 L Hct 26.9 L MCV 90.9 MCH 28.7 MCHC 31.6 L RDW Coeff of Sumeet 17.6 H Plt Count 223 Immature Gran % (Auto) 0.4 Neut % (Auto) 92.8 H Lymph % (Auto) 5.7 L [place] % (Auto) 0.9 Eos % (Auto) 0.0 Baso % (Auto) 0.2 Neut # (Auto) 5.3 Lymph # (Auto) 0.3 L [place] # (Auto) 0.1 L Eos # (Auto) 0.0 Baso # (Auto) 0.0 Immature Gran # (Auto) 0.0 Sodium 135.0 Potassium 3.67 Chloride 91.9 L Carbon Dioxide 40.6 H* Anion Gap 6.17 BUN 18.3 Creatinine 1.01 Estimated GFR (MDRD) 72.00 BUN/Creatinine Ratio 18.11 Glucose 148.6 H Calcium 8.20 L Total Bilirubin 0.99 AST 61.5 H ALT 29.8 Alkaline Phosphatase 66.4 Total Protein 6.10 L Albumin 3.09 L Globulin 3.01 Albumin/Globulin Ratio 1.02 Additional Comments Additional Comments: I have independently reviewed and interpreted the labs/EKGs/imaging ordered during this hospital stay. I have reviewed outside records that are available in our EMR that pertain to medical stay including imaging/notes/labs from previous visits. Active Medications Active Medications: Medications Generic Name Dose Route Start Last Admin Trade Name Freq PRN Reason Stop Dose Admin Acetaminophen 650 mg 04/21/24 20:22 Acetaminophen 325 Mg Tablet PO Q4H PRN Mild Pain Albuterol Sulfate 2.5 mg 04/21/24 21:46 04/22/24 05:50 Albuterol Sulfate 0.083% Vial.Neb NEB 2.5 mg RTQ4H PRN Administration Wheezing Albuterol Sulfate 2 puff 04/21/24 23:45 04/22/24 17:00 Albuterol Sulfate 8 Gm Inhaler IH Not Given QID BAY Albuterol/Ipratropium 3 ml 04/21/24 22:00 04/23/24 05:48 Ipratropium/Albuterol Vial.Neb NEB 3 ml RTQ4H BAY Administration Allopurinol 50 mg 04/22/24 11:00 04/23/24 08:12 Allopurinol 100 Mg Tablet PO 50 mg DAILY BAY Administration Amiodarone HCl 200 mg 04/22/24 11:00 04/23/24 08:13 Amiodarone Hcl 200 Mg Tablet PO 200 mg DAILY BAY Administration Apixaban 5 mg 04/21/24 23:45 04/23/24 08:12 Apixaban 5 Mg Tab PO 5 mg BID BAY Administration Bumetanide 1 mg 04/22/24 11:00 04/22/24 12:14 Bumetanide 1 Mg Tablet PO 1 mg QDAC2 BAY Administration Carvedilol 12.5 mg 04/22/24 17:00 04/23/24 08:13 Carvedilol 12.5 Mg Tablet PO 12.5 mg BIDWM2 BAY Administration Diltiazem HCl 120 mg 04/22/24 11:00 04/23/24 08:13 Diltiazem Hcl 120 Mg Cap.Er.24h PO 120 mg DAILY BAY Administration Duloxetine HCl 60 mg 04/22/24 11:00 04/23/24 08:13 Duloxetine Hcl 30 Mg Capsule.Dr PO 60 mg DAILY BAY Administration Ezetimibe 10 mg 04/22/24 11:00 04/23/24 08:12 Ezetimibe 10 Mg Tablet PO 10 mg DAILY BAY Administration Fenofibrate 160 mg 04/22/24 11:00 04/23/24 08:13 Fenofibrate 160 Mg Tablet PO 160 mg DAILY BAY Administration Folic Acid 1 mg 04/22/24 11:00 04/23/24 08:12 Folic Acid 1 Mg Tablet PO 1 mg DAILY BAY Administration Furosemide 40 mg 04/22/24 17:00 04/23/24 05:07 Furosemide Inj 40 Mg/4 Ml Vial IVP 40 mg BIDAC2 BAY Administration Guaifenesin 600 mg 04/22/24 11:00 04/23/24 08:13 Guaifenesin 600 Mg Tablet.Er PO 600 mg Q12HR BAY Administration VANCOMYCIN/WATER FOR INJ (PEG) 1.5 gm in 300 mls @ 200 mls/hr 04/22/24 09:00 04/23/24 08:12 Vancomycin 1.5 Gram/300 Ml Premix IV 04/25/24 08:59 200 mls/hr Q12HR BAY Administration Piperacillin Sod/Tazobactam 100 mls @ 200 mls/hr 04/22/24 08:00 04/23/24 05:23 Sod 4.5 gm/ Sodium Chloride IV 04/25/24 07:59 200 mls/hr Q6HR BAY Administration Insulin Glargine 5 unit 04/22/24 21:00 04/23/24 08:12 Insulin Glargine,Hum.Rec.Anlog 100 Units/Ml SUBCUT 5 unit BID BAY Administration Insulin Human Regular 0 unit 04/22/24 10:50 04/22/24 20:22 Insulin Regular, Human 100 Unit/Ml (3ml) SUBCUT 5 unit PRN PRN Administration Hyperglycemia Protocol Levothyroxine Sodium 150 mcg 04/22/24 12:00 04/23/24 05:22 Levothyroxine Sodium 75 Mcg Tablet PO 150 mcg QDAC2 BAY Administration Methylprednisolone Sodium Succinate 40 mg 04/22/24 09:25 04/23/24 05:07 Methylprednisolone Sod Succ/Pf 40 Mg/Ml Vial IVP 40 mg Q8HR BAY Administration Non-Formulary Medication 400 mg 04/22/24 15:15 04/22/24 15:24 Imatinib PO 400 mg 1200 BAY Administration Potassium Chloride 20 meq 04/22/24 11:00 04/23/24 08:13 Potassium Chloride 20 Meq Tab PO 20 meq DAILYWM2 BAY Administration Rosuvastatin Calcium 20 mg 04/21/24 23:45 04/22/24 20:20 Rosuvastatin Calcium 10 Mg Tablet PO 20 mg BEDTIME BAY Administration Sodium Chloride 1 syr 04/22/24 17:11 04/23/24 05:07 0.9% Sodium Chloride 10 Ml Disp.Syrin IVF 1 syr PRN PRN Administration Maintain IV Patency Tiotropium [place] 1 cap 04/22/24 11:00 04/23/24 08:16 Tiotropium [place] 18 Mcg Cap.W.Dev IH 1 cap DAILY BAY Administration Trazodone HCl 50 mg 04/21/24 23:45 04/22/24 20:20 Trazodone Hcl 50 Mg Tablet PO 50 mg BEDTIME BAY Administration Plan Plan: 1. Acute on Chronic Hypoxic Respiratory Failure in setting of Aspiration pneumonia - Improving, down to 8L today from 10L, wean oxygen as tolerated to home O2, steroids, nebs 2. Aspiration Pneumonia - vanc and zosyn ordered, steroids, nebs, sputum culture, mrsa, strep pneumo, and legionella ordered. speech eval completed and recommends mech soft diet, would benefit from speech outpatient due to recurrent episodes of aspiration pneumonia - patient does not wish to have G tube again and is aware of the risks 3. UTI in setting of staph aureus - treating with vancomycin per sensitivity results, multi-drug resistance noted 4. Acute on Chronic Systolic Heart Failure - right pleural effusion worsened compared to imaging at [facility], gentle diuresis with lasix IVP BID, has diuresed 2L at this time, will likely transition to PO tomorrow, daily weight, I&O 5. DM2 - chronic, accuchecks qid with ssi, continue home lantus 6. Afib - chronic, not in RVR, continue home medications 7. Pressure ulcer to buttocks - wound culture showing growth of gram + cocci and gram - rods, covered with vanc and zosyn, cleanse area daily and prn 8. Chronic myelocytic leukemia - labs stable, monitor, follows with hem/onc at [facility] Review Statement Review Statement: I have personally discussed and reviewed the patient's visit/currently labs/imaging/decision making with Dr. Mayes, my supervising attending. Greater that 50 minutes spent with patient, 50% of the time spent with this patient was devoted to counseling and coordination of care.
--- NOTE | 2024-04-23 10:05 | RS.OTINEVL ---
Subjective Patient information Date of Evaluation: 04/23/24 Date of Arrival on Unit: 04/21/24 Admitted From:: Emergency Dept Diagnosis: Z74.1 Need for assistance with personal care. M62.81 General weakness PRECAUTIONS: Fall risk Usual Living Arrangement: With Spouse Living Arrangement Comments: Lives with spouse and pets Home Environment: House and Stairs (few) Medical History: Hypertension, COPD, Diabetes, CHF, Arthritis and Cancer Medical History Comments:: Throat Cancer, L knee is stiff, Sores on Left foot, 2 DU on buttocks, AAA, CHF, Myelocytic Leukemia, 8 Liters of O2, UTI, cough. Medications: Refer to EMR Subjective Information/ Patient Comments:: Pt reports he wears O2 at home all of the time. "I use a rolling walker at home. About 2x this room." Level of function Prior to this admission, the patient could do the following:: Independent Ambulation Abilities prior to this admission: Pt reported he walked about 60 feet with rolling walker. Pt is I with self feeding. Pt sleeps with CPAP at night but is not always compliant. Pt using 8 L of O2 at this time. Current Level of Function: Partially Dependent Current Equipment Used at Home: oxygen, Rolling walker Pain Assessment Pain Pain Aggravating Factors: Sitting Interventions Objective Patient Orientation: Person, Place, Time and Situation Current Interventions: IV's, Oxygen and Telemetry Observation: Pt is Max A x1 with sit to stand from EOB. Pt has WFL AROM of BUE. RUE is less than LUE AROM. Pt had spilled his coffee all over him and the floor. Interventions ROM Right Upper Extremity AROM: WFL's Left Upper Extremity AROM: WFL's Strength Right Upper Extremity: Mild Weakness Left Upper Extremity: Mild Weakness Sensation Right Upper Extremity: Intact/Normal Left Upper Extremity: Intact/Normal Balance Sitting Balance Static Sitting Balance: Normal Dynamic Sitting Balance: Normal Standing Balance Static Standing Balance: Poor Dynamic Standing Balance: Poor Comments Balance Assessment Comments: Pt leans to the Right per his spine. ADL Skills Self Feeding Self Feeding: Set Up Only Grooming Grooming: Set Up Only Grooming Set-up: Standing Comments:: Pt is limited in standing time. Bathing Bathing UE: Min Assist Bathing LE: Mod Assist Dressing Dressing UE: CGA Dressing LE: Mod Assist Toilet Management Toilet Hygiene: CGA Toilet Clothing Management: Min Assist Functional Mobility Transfers Sit to Stand: Max Assist and 1 person assist Stand to Sit: CGA Stand Pivot Transfers: Min Assist Ambulation Weight Bearing Status: FWB Assistive Device Used: Rolling Walker Assistance needed with Ambulation: CGA Safety Awareness Safety Awareness: Good JUAN C INDEX SCORE: . Additional Treatment Performed Additional units charged ADL: 12 Time with patient Length of Evaluation: 15 Total treatment time: 27 Activities Do you enjoy playing games?: Yes Would you be interested in leaving your room for activities?: Yes Would you enjoy group activities?: Yes Do you have difficulty with your vision?: Yes Patient Interests:: Watching Television and Visiting/Socializing Patient Education Patient Education: Education of diagnosis, Home Exercise Program and Education of Plan of Care Teaching Recipient: Patient Teaching Methods: Discussion and Demonstration Assessment Problem List:: Decreased level of function, Requires training/education, Decreased safety/Risk of falls, Weakness and Pain limits previous level of function Rehab Potential: Good Further Therapy Indicated?: Yes Evaluation Complexity: HISTORY: Medium, EXAM OF BODY SYSTEMS: Medium and CLINICAL DECISION MAKING: Medium Patient's Goal(s): To be able to go home. Short Term Goals Goals GOAL 1: Pt to increase BUE strength to 4+/5. Goal to be met by: 04/28/24 GOAL 2: Pt to increase toilet transfers to CGA. Goal to be met by: 04/28/24 GOAL 3: Pt to increase LB dressing to I with AD PRN. Goal to be met by: 04/28/24 GOAL 4: Pt to increase activity tolerance to 15 minutes with 1 rest. Goal to be met by: 04/28/24 Alf Goals GOAL 1: Pt to be I with ADLs using AD PRN. Goal to be met by: 04/30/24 GOAL 2: Pt to increase activity tolerance to 20 minutes with rests. Goal to be met by: 04/30/24 Plan Plan of Care: Therapeutic EX, Therapeutic Activity and Self-Care/Home Management Frequency of Treatment: 1-2 X day, as tolerated Duration of Treatment: 1 Week Anticipated Discharge Destination: Home Treatment Diagnosis (ICD 10 Codes): Z74.1 Need for assistance with personal care. Has the Physician been added for Co-signature?: Yes
[2024-04-23] MEDS: FLORASTOR PO SCH (10:38)
--- NOTE | 2024-04-23 13:29 | RS.PTINEVL ---
Subjective Patient information Date of Evaluation: 04/23/24 Date of Arrival on Unit: 04/21/24 Admitted From:: Emergency Dept Usual Living Arrangement: With Spouse Home Environment: House and Stairs (few) Medical History: Hypertension, COPD, Diabetes, CHF, Arthritis and Cancer Medical History Comments:: Throat Cancer, L knee is stiff, Sores on Left foot, 2 DU on buttocks, AAA, CHF, Myelocytic Leukemia, 8 Liters of O2, UTI, cough. Medications: Refer to EMR Subjective Information/ Patient Comments:: Mr. Benítez states he uses a walker at home and was able to independently walk the length of "about 2 times this room". States he has had more difficulty getting around lately. Level of function Prior to this admission, the patient could do the following:: Independent ADL's and Independent Ambulation Current Level of Function: Partially Dependent Current Equipment Used at Home: oxygen, Rolling walker Interventions Objective Patient Orientation: Person, Place, Time and Situation Current Interventions: Oxygen (at 8 L via NC) and Telemetry Observation: Presents sitting on the side of the bed finishing breakfast. Range of Motion ROM Comments:: ROM of LE's limited by Body habitus and edema in LE's. Muscle Strength Muscle Strength Comments:: Mild weakness of bilateral LE's with edema. Balance Sitting Balance and Reactions Static Sitting Balance: Good Dynamic Sitting Balance: Good (-) Standing Balance and Reactions Static Standing Balance: Fair Dynamic Standing Balance: Fair Functional Mobility Bed Mobility Comments:: Patient presented sitting on EOB. Transfers Sit to Stand: Mod Assist, 2 person assist, Verbal Cues and Tactile Cues Stand to Sit: Min Assist, Mod Assist, 2 person assist, Verbal Cues and Tactile Cues Comments:: Patient requires significant assistance to stand from bed. Also rocks and counts to use momentum to stand up. Safety Awareness Safety Awareness: Fair JUAN C INDEX SCORE: nA Ambulation Ambulation Assistive Device Used: Rolling Walker Orthotic/Prosthetic Device: No Distance: 12-15 feet to chair Assistance needed with Ambulation: CGA Quality of Ambulation: Patient demonstrates steady gait. Demonstrates minimal foot clearance, short step and stride length, and forward posture. Factors Affecting Ambulation: Breathing/O2 Saturation, Weakness, Decreased ROM and Decreased Safety Treatment time Time with patient Length of Evaluation: 16 mins Total treatment time: 16 Assessment Assessment Problem List:: Decreased level of function, Requires training/education and Decreased safety/Risk of falls Rehab Potential: Good Further Therapy Indicated?: Yes Candidate for Swing Bed for Therapy Services?: would need to reassess ability with transfers after 3 night hospital stay Evaluation Complexity: HISTORY: Medium (O2 dependent, Hx throat Ca, COPD, CHF, Diabetes, HTN), EXAM OF BODY SYSTEMS: Medium, CLINICAL PRESENTATION: Medium and CLINICAL DECISION MAKING: Medium Patient's Goal(s): His goal is to return home. Short Term Goals GOAL #1: Sit to stand from bed/chair with min A of 1 Goal to be met by: 04/25/24 GOAL #2: Stand to sit with CGA of 1. Goal to be met by: 04/25/24 GOAL #3: Supine<>sit with mod A of 1. Goal to be met by: 04/25/24 [employer] Work[employer] Goals GOAL #1: All bed mobility independent. Goal to be met by: 04/28/24 GOAL #2: Transfers with SBA to and from chair/bed. Goal to be met by: 04/28/24 GOAL #3: Pt to amb 120 ft with RW, independently with good safety. Goal to be met by: 04/28/24 Plan Plan of Care: Therapeutic EX, Neuromuscular Re-Educ, Therapeutic Activity and Self-Care/Home Management Frequency of Treatment: 1-2 X day, as tolerated Duration of Treatment: 1 Week Anticipated Discharge Destination: Home Treatment Diagnosis (ICD 10 Codes): Z74.09 impaired mobility, Z91.81 at risk for falls Has the Physician been added for Co-signature?: Yes
[2024-04-24 08:37] LABS: HEMATOCRIT 25.9 % (42.0-52.0); HEMOGLOBIN 8.1 g/dl (14.0-18.0); IMMATURE GRANULOCYTE % (AUTO) 0.4 % (0.0-5.0); LYMPHOCYTES # (AUTO) 0.3 K/uL (0.60-3.4); LYMPHOCYTES % (AUTO) 3.9 (10.0-50.0); MEAN CORPUSCULAR HEMOGLOBIN 28.7 pg (27.0-31.0); MEAN CORPUSCULAR HGB CONC 31.3 (31.8-35.4); MEAN CORPUSCULAR VOLUME 91.8 fl (80.0-94.0); MONOCYTES # (AUTO) 0.2 K/uL (0.4-2.0); MONOCYTES % (AUTO) 2.3 (0-10); NEUTROPHILS # (AUTO) 7.6 K/ul (2.0-6.9); NEUTROPHILS % (AUTO) 93.4 % (42.2-75.2); PLATELET COUNT 263 10^3/uL (140-440); RDW COEFFICIENT OF VARIATION 18.6 % (11.6-14.8); RED BLOOD COUNT 2.82 10^6/ul (4.70-6.10); WHITE BLOOD COUNT 8.17 K/ul (4.2-10.2)
[2024-04-24 08:56] LABS: ALBUMIN 3.2 g/dL (3.5-5.0); ALKALINE PHOSPHATASE 61.8 U/L (56-119); ASPARTATE AMINO TRANSFERASE 59.7 U/L (17-59); BILIRUBIN,TOTAL 0.83 mg/dL (0.2-1.3); BLOOD UREA NITROGEN 23.7 mg/dL (9-20); CALCIUM 8.2 mg/dL (8.4-10.2); CREATININE 1.11 mg/dL (0.60-1.10); GLUCOSE 149.4 mg/dL (74-106); POTASSIUM 3.15 mmol/L (3.5-5.1); SODIUM 137.7 mmol/L (134.5-145); TOTAL PROTEIN 6.22 g/dL (6.3-8.2)
[2024-04-24 09:02] LABS: CARBON DIOXIDE 38.4 mmol/L (22-30.0)
--- NOTE | 2024-04-24 10:43 | PCM.PROG ---
Date/Time Seen Date Seen by Provider: 04/24/24 Time Seen by Provider: 09:00 Provider Provider: VERONICA ST, [facility] Chief Complaint Chief Complaint: PNEUMONIA,CHRONIC RESPIRATORY FAILURE Subjective Subjective: Feeling okay today. No complaints or concerns. Wound dressing with purulent drainage present. Objective Appearance: Positive No Apparent Distress, Ill-Appearing and Obese Chest/Lungs: Positive Symmetrical With Equal Breath Sounds, Clear to Auscultation Bilaterally and Good Air Movement all 4 Lung [place] Heart: Positive RRR and Pulses Normal GI/: Positive Soft, Nontender, Bowel Sounds Normal and No Distention Musculoskeletal: Positive Not Examined Neurological: Positive Sensation Intact, Motor intact, Alert and Oriented Additional Findings: Stage 2-3 pressure ulcer to R buttock, purulent drainage, surrounding erythema improving Vital Signs Vital Signs: Vital Signs: Last 24 Hours 04/23/24 13:00 04/23/24 14:00 04/23/24 14:00 Temperature 97.8 F Temperature Source Temporal Artery Scan Pulse Rate 80 Respiratory Rate 17 Blood Pressure 126/73 Blood Pressure Mean 90 Blood Pressure Location Left Arm Blood Pressure Position Sitting O2 Sat by Pulse Oximetry 94 L Oxygen Delivery Method Nasal Cannula Nasal Cannula Oxygen Flow Rate 8 8 Weight Telemetry Type Remote Telemetry Telemetry Monitoring Continues Irregular Telemetry Rate (Approximate) 90-100 BPM Telemetry Heart Rate EKG QRS Interval 0.10 Telemetry Strip Reading A- Fib 04/23/24 19:00 04/23/24 20:00 04/23/24 20:42 Temperature Temperature Source Pulse Rate Respiratory Rate 24 H Blood Pressure Blood Pressure Mean Blood Pressure Location Blood Pressure Position O2 Sat by Pulse Oximetry 92 L Oxygen Delivery Method Nasal Cannula Nasal Cannula Oxygen Flow Rate 8 8 Weight Telemetry Type Remote Telemetry Telemetry Monitoring Continues Irregular Telemetry Rate (Approximate) Telemetry Heart Rate 80 EKG QRS Interval 0.08 Telemetry Strip Reading ATRIAL FIB 04/23/24 21:06 04/24/24 00:52 04/24/24 05:21 Temperature 97.0 F L 96.4 F L Temperature Source Temporal Artery Scan Temporal Artery Scan Pulse Rate 70 84 Respiratory Rate 20 20 Blood Pressure 143/84 H 153/70 H Blood Pressure Mean 103 97 Blood Pressure Location Left Arm Right Arm Blood Pressure Position Sitting Sitting O2 Sat by Pulse Oximetry 93 L 100 Oxygen Delivery Method Nasal Cannula Nasal Cannula Oxygen Flow Rate 8 8 Weight Telemetry Type Remote Telemetry Telemetry Monitoring Continues Irregular Telemetry Rate (Approximate) Telemetry Heart Rate 76 EKG QRS Interval 0.10 Telemetry Strip Reading atrial fib 04/24/24 05:35 04/24/24 07:00 04/24/24 07:05 Temperature Temperature Source Pulse Rate Respiratory Rate Blood Pressure Blood Pressure Mean Blood Pressure Location Blood Pressure Position O2 Sat by Pulse Oximetry 94 L Oxygen Delivery Method Nasal Cannula Nasal Cannula Oxygen Flow Rate 8 8 Weight Telemetry Type Remote Telemetry Telemetry Monitoring Continues Irregular Telemetry Rate (Approximate) 80-90 BPM Telemetry Heart Rate EKG QRS Interval 0.08 Telemetry Strip Reading Afib 04/24/24 09:34 04/24/24 10:00 Temperature Temperature Source Pulse Rate Respiratory Rate Blood Pressure Blood Pressure Mean Blood Pressure Location Blood Pressure Position O2 Sat by Pulse Oximetry 92 L Oxygen Delivery Method Nasal Cannula Oxygen Flow Rate 7 Weight 301 lb 2 oz Telemetry Type Telemetry Monitoring Irregular Telemetry Rate (Approximate) Telemetry Heart Rate EKG QRS Interval Telemetry Strip Reading Lab Results Lab Results: Lab Results: Last 24 Hours 04/24/24 08:36 WBC 8.17 RBC 2.82 L Hgb 8.1 L Hct 25.9 L MCV 91.8 MCH 28.7 MCHC 31.3 L RDW Coeff of Sumeet 18.6 H Plt Count 263 Immature Gran % (Auto) 0.4 Neut % (Auto) 93.4 H Lymph % (Auto) 3.9 L [place] % (Auto) 2.3 Eos % (Auto) 0.0 Baso % (Auto) 0.0 Neut # (Auto) 7.6 H Lymph # (Auto) 0.3 L [place] # (Auto) 0.2 L Eos # (Auto) 0.0 Baso # (Auto) 0.0 Immature Gran # (Auto) 0.0 Sodium 137.7 Potassium 3.15 L Chloride 94.0 L Carbon Dioxide 38.4 H Anion Gap 8.45 BUN 23.7 H Creatinine 1.11 H Estimated GFR (MDRD) 65.00 BUN/Creatinine Ratio 21.35 Glucose 149.4 H Calcium 8.20 L Total Bilirubin 0.83 AST 59.7 H ALT 31.0 Alkaline Phosphatase 61.8 Total Protein 6.22 L Albumin 3.20 L Globulin 3.02 Albumin/Globulin Ratio 1.05 Vancomycin Trough 23.355 H* Additional Comments Additional Comments: I have independently reviewed and interpreted the labs/EKGs/imaging ordered during this hospital stay. I have reviewed outside records that are available in our EMR that pertain to medical stay including imaging/notes/labs from previous visits. Active Medications Active Medications: Medications Generic Name Dose Route Start Last Admin Trade Name Freq PRN Reason Stop Dose Admin Acetaminophen 650 mg 04/21/24 20:22 Acetaminophen 325 Mg Tablet PO Q4H PRN Mild Pain Albuterol Sulfate 2.5 mg 04/21/24 21:46 04/22/24 05:50 Albuterol Sulfate 0.083% Vial.Neb NEB 2.5 mg RTQ4H PRN Administration Wheezing Albuterol Sulfate 2 puff 04/21/24 23:45 04/22/24 17:00 Albuterol Sulfate 8 Gm Inhaler IH Not Given QID BAY Albuterol/Ipratropium 3 ml 04/21/24 22:00 04/24/24 10:23 Ipratropium/Albuterol Vial.Neb NEB 3 ml RTQ4H BAY Administration Allopurinol 50 mg 04/22/24 11:00 04/24/24 08:52 Allopurinol 100 Mg Tablet PO 50 mg DAILY BAY Administration Amiodarone HCl 200 mg 04/22/24 11:00 04/24/24 08:55 Amiodarone Hcl 200 Mg Tablet PO 200 mg DAILY BAY Administration Apixaban 5 mg 04/21/24 23:45 04/24/24 08:55 Apixaban 5 Mg Tab PO 5 mg BID BAY Administration Bumetanide 1 mg 04/22/24 11:00 04/22/24 12:14 Bumetanide 1 Mg Tablet PO 1 mg QDAC2 BAY Administration Carvedilol 12.5 mg 04/22/24 17:00 04/24/24 08:55 Carvedilol 12.5 Mg Tablet PO 12.5 mg BIDWM2 BAY Administration Diltiazem HCl 120 mg 04/22/24 11:00 04/24/24 08:54 Diltiazem Hcl 120 Mg Cap.Er.24h PO 120 mg DAILY BAY Administration Duloxetine HCl 60 mg 04/22/24 11:00 04/24/24 08:51 Duloxetine Hcl 30 Mg Capsule.Dr PO 60 mg DAILY BAY Administration Ezetimibe 10 mg 04/22/24 11:00 04/24/24 08:52 Ezetimibe 10 Mg Tablet PO 10 mg DAILY BAY Administration Fenofibrate 160 mg 04/22/24 11:00 04/24/24 08:51 Fenofibrate 160 Mg Tablet PO 160 mg DAILY BAY Administration Folic Acid 1 mg 04/22/24 11:00 04/24/24 08:54 Folic Acid 1 Mg Tablet PO 1 mg DAILY BAY Administration Guaifenesin 600 mg 04/22/24 11:00 04/24/24 08:54 Guaifenesin 600 Mg Tablet.Er PO 600 mg Q12HR BAY Administration VANCOMYCIN/WATER FOR INJ (PEG) 1.5 gm in 300 mls @ 200 mls/hr 04/22/24 09:00 04/24/24 09:09 Vancomycin 1.5 Gram/300 Ml Premix IV 04/24/24 11:00 200 mls/hr Q12HR BAY Administration Piperacillin Sod/Tazobactam 100 mls @ 200 mls/hr 04/22/24 08:00 04/24/24 05:03 Sod 4.5 gm/ Sodium Chloride IV 04/25/24 07:59 200 mls/hr Q6HR BAY Administration VANCOMYCIN/WATER FOR INJ (PEG) 1 gm in 200 mls @ 200 mls/hr 04/24/24 21:00 Vancomycin 1 Gram/200 Ml Premix IV 04/27/24 20:59 Q12HR [facility] Insulin Glargine 5 unit 04/22/24 21:00 04/24/24 09:06 Insulin Glargine,Hum.Rec.Anlog 100 Units/Ml SUBCUT 5 unit BID BAY Administration Insulin Human Regular 0 unit 04/22/24 10:50 04/23/24 20:26 Insulin Regular, Human 100 Unit/Ml (3ml) SUBCUT 3 unit PRN PRN Administration Hyperglycemia Protocol Levothyroxine Sodium 150 mcg 04/22/24 12:00 04/24/24 05:03 Levothyroxine Sodium 75 Mcg Tablet PO 150 mcg QDAC2 BAY Administration Methylprednisolone Sodium Succinate 40 mg 04/22/24 09:25 04/24/24 05:03 Methylprednisolone Sod Succ/Pf 40 Mg/Ml Vial IVP 40 mg Q8HR BAY Administration Non-Formulary Medication 400 mg 04/22/24 15:15 04/23/24 11:44 Imatinib PO 400 mg 1200 BAY Administration Potassium Chloride 20 meq 04/22/24 11:00 04/24/24 08:51 Potassium Chloride 20 Meq Tab PO 20 meq DAILYWM2 BAY Administration Rosuvastatin Calcium 20 mg 04/21/24 23:45 04/23/24 20:19 Rosuvastatin Calcium 10 Mg Tablet PO 20 mg BEDTIME BAY Administration Saccharomyces Boulardii 250 mg 04/23/24 10:30 04/24/24 08:54 Saccharomyces Boulardii 250 Mg Capsule PO 250 mg BID BAY Administration Sodium Chloride 1 syr 04/22/24 17:11 04/23/24 05:07 0.9% Sodium Chloride 10 Ml Disp.Syrin IVF 1 syr PRN PRN Administration Maintain IV Patency Sodium Chloride 1 syr 04/24/24 05:00 04/24/24 05:17 0.9% Sodium Chloride 10 Ml Disp.Syrin IVF 1 syr Q8HR BAY Administration Tiotropium [place] 1 cap 04/22/24 11:00 04/24/24 08:50 Tiotropium [place] 18 Mcg Cap.W.Dev IH 1 cap DAILY BAY Administration Trazodone HCl 50 mg 04/21/24 23:45 04/23/24 20:19 Trazodone Hcl 50 Mg Tablet PO 50 mg BEDTIME BAY Administration Plan Plan: 1. Acute on Chronic Hypoxic Respiratory Failure in setting of Aspiration pneumonia - Unchanged, new O2 requirement 8L currently, wean oxygen as tolerated to home O2, steroids, nebs 2. Aspiration Pneumonia - Improving, lung sounds more audible today, vanc and zosyn ordered, steroids, nebs, sputum culture, mrsa, strep pneumo, and legionella ordered. speech eval completed and recommends mech soft diet, would benefit from speech outpatient due to recurrent episodes of aspiration pneumonia - patient does not wish to have G tube again and is aware of the risks 3. UTI in setting of staph aureus - treating with vancomycin per sensitivity results, multi-drug resistance noted 4. Acute on Chronic Systolic Heart Failure - right pleural effusion worsened compared to imaging at [facility], gentle diuresis with lasix IVP BID, has diuresed well, trasnitioned to PO meds today, daily weight, I&O 5. DM2 - chronic, accuchecks qid with ssi, continue home lantus 6. Afib - chronic, not in RVR, continue home medications 7. Pressure ulcer to buttocks - wound culture growth of staph aureus and E. Coli. covered with vanc and zosyn, cleanse area daily and prn 8. Chronic myelocytic leukemia - labs stable, monitor, follows with hem/onc at [facility] DVt: Eliquis Dispo: Due to multi-drug resistant UTI and infection to pressure ulcer, pharmacy recommends 10 day course of antibiotics with current regimen of vanc and zosyn. Discussed with case management possibility of swingbed for IV antibiotics. I nsurance will require precert. Review Statement Review Statement: I have personally discussed and reviewed the patient's visit/currently labs/imaging/decision making with Dr. Mayes, my supervising attending. Greater that 50 minutes spent with patient, 50% of the time spent with this patient was devoted to counseling and coordination of care.
[2024-04-24] MEDS: K-DUR PO ONE (10:44)
[2024-04-24 14:12] LABS: SPECIMEN SOURCE Urine (.); STEP PNEUMO ORGANISM ID Not indicated. (.); STREP PNEUMO AG Negative (Negative); STREP PNEUMO BODY FLUID CULT Not indicated. (.)
[2024-04-24] MEDS: VANCOMYCIN 1 GRAM/200 ML PREMIX 1 GM/200 ML BAG IV SCH (20:47)
[2024-04-25 05:52] LABS: HEMATOCRIT 27.4 % (42.0-52.0); HEMOGLOBIN 8.4 g/dl (14.0-18.0); IMMATURE GRANULOCYTE % (AUTO) 0.5 % (0.0-5.0); LYMPHOCYTES # (AUTO) 0.4 K/uL (0.60-3.4); LYMPHOCYTES % (AUTO) 4.5 (10.0-50.0); MEAN CORPUSCULAR HEMOGLOBIN 28.5 pg (27.0-31.0); MEAN CORPUSCULAR HGB CONC 30.7 (31.8-35.4); MEAN CORPUSCULAR VOLUME 92.9 fl (80.0-94.0); MONOCYTES # (AUTO) 0.2 K/uL (0.4-2.0); NEUTROPHILS # (AUTO) 7.3 K/ul (2.0-6.9); PLATELET COUNT 285 10^3/uL (140-440); RDW COEFFICIENT OF VARIATION 19.1 % (11.6-14.8); RED BLOOD COUNT 2.95 10^6/ul (4.70-6.10); WHITE BLOOD COUNT 7.93 K/ul (4.2-10.2)
[2024-04-25 06:05] LABS: ALANINE AMINOTRANSFERASE 30.7 U/L (0-50); ALBUMIN 3.15 g/dL (3.5-5.0); ALKALINE PHOSPHATASE 59.9 U/L (56-119); ASPARTATE AMINO TRANSFERASE 43.2 U/L (17-59); BILIRUBIN,TOTAL 0.84 mg/dL (0.2-1.3); BLOOD UREA NITROGEN 28.9 mg/dL (9-20); CALCIUM 8.37 mg/dL (8.4-10.2); CARBON DIOXIDE 35.6 mmol/L (22-30.0); CHLORIDE 97.6 mmol/L (98-107); CREATININE 1.1 mg/dL (0.60-1.10); GLUCOSE 132.2 mg/dL (74-106); POTASSIUM 3.61 mmol/L (3.5-5.1); SODIUM 138.6 mmol/L (134.5-145); TOTAL PROTEIN 5.96 g/dL (6.3-8.2)
--- NOTE | 2024-04-25 10:29 | PCM.PROG ---
Date/Time Seen Date Seen by Provider: 04/25/24 Time Seen by Provider: 08:40 Provider Provider: Ibeth Laws PA-C, [facility] Chief Complaint Chief Complaint: PNEUMONIA,CHRONIC RESPIRATORY FAILURE Subjective Subjective: Patient states overall he is feeling better. Down to 6L today, states he wears 4-5L at home. Required assist of two to stand. No specific complaints today. Objective Appearance: Positive No Apparent Distress, Ill-Appearing and Obese Chest/Lungs: Positive Symmetrical With Equal Breath Sounds, Clear to Auscultation Bilaterally and Good Air Movement all 4 Lung [place] Heart: Positive RRR and Pulses Normal GI/: Positive Soft, Nontender, Bowel Sounds Normal and No Distention Musculoskeletal: Positive Not Examined Neurological: Positive Sensation Intact, Motor intact, Alert and Oriented Additional Findings: Stage 2-3 irregularly shaped pressure ulcer to R buttock, purulent drainage, surrounding erythema improving Vital Signs Vital Signs: Vital Signs: Last 24 Hours 04/24/24 13:00 04/24/24 14:00 04/24/24 14:00 Temperature 97.0 F L Temperature Source Tympanic Pulse Rate 73 Respiratory Rate 22 H Blood Pressure 133/64 Blood Pressure Mean 87 Blood Pressure Location Left Arm Blood Pressure Position Sitting O2 Sat by Pulse Oximetry 96 94 L Oxygen Delivery Method Nasal Cannula Nasal Cannula Oxygen Flow Rate 7 7 Telemetry Type Remote Telemetry Telemetry Monitoring Continues Irregular Telemetry Rate (Approximate) 70-80 BPM EKG QRS Interval 0.11 H Telemetry Strip Reading Atrial Fib. 04/24/24 19:00 04/24/24 19:59 04/24/24 20:00 Temperature Temperature Source Pulse Rate Respiratory Rate Blood Pressure Blood Pressure Mean Blood Pressure Location Blood Pressure Position O2 Sat by Pulse Oximetry Oxygen Delivery Method Nasal Cannula Nasal Cannula Oxygen Flow Rate 7 6 Telemetry Type Remote Telemetry Telemetry Monitoring Continues Irregular Telemetry Rate (Approximate) 80-90 BPM EKG QRS Interval 0.12 H Telemetry Strip Reading A-Fib 04/24/24 21:29 04/25/24 00:49 04/25/24 05:06 Temperature 97.6 F Temperature Source Temporal Artery Scan Pulse Rate 80 Respiratory Rate 19 Blood Pressure 142/63 H Blood Pressure Mean 89 Blood Pressure Location Right Arm Blood Pressure Position Sitting O2 Sat by Pulse Oximetry 95 96 Oxygen Delivery Method Nasal Cannula Nasal Cannula Oxygen Flow Rate 6 7 Telemetry Type Remote Telemetry Telemetry Monitoring Continues Irregular Telemetry Rate (Approximate) 80-90 BPM EKG QRS Interval 0.08 Telemetry Strip Reading atrial fib 04/25/24 05:45 04/25/24 10:00 Temperature 96.8 F L Temperature Source Oral Pulse Rate 88 Respiratory Rate 20 Blood Pressure 138/71 Blood Pressure Mean 93 Blood Pressure Location Blood Pressure Position O2 Sat by Pulse Oximetry 91 L 95 Oxygen Delivery Method Nasal Cannula Nasal Cannula Oxygen Flow Rate 6 7 Telemetry Type Telemetry Monitoring Irregular Telemetry Rate (Approximate) EKG QRS Interval Telemetry Strip Reading Lab Results Lab Results: Lab Results: Last 24 Hours 04/25/24 04/21/24 05:11 17:30 WBC 7.93 RBC 2.95 L Hgb 8.4 L Hct 27.4 L MCV 92.9 MCH 28.5 MCHC 30.7 L RDW Coeff of Sumeet 19.1 H Plt Count 285 Immature Gran % (Auto) 0.5 Neut % (Auto) 92.0 H Lymph % (Auto) 4.5 L [place] % (Auto) 3.0 Eos % (Auto) 0.0 Baso % (Auto) 0.0 Neut # (Auto) 7.3 H Lymph # (Auto) 0.4 L [place] # (Auto) 0.2 L Eos # (Auto) 0.0 Baso # (Auto) 0.0 Immature Gran # (Auto) 0.0 Sodium 138.6 Potassium 3.61 Chloride 97.6 L Carbon Dioxide 35.6 H Anion Gap 9.01 BUN 28.9 H Creatinine 1.10 Estimated GFR (MDRD) 66.00 BUN/Creatinine Ratio 26.27 Glucose 132.2 H Calcium 8.37 L Total Bilirubin 0.84 AST 43.2 ALT 30.7 Alkaline Phosphatase 59.9 Total Protein 5.96 L Albumin 3.15 L Globulin 2.81 Albumin/Globulin Ratio 1.12 Urine Legionella Ag Negative Additional Comments Additional Comments: I have independently reviewed and interpreted the labs/EKGs/imaging ordered during this hospital stay. I have reviewed outside records that are available in our EMR that pertain to medical stay including imaging/notes/labs from previous visits. Active Medications Active Medications: Medications Generic Name Dose Route Start Last Admin Trade Name Freq PRN Reason Stop Dose Admin Acetaminophen 650 mg 04/21/24 20:22 Acetaminophen 325 Mg Tablet PO Q4H PRN Mild Pain Albuterol Sulfate 2.5 mg 04/21/24 21:46 04/22/24 05:50 Albuterol Sulfate 0.083% Vial.Neb NEB 2.5 mg RTQ4H PRN Administration Wheezing Albuterol Sulfate 2 puff 04/21/24 23:45 04/22/24 17:00 Albuterol Sulfate 8 Gm Inhaler IH Not Given QID BAY Albuterol/Ipratropium 3 ml 04/21/24 22:00 04/25/24 10:03 Ipratropium/Albuterol Vial.Neb NEB 3 ml RTQ4H BAY Administration Allopurinol 50 mg 04/22/24 11:00 04/25/24 08:36 Allopurinol 100 Mg Tablet PO 50 mg DAILY BAY Administration Amiodarone HCl 200 mg 04/22/24 11:00 04/25/24 08:35 Amiodarone Hcl 200 Mg Tablet PO 200 mg DAILY BAY Administration Amoxicillin/Clavulanate Potassium 1 tab 04/25/24 17:00 Amoxicillin/Potassium Clav 875/125 Mg Tablet PO 04/30/24 23:59 BIDWM2 BAY Apixaban 5 mg 04/21/24 23:45 04/25/24 08:49 Apixaban 5 Mg Tab PO 5 mg BID BAY Administration Bumetanide 1 mg 04/22/24 11:00 04/25/24 05:41 Bumetanide 1 Mg Tablet PO 1 mg QDAC2 BAY Administration Carvedilol 12.5 mg 04/22/24 17:00 04/25/24 08:35 Carvedilol 12.5 Mg Tablet PO 12.5 mg BIDWM2 BAY Administration Diltiazem HCl 120 mg 04/22/24 11:00 04/25/24 08:33 Diltiazem Hcl 120 Mg Cap.Er.24h PO 120 mg DAILY BAY Administration Duloxetine HCl 60 mg 04/22/24 11:00 04/25/24 08:35 Duloxetine Hcl 30 Mg Capsule.Dr PO 60 mg DAILY BAY Administration Ezetimibe 10 mg 04/22/24 11:00 04/25/24 08:35 Ezetimibe 10 Mg Tablet PO 10 mg DAILY BAY Administration Fenofibrate 160 mg 04/22/24 11:00 04/25/24 08:34 Fenofibrate 160 Mg Tablet PO 160 mg DAILY BAY Administration Folic Acid 1 mg 04/22/24 11:00 04/25/24 08:34 Folic Acid 1 Mg Tablet PO 1 mg DAILY BAY Administration Guaifenesin 600 mg 04/22/24 11:00 04/25/24 08:34 Guaifenesin 600 Mg Tablet.Er PO 600 mg Q12HR BAY Administration VANCOMYCIN/WATER FOR INJ (PEG) 1 gm in 200 mls @ 200 mls/hr 04/24/24 21:00 04/25/24 08:44 Vancomycin 1 Gram/200 Ml Premix IV 04/27/24 20:59 200 mls/hr Q12HR BAY Administration Insulin Glargine 5 unit 04/22/24 21:00 04/25/24 08:46 Insulin Glargine,Hum.Rec.Anlog 100 Units/Ml SUBCUT 5 unit BID BAY Administration Insulin Human Regular 0 unit 04/22/24 10:50 04/24/24 20:47 Insulin Regular, Human 100 Unit/Ml (3ml) SUBCUT 3 unit PRN PRN Administration Hyperglycemia Protocol Levothyroxine Sodium 150 mcg 04/22/24 12:00 04/25/24 05:41 Levothyroxine Sodium 75 Mcg Tablet PO 150 mcg QDAC2 BAY Administration Methylprednisolone Sodium Succinate 40 mg 04/22/24 09:25 04/25/24 05:41 Methylprednisolone Sod Succ/Pf 40 Mg/Ml Vial IVP 40 mg Q8HR BAY Administration Non-Formulary Medication 400 mg 04/22/24 15:15 04/24/24 12:22 Imatinib PO 400 mg 1200 BAY Administration Potassium Chloride 20 meq 04/22/24 11:00 04/25/24 08:34 Potassium Chloride 20 Meq Tab PO 20 meq DAILYWM2 BAY Administration Rosuvastatin Calcium 20 mg 04/21/24 23:45 04/24/24 20:46 Rosuvastatin Calcium 10 Mg Tablet PO 20 mg BEDTIME BAY Administration Saccharomyces Boulardii 250 mg 04/23/24 10:30 04/25/24 08:33 Saccharomyces Boulardii 250 Mg Capsule PO 250 mg BID BAY Administration Sodium Chloride 1 syr 04/24/24 05:00 04/25/24 05:41 0.9% Sodium Chloride 10 Ml Disp.Syrin IVF 1 syr Q8HR BAY Administration Sodium Chloride 1 syr 04/24/24 18:03 0.9% Sodium Chloride 10 Ml Disp.Syrin IVF PRN PRN Maintain IV Patency Tiotropium [place] 1 cap 04/22/24 11:00 04/25/24 08:43 Tiotropium [place] 18 Mcg Cap.W.Dev IH 1 cap DAILY BAY Administration Trazodone HCl 50 mg 04/21/24 23:45 04/24/24 20:46 Trazodone Hcl 50 Mg Tablet PO 50 mg BEDTIME BAY Administration Plan Plan: 1. Acute on Chronic Hypoxic Respiratory Failure in setting of Aspiration pneumonia - Improving, wean oxygen as tolerated to home O2 (4-5L), cont abx, steroids, nebs 2. Aspiration Pneumonia - Improving, lung sounds more audible today, vanc and zosyn ordered, changing zosyn to augmentin today, cont steroids, nebs, strep pneumo, and legionella ordered. speech eval completed and recommends mech soft diet, would benefit from speech outpatient due to recurrent episodes of aspiration pneumonia - patient does not wish to have G tube again and is aware of the risks 3. UTI in setting of staph aureus - treating with vancomycin per sensitivity results, multi-drug resistance noted 4. Acute on Chronic Systolic Heart Failure - right pleural effusion worsened compared to imaging at [facility], gentle diuresis with lasix IVP BID, has diuresed well, trasnitioned to PO meds 04/24, daily weight, I&O 5. DM2 - chronic, accuchecks qid with ssi, continue home lantus 6. Afib - chronic, not in RVR, continue home medications 7. Pressure ulcer to buttocks - wound culture growth of staph aureus and E. Coli. covered with vanc and augmentin, cleanse area daily and prn 8. Chronic myelocytic leukemia - labs stable, monitor, follows with hem/onc at [facility] DVt: Eliquis Dispo: Due to multi-drug resistant UTI and infection to pressure ulcer, pharmacy recommends 10 day course of antibiotics with current regimen of vanc and zosyn. Discussed with case management possibility of swingbed for IV antibiotics. Insurance will require precert. Review Statement Review Statement: I have personally discussed and reviewed the patient's visit/currently labs/imaging/decision making with Dr. Mayes, my supervising attending. Greater that 50 minutes spent with patient, 50% of the time spent with this patient was devoted to counseling and coordination of care.
[2024-04-25] MEDS: AUGMENTIN 875-125 MG TAB PO SCH (17:20)
[2024-04-26 09:10] LABS: EOSINOPHILS % (AUTO) 0.3 % (0.0-7.0); HEMATOCRIT 25.2 % (42.0-52.0); IMMATURE GRANULOCYTE % (AUTO) 0.3 % (0.0-5.0); LYMPHOCYTES # (AUTO) 0.4 K/uL (0.60-3.4); MEAN CORPUSCULAR HEMOGLOBIN 29.3 pg (27.0-31.0); MEAN CORPUSCULAR HGB CONC 31.7 (31.8-35.4); MEAN CORPUSCULAR VOLUME 92.3 fl (80.0-94.0); MONOCYTES # (AUTO) 0.2 K/uL (0.4-2.0); MONOCYTES % (AUTO) 3.2 (0-10); NEUTROPHILS # (AUTO) 5.9 K/ul (2.0-6.9); NEUTROPHILS % (AUTO) 90.2 % (42.2-75.2); PLATELET COUNT 279 10^3/uL (140-440); RDW COEFFICIENT OF VARIATION 19.4 % (11.6-14.8); RED BLOOD COUNT 2.73 10^6/ul (4.70-6.10); WHITE BLOOD COUNT 6.53 K/ul (4.2-10.2)
[2024-04-26 09:26] LABS: ALANINE AMINOTRANSFERASE 29.3 U/L (0-50); ALBUMIN 2.98 g/dL (3.5-5.0); ALKALINE PHOSPHATASE 56.9 U/L (56-119); ASPARTATE AMINO TRANSFERASE 42.2 U/L (17-59); BILIRUBIN,TOTAL 0.78 mg/dL (0.2-1.3); BLOOD UREA NITROGEN 32.6 mg/dL (9-20); CALCIUM 8.41 mg/dL (8.4-10.2); CARBON DIOXIDE 39.1 mmol/L (22-30.0); CHLORIDE 95.5 mmol/L (98-107); CREATININE 1.21 mg/dL (0.60-1.10); POTASSIUM 3.91 mmol/L (3.5-5.1); SODIUM 136.8 mmol/L (134.5-145); TOTAL PROTEIN 5.73 g/dL (6.3-8.2)
--- NOTE | 2024-04-26 09:43 | PCM.PROG ---
Date/Time Seen Date Seen by Provider: 04/26/24 Time Seen by Provider: 09:15 Provider Provider: VERONICA ST, [facility] Chief Complaint Chief Complaint: PNEUMONIA,CHRONIC RESPIRATORY FAILURE Subjective Subjective: Feels good today. Still on 6L Continues to require assist of 2. Objective Appearance: Positive No Apparent Distress, Alert and Oriented x3 and Obese Chest/Lungs: Positive Symmetrical With Equal Breath Sounds, Clear to Auscultation Bilaterally and Good Air Movement all 4 Lung [place] Heart: Positive RRR and Pulses Normal GI/: Positive Soft, Nontender, Bowel Sounds Normal and No Distention Musculoskeletal: Positive Not Examined Neurological: Positive Sensation Intact, Motor intact, Alert and Oriented Additional Findings: Trace edema BLE, stage 2-3 pressure ulcer to right buttock Vital Signs Vital Signs: Vital Signs: Last 24 Hours 04/25/24 10:00 04/25/24 13:00 04/25/24 14:00 Temperature 97.1 F L Temperature Source Pulse Rate 28 L Respiratory Rate Blood Pressure Blood Pressure Mean Blood Pressure Location Blood Pressure Position O2 Sat by Pulse Oximetry 95 Oxygen Delivery Method Nasal Cannula Nasal Cannula Oxygen Flow Rate 7 Telemetry Type Remote Telemetry Telemetry Monitoring Continues Irregular Telemetry Rate (Approximate) 70-80 BPM Telemetry Heart Rate Telemetry SPO2 92 L EKG QRS Interval 0.09 Telemetry Strip Reading A-Fib 04/25/24 14:00 04/25/24 19:00 04/25/24 20:00 Temperature Temperature Source Pulse Rate Respiratory Rate Blood Pressure Blood Pressure Mean Blood Pressure Location Blood Pressure Position O2 Sat by Pulse Oximetry 94 L Oxygen Delivery Method Nasal Cannula Nasal Cannula Oxygen Flow Rate 7 7 Telemetry Type Remote Telemetry Telemetry Monitoring Continues Irregular Telemetry Rate (Approximate) Telemetry Heart Rate 71 Telemetry SPO2 EKG QRS Interval 0.08 Telemetry Strip Reading a fib 04/25/24 20:00 04/25/24 21:14 04/26/24 01:00 Temperature 97.8 F Temperature Source Temporal Artery Scan Pulse Rate 68 Respiratory Rate 21 H Blood Pressure 149/71 H Blood Pressure Mean 97 Blood Pressure Location Left Arm Blood Pressure Position Supine O2 Sat by Pulse Oximetry 96 Oxygen Delivery Method Nasal Cannula Nasal Cannula Oxygen Flow Rate 6 6 Telemetry Type Remote Telemetry Telemetry Monitoring Continues Irregular Telemetry Rate (Approximate) Telemetry Heart Rate 83 Telemetry SPO2 EKG QRS Interval 0.07 Telemetry Strip Reading a fib 04/26/24 04:45 04/26/24 05:13 04/26/24 07:00 Temperature 97.4 F L Temperature Source Temporal Artery Scan Pulse Rate 89 Respiratory Rate 21 H Blood Pressure 154/97 H Blood Pressure Mean 116 Blood Pressure Location Right Arm Blood Pressure Position Supine O2 Sat by Pulse Oximetry 95 92 L Oxygen Delivery Method Nasal Cannula Nasal Cannula Oxygen Flow Rate 6 7 Telemetry Type Remote Telemetry Telemetry Monitoring Continues Irregular Telemetry Rate (Approximate) 100-110 BPM Telemetry Heart Rate Telemetry SPO2 EKG QRS Interval 0.06 Telemetry Strip Reading afib w/ RVR 04/26/24 08:00 Temperature Temperature Source Pulse Rate Respiratory Rate 22 H Blood Pressure Blood Pressure Mean Blood Pressure Location Blood Pressure Position O2 Sat by Pulse Oximetry Oxygen Delivery Method Nasal Cannula Oxygen Flow Rate 6 Telemetry Type Telemetry Monitoring Irregular Telemetry Rate (Approximate) Telemetry Heart Rate Telemetry SPO2 EKG QRS Interval Telemetry Strip Reading Lab Results Lab Results: Lab Results: Last 24 Hours 04/26/24 09:02 WBC 6.53 RBC 2.73 L Hgb 8.0 L Hct 25.2 L MCV 92.3 MCH 29.3 MCHC 31.7 L RDW Coeff of Sumeet 19.4 H Plt Count 279 Immature Gran % (Auto) 0.3 Neut % (Auto) 90.2 H Lymph % (Auto) 6.0 L [place] % (Auto) 3.2 Eos % (Auto) 0.3 Baso % (Auto) 0.0 Neut # (Auto) 5.9 Lymph # (Auto) 0.4 L [place] # (Auto) 0.2 L Eos # (Auto) 0.0 Baso # (Auto) 0.0 Immature Gran # (Auto) 0.0 Sodium 136.8 Potassium 3.91 Chloride 95.5 L Carbon Dioxide 39.1 H Anion Gap 6.11 BUN 32.6 H Creatinine 1.21 H Estimated GFR (MDRD) 59.00 BUN/Creatinine Ratio 26.94 Glucose 153.0 H Calcium 8.41 Total Bilirubin 0.78 AST 42.2 ALT 29.3 Alkaline Phosphatase 56.9 Total Protein 5.73 L Albumin 2.98 L Globulin 2.75 Albumin/Globulin Ratio 1.08 Vancomycin Trough 23.876 H* Additional Comments Additional Comments: I have independently reviewed and interpreted the labs/EKGs/imaging ordered during this hospital stay. I have reviewed outside records that are available in our EMR that pertain to medical stay including imaging/notes/labs from previous visits. Active Medications Active Medications: Medications Generic Name Dose Route Start Last Admin Trade Name Freq PRN Reason Stop Dose Admin Acetaminophen 650 mg 04/21/24 20:22 Acetaminophen 325 Mg Tablet PO Q4H PRN Mild Pain Albuterol Sulfate 2.5 mg 04/21/24 21:46 04/22/24 05:50 Albuterol Sulfate 0.083% Vial.Neb NEB 2.5 mg RTQ4H PRN Administration Wheezing Albuterol Sulfate 2 puff 04/21/24 23:45 04/22/24 17:00 Albuterol Sulfate 8 Gm Inhaler IH Not Given QID BAY Albuterol/Ipratropium 3 ml 04/21/24 22:00 04/26/24 05:00 Ipratropium/Albuterol Vial.Neb NEB 3 ml RTQ4H BAY Administration Allopurinol 50 mg 04/22/24 11:00 04/26/24 09:00 Allopurinol 100 Mg Tablet PO 50 mg DAILY BAY Administration Amiodarone HCl 200 mg 04/22/24 11:00 04/26/24 09:01 Amiodarone Hcl 200 Mg Tablet PO 200 mg DAILY BAY Administration Amoxicillin/Clavulanate Potassium 1 tab 04/25/24 17:00 04/26/24 08:59 Amoxicillin/Potassium Clav 875/125 Mg Tablet PO 04/30/24 23:59 1 tab [id number] BAY Administration Apixaban 5 mg 04/21/24 23:45 04/26/24 09:00 Apixaban 5 Mg Tab PO 5 mg BID BAY Administration Bumetanide 1 mg 04/22/24 11:00 04/26/24 05:10 Bumetanide 1 Mg Tablet PO 1 mg QDAC2 BAY Administration Carvedilol 12.5 mg 04/22/24 17:00 04/26/24 09:00 Carvedilol 12.5 Mg Tablet PO 12.5 mg [id number] BAY Administration Diltiazem HCl 120 mg 04/22/24 11:00 04/26/24 09:00 Diltiazem Hcl 120 Mg Cap.Er.24h PO 120 mg DAILY BAY Administration Duloxetine HCl 60 mg 04/22/24 11:00 04/26/24 08:59 Duloxetine Hcl 30 Mg Capsule.Dr PO 60 mg DAILY BAY Administration Ezetimibe 10 mg 04/22/24 11:00 04/26/24 08:59 Ezetimibe 10 Mg Tablet PO 10 mg DAILY BAY Administration Fenofibrate 160 mg 04/22/24 11:00 04/26/24 09:01 Fenofibrate 160 Mg Tablet PO 160 mg DAILY BAY Administration Folic Acid 1 mg 04/22/24 11:00 04/26/24 08:59 Folic Acid 1 Mg Tablet PO 1 mg DAILY BAY Administration Guaifenesin 600 mg 04/22/24 11:00 04/26/24 08:59 Guaifenesin 600 Mg Tablet.Er PO 600 mg Q12HR BAY Administration VANCOMYCIN/WATER FOR INJ (PEG) 1 gm in 200 mls @ 200 mls/hr 04/24/24 21:00 04/26/24 09:06 Vancomycin 1 Gram/200 Ml Premix IV 04/27/24 20:59 200 mls/hr Q12HR BAY Administration Insulin Glargine 5 unit 04/22/24 21:00 04/26/24 09:32 Insulin Glargine,Hum.Rec.Anlog 100 Units/Ml SUBCUT 5 unit BID BAY Administration Insulin Human Regular 0 unit 04/22/24 10:50 04/25/24 17:59 Insulin Regular, Human 100 Unit/Ml (3ml) SUBCUT 3 unit PRN PRN Administration Hyperglycemia Protocol Levothyroxine Sodium 150 mcg 04/22/24 12:00 04/26/24 05:10 Levothyroxine Sodium 75 Mcg Tablet PO 150 mcg QDAC2 BAY Administration Methylprednisolone Sodium Succinate 40 mg 04/22/24 09:25 04/26/24 05:10 Methylprednisolone Sod Succ/Pf 40 Mg/Ml Vial IVP 40 mg Q8HR BAY Administration Non-Formulary Medication 400 mg 04/22/24 15:15 04/25/24 12:49 Imatinib PO 400 mg 1200 BAY Administration Potassium Chloride 20 meq 04/22/24 11:00 04/26/24 09:35 Potassium Chloride 20 Meq Tab PO 20 meq DAILYWM2 BAY Administration Rosuvastatin Calcium 20 mg 04/21/24 23:45 04/25/24 20:37 Rosuvastatin Calcium 10 Mg Tablet PO 20 mg BEDTIME BAY Administration Saccharomyces Boulardii 250 mg 04/23/24 10:30 04/26/24 08:59 Saccharomyces Boulardii 250 Mg Capsule PO 250 mg BID BAY Administration Sodium Chloride 1 syr 04/24/24 05:00 04/26/24 05:10 0.9% Sodium Chloride 10 Ml Disp.Syrin IVF 1 syr Q8HR BAY Administration Sodium Chloride 1 syr 04/24/24 18:03 0.9% Sodium Chloride 10 Ml Disp.Syrin IVF PRN PRN Maintain IV Patency Tiotropium [place] 1 cap 04/22/24 11:00 04/26/24 09:01 Tiotropium [place] 18 Mcg Cap.W.Dev IH 1 cap DAILY BAY Administration Trazodone HCl 50 mg 04/21/24 23:45 04/25/24 20:37 Trazodone Hcl 50 Mg Tablet PO 50 mg BEDTIME BAY Administration Plan Plan: 1. Acute on Chronic Hypoxic Respiratory Failure in setting of Aspiration pneumonia - Improving, wean oxygen as tolerated to home O2 (4-5L), cont abx, steroids, nebs 2. Aspiration Pneumonia - Improving, lung sounds more audible, vanc and zosyn ordered, changing zosyn to augmentin yesterday, cont steroids, nebs, legionella negative. speech eval completed and recommends mech soft diet, would benefit from speech outpatient due to recurrent episodes of aspiration pneumonia - patient does not wish to have G tube again and is aware of the risks 3. UTI in setting of staph aureus - treating with vancomycin per sensitivity results, multi-drug resistance noted 4. Acute on Chronic Systolic Heart Failure - right pleural effusion worsened compared to imaging at [facility], gentle diuresis with lasix IVP BID, has diuresed well, transitioned to PO meds 04/24, daily weight, I&O 5. DM2 - chronic, accuchecks qid with ssi, continue home lantus 6. Afib - chronic, not in RVR, continue home medications 7. Pressure ulcer to buttocks - wound culture growth of staph aureus and E. Coli. covered with vanc and augmentin, cleanse area daily and prn 8. Chronic myelocytic leukemia - labs stable, monitor, follows with hem/onc at [facility] DVT: Eliquis Dispo: Due to multi-drug resistant UTI and infection to pressure ulcer, pharmacy recommends 10 day course of antibiotics with current regimen of vanc and zosyn. Discussed with case management possibility of swingbed for IV antibiotics. Insurance will require precert. Review Statement Review Statement: I have personally discussed and reviewed the patient's visit/currently labs/imaging/decision making with Dr. Mayes, my supervising attending. Greater that 50 minutes spent with patient, 50% of the time spent with this patient was devoted to counseling and coordination of care.
[2024-04-27 05:19] LABS: EOSINOPHILS % (AUTO) 0.3 % (0.0-7.0); HEMATOCRIT 24.8 % (42.0-52.0); HEMOGLOBIN 7.7 g/dl (14.0-18.0); IMMATURE GRANULOCYTE % (AUTO) 0.3 % (0.0-5.0); LYMPHOCYTES # (AUTO) 0.5 K/uL (0.60-3.4); LYMPHOCYTES % (AUTO) 7.6 (10.0-50.0); MEAN CORPUSCULAR HEMOGLOBIN 28.9 pg (27.0-31.0); MEAN CORPUSCULAR VOLUME 93.2 fl (80.0-94.0); MONOCYTES # (AUTO) 0.4 K/uL (0.4-2.0); MONOCYTES % (AUTO) 6.6 (0-10); NEUTROPHILS # (AUTO) 5.1 K/ul (2.0-6.9); NEUTROPHILS % (AUTO) 85.2 % (42.2-75.2); PLATELET COUNT 261 10^3/uL (140-440); RDW COEFFICIENT OF VARIATION 19.8 % (11.6-14.8); RED BLOOD COUNT 2.66 10^6/ul (4.70-6.10); WHITE BLOOD COUNT 5.95 K/ul (4.2-10.2)
[2024-04-27 05:34] LABS: ALANINE AMINOTRANSFERASE 30.4 U/L (0-50); ALBUMIN 3.01 g/dL (3.5-5.0); ALKALINE PHOSPHATASE 52.5 U/L (56-119); ASPARTATE AMINO TRANSFERASE 42.9 U/L (17-59); BILIRUBIN,TOTAL 0.78 mg/dL (0.2-1.3); BLOOD UREA NITROGEN 34.6 mg/dL (9-20); CALCIUM 8.36 mg/dL (8.4-10.2); CHLORIDE 96.5 mmol/L (98-107); CREATININE 1.13 mg/dL (0.60-1.10); GLUCOSE 92.7 mg/dL (74-106); POTASSIUM 4.13 mmol/L (3.5-5.1); SODIUM 136.1 mmol/L (134.5-145); TOTAL PROTEIN 5.7 g/dL (6.3-8.2)
[2024-04-27 05:41] LABS: CARBON DIOXIDE 38.4 mmol/L (22-30.0)
[2024-04-27] MEDS: VANCOMYCIN 1.25 GM/250 ML BAG 1.25 GM/250 ML BAG IV SCH (08:28)
--- NOTE | 2024-04-27 09:28 | PCM.PROG ---
Date/Time Seen Date Seen by Provider: 04/27/24 Time Seen by Provider: 08:40 Provider Provider: Ibeth Laws PA-C, [facility] Chief Complaint Chief Complaint: PNEUMONIA,CHRONIC RESPIRATORY FAILURE Subjective Subjective: Patient states he's wear when trying to stand up, but once he's up he "does ok". states he required a lot of help toileting today that she would not be able to do alone at home. Otherwise patient has no specific complaints. Objective Appearance: Positive No Apparent Distress, Alert and Oriented x3 and Obese Chest/Lungs: Positive Symmetrical With Equal Breath Sounds, Clear to Auscultation Bilaterally and Other (diminished air movement [place] ) Heart: Positive RRR and Pulses Normal GI/: Positive Soft, Nontender, Bowel Sounds Normal and No Distention Neurological: Positive Alert, Oriented and Other (+generalized weakness ) Additional Findings: Trace edema BLE, stage 2-3 pressure ulcer to right buttock Vital Signs Vital Signs: Vital Signs: Last 24 Hours 04/26/24 10:00 04/26/24 13:00 04/26/24 14:00 Temperature 96.7 F L Temperature Source Temporal Artery Scan Pulse Rate 66 Respiratory Rate 26 H Blood Pressure 127/61 Blood Pressure Mean 83 Blood Pressure Location Left Arm Blood Pressure Position Sitting O2 Sat by Pulse Oximetry 96 Oxygen Delivery Method Nasal Cannula Nasal Cannula Oxygen Flow Rate 6 7 Height Weight Telemetry Type Remote Telemetry Telemetry Monitoring Continues Irregular Telemetry Rate (Approximate) 70-80 BPM Telemetry Heart Rate EKG QRS Interval 0.08 Telemetry Strip Reading afib 04/26/24 14:00 04/26/24 19:00 04/26/24 19:05 Temperature Temperature Source Pulse Rate Respiratory Rate Blood Pressure Blood Pressure Mean Blood Pressure Location Blood Pressure Position O2 Sat by Pulse Oximetry 95 Oxygen Delivery Method Nasal Cannula Oxygen Flow Rate 7 Height 6 ft 6 in Weight 299 lb Telemetry Type Remote Telemetry Telemetry Monitoring Continues Irregular Telemetry Rate (Approximate) Telemetry Heart Rate 68 EKG QRS Interval 0.07 Telemetry Strip Reading atrial fib 04/26/24 19:54 04/26/24 20:00 04/26/24 20:01 Temperature 96.7 F L Temperature Source Temporal Artery Scan Pulse Rate 76 Respiratory Rate 20 Blood Pressure 137/66 Blood Pressure Mean 89 Blood Pressure Location Right Arm Blood Pressure Position Supine O2 Sat by Pulse Oximetry 94 L Oxygen Delivery Method Nasal Cannula Nasal Cannula Nasal Cannula Oxygen Flow Rate 7 7 6 Height Weight Telemetry Type Telemetry Monitoring Irregular Telemetry Rate (Approximate) Telemetry Heart Rate EKG QRS Interval Telemetry Strip Reading 04/27/24 01:00 04/27/24 05:05 04/27/24 05:41 Temperature 96.9 F L Temperature Source Temporal Artery Scan Pulse Rate 84 Respiratory Rate 21 H Blood Pressure 157/79 H Blood Pressure Mean 105 Blood Pressure Location Right Arm Blood Pressure Position Supine O2 Sat by Pulse Oximetry 95 94 L Oxygen Delivery Method Nasal Cannula Nasal Cannula Oxygen Flow Rate 7 6 Height Weight Telemetry Type Remote Telemetry Telemetry Monitoring Continues Irregular Telemetry Rate (Approximate) Telemetry Heart Rate 73 EKG QRS Interval 0.06 Telemetry Strip Reading a fib 04/27/24 05:43 04/27/24 06:55 04/27/24 07:27 Temperature Temperature Source Pulse Rate Respiratory Rate Blood Pressure Blood Pressure Mean Blood Pressure Location Blood Pressure Position O2 Sat by Pulse Oximetry Oxygen Delivery Method Nasal Cannula Oxygen Flow Rate 7 Height Weight 299 lb Telemetry Type Remote Telemetry Telemetry Monitoring Continues Irregular Telemetry Rate (Approximate) 80-90 BPM Telemetry Heart Rate EKG QRS Interval 0.08 Telemetry Strip Reading Afib Lab Results Lab Results: Lab Results: Last 24 Hours 04/27/24 04/26/24 05:10 09:02 WBC 5.95 RBC 2.66 L Hgb 7.7 L Hct 24.8 L MCV 93.2 MCH 28.9 MCHC 31.0 L RDW Coeff of Sumeet 19.8 H Plt Count 261 Immature Gran % (Auto) 0.3 Neut % (Auto) 85.2 H Lymph % (Auto) 7.6 L [place] % (Auto) 6.6 Eos % (Auto) 0.3 Baso % (Auto) 0.0 Neut # (Auto) 5.1 Lymph # (Auto) 0.5 L [place] # (Auto) 0.4 Eos # (Auto) 0.0 Baso # (Auto) 0.0 Immature Gran # (Auto) 0.0 Sodium 136.1 136.8 Potassium 4.13 3.91 Chloride 96.5 L 95.5 L Carbon Dioxide 38.4 H 39.1 H Anion Gap 5.33 6.11 BUN 34.6 H 32.6 H Creatinine 1.13 H 1.21 H Estimated GFR (MDRD) 64.00 59.00 BUN/Creatinine Ratio 30.61 26.94 Glucose 92.7 D 153.0 H Calcium 8.36 L 8.41 Total Bilirubin 0.78 0.78 AST 42.9 42.2 ALT 30.4 29.3 Alkaline Phosphatase 52.5 L 56.9 Total Protein 5.70 L 5.73 L Albumin 3.01 L 2.98 L Globulin 2.69 2.75 Albumin/Globulin Ratio 1.11 1.08 Vancomycin Trough 23.876 H* Additional Comments Additional Comments: I have independently reviewed and interpreted the labs/EKGs/imaging ordered during this hospital stay. I have reviewed outside records that are available in our EMR that pertain to medical stay including imaging/notes/labs from previous visits. Active Medications Active Medications: Medications Generic Name Dose Route Start Last Admin Trade Name Freq PRN Reason Stop Dose Admin Acetaminophen 650 mg 04/21/24 20:22 Acetaminophen 325 Mg Tablet PO Q4H PRN Mild Pain Albuterol Sulfate 2.5 mg 04/21/24 21:46 04/22/24 05:50 Albuterol Sulfate 0.083% Vial.Neb NEB 2.5 mg RTQ4H PRN Administration Wheezing Albuterol Sulfate 2 puff 04/21/24 23:45 04/22/24 17:00 Albuterol Sulfate 8 Gm Inhaler IH Not Given QID BAY Albuterol/Ipratropium 3 ml 04/21/24 22:00 04/27/24 04:42 Ipratropium/Albuterol Vial.Neb NEB 3 ml RTQ4H BAY Administration Allopurinol 50 mg 04/22/24 11:00 04/27/24 08:29 Allopurinol 100 Mg Tablet PO 50 mg DAILY BAY Administration Amiodarone HCl 200 mg 04/22/24 11:00 04/27/24 08:29 Amiodarone Hcl 200 Mg Tablet PO 200 mg DAILY BAY Administration Amoxicillin/Clavulanate Potassium 1 tab 04/25/24 17:00 04/27/24 08:29 Amoxicillin/Potassium Clav 875/125 Mg Tablet PO 04/30/24 23:59 1 tab [id number] BAY Administration Apixaban 5 mg 04/21/24 23:45 04/27/24 08:29 Apixaban 5 Mg Tab PO 5 mg BID BAY Administration Bumetanide 1 mg 04/22/24 11:00 04/27/24 05:16 Bumetanide 1 Mg Tablet PO 1 mg QDAC2 BAY Administration Carvedilol 12.5 mg 04/22/24 17:00 04/27/24 08:30 Carvedilol 12.5 Mg Tablet PO 12.5 mg BIDWM2 BAY Administration Diltiazem HCl 120 mg 04/22/24 11:00 04/27/24 08:30 Diltiazem Hcl 120 Mg Cap.Er.24h PO 120 mg DAILY BAY Administration Duloxetine HCl 60 mg 04/22/24 11:00 04/27/24 08:29 Duloxetine Hcl 30 Mg Capsule.Dr PO 60 mg DAILY BAY Administration Ezetimibe 10 mg 04/22/24 11:00 04/27/24 08:29 Ezetimibe 10 Mg Tablet PO 10 mg DAILY BAY Administration Fenofibrate 160 mg 04/22/24 11:00 04/27/24 08:29 Fenofibrate 160 Mg Tablet PO 160 mg DAILY BAY Administration Folic Acid 1 mg 04/22/24 11:00 04/27/24 08:29 Folic Acid 1 Mg Tablet PO 1 mg DAILY BAY Administration Guaifenesin 600 mg 04/22/24 11:00 04/27/24 08:30 Guaifenesin 600 Mg Tablet.Er PO 600 mg Q12HR BAY Administration VANCOMYCIN/WATER FOR INJ (PEG) 1.25 gm in 250 mls @ 250 mls/hr 04/27/24 09:00 04/27/24 08:28 Vancomycin 1.25 Gm/250 Ml Bag IV 04/30/24 10:00 250 mls/hr DAILY BAY Administration Insulin Glargine 5 unit 04/22/24 21:00 04/27/24 08:28 Insulin Glargine,Hum.Rec.Anlog 100 Units/Ml SUBCUT 5 unit BID BAY Administration Insulin Human Regular 0 unit 04/22/24 10:50 04/26/24 21:19 Insulin Regular, Human 100 Unit/Ml (3ml) SUBCUT 7 unit PRN PRN Administration Hyperglycemia Protocol Levothyroxine Sodium 150 mcg 04/22/24 12:00 04/27/24 05:12 Levothyroxine Sodium 75 Mcg Tablet PO 150 mcg QDAC2 BAY Administration Methylprednisolone Sodium Succinate 40 mg 04/22/24 09:25 04/27/24 05:12 Methylprednisolone Sod Succ/Pf 40 Mg/Ml Vial IVP 40 mg Q8HR BAY Administration Non-Formulary Medication 400 mg 04/22/24 15:15 04/26/24 11:41 Imatinib PO 400 mg 1200 BAY Administration Potassium Chloride 20 meq 04/22/24 11:00 04/27/24 08:30 Potassium Chloride 20 Meq Tab PO 20 meq DAILYWM2 BAY Administration Rosuvastatin Calcium 20 mg 04/21/24 23:45 04/26/24 21:18 Rosuvastatin Calcium 10 Mg Tablet PO 20 mg BEDTIME BAY Administration Saccharomyces Boulardii 250 mg 04/23/24 10:30 04/27/24 08:30 Saccharomyces Boulardii 250 Mg Capsule PO 250 mg BID BAY Administration Sodium Chloride 1 syr 04/24/24 05:00 04/27/24 05:13 0.9% Sodium Chloride 10 Ml Disp.Syrin IVF 1 syr Q8HR BAY Administration Sodium Chloride 1 syr 04/24/24 18:03 0.9% Sodium Chloride 10 Ml Disp.Syrin IVF PRN PRN Maintain IV Patency Tiotropium [place] 1 cap 04/22/24 11:00 04/27/24 08:31 Tiotropium [place] 18 Mcg Cap.W.Dev IH 1 cap DAILY BAY Administration Trazodone HCl 50 mg 04/21/24 23:45 04/26/24 21:18 Trazodone Hcl 50 Mg Tablet PO 50 mg BEDTIME BAY Administration Plan Plan: 1. Acute on Chronic Hypoxic Respiratory Failure in setting of Aspiration pneumonia - Improving, wean oxygen as tolerated to home O2 (4-5L), cont abx, steroids, nebs 2. Aspiration Pneumonia - Improving, lung sounds more audible, cont vanc and augmentin, cont steroids but start to taper dose, nebs, legionella negative. sp eech eval completed and recommends mech soft diet, would benefit from speech outpatient due to recurrent episodes of aspiration pneumonia - patient does not wish to have G tube again and is aware of the risks 3. UTI in setting of staph aureus - treating with vancomycin per sensitivity results, multi-drug resistance noted 4. Acute on Chronic Systolic Heart Failure - right pleural effusion worsened compared to imaging at [facility], gentle diuresis with lasix IVP BID, has diuresed well, transitioned to PO meds 04/24, daily weight, I&O 5. DM2 - chronic, accuchecks qid with ssi, continue home lantus 6. Afib - chronic, not in RVR, continue home medications 7. Pressure ulcer to buttocks - wound culture growth of staph aureus and E. Coli. covered with vanc and augmentin, cleanse area daily and prn 8. Chronic myelocytic leukemia - labs stable, monitor, follows with hem/onc at [facility] DVT: Eliquis Dispo: Due to multi-drug resistant UTI and infection to pressure ulcer, pharmacy recommends 10 day course of antibiotics with current regimen of vanc and augmentin. Discussed with case management possibility of swingbed for IV antibiotics. Insurance will require precert. Review Statement Review Statement: I have personally discussed and reviewed the patient's visit/currently labs/imaging/decision making with Dr. Mayes, my supervising attending. Greater that 50 minutes spent with patient, 50% of the time spent with this patient was devoted to counseling and coordination of care.
[2024-04-27] MEDS: SOLU-MEDROL 40 MG IVP SCH (16:39)
[2024-04-28 05:29] LABS: EOSINOPHILS % (AUTO) 0.2 % (0.0-7.0); HEMATOCRIT 24.7 % (42.0-52.0); HEMOGLOBIN 7.7 g/dl (14.0-18.0); IMMATURE GRANULOCYTE % (AUTO) 0.4 % (0.0-5.0); LYMPHOCYTES # (AUTO) 0.3 K/uL (0.60-3.4); LYMPHOCYTES % (AUTO) 5.5 (10.0-50.0); MEAN CORPUSCULAR HEMOGLOBIN 29.3 pg (27.0-31.0); MEAN CORPUSCULAR HGB CONC 31.2 (31.8-35.4); MEAN CORPUSCULAR VOLUME 93.9 fl (80.0-94.0); MONOCYTES # (AUTO) 0.3 K/uL (0.4-2.0); NEUTROPHILS % (AUTO) 88.9 % (42.2-75.2); PLATELET COUNT 279 10^3/uL (140-440); RDW COEFFICIENT OF VARIATION 19.9 % (11.6-14.8); RED BLOOD COUNT 2.63 10^6/ul (4.70-6.10); WHITE BLOOD COUNT 5.63 K/ul (4.2-10.2)
[2024-04-28 05:52] LABS: ALBUMIN 2.99 g/dL (3.5-5.0); ALKALINE PHOSPHATASE 54.1 U/L (56-119); ASPARTATE AMINO TRANSFERASE 41.5 U/L (17-59); BILIRUBIN,TOTAL 0.8 mg/dL (0.2-1.3); BLOOD UREA NITROGEN 35.3 mg/dL (9-20); CALCIUM 8.56 mg/dL (8.4-10.2); CARBON DIOXIDE 38.9 mmol/L (22-30.0); CHLORIDE 96.7 mmol/L (98-107); CREATININE 1.03 mg/dL (0.60-1.10); GLUCOSE 146.6 mg/dL (74-106); POTASSIUM 4.45 mmol/L (3.5-5.1); SODIUM 135.7 mmol/L (134.5-145); TOTAL PROTEIN 5.63 g/dL (6.3-8.2)
[2024-04-28] MEDS: LASIX IVP STA (12:08)
[2024-04-28 13:02] LABS: HEMOGLOBIN 8.4 g/dl (14.0-18.0)
--- NOTE | 2024-04-28 14:10 | PCM.PROG ---
Date/Time Seen Date Seen by Provider: 04/28/24 Time Seen by Provider: 09:00 Provider Provider: Ibeth Laws PA-C, [facility] Chief Complaint Chief Complaint: PNEUMONIA,CHRONIC RESPIRATORY FAILURE Subjective Subjective: Patient states he feels better day by day. However feels weak, especially when trying to stand. Requiring 6-7L. Discussed this could be a new baseline. Objective Appearance: Positive No Apparent Distress, Alert and Oriented x3 and Obese Chest/Lungs: Positive Symmetrical With Equal Breath Sounds and Other (diminished air movement aubree ); Negative Rales, Rhonci or Wheezes Heart: Positive RRR and Pulses Normal GI/: Positive Soft, Nontender, Bowel Sounds Normal and No Distention Neurological: Positive Alert, Oriented and Other (+generalized weakness ) Additional Findings: Trace edema BLE, stage 2-3 pressure ulcer to right buttock Vital Signs Vital Signs: Vital Signs: Last 24 Hours 04/27/24 19:00 04/27/24 19:33 04/27/24 20:00 Temperature Temperature Source Pulse Rate Respiratory Rate Blood Pressure Blood Pressure Mean Blood Pressure Location Blood Pressure Position O2 Sat by Pulse Oximetry Oxygen Delivery Method Nasal Cannula Nasal Cannula Oxygen Flow Rate 7 7 Weight Telemetry Type Remote Telemetry Telemetry Monitoring Continues Irregular Telemetry Rate (Approximate) 70-80 BPM EKG QRS Interval 0.07 Telemetry Strip Reading afib 04/27/24 20:42 04/28/24 01:00 04/28/24 02:19 Temperature 97 F L Temperature Source Temporal Artery Scan Pulse Rate 77 Respiratory Rate 24 H Blood Pressure 141/92 H Blood Pressure Mean 108 Blood Pressure Location Right Arm Blood Pressure Position Sitting O2 Sat by Pulse Oximetry 93 L 91 L Oxygen Delivery Method Nasal Cannula Nasal Cannula Oxygen Flow Rate 7 7 Weight Telemetry Type Remote Telemetry Telemetry Monitoring Continues Irregular Telemetry Rate (Approximate) 70-80 BPM EKG QRS Interval 0.05 L Telemetry Strip Reading A-FIB 04/28/24 05:06 04/28/24 05:14 04/28/24 05:19 Temperature 96.6 F L Temperature Source Temporal Artery Scan Pulse Rate 92 Respiratory Rate 22 H Blood Pressure 161/88 H Blood Pressure Mean 112 Blood Pressure Location Right Arm Blood Pressure Position Sitting O2 Sat by Pulse Oximetry 92 L 91 L Oxygen Delivery Method Nasal Cannula Nasal Cannula Oxygen Flow Rate 7 7 Weight 301 lb 12.8 oz Telemetry Type Telemetry Monitoring Irregular Telemetry Rate (Approximate) EKG QRS Interval Telemetry Strip Reading 04/28/24 07:00 04/28/24 07:28 04/28/24 09:41 Temperature Temperature Source Pulse Rate Respiratory Rate Blood Pressure Blood Pressure Mean Blood Pressure Location Blood Pressure Position O2 Sat by Pulse Oximetry 94 L Oxygen Delivery Method Nasal Cannula Nasal Cannula Oxygen Flow Rate 7 7 Weight Telemetry Type Remote Telemetry Telemetry Monitoring Continues Irregular Telemetry Rate (Approximate) 80-90 BPM EKG QRS Interval 0.08 Telemetry Strip Reading Afib 04/28/24 10:10 04/28/24 10:25 04/28/24 10:25 Temperature 98.1 F 97.4 F L 98 F Temperature Source Pulse Rate 77 72 77 Respiratory Rate 18 20 23 H Blood Pressure 141/83 H 140/52 L 170/89 H Blood Pressure Mean 102 81 116 Blood Pressure Location Blood Pressure Position O2 Sat by Pulse Oximetry Oxygen Delivery Method Oxygen Flow Rate Weight Telemetry Type Telemetry Monitoring Irregular Telemetry Rate (Approximate) EKG QRS Interval Telemetry Strip Reading 04/28/24 11:24 04/28/24 11:25 04/28/24 12:03 Temperature 98 F 97.2 F L Temperature Source Pulse Rate 77 70 Respiratory Rate 23 H 22 H Blood Pressure 170/89 H 160/70 H Blood Pressure Mean 116 100 Blood Pressure Location Blood Pressure Position O2 Sat by Pulse Oximetry Oxygen Delivery Method Oxygen Flow Rate Weight 301 lb 12.8 oz Telemetry Type Telemetry Monitoring Irregular Telemetry Rate (Approximate) EKG QRS Interval Telemetry Strip Reading 04/28/24 13:34 Temperature Temperature Source Pulse Rate Respiratory Rate Blood Pressure Blood Pressure Mean Blood Pressure Location Blood Pressure Position O2 Sat by Pulse Oximetry 92 L Oxygen Delivery Method Nasal Cannula Oxygen Flow Rate 7 Weight Telemetry Type Telemetry Monitoring Irregular Telemetry Rate (Approximate) EKG QRS Interval Telemetry Strip Reading Lab Results Lab Results: Lab Results: Last 24 Hours 04/28/24 04/28/24 04/28/24 12:58 08:19 05:18 WBC 5.63 RBC 2.63 L Hgb 8.4 L 7.7 L Hct 27.0 L 24.7 L MCV 93.9 MCH 29.3 MCHC 31.2 L RDW Coeff of Sumeet 19.9 H Plt Count 279 Immature Gran % (Auto) 0.4 Neut % (Auto) 88.9 H Lymph % (Auto) 5.5 L [place] % (Auto) 5.0 Eos % (Auto) 0.2 Baso % (Auto) 0.0 Neut # (Auto) 5.0 Lymph # (Auto) 0.3 L [place] # (Auto) 0.3 L Eos # (Auto) 0.0 Baso # (Auto) 0.0 Immature Gran # (Auto) 0.0 Sodium 135.7 Potassium 4.45 Chloride 96.7 L Carbon Dioxide 38.9 H Anion Gap 4.55 BUN 35.3 H Creatinine 1.03 Estimated GFR (MDRD) 71.00 BUN/Creatinine Ratio 34.27 Glucose 146.6 H Calcium 8.56 Total Bilirubin 0.80 AST 41.5 ALT 30.0 Alkaline Phosphatase 54.1 L Total Protein 5.63 L Albumin 2.99 L Globulin 2.64 Albumin/Globulin Ratio 1.13 Blood Type O POSITIVE Antibody Screen Negative Crossmatch (AHG) See Detail Additional Comments Additional Comments: I have independently reviewed and interpreted the labs/EKGs/imaging ordered during this hospital stay. I have reviewed outside records that are available in our EMR that pertain to medical stay including imaging/notes/labs from previous visits. Active Medications Active Medications: Medications Generic Name Dose Route Start Last Admin Trade Name Freq PRN Reason Stop Dose Admin Acetaminophen 650 mg 04/21/24 20:22 Acetaminophen 325 Mg Tablet PO Q4H PRN Mild Pain Albuterol Sulfate 2.5 mg 04/21/24 21:46 04/22/24 05:50 Albuterol Sulfate 0.083% Vial.Neb NEB 2.5 mg RTQ4H PRN Administration Wheezing Albuterol Sulfate 2 puff 04/21/24 23:45 04/22/24 17:00 Albuterol Sulfate 8 Gm Inhaler IH Not Given QID BAY Albuterol/Ipratropium 3 ml 04/21/24 22:00 04/28/24 13:32 Ipratropium/Albuterol Vial.Neb NEB 3 ml RTQ4H BAY Administration Allopurinol 50 mg 04/22/24 11:00 04/28/24 08:27 Allopurinol 100 Mg Tablet PO 50 mg DAILY BAY Administration Amiodarone HCl 200 mg 04/22/24 11:00 04/28/24 08:27 Amiodarone Hcl 200 Mg Tablet PO 200 mg DAILY BAY Administration Amoxicillin/Clavulanate Potassium 1 tab 04/25/24 17:00 04/28/24 08:26 Amoxicillin/Potassium Clav 875/125 Mg Tablet PO 04/30/24 23:59 1 tab BIDWM2 BAY Administration Apixaban 5 mg 04/21/24 23:45 04/28/24 08:27 Apixaban 5 Mg Tab PO 5 mg BID BAY Administration Bumetanide 1 mg 04/22/24 11:00 04/28/24 05:06 Bumetanide 1 Mg Tablet PO 1 mg QDAC2 BAY Administration Carvedilol 12.5 mg 04/22/24 17:00 04/28/24 08:26 Carvedilol 12.5 Mg Tablet PO 12.5 mg BIDWM2 BAY Administration Diltiazem HCl 120 mg 04/22/24 11:00 04/28/24 08:27 Diltiazem Hcl 120 Mg Cap.Er.24h PO 120 mg DAILY BAY Administration Duloxetine HCl 60 mg 04/22/24 11:00 04/28/24 08:26 Duloxetine Hcl 30 Mg Capsule.Dr PO 60 mg DAILY BAY Administration Ezetimibe 10 mg 04/22/24 11:00 04/28/24 08:26 Ezetimibe 10 Mg Tablet PO 10 mg DAILY BAY Administration Fenofibrate 160 mg 04/22/24 11:00 04/28/24 08:27 Fenofibrate 160 Mg Tablet PO 160 mg DAILY BAY Administration Folic Acid 1 mg 04/22/24 11:00 04/28/24 08:26 Folic Acid 1 Mg Tablet PO 1 mg DAILY BAY Administration Guaifenesin 600 mg 04/22/24 11:00 04/28/24 08:26 Guaifenesin 600 Mg Tablet.Er PO 600 mg Q12HR BAY Administration VANCOMYCIN/WATER FOR INJ (PEG) 1.25 gm in 250 mls @ 250 mls/hr 04/27/24 09:00 04/28/24 08:25 Vancomycin 1.25 Gm/250 Ml Bag IV 04/30/24 10:00 250 mls/hr DAILY BAY Administration Insulin Glargine 5 unit 04/22/24 21:00 04/28/24 08:25 Insulin Glargine,Hum.Rec.Anlog 100 Units/Ml SUBCUT 5 unit BID BAY Administration Insulin Human Regular 0 unit 04/22/24 10:50 04/28/24 12:08 Insulin Regular, Human 100 Unit/Ml (3ml) SUBCUT 5 unit PRN PRN Administration Hyperglycemia Protocol Levothyroxine Sodium 150 mcg 04/22/24 12:00 04/28/24 05:06 Levothyroxine Sodium 75 Mcg Tablet PO 150 mcg QDAC2 BAY Administration Methylprednisolone Sodium Succinate 40 mg 04/27/24 17:30 04/28/24 05:05 Methylprednisolone Sod Succ/Pf 40 Mg/Ml Vial IVP 40 mg Q12H BAY Administration Non-Formulary Medication 400 mg 04/22/24 15:15 04/28/24 12:08 Imatinib PO 400 mg 1200 BAY Administration Potassium Chloride 20 meq 04/22/24 11:00 04/28/24 08:26 Potassium Chloride 20 Meq Tab PO 20 meq DAILYWM2 BAY Administration Rosuvastatin Calcium 20 mg 04/21/24 23:45 04/27/24 20:20 Rosuvastatin Calcium 10 Mg Tablet PO 20 mg BEDTIME BAY Administration Saccharomyces Boulardii 250 mg 04/23/24 10:30 04/28/24 08:26 Saccharomyces Boulardii 250 Mg Capsule PO 250 mg BID BAY Administration Sodium Chloride 1 syr 04/24/24 05:00 04/28/24 12:09 0.9% Sodium Chloride 10 Ml Disp.Syrin IVF 1 syr Q8HR BAY Administration Sodium Chloride 1 syr 04/24/24 18:03 0.9% Sodium Chloride 10 Ml Disp.Syrin IVF PRN PRN Maintain IV Patency Tiotropium [place] 1 cap 04/22/24 11:00 04/28/24 08:25 Tiotropium [place] 18 Mcg Cap.W.Dev IH 1 cap DAILY BAY Administration Trazodone HCl 50 mg 04/21/24 23:45 04/27/24 20:20 Trazodone Hcl 50 Mg Tablet PO 50 mg BEDTIME BAY Administration Plan Plan: 1. Acute on Chronic Hypoxic Respiratory Failure in setting of Aspiration pneumonia - Improving, wean oxygen as tolerated to home O2 (4-5L), cont abx, steroids, nebs 2. Aspiration Pneumonia - Improving, lung sounds more audible, cont vanc and au gmentin, cont steroids but start to taper dose, nebs, legionella negative. speech eval completed and recommends [facility] soft diet, would benefit from speech outpatient due to recurrent episodes of aspiration pneumonia - patient does not wish to have G tube again and is aware of the risks 3. UTI in setting of staph aureus - treating with vancomycin per sensitivity results, multi-drug resistance noted 4. Acute on Chronic Systolic Heart Failure - right pleural effusion worsened compared to imaging at [facility], gentle diuresis with lasix IVP BID, has diuresed well, transitioned to PO meds 04/24, daily weight, I&O 5. DM2 - chronic, accuchecks qid with ssi, continue home lantus 6. Afib - chronic, not in RVR, continue home medications 7. Pressure ulcer to buttocks - Present upon arrival. wound culture growth of staph aureus and E. Coli. covered with vanc and augmentin, cleanse area daily and prn 8. Chronic myelocytic leukemia - labs stable, monitor, follows with hem/onc at [facility] 9. Acute on chronic anemia - Hgb has remained <8. With his cardiac hx, will transfuse 1 U PRBCs. No sign of active bleeding. DVT: Eliquis Dispo: Due to multi-drug resistant UTI and infection to pressure ulcer, pharmacy recommends 10 day course of antibiotics with current regimen of vanc and augmentin. Discussed with case management possibility of swingbed for IV antibiotics and therapy. Awaiting insurance approval. Review Statement Review Statement: I have personally discussed and reviewed the patient's visit/currently labs/imaging/decision making with Dr. Mayes, my supervising attending. Greater that 50 minutes spent with patient, 50% of the time spent with this patient was devoted to counseling and coordination of care.
[2024-04-29 05:29] LABS: HEMATOCRIT 26.3 % (42.0-52.0); HEMOGLOBIN 8.2 g/dl (14.0-18.0); IMMATURE GRANULOCYTE % (AUTO) 0.3 % (0.0-5.0); LYMPHOCYTES # (AUTO) 0.3 K/uL (0.60-3.4); LYMPHOCYTES % (AUTO) 4.7 (10.0-50.0); MEAN CORPUSCULAR HEMOGLOBIN 29.1 pg (27.0-31.0); MEAN CORPUSCULAR HGB CONC 31.2 (31.8-35.4); MEAN CORPUSCULAR VOLUME 93.3 fl (80.0-94.0); MONOCYTES # (AUTO) 0.3 K/uL (0.4-2.0); MONOCYTES % (AUTO) 4.4 (0-10); NEUTROPHILS # (AUTO) 5.8 K/ul (2.0-6.9); NEUTROPHILS % (AUTO) 90.6 % (42.2-75.2); PLATELET COUNT 259 10^3/uL (140-440); RDW COEFFICIENT OF VARIATION 20.8 % (11.6-14.8); RED BLOOD COUNT 2.82 10^6/ul (4.70-6.10); WHITE BLOOD COUNT 6.36 K/ul (4.2-10.2)
[2024-04-29 05:32] LABS: ALANINE AMINOTRANSFERASE 30.9 U/L (0-50); ALBUMIN 2.98 g/dL (3.5-5.0); ALKALINE PHOSPHATASE 50.3 U/L (56-119); ASPARTATE AMINO TRANSFERASE 37.8 U/L (17-59); BILIRUBIN,TOTAL 0.85 mg/dL (0.2-1.3); BLOOD UREA NITROGEN 37.5 mg/dL (9-20); CALCIUM 8.33 mg/dL (8.4-10.2); CHLORIDE 92.8 mmol/L (98-107); GLUCOSE 112.7 mg/dL (74-106); POTASSIUM 4.36 mmol/L (3.5-5.1); SODIUM 134.8 mmol/L (134.5-145); TOTAL PROTEIN 5.51 g/dL (6.3-8.2)
[2024-04-29 05:38] LABS: CARBON DIOXIDE 39.8 mmol/L (22-30.0)
[2024-04-29] MEDS ORDERED: SOLU-MEDROL 40 MG IVP SCH (09:00)
[2024-04-29] MEDS: ZESTRIL PO SCH (09:40)
--- NOTE | 2024-04-29 10:20 | PCM.PROG ---
Date/Time Seen Date Seen by Provider: 04/29/24 Time Seen by Provider: 08:30 Provider Provider: Ibeth Laws [facility]-C, [facility] Chief Complaint Chief Complaint: PNEUMONIA,CHRONIC RESPIRATORY FAILURE Subjective Subjective: Patient is in good spirits. Discussed that we are still awaiting swingbed approval for IV abx and at this point he finishes the regimen tomorrow. Discussed meeting with railroad surveyor with him and his in the morning to discuss his aspiration risks and options for food at home. Otherwise he's feeling good. Did well with therapy, they feel he is at his baseline. Plan for discharge tomorrow after abx. Objective Appearance: Positive No Apparent Distress, Alert and Oriented x3 and Obese Chest/Lungs: Positive Symmetrical With Equal Breath Sounds and Other (diminished air movement aubree ); Negative Rales, Rhonci or Wheezes Heart: Positive RRR and Pulses Normal GI/: Positive Soft, Nontender, Bowel Sounds Normal and No Distention Neurological: Positive Alert, Oriented and Other (+generalized weakness ) Additional Findings: Trace edema BLE, stage 2-3 irregularly shaped pressure ulcer to right buttock Vital Signs Vital Signs: Vital Signs: Last 24 Hours 04/28/24 10:25 04/28/24 10:25 04/28/24 11:24 Temperature 97.4 F L 98 F Temperature Source Pulse Rate 72 77 Respiratory Rate 20 23 H Blood Pressure 140/52 L 170/89 H Blood Pressure Mean 81 116 Blood Pressure Location Blood Pressure Position O2 Sat by Pulse Oximetry Oxygen Delivery Method Oxygen Flow Rate Weight 301 lb 12.8 oz Telemetry Type Telemetry Monitoring Irregular Telemetry Rate (Approximate) EKG QRS Interval Telemetry Strip Reading 04/28/24 11:25 04/28/24 12:03 04/28/24 13:00 Temperature 98 F 97.2 F L Temperature Source Pulse Rate 77 70 Respiratory Rate 23 H 22 H Blood Pressure 170/89 H 160/70 H Blood Pressure Mean 116 100 Blood Pressure Location Blood Pressure Position O2 Sat by Pulse Oximetry Oxygen Delivery Method Oxygen Flow Rate Weight Telemetry Type Remote Telemetry Telemetry Monitoring Continues Irregular Telemetry Rate (Approximate) 80-90 BPM EKG QRS Interval 0.08 Telemetry Strip Reading afib 04/28/24 13:34 04/28/24 14:00 04/28/24 19:00 Temperature 98.2 F Temperature Source Temporal Artery Scan Pulse Rate 82 Respiratory Rate 20 Blood Pressure 146/69 H Blood Pressure Mean 94 Blood Pressure Location Left Arm Blood Pressure Position Sitting O2 Sat by Pulse Oximetry 92 L 95 Oxygen Delivery Method Nasal Cannula Nasal Cannula Oxygen Flow Rate 7 7 Weight Telemetry Type Remote Telemetry Telemetry Monitoring Continues Irregular Telemetry Rate (Approximate) 70-80 BPM EKG QRS Interval 0.06 Telemetry Strip Reading Afib 04/28/24 20:00 04/28/24 20:55 04/28/24 21:35 Temperature 96.5 F L Temperature Source Temporal Artery Scan Pulse Rate 73 Respiratory Rate 20 Blood Pressure 145/75 H Blood Pressure Mean 98 Blood Pressure Location Left Arm Blood Pressure Position Sitting O2 Sat by Pulse Oximetry 96 95 Oxygen Delivery Method Nasal Cannula Nasal Cannula Nasal Cannula Oxygen Flow Rate 7 7 7 Weight Telemetry Type Telemetry Monitoring Irregular Telemetry Rate (Approximate) EKG QRS Interval Telemetry Strip Reading 04/29/24 01:00 04/29/24 04:57 04/29/24 04:58 Temperature 96.2 F L Temperature Source Temporal Artery Scan Pulse Rate 71 Respiratory Rate 20 Blood Pressure 148/94 H Blood Pressure Mean 112 Blood Pressure Location Right Arm Blood Pressure Position Sitting O2 Sat by Pulse Oximetry 93 L Oxygen Delivery Method Nasal Cannula Oxygen Flow Rate 7 Weight 300 lb 8 oz Telemetry Type Remote Telemetry Telemetry Monitoring Continues Irregular Telemetry Rate (Approximate) 70-80 BPM EKG QRS Interval 0.06 Telemetry Strip Reading Afib 04/29/24 05:39 04/29/24 09:37 Temperature Temperature Source Pulse Rate Respiratory Rate Blood Pressure Blood Pressure Mean Blood Pressure Location Blood Pressure Position O2 Sat by Pulse Oximetry 93 L 93 L Oxygen Delivery Method Nasal Cannula Nasal Cannula Oxygen Flow Rate 7 7 Weight Telemetry Type Telemetry Monitoring Irregular Telemetry Rate (Approximate) EKG QRS Interval Telemetry Strip Reading Lab Results Lab Results: Lab Results: Last 24 Hours 04/29/24 04/28/24 04/28/24 04:54 12:58 08:19 WBC 6.36 RBC 2.82 L Hgb 8.2 L 8.4 L Hct 26.3 L 27.0 L MCV 93.3 MCH 29.1 MCHC 31.2 L RDW Coeff of Sumeet 20.8 H Plt Count 259 Immature Gran % (Auto) 0.3 Neut % (Auto) 90.6 H Lymph % (Auto) 4.7 L [place] % (Auto) 4.4 Eos % (Auto) 0.0 Baso % (Auto) 0.0 Neut # (Auto) 5.8 Lymph # (Auto) 0.3 L [place] # (Auto) 0.3 L Eos # (Auto) 0.0 Baso # (Auto) 0.0 Immature Gran # (Auto) 0.0 Sodium 134.8 Potassium 4.36 Chloride 92.8 L Carbon Dioxide 39.8 H Anion Gap 6.56 BUN 37.5 H Creatinine 1.00 Estimated GFR (MDRD) 73.00 BUN/Creatinine Ratio 37.50 Glucose 112.7 H Calcium 8.33 L Total Bilirubin 0.85 AST 37.8 ALT 30.9 Alkaline Phosphatase 50.3 L Total Protein 5.51 L Albumin 2.98 L Globulin 2.53 Albumin/Globulin Ratio 1.17 Crossmatch (AHG) See Detail Additional Comments Additional Comments: I have independently reviewed and interpreted the labs/EKGs/imaging ordered during this hospital stay. I have reviewed outside records that are available in our EMR that pertain to medical stay including imaging/notes/labs from previous visits. Active Medications Active Medications: Medications Generic Name Dose Route Start Last Admin Trade Name Freq PRN Reason Stop Dose Admin Acetaminophen 650 mg 04/21/24 20:22 Acetaminophen 325 Mg Tablet PO Q4H PRN Mild Pain Albuterol Sulfate 2.5 mg 04/21/24 21:46 04/22/24 05:50 Albuterol Sulfate 0.083% Vial.Neb NEB 2.5 mg RTQ4H PRN Administration Wheezing Albuterol Sulfate 2 puff 04/21/24 23:45 04/22/24 17:00 Albuterol Sulfate 8 Gm Inhaler IH Not Given QID BAY Albuterol/Ipratropium 3 ml 04/21/24 22:00 04/29/24 09:34 Ipratropium/Albuterol Vial.Neb NEB 3 ml RTQ4H BAY Administration Allopurinol 50 mg 04/22/24 11:00 04/29/24 09:07 Allopurinol 100 Mg Tablet PO 50 mg DAILY BAY Administration Amiodarone HCl 200 mg 04/22/24 11:00 04/29/24 09:06 Amiodarone Hcl 200 Mg Tablet PO 200 mg DAILY BAY Administration Amoxicillin/Clavulanate Potassium 1 tab 04/25/24 17:00 04/29/24 09:06 Amoxicillin/Potassium Clav 875/125 Mg Tablet PO 04/30/24 23:59 1 tab BIDWM2 BAY Administration Apixaban 5 mg 04/21/24 23:45 04/29/24 09:12 Apixaban 5 Mg Tab PO 5 mg BID BAY Administration Bumetanide 1 mg 04/22/24 11:00 04/29/24 05:07 Bumetanide 1 Mg Tablet PO 1 mg QDAC2 BAY Administration Carvedilol 12.5 mg 04/22/24 17:00 04/29/24 09:11 Carvedilol 12.5 Mg Tablet PO 12.5 mg BIDWM2 BYA Administration Diltiazem HCl 120 mg 04/22/24 11:00 04/29/24 09:09 Diltiazem Hcl 120 Mg Cap.Er.24h PO 120 mg DAILY BAY Administration Duloxetine HCl 60 mg 04/22/24 11:00 04/29/24 09:09 Duloxetine Hcl 30 Mg Capsule.Dr PO 60 mg DAILY BAY Administration Ezetimibe 10 mg 04/22/24 11:00 04/29/24 09:08 Ezetimibe 10 Mg Tablet PO 10 mg DAILY BAY Administration Fenofibrate 160 mg 04/22/24 11:00 04/29/24 09:08 Fenofibrate 160 Mg Tablet PO 160 mg DAILY BAY Administration Folic Acid 1 mg 04/22/24 11:00 04/29/24 09:09 Folic Acid 1 Mg Tablet PO 1 mg DAILY BAY Administration Guaifenesin 600 mg 04/22/24 11:00 04/29/24 09:10 Guaifenesin 600 Mg Tablet.Er PO 600 mg Q12HR BAY Administration VANCOMYCIN/WATER FOR INJ (PEG) 1.25 gm in 250 mls @ 250 mls/hr 04/27/24 09:00 04/29/24 09:11 Vancomycin 1.25 Gm/250 Ml Bag IV 04/30/24 10:00 250 mls/hr DAILY BAY Administration Insulin Glargine 5 unit 04/22/24 21:00 04/29/24 09:17 Insulin Glargine,Hum.Rec.Anlog 100 Units/Ml SUBCUT 5 unit BID BAY Administration Insulin Human Regular 0 unit 04/22/24 10:50 04/28/24 12:08 Insulin Regular, Human 100 Unit/Ml (3ml) SUBCUT 5 unit PRN PRN Administration Hyperglycemia Protocol Levothyroxine Sodium 150 mcg 04/22/24 12:00 04/29/24 05:07 Levothyroxine Sodium 75 Mcg Tablet PO 150 mcg QDAC2 BAY Administration Lisinopril 2.5 mg 04/29/24 09:00 04/29/24 09:40 Lisinopril 5 Mg Tablet PO 2.5 mg DAILY BAY Administration Non-Formulary Medication 400 mg 04/22/24 15:15 04/28/24 12:08 Imatinib PO 400 mg 1200 BAY Administration Potassium Chloride 20 meq 04/22/24 11:00 04/29/24 09:06 Potassium Chloride 20 Meq Tab PO 20 meq DAILYWM2 BAY Administration Rosuvastatin Calcium 20 mg 04/21/24 23:45 04/28/24 21:07 Rosuvastatin Calcium 10 Mg Tablet PO 20 mg BEDTIME BAY Administration Saccharomyces Boulardii 250 mg 04/23/24 10:30 04/29/24 09:08 Saccharomyces Boulardii 250 Mg Capsule PO 250 mg BID BAY Administration Sodium Chloride 1 syr 04/24/24 05:00 04/29/24 05:08 0.9% Sodium Chloride 10 Ml Disp.Syrin IVF 1 syr Q8HR BAY Administration Sodium Chloride 1 syr 04/24/24 18:03 0.9% Sodium Chloride 10 Ml Disp.Syrin IVF PRN PRN Maintain IV Patency Tiotropium [place] 1 cap 04/22/24 11:00 04/29/24 09:10 Tiotropium [place] 18 Mcg Cap.W.Dev IH 1 cap DAILY BAY Administration Trazodone HCl 50 mg 04/21/24 23:45 04/28/24 21:07 Trazodone Hcl 50 Mg Tablet PO 50 mg BEDTIME BAY Administration Plan Plan: 1. Acute on Chronic Hypoxic Respiratory Failure in setting of Aspiration pneumonia - Stable, wean oxygen as tolerated to home O2 (4-5L), cont abx,stop steroids, nebs 2. Aspiration Pneumonia - Improving, lung sounds more audible, cont vanc and augmentin, stop steroids, nebs, legionella negative. speech eval completed and recommends [facility] soft diet, would benefit from speech outpatient due to recurrent episodes of aspiration pneumonia - patient does not wish to have G tube again and is aware of the risks 3. UTI in setting of staph aureus - treating with vancomycin per sensitivity results, multi-drug resistance noted 4. Acute on Chronic Systolic Heart Failure - right pleural effusion worsened compared to imaging at [facility], gentle diuresis with lasix IVP BID, has diuresed well, transitioned to PO meds 04/24, daily weight, I&O 5. DM2 - chronic, accuchecks qid with ssi, continue home lantus 6. Afib - chronic, not in RVR, continue home medications 7. Pressure ulcer to buttocks - Present upon arrival. wound culture growth of staph aureus and E. Coli. covered with vanc and augmentin, cleanse area daily and prn 8. Chronic myelocytic leukemia - labs stable, monitor, follows with hem/onc at [facility] 9. Acute on chronic anemia - Hgb has remained <8. With his cardiac hx, will transfuse 1 U PRBCs. No sign of active bleeding. DVT: Eliquis Dispo: Plan to discharge tomorrow following abx. Review Statement Review Statement: I have personally discussed and reviewed the patient's visit/currently labs/imaging/decision making with Dr. Mayes, my supervising attending. Greater that 50 minutes spent with patient, 50% of the time spent with this patient was devoted to counseling and coordination of care.
--- NOTE | 2024-04-29 10:38 | PN ---
Subjective Patient Information Date of Evaluation: 04/23/24 Date of Arrival on Unit: 04/21/24 Patient Reports/Comments: pt states the plan is to return home tomorrow with home health care. Short Term Goals GOAL #1: Sit to stand from bed/chair with min A of 1 Goal to be met by: 04/25/24 Progress Towards Goal:: 25% Comments:: min 2 this AM ,uses momentum GOAL #2: Stand to sit with CGA of 1. Goal to be met by: 04/25/24 Progress Towards Goal:: 25% GOAL #3: Supine<>sit with mod A of 1. Goal to be met by: 04/25/24 Comments:: na this AM Pl[employer] Feeder Goals GOAL #1: All bed mobility independent. Goal to be met by: 05/01/24 GOAL #2: Transfers with SBA to and from chair/bed. Goal to be met by: 05/01/24 GOAL #3: Pt to amb 120 ft with RW, independently with good safety. Goal to be met by: 05/01/24 Assessment and Plan Assessment/Progress: pt progressing with transfers with min x 2. pt amb 60ft with rwx and 8 liters O2 with min x 2. pt continues with decreased endurance, decreased BLE strength. Feel pt would benefit from skilled PT for therex for strengthening, balance and gait training. Plan: Plan to continue PT 1-2x a day for therex, gait training and energy conservation.
[2024-04-30 07:39] LABS: EOSINOPHILS # (AUTO) 0.1 K/ul (0.0-0.7); EOSINOPHILS % (AUTO) 1.2 % (0.0-7.0); HEMATOCRIT 26.2 % (42.0-52.0); HEMOGLOBIN 8.4 g/dl (14.0-18.0); IMMATURE GRANULOCYTE % (AUTO) 0.4 % (0.0-5.0); LYMPHOCYTES # (AUTO) 0.8 K/uL (0.60-3.4); LYMPHOCYTES % (AUTO) 8.8 (10.0-50.0); MEAN CORPUSCULAR HEMOGLOBIN 29.9 pg (27.0-31.0); MEAN CORPUSCULAR HGB CONC 32.1 (31.8-35.4); MEAN CORPUSCULAR VOLUME 93.2 fl (80.0-94.0); MONOCYTES # (AUTO) 0.8 K/uL (0.4-2.0); MONOCYTES % (AUTO) 8.7 (0-10); NEUTROPHILS # (AUTO) 7.2 K/ul (2.0-6.9); NEUTROPHILS % (AUTO) 80.9 % (42.2-75.2); PLATELET COUNT 255 10^3/uL (140-440); RDW COEFFICIENT OF VARIATION 20.8 % (11.6-14.8); RED BLOOD COUNT 2.81 10^6/ul (4.70-6.10); WHITE BLOOD COUNT 8.89 K/ul (4.2-10.2)
[2024-04-30 07:51] LABS: ALANINE AMINOTRANSFERASE 33.3 U/L (0-50); ALBUMIN 2.79 g/dL (3.5-5.0); ALKALINE PHOSPHATASE 53.3 U/L (56-119); BILIRUBIN,TOTAL 0.98 mg/dL (0.2-1.3); BLOOD UREA NITROGEN 40.9 mg/dL (9-20); CALCIUM 8.22 mg/dL (8.4-10.2); CHLORIDE 90.1 mmol/L (98-107); CREATININE 1.33 mg/dL (0.60-1.10); GLUCOSE 71.6 mg/dL (74-106); POTASSIUM 4.54 mmol/L (3.5-5.1); SODIUM 132.1 mmol/L (134.5-145); TOTAL PROTEIN 5.18 g/dL (6.3-8.2)
[2024-04-30 07:59] LABS: CARBON DIOXIDE 42.1 mmol/L (22-30.0)
--- NOTE | 2024-04-30 09:20 | DCSUM ---
Admission Date Admission Date: 04/21/24 Discharge Date Discharge Date: 04/30/24 Admission Diagnosis Admission Diagnosis: 1. Acute on Chronic Hypoxic Respiratory Failure in setting of Aspiration pneumonia 2. Aspiration Pneumonia 3. UTI in setting of staph aureus 4. Acute on Chronic Systolic Heart Failure Discharge Diagnosis Discharge Diagnosis: 1. Acute on Chronic Hypoxic Respiratory Failure in setting of Aspiration pneumonia 2. Aspiration Pneumonia, recurrent 3. UTI in setting of staph aureus 4. Acute on Chronic Systolic Heart Failure 5. DM2 6. Afib 7. Stage II-III Pressure ulcer to buttocks 8. Chronic myelocytic leukemia 9. Acute on chronic anemia - stable/chronic Hospital Provider Hospital Provider: Bing Jiménez [facility]-C, [facility] Physician Primary Care Physician: LANNY MAYES MD Summary of History and Physical Summary of History and Physical: 73 yo male presented to the ER with abnormal urine. Patient went to PCP office a couple days prior with complaints of urinary frequency/incontinence. States this is not normal for him and thought something was wrong. He was found to have UTI and urine culture showed growth of Staph Aureus with multi-drug resistance to majority of oral antibiotic options. Patient denies any fever at home that he is aware of. Does report he has had a productive cough with brown sputum and has been more short of breath over the last few days. He was found to have a worsening opacity on chest x-ray and was requiring 6L of oxygen in the ER. He is normally on 4-5L continuously at home with CPAP at bedtime (in which he is noncompliant). Currently on 10L and maintaining sat of 97% at this time. Patient has had frequent hospitalizations over the past month for CHF exacerbations and most recently 5/6 R upper lobe pneumonia. He was treated with vanc and zosyn initially. Transitioned to levaquin and sent home with moxifloxacin. Hospital Course Subjective: Patient was treated with vancomycin and zosyn initially for MRSA in the urine and aspiration pneumonia. His wound of right buttocks grew MRSA and E coli. Zosyn changed to augmentin to cover both E coli and aspiration pneumonia. It was felt patient would benefit from 10 total days of vancomycin to treat his urine and wound. He was weaned down to 5-7L, ultimately ended up being baseline at 7L by discharge. He feels his breathing and edema is baseline. He was also diuresed during this visit and transitioned back to PO diuretics. He has worked with therapy and they feel he is near his baseline. Pt was evaluated by ST for his aspiration risks, diet recs made. Also had scanning tech speak with patient and , as patient is noncompliant once at home. Initially it was discussed to do swingbed for IV antibiotics. However, once insurance approved swingbed only 1 day was left of vancomycin. We had also d iscussed swingbed for therapy reasons, but therapy felt patient was near his baseline. Pt also felt he was near his baseline and looking forward to going home. brought up a lot of different concerns regarding him going home. She discussed how she needs a back surgery in the future, how the patient chokes at times but seems to less while in the hospital, concerns about his wound dressings etc. We discussed how these will all still be concerns going forward despite therapy in house. However, therapy was agreeable to keeping patient for a swingbed stay for another few days as long as he makes progress. Patient was then very adamant about going home and declined to stay any longer. Ultimately, pt has home health ordered with PT,OT, ST, and nursing. Outpatient wound care referral made as well, concern this wound will continue to worsen as patient has difficulty offloading that area. Pt has completed abx regimen. Lisinopril 2.5 mg daily added due to his BP being elevated and hx of HF. Appearance: Pleasant, No Apparent Distress, Alert and Other (+obese ) HEENT: MMM and Supple CVS: No Murmur Abdomen: Soft, Non-Tender and No Distention Respiratory: Other (+baseline, conversational, diminished breath sounds aubree, wearing 7L) Extremities: Other (1+ pitting edema aubree, improved ) Vital Signs: Most Recent Vital Signs Temperature 96.8 F L 04/30/24 05:40 Temperature Source Temporal Artery Scan 04/30/24 05:40 Temperature Source Oral 04/21/24 13:58 Pulse Rate 71 04/30/24 05:40 Respiratory Rate 24 H 04/30/24 05:40 Blood Pressure 127/70 04/30/24 05:40 Blood Pressure Mean 89 04/30/24 05:40 Blood Pressure Left Arm 130/56 04/21/24 22:14 Blood Pressure Location Left Arm 04/30/24 05:40 Blood Pressure Position Supine 04/30/24 05:40 O2 Sat by Pulse Oximetry 95 04/30/24 05:40 Oxygen Delivery Method Nasal Cannula 04/30/24 08:00 Oxygen Flow Rate 7 04/30/24 08:00 Height 6 ft 6 in 04/26/24 19:05 Weight 301 lb 2 oz 04/30/24 06:00 Telemetry Type Remote Telemetry 04/30/24 07:00 Telemetry Monitoring Continues 04/30/24 07:00 Irregular Telemetry Rate (Approximate) 60-70 BPM 04/30/24 07:00 Telemetry Heart Rate 70 04/30/24 01:00 Telemetry SPO2 92 L 04/25/24 13:00 EKG QRS Interval 0.08 04/30/24 07:00 Telemetry Strip Reading A- Fib 04/30/24 07:00 Imaging: EXAM: CTA CHEST FOR PE HISTORY: Shortness of breath COMPARISON: CTA chest 04/06/2024 TECHNIQUE: CTA of the chest was performed from the lung apices to the upper abdomen after 100 ml of Omnipaque IV contrast was administered using PE protocol. 3-D imaging was also provided. FINDINGS: There is no filling defect in the pulmonary arteries to the level of the subsegmental pulmonary arteries. The heart is normal without signs of ventricular strain. There is moderate calcific atherosclerotic disease of the aorta. Heart is unremarkable at upper limit of normal for size. There are calcified mediastinal and hilar lymph nodes. There are multiple mediastinal and hilar lymph nodes. There is no pneumothorax with moderate right pleural effusion. There is debris within the right main bronchus extending into the bronchi in the lower lobe with associated consolidation and ground-glass. There is scattered moderate emphysema. There is trace left pleural fluid. Limited views of the soft tissues in the upper abdomen demonstrate abdominal aortic aneurysm with internal stent. The osseous structures demonstrate degenerative disease. IMPRESSION: 1. No pulmonary embolism. 2. Moderate right pleural effusion and associated ground-glass and consolidation with debris in the right bronchus suggestive of aspiration. 3. Trace left pleural fluid. 4. Scattered emphysema. 5. Moderate atherosclerotic disease and sequela of old granulomatous disease. Lab Results Last 24 Hours: 04/30/24 07:34 WBC 8.89 RBC 2.81 L Hgb 8.4 L Hct 26.2 L MCV 93.2 MCH 29.9 MCHC 32.1 RDW Coeff of Sumeet 20.8 H Plt Count 255 Immature Gran % (Auto) 0.4 Neut % (Auto) 80.9 H Lymph % (Auto) 8.8 L Ellis % (Auto) 8.7 Eos % (Auto) 1.2 Baso % (Auto) 0.0 Neut # (Auto) 7.2 H Lymph # (Auto) 0.8 Ellis # (Auto) 0.8 Eos # (Auto) 0.1 Baso # (Auto) 0.0 Immature Gran # (Auto) 0.0 Sodium 132.1 L Potassium 4.54 Chloride 90.1 L Carbon Dioxide 42.1 H* Anion Gap 4.44 BUN 40.9 H Creatinine 1.33 H Estimated GFR (MDRD) 53.00 BUN/Creatinine Ratio 30.75 Glucose 71.6 L Calcium 8.22 L Total Bilirubin 0.98 AST 70.0 H D ALT 33.3 Alkaline Phosphatase 53.3 L Total Protein 5.18 L Albumin 2.79 L Globulin 2.39 Albumin/Globulin Ratio 1.16 Discharge Instructions Discharge Planning: Discharge Planning > [address] Zunilda Mayes. If patient is discharged with left ventricular systolic dysfunction: Discharged with a beta atul? Y If no, why not? [] Discharged with an ambar/arb? Y If no, why not? [] Discharge Medications: Medications at Discharge (Home Meds & RX) Discharge Plan Discharge Discharge Orders: Discharge Patient (ONCE); Ordered 04/30/24 Ordered By: BING JIMÉNEZ Activity Restrictions/Additional Instructions: DISCHARGE TO HOME HOME HEALTH ORDERED INCLUDING ST, PT, OT, NURSING FOLLOW UP WITH WOUND CARE OUTPATIENT DIET: SOFT AND BITE SIZE AND THIN LIQUIDS THEN RE-EVAL PER PER SPEECH THERAPY WHEN POSSIBLE ACTIVITY: TOLERATED FALL PRECAUTIONS INCREASE OXYGEN TO 7L (NEW BASELINE) NEW MEDICATION: LISINOPRIL PHARMACY: [facility] 1). WOUND CARE RT BUTTOCKS: CLEANSE WITH SOAP AND WATER, PAT PERIMETER DRY, APPLY OPTI-FOAM GENTLE OR COMPARABLE, CHANGE EVERY 3 DAYS AND PRN UNTIL CLOSED. 2). WOUND AND SKIN CARE TO LEGS AND FEET: CLEANSE WITH SOAP AND WATER, PAT DRY, LEAVE OPEN TO AIR. MAY COVER WITH DRY STERILE DRESSING PRN , CHANGE DAILY WHEN DRESSING IS IN PLACE. Patient Disposition: HOME WITH FAMILY CARE Prescriptions: New lisinopril 5 mg Tablet 2.5 mg PO DAILY Qty: 30 0RF Continued duloxetine 60 mg capsule,delayed release(DR/EC) 60 mg PO QDAY Qty: 90 1RF carvedilol 12.5 mg tablet 12.5 mg PO BID Qty: 180 1RF Rx Instructions: 25; TAKE 1 TABLET BY MOUTH TWICE DAILY ezetimibe 10 mg tablet See Rx Instructions .ROUTE .COMPLEX Qty: 90 1RF Dose Instruction: TAKE 1 TABLET BY MOUTH EVERY DAY Rx Instructions: TAKE 1 TABLET BY MOUTH EVERY DAY Spiriva Respimat 2.5 mcg/actuation mist 2 puff inhalation QDAY Qty: 4 2RF potassium chloride 20 mEq tablet extended release 20 meq PO QDAY Qty: 30 0RF bumetanide 1 mg tablet 1 mg PO DAILY trazodone 50 mg tablet 50 mg PO BEDTIME diltiazem HCl [Cartia XT] 120 mg capsule,extended release 24hr 120 mg PO DAILY insulin aspart U-100 [Novolog FlexPen U-100 Insulin] 100 unit/mL (3 mL) i nsulin pen 1 sliding scale dose SUBCUT TID PRN (Reason: hyperglycemia) Hold Instructions: MD Goff insulin glargine [Lantus Solostar U-100 Insulin] 100 unit/mL (3 mL) insulin pen 5 unit SUBCUT BID Hold Instructions: MD Goff rosuvastatin 20 mg tablet 20 mg PO BEDTIME fenofibrate 160 mg tablet 160 mg PO QDAY guaifenesin 600 mg tablet extended release 12hr 600 mg PO Q12H imatinib 400 mg tablet 400 mg PO QDAY levothyroxine 150 mcg capsule 150 mcg PO QDAY Qty: 90 2RF allopurinol 100 mg tablet 100 mg PO QDAY Qty: 90 2RF Rx Instructions: Take 0.5 Tablets by Mouth Daily folic acid 1 mg tablet 1 mg PO QDAY Qty: 90 2RF Eliquis 5 mg tablet 5 mg PO BID Qty: 90 2RF albuterol sulfate 90 mcg/actuation HFA aerosol inhaler 2 puff inhalation QID cholecalciferol (vitamin D3) 1,250 mcg (50,000 unit) wafer 1,250 mcg PO QWEEK amiodarone 200 mg tablet 200 mg PO QDAY No Action (DME) blood-glucose meter [Blood Glucose Monitoring] Kit See Rx Instructions .ROUTE Qty: 1 0RF Rx Instructions: As directed (DME) Blood Glucose Test Strip See Rx Instructions .ROUTE Qty: 50 3RF Rx Instructions: As directed- Test once daily Did you review [place] EXHIBIT DISPLAY REPRESENTATIVE for ALL controlled substances?: Not Applicable Discussed opioids are addictive and Narcan is available by prescription or from pharmacy.: No Condition: Stable Referrals: LANNY MAYES MD [Primary Care Provider] - 05/04/24 1:40 am
[2024-04-30 15:40] VITALS: BP 93/54; PULSE 92; RESP 26; TEMP 97.2
== END 2024-04-30 16:00 | disposition home or self-care (01) | DRG 189 ==
LOC: ED 13:30 → MEDSURG B 20:58
PROVIDERS: ADMIT Hospitalist; ATTEND Nurse Practitioner Family